=== PATIENT | female | born 1935 | race Caucasian/White ===

== ENCOUNTER → 2018-03-09 10:17 | Outpatient (CLI) | payer BC, SELFPAY ==
[2018-03-09 12:08] LABS: Alanine Aminotransferase 13 IU/L (9-52); Alkaline Phosphatase 112 U/L (38-126); Aspartate Aminotransferase 26 IU/L (14-36); BUN Creatinine Ratio 16.9 (6-22); Bilirubin Total 0.9 mg/dL (0.2-1.3); Blood Urea Nitrogen 22 mg/dL (7-17); Calcium 10.2 mg/dL (8.4-10.2); Carbon Dioxide 31 mmol/L (22-32); Chloride 100 mmol/L (98-107); Cholesterol 198 mg/dL (140-199); Estimated Glomerular Filt Rate 39.2 mL/min (>60); Glucose 107 mg/dL (80-110); HDL Cholesterol 56 mg/dL (40-60); HEMOLYSIS < 15 (0-50); LDL Cholesterol Calculated 111 mg/dL (<100); Potassium 4.4 mmol/L (3.4-5.1); Sodium 142 mmol/L (137-145); Triglycerides 155 mg/dL (35-150)
== END ==
PROVIDERS: PCP Internal Medicine; Visit Provider Internal Medicine
DX: E78.2 Mixed hyperlipidemia (principal)
CPT/HCPCS: 36415; 80053; 80061

== ENCOUNTER 2018-09-08 16:27 | Observation (INO) | payer BC, SELFPAY ==
--- NOTE | 2018-09-08 15:53 | DI.MRI.S_ITS ---
PROCEDURE: MR STROKE Pre- and post-contrast brain MRI, non-contrast brain MR angiogram, pre- and postcontrast neck MR angiogram INDICATIONS: left arm weakness TECHNIQUE: Brain: Noncontrast axial T1 spin echo, axial T2 fast spin echo, sagittal and axial FLAIR, coronal T2 fast spin echo, axial gradient echo, axial diffusion and ADC through the brain. After the administration of contrast, axial 3D VIBE of the cranial vasculature and brain. Brain MRA: Non-contrast 3-D time of flight MR angiogram, with multiple hlynukl-yrfhpxubf-yaawxoctgs (MIP) reformats performed. Neck MRA: Axial and sagittal TruFISP through the neck. Coronal dynamic MR angiogram during administration of contrast in the arterial and venous phases, with 3-dimenstional dkpxnnb-lhvruxvbf-pdsuflkqpl (MIP) reformats constructed from subtraction images. COMPARISON: None. FINDINGS: Image quality: Excellent. BRAIN: CSF spaces: Ventricles are normal in size and shape. Basal cisterns are patent. No extra-axial fluid collections. Brain: No intracranial bleeds or mass effects. Multiple scattered subcortical and periventricular T2/FLAIR hyperintensities are compatible with sequela of chronic small vessel ischemic disease. There is diffuse cortical volume loss with associated sulcal prominence and ex vacuo dilatation of the ventricles. Hui-white matter interface is normal. There is a tiny 3 mm cortical focus of diffusion restriction abnormality compatible with an acute ischemic insult involving the posterior right parietal lobe. This is best seen on image 69, series 26. No associated abnormal enhancement. Diffusion weighted images show no areas of acute ischemic insults. Brainstem appears normal. Normal intravascular flow voids are present. No abnormal intracranial enhancement. Skull and face: Calvarial marrow signal is normal. Orbits appear normal. Sinuses: Sinuses and mastoids are clear. BRAIN MR ANGIOGRAM: Anterior circulation: Intracranial internal carotid arteries are normal in size and enhancement. The flow within the paired anterior cerebral arteries is normal and symmetric. The flow within the middle cerebral arteries is normal and symmetric. A few scattered foci of atherosclerotic plaques with no associated hemodynamically significant stenosis. The anterior communicating artery is seen. No stenoses, occlusions, or aneurysms. Posterior circulation: The visualized portions of the vertebral arteries demonstrate normal caliber, and join to form a normal appearing basilar artery. The flow within the posterior cerebral arteries is normal and symmetric. No stenoses, occlusions, or aneurysms. NECK MR ANGIOGRAM: Carotids: Great vessels demonstrate a conventional anatomy as they arise from the aortic arch. The origins of the common carotid arteries appear patent. The calibers and courses of both common carotid arteries are normal. Scattered atherosclerotic disease without hemodynamically significant stenosis. The bifurcation regions appear normal bilaterally. The internal carotid arteries demonstrate normal course and caliber. Posterior circulation: The origins of the vertebral arteries appear patent. More superior portions of both vertebral arteries demonstrate normal course and caliber, and join to form a normal appearing basilar artery. Miscellaneous: Subclavian arteries appear patent. Pre-contrast images through the neck show no soft tissue abnormalities. No intraluminal filling defects within the dural venous sinuses. IMPRESSION: BRAIN MRI: Tiny focus of acute ischemic insult involving the posterior right parietal lobe. There also findings compatible with age-related senescent changes and sequela of chronic small vessel ischemic disease. BRAIN MR ANGIOGRAM: Mild scattered atherosclerosis without hemodynamically significant stenoses, occlusion, or aneurysm. NECK MR ANGIOGRAM: Mild scattered atherosclerosis without hemodynamically significant stenosis, occlusion, or aneurysm. Findings were relayed to Dr. Roy at 1750 hrs. Dictated by: Vishnu Ruiz M.D. on 09/09/2018 at 17:35 Approved by: Vishnu Ruiz M.D. on 09/09/2018 at 17:52
[2018-09-08 16:41] VITALS: BP 165/57; PULSE 64; RESP 16; TEMP 36.6; O2SAT 97; BMI 46.5
[2018-09-08 16:43] VITALS: BP 165/57; PULSE 64; RESP 16; TEMP 36.6; O2SAT 97; BMI 46.5
--- NOTE | 2018-09-08 16:47 | ED_ITS ---
HPI - General Adult General Chief complaint: Hypertension Stated complaint: HIGH BLOOD PRESSURE NUMBNESS OF LEFT ARM Time Seen by Provider: 09/08/18 16:32 Source: patient Mode of arrival: ambulatory Limitations: no limitations History of Present Illness HPI narrative: About 2 hours prior to arrival, the patient was at home. She developed numbness and tingling to the left face and the left dorsal hand. She denies slurred speech. She denies confusion. She did have slight headache. She is legally blind, but had a brief period of scotoma. She experienced the numbness, but no weakness in the face or upper extremity. She has hypertension. She takes aspirin daily. She has a prior history of CVA and 2015. She has no deficits from the prior stroke. She denies chest pain, palpitations, or history of arrhythmia. She denies recent illness. Related Data Home Medications Medication Instructions Recorded Confirmed aspirin 81 mg tablet,delayed 81 mg PO DAILY 03/20/18 03/20/18 release Previous Rx's Medication Instructions Recorded Disabled Parking Permit ea #1 09/30/16 hydrochlorothiazide 25 mg tablet 50 mg PO QDAY #180 tab 02/15/18 hydrocodone 5 mg-acetaminophen 325 1 tab PO Q6-8H PRN #60 tab 03/20/18 mg tablet metoprolol succinate ER 100 mg 100 mg PO QDAY #90 tab 03/20/18 tablet,extended release 24 hr simvastatin 20 mg tablet 20 mg PO QDAY #90 tab 03/20/18 triamcinolone acetonide 0.1 % 1 applictn TOPICAL TID PRN #80 gram 03/20/18 topical cream Allergies Allergy/AdvReac Type Severity Reaction Status Date / Time Sulfa (Sulfonamide Allergy Unknown Verified 09/08/18 16:41 Antibiotics) [SULFA (SULFONAMIDE ANTIBIOTICS)] amlodipine [AMLODIPINE] AdvReac Intermediate edema legs Verified 09/08/18 16:41 naproxen [NAPROXEN] AdvReac Mild DIZZINESS Verified 09/08/18 16:41 Barbiturates [BARBITURATES] AdvReac Unknown Verified 09/08/18 16:41 ergot alkaloids AdvReac Unknown Verified 09/08/18 16:41 [ERGOT ALKALOIDS] Review of Systems Review of Systems ROS Unobtainable: All systems reviewed & are unremarkable except as noted in HPI and below Constitutional Reports headache(s) Eyes Reports as per HPI and Denies change in vision ENT Ears, Nose, Mouth, and Throat: Denies vertigo, Denies dizziness, Denies facial pain and Reports headache(s) Cardiovascular Denies chest pain, Denies irregular heart rhythm, Denies lightheadedness, Denies palpitations, Denies dyspnea and Denies orthopnea Respiratory Denies cough, Denies dyspnea and Denies wheezing Gastrointestinal Gastrointestinal: Denies abdominal pain, Denies change in bowel habits, Denies diarrhea, Denies nausea and Denies vomiting Musculoskeletal Denies back pain, Denies muscle weakness, Denies numbness and Denies tingling Integumentary/Breasts Denies pruritus, Denies erythema, Denies rash and Denies wounds Neurologic Denies vertigo, Denies dizziness, Reports headache(s), Denies numbness and Denies tingling Endocrine Denies palpitations Allergic/Immunologic Denies wheezing [facility] Medical History Mixed hyperlipidemia (Chronic) History of CVA with residual deficit (Chronic) Essential hypertension (Chronic 04/17/15) Mixed hyperlipidemia (Chronic 04/17/15) Arthralgia (Chronic 04/17/15) Morbid obesity due to excess calories (Chronic 06/29/15) Chronic renal failure, stage 2 (mild) (Chronic 01/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) Surgical History No pertinent past surgical history (Acute) Social History Smoking Status: Never smoker Social History Smoking Status: Never smoker Exam Initial Vital Signs Initial Vital Signs: Vital Signs Temperature 97.8 F 09/08/18 16:41 Pulse Rate 64 09/08/18 16:41 Respiratory Rate 16 09/08/18 16:41 Blood Pressure 165/57 H 09/08/18 16:41 Pulse Oximetry 97 09/08/18 16:41 Const General: cooperative and well developed Nutritional Appearance: well nourished Orientation: alert, awake, oriented x3 and not confused [facility] Head: normocephalic and atraumatic Face and sinus: sinuses nontender and face symmetric Mouth: oral mucosae normal and moist mucous membranes Throat: posterior oropharynx normal, tonsils normal and uvula midline Eyes General: appearance normal, both eyes and all related structures Eyelids: eyelids normal Conjunctivae: conjunctivae normal Sclera: sclerae normal Pupils: PERRL EOM: EOM intact bilaterally Other: The patient is legally blind, but vision is unchanged from her baseline. Neck Neck: supple, No tender and No JVD Carotids: no bruits Chest Chest: normal inspection of the chest Resp Effort & Inspection: normal respiratory effort, able to speak in complete sentences, no respiratory distress and no use of accessory muscles Auscultation: clear to auscultation bilaterally, no rales, no rhonchi and no wheezes Cardio Rate: regular rate Rhythm: regular rhythm Heart Sounds: S1 normal, S2 normal, no click, no gallops, no murmurs and no rubs Pulses: normal peripheral pulses GI Inspection: obesity Palpation: soft, No guarding, No mass and No tender Auscultation: normal bowel sounds Back/Spine/Pelvis Back: normal to inspection, No back tenderness and No CVA tenderness Skin General: no rashes or lesions noted, No jaundice and No petechiae Neuro General: alert, oriented x3, gait normal and no focal motor deficits Speech: speech normal Sensory Exam: no sensory deficits noted Extrem General: full ROM, no clubbing, cyanosis or edema, no calf tenderness and edema Scores NIH Stroke Scale Level of Conciousness: Alert, keenly responsive Ask month/age: Answers both questions correctly. Open/close eyes, close hand: Performs both tasks correctly Best gaze horizontal: Normal Visual villalpando: No visual loss Facial palsy: Normal symetrical movement Left arm drift: No drift for full 10 sec Right arm drift: No drift for full 10 sec Left leg drift: No drift for full 10 sec Right leg drift: No drift for full 10 sec Limb ataxia: Absent Sensory on face/arms/legs: Normal, no sensory loss Best language: No aphasia, normal Dysarthria: Normal Extinction or inattention: No abnormality Total NIH Stroke scale score: 0 Course Course Narrative: The patient had left facial numbness earlier. She has had slight intermittent discomfort since arrival, but is once again normal. She has tremor in both hands, but no focal weakness. She does have a prior history of CVA. She has been given aspirin [address] was obtained. Although the CT reveals atherosclerotic changes, there is no evidence of acute stroke. I have contacted the on-call doctor, Dr. Roy. The patient be admitted. Orders Ordered: ED Orders 09/08/18 16:47 CT head/brain wo con Stat EKG-12 Lead Stat 09/08/18 17:45 Basic Metabolic Panel Stat Complete Blood Count AUTO DIFF Stat Partial Thromboplastin Time Stat Prothrombin Time INR Stat 09/08/18 18:13 XR chest 1V Stat Sodium Chloride (Normal Saline 0.9%) 1,000 mls @ 150 mls/hr IV CONT AMBER Last Admin: 09/08/18 17:34 Dose: 150 mls/hr Discontinued Medications Aspirin (Aspirin Ec) 325 mg PO NOW ONE Stop: 09/08/18 18:04 Vital Signs - 8 hr 09/08/18 16:41 09/08/18 16:43 Temperature 97.8 F 97.8 F Pulse Rate 64 64 Respiratory Rate 16 16 Blood Pressure 165/57 H 165/57 H Pulse Oximetry 97 97 Medical Decision Making Lab Data Result diagrams: 09/08/18 17:45 09/08/18 17:45 Lab Results 09/08/18 09/08/18 09/08/18 Range/Units 17:45 17:45 17:45 WBC 8.5 (4.5-11.0) X10^3/uL RBC 3.75 L (4.0-5.2) X10^6/uL Hgb 12.3 (12.0-16.0) g/dL Hct 36.6 (36-46) % MCV 97.8 (80-100) fL MCH 32.8 (26-34) PG MCHC 33.5 (30-36) % RDW 13.4 (11.6-14.8) % Plt Count 234 (150-400) X10^3/uL Neut % (Auto) 63.4 (50-75) % Lymph % (Auto) 22.5 L (25-40) % [place] % (Auto) 9.6 (3-14) % Eos % (Auto) 3.5 (2-4) % Baso % (Auto) 1.0 (0-2) % Neut # (Auto) 5400 (8728-6168) /uL Lymph # (Auto) 1900 (7919-2486) /uL [place] # (Auto) 800 (0-900) /uL Eos # (Auto) 300 (0-450) /uL Baso # (Auto) 100 (0-100) /uL PT 12.4 (10.1-12.7) SECONDS INR 1.1 (0.9-1.3) APTT 29 (26.4-36.2) SECONDS Sodium 137 (137-145) mmol/L Potassium 4.9 (3.4-5.1) mmol/L Chloride 98 (98-107) mmol/L Carbon Dioxide 33 H (22-32) mmol/L BUN 27 H (7-17) mg/dL Creatinine 1.30 H (0.52-1.04) mg/dL Estimated GFR 39.1 L (>60) mL/min BUN/Creatinine Ratio 20.8 (6-22) Glucose 108 (80-110) mg/dL Calcium 10.0 (8.4-10.2) mg/dL Point of Care Testing Glucose POC 102 Point of care testing: Point of Care Testing Glucose POC [address] scan - head: Radiologist's impression: [address] [address] [address] Scan Report Signed Patient: Nanci Jones [facility]#: [id number] : 5Acct:[id number] Age/Sex: 83 / FDate of Service: 09/08/18 Loc: ED Accession Number: [id number] Procedure: CT head/brain wo con Ordering Provider: Adam Real M.D. PROCEDURE: CT HEAD/BRAIN WO CON INDICATIONS: left arm numbness TECHNIQUE: Noncontrast 4.5 mm thick angled axial sections acquired from the foramen magnum to the vertex, with coronal and sagittal reformats. For radiation dose reduction, the following was used: automated exposure control, adjustment of mA and/or kV according to patient size. COMPARISON: [facility], CT, HEAD WITHOUT CONTRAST, 01/14/2017, 15:22. FINDINGS: Image quality: Excellent. CSF spaces: Basal cisterns are patent. No extra-axial fluid collections. The ventricles are symmetric in size and shape. Brain: No intracranial bleeds or masses. There is cerebral volume loss for ag e, with resultant ventricular and sulcal prominence. There are periventricular and deep white matter chronic small vessel ischemic changes. There is intracranial internal carotid artery atherosclerosis. Skull and face: Calvarium and visualized facial bones appear intact, without suspicious lesions. Sinuses: Visualized sinuses and mastoids are clear. IMPRESSION: 1. No acute intracranial findings. 2. Mild findings likely associated with chronic microvascular ischemic changes. Dictated by: Alta Lo M.D. on 09/08/2018 at 17:12 Approved by: Alta Lo M.D. on 09/08/2018 at 17:14 Chest x-ray: My impression: No acute findings. Discharge Plan Departure Patient Disposition: Admitted as Observation Clinical Impression: Brain TIA Referrals: Pramod Garber MD [Primary Care Provider] -
[2018-09-08 17:20] VITALS: BP 143/77; PULSE 56; RESP 14
[2018-09-08] MEDS: SODIUM CHLORIDE 0.9% 1,000 ML 150 ML IV ×2 (17:34→19:25)
[2018-09-08 17:56] LABS: Add Manual Diff / Slide Review NO; Basophils Absolute Auto 100 /uL (0-100); Eosinophils Absolute Auto 300 /uL (0-450); Eosinophils Percent Auto 3.5 % (2-4); Hematocrit 36.6 % (36-46); Hemoglobin 12.3 g/dL (12.0-16.0); Lymphocytes Absolute Auto 1900 /uL (1100-4500); Lymphocytes Percent Auto 22.5 % (25-40); Mean Corpuscular HGB Conc 33.5 % (30-36); Mean Corpuscular Hemoglobin 32.8 PG (26-34); Mean Corpuscular Volume 97.8 fL (80-100); Monocytes Absolute Auto 800 /uL (0-900); Monocytes Percent Auto 9.6 % (3-14); Neutrophils Absolute Auto 5400 /uL (1500-7000); Neutrophils Percent Auto 63.4 % (50-75); Platelet Count 234 X10^3/uL (150-400); Red Blood Cell Count 3.75 X10^6/uL (4.0-5.2); Red Cell Distribution Width 13.4 % (11.6-14.8); White Blood Cell Count 8.5 X10^3/uL (4.5-11.0)
[2018-09-08 18:00] VITALS: BP 182/60; PULSE 56; RESP 9; O2SAT 95
[2018-09-08 18:05] LABS: INR 1.1 (0.9-1.3); Prothrombin Time 12.4 SECONDS (10.1-12.7)
[2018-09-08 18:08] LABS: PTT Partial Thromboplastin Tim 29 SECONDS (26.4-36.2)
[2018-09-08 18:09] LABS: BUN Creatinine Ratio 20.8 (6-22); Blood Urea Nitrogen 27 mg/dL (7-17); Carbon Dioxide 33 mmol/L (22-32); Chloride 98 mmol/L (98-107); Estimated Glomerular Filt Rate 39.1 mL/min (>60); Glucose 108 mg/dL (80-110); HEMOLYSIS < 15 (0-50); Potassium 4.9 mmol/L (3.4-5.1); Sodium 137 mmol/L (137-145)
--- NOTE | 2018-09-08 18:13 | DI.RAD.S_ITS ---
PROCEDURE: XR CHEST 1V INDICATIONS: TIA TECHNIQUE: One view of the chest was acquired. COMPARISON: [facility], , CHEST 1 VIEW, 01/14/2017, 15:14. FINDINGS: This is a markedly limited study due to patient body habitus. Surgical changes and devices: None. Lungs and pleura: There is diffuse interstitial prominence. Mediastinum: Mediastinal contours appear normal. Heart size is enlarged. There is pulmonary vascular engorgement. Bones and chest wall: No suspicious bony lesions. Overlying soft tissues appear unremarkable. IMPRESSION: Cardiomegaly, interstitial prominence, and pulmonary vascular engorgement suggesting fluid overload. Dictated by: Alta Lo M.D. on 09/08/2018 at 18:37 Approved by: Alta Lo M.D. on 09/08/2018 at 18:38
--- NOTE | 2018-09-08 18:49 | PC.NURSE ---
Tele # 6 confirmed w/ ICU.
[2018-09-08 19:05] VITALS: BP 180/55; PULSE 62; RESP 18; TEMP 36.5; O2SAT 94
--- NOTE | 2018-09-08 19:46 | DI.ECHO.S_ITS ---
[facility]---------+ [facility] +---------+ : : [address] : : : : [place] : : : : [id number] : : : : Phone: [phone] Echocardiogram Report + + :Name: ANGELA MCKINNEY Study Date: 09/09/2018 Height: 60 in : :Hospital Exam Location: [facility] Weight: 238 lb : : Gender: Female BSA: 2.0 m2 : :: 1935 Age: 83 yrs BP: 147/75 mmHg: :Reason For Study: TIA : :Ordering Physician: Joan : :Hospitalist Performed By: Valeria Lemons : :Referring: SHARLA ALLEN : + + Interpretation Summary There is mild concentric left ventricular hypertrophy. Left ventricular systolic function is normal without focal wall motion abnormalities. The ejection fraction is estimated to be 55-60%. Diastolic parameters suggest a relaxation abnormality of the left ventricle, consistent with probable normal filling pressures. The right ventricle is normal in size and function. The right ventricular systolic pressure is estimated to be at least 54 mmHg based on an estimated right atrial pressure of 15 mm Hg. The left atrium is mildly dilated. Right atrial size is normal. There is mild mitral regurgitation. There is no other significant valvular heart disease. The ascending aorta could not be visualized. Mild atherosclerotic plaque(s) in the aortic arch. The IVC is dilated (diameter is greater than 2.1 cm) and it collapses less than 50% with a sniff. This suggests a high right atrial pressure of 15 mm Hg. No obvious echocardiographic source for TIA. Procedure: A two-dimensional transthoracic echocardiogram with color flow and Doppler was performed. The study quality was technically adequate. Comparison is made with the echocardiogram of 06/24/2015. The patient had a difficult time tolerating the exam. The patient was imaged in a supine position. The patient was in normal sinus rhythm during the exam. Left Ventricle: The left ventricle is normal in size. There is mild concentric left ventricular hypertrophy. Left ventricular systolic function is normal without focal wall motion abnormalities. The ejection fraction is estimated to be 55-60%. Diastolic parameters suggest a relaxation abnormality of the left ventricle, consistent with probable normal filling pressures. Right Ventricle: The right ventricle is normal in size and function. Atria: The left atrium is mildly dilated. Right atrial size is normal. Mitral Valve: The mitral valve is normal in structure and function. There is mild mitral regurgitation. Aortic Valve: The aortic valve is trileaflet. The aortic valve opens well. There is trace aortic regurgitation. Tricuspid Valve: The tricuspid valve is normal in structure and function. There is mild tricuspid regurgitation. The right ventricular systolic pressure is estimated to be at least 54 mmHg based on an estimated right atrial pressure of 15 mm Hg. Pulmonic Valve: The pulmonic valve is not well visualized. There is no other significant valvular heart disease. Great Vessels: The ascending aorta could not be visualized. Mild atherosclerotic plaque(s) in the aortic arch. The IVC is dilated (diameter is greater than 2.1 cm) and it collapses less than 50% with a sniff. This suggests a high right atrial pressure of 15 mm Hg. Pericardium/ Pleura There is no pericardial effusion. There is an anterior echo-free space consistent with a fat pad. There is no pleural effusion. MMode/2D Measurements & Calculations LVIDd: 3.7 cm LVOT diam: 2.2 cm LVIDs: 2.4 cm Ao Arch Diam (Prox Trans): 2.3 cm FS: 36.8 % IVSd: 1.2 cm LVPWd: 1.3 cm LV velasco. diameter/BSA (cm/m^2): 1.9 LV sys. diameter/BSA (cm/m^2): 1.2 LA A2 area: 20.5 cm2 RA long axis: 4.6 cm LA A4 area: 23.1 cm2 RA area: 16.1 cm2 LA length (vol): 4.9 cm RA vol: 48.1 ml LA vol: 82.0 ml RA : 23.9 ml/m2 LA vol index: 40.8 ml/m2 IVC diam: 2.6 cm TAPSE: 1.7 cm Doppler Measurements & Calculations Ao V2 max: 134.6 cm/sec LVOT Max Byron: 71.0 cm/sec Ao V2 mean: 99.8 cm/sec LV V1 max P.0 mmHg Ao max P.2 mmHg LV V1 VTI: 16.4 cm Ao mean P.2 mmHg JACOB(I,D): 1.9 cm2 Ao V2 VTI: 31.5 cm JACOB(V,D): 2.0 cm2 sev ratio: 0.52 JACOB indexed to BSA (cm^2/m^2): 0.97 MV E max byron: 62.6 cm/sec TR max byron: 313.0 cm/sec MV A max byron: 76.3 cm/sec TR max P.2 mmHg MV E/A: 0.82 Med Peak E' Byron: 4.6 cm/sec E/E' med: 13.5 Lat Peak E' Byron: 7.4 cm/sec E/E' lat: 8.5 E/e' average: 11.0 MV dec time: 0.16 sec SV(LVOT): 61.4 ml Reading Physician:02:19 PM
[2018-09-08 20:00] VITALS: BMI 46.5
[2018-09-08 21:15] LABS: RBC Urine None Seen (0-5/HPF)
[2018-09-08 21:18] VITALS: BP 146/62
[2018-09-08] MEDS: HYDROCODONE/ACET 5/325 TABLET 1 TAB PO (21:19)
[2018-09-08 21:21] LABS: Appearance Urine UA CLEAR; Bilirubin Urine UA NEGATIVE (NEGATIVE); Color Urine UA YELLOW; Glucose Urine UA NEGATIVE (Negative); Ketones Urine UA NEGATIVE (NEGATIVE); Leukocyte Esterase Urine UA TRACE (NEGATIVE); Nitrite Urine UA NEGATIVE (Negative); Occult Blood Urine UA TRACE-INTACT (Negative); Protein Urine UA NEGATIVE (Negative); Urobilinogen Urine UA 0.2 E.U./dL (0.2)
[2018-09-08 21:35] LABS: Bacteria Urine Many (>30); Culture Indicated Urine Specimen Cultured; Squamous Epithelial Cell Urine 1-5 /HPF; WBC Urine 1-5/HPF (0-5/HPF)
--- NOTE | 2018-09-08 22:28 | PC.NURSE ---
Pt A&OX3. 94%RA while awake. desats to 86% while sleeping, placed 2L NC, 95%. On and off numbness to her tongue and fingers on L.hand. Pt reports taking aspirin 325 at home this morning. She also took 50 mg HCTZ in the morning and addition 25mg around 1500. Pt c/o head ache 12/17, administered 1 tab norco. 1pa-FWW to the BR. will continue to monitor. call light in reach. bed alarm active.
[2018-09-09] VITALS (14 sets, daily range): BP systolic 134–170; BP diastolic 55–75; PULSE 53–65; RESP 16–22; TEMP 36.3–36.7; O2SAT 91–100
[2018-09-09] MEDS: ACETAMINOPHEN 325 MG TABLET 650 MG PO ×2 (02:30→23:49)
--- NOTE | 2018-09-09 05:05 | PC.NURSE ---
2300- Pt admitted for TIA w/ numbness & tingling felt on left arm & face. Denies each feeling at this time; NIH complete= 1. NO facial droop present. VSS; 2L NC applied as pt desats when she sleeps. Cont SpO2 in place as well. PO [place] given on previous shift, see MAR for details. Pt still c/o SULTANA still but wants to wait to see if goes away. 229- Neuro status assessed & intact. No changes at this time. PO tylenol given for SULTANA. 629- Neuro status unchanged. Moving to bathroom SBA w/ walker.
--- NOTE | 2018-09-09 08:55 | PT.IIE ---
Surgical History (Last Updated 09/08/18 @ 20:36 by Adriana Bradley RN) History of appendectomy (Acute) History of total left knee replacement (Acute) No pertinent past surgical history (Acute) Medical History (Last Updated 09/08/18 @ 20:36 by Adriana Bradley RN) Mixed hyperlipidemia (Chronic) History of CVA with residual deficit (Chronic) Essential hypertension (Chronic 04/17/15) Mixed hyperlipidemia (Chronic 04/17/15) Arthralgia (Chronic 04/17/15) Morbid obesity due to excess calories (Chronic 06/29/15) Chronic renal failure, stage 2 (mild) (Chronic 01/31/17) Acute intermittent porphyria (Acute) Arthritis (Acute) Physical Therapy Inpatient Evaluation/Re-Eval M1 PT/OT-IP Prior Functional Status Start: 09/09/18 10:01 Freq: NEEDED Status: Active Protocol: Document 09/09/18 08:55 [facility] (Rec: 09/09/18 10:17 [facility] [id number]) Medical Review Prior Functional Status Medical History Reviewed Yes Mobility and Gait mod indep gait with SPC occasionally, but admits to more furniture surfing in home, uses carts when shopping and has daughter with her outdoors d/t visual issues Activities of Daily Living and IADL's mod indep ADLs, including bathing Social History Household Members children Living Arrangements House Number of Floors (Floors) One Floor Number of Stairs To Enter/Railing? 12 SE B rails Home Environment Standard Height Toilet Tub/Shower Home Equipment Four Wheel Walker Straight Cane Grab Bars In Shower Additional Social History Comment Pt with onget numbness and tingling in L dorsum of hand and L face. CT negative for acute findings. Chest radiograph suggested possible fluid overload. Pt has macular degeneration, is legally blind. She admits to symptoms of L hand weakness and numbness coming and going throughout the day. M2 PT-IP Current Condition Start: 09/09/18 10:01 Freq: NEEDED Status: Active Protocol: Document 09/09/18 08:55 [facility] (Rec: 09/09/18 10:17 [facility] [id number]) Physical Therapy Current Condition Current Condition Evaluation Date 09/09/18 Treatment Diagnosis HTN, L hand and face numbness, impaired activity tolerance and weakness M3 PT-IP Subjective Start: 09/09/18 10:01 Freq: NEEDED Status: Active Protocol: Document 09/09/18 08:55 [facility] (Rec: 09/09/18 10:17 [facility] [id number]) Subjective Physical Therapy Visit Type Type Initial Evaluation Visit Start Time 08:55 Visit Stop Time 09:27 Total Visit Minutes 32 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 Patient Goals to return back to PLOF Therapy Pain Assessment Pain Present Pain Present Denied Pain M4 PT-IP Mobility and Gait Start: 09/09/18 10:01 Freq: NEEDED Status: Active Protocol: Document 09/09/18 08:55 [facility] (Rec: 09/09/18 10:17 [facility] [id number]) PT-Transfer Assessment Sit to and From Stand Sit to and from Stand Standby Assistance Equipment Transfer Assistive Device Gait Belt Front Wheeled Walker Transfers Transfer Destination Chair Transfer Technique Stand Step Pivot Transfer Ability Level of Assist Standby Assistance Gait Assessment Gait Gait Assistance Required: Standby Assistance Distance (Feet) 100 Assistive Devices Assistive Device Gait Belt Front Wheeled Walker Gait Deviations General Gait Pattern Decreased Stride Length Decreased Feet Clearance Flexed Trunk Factors Limiting Gait Function Factors Limiting Gait Function Decreased Activity Tolerance Decreased Strength Incoordination Poor Balance Comments Gait Comments tele monitor noted LA up in the 170s, unsure if artifact or not. LA checked immediately after spike on tele screen, showed LA at 68 on wall pulse oximeter. PT-Balance Assessment Sitting Balance and Reactions Static Sitting Balance Ability Good Dynamic Sitting Balance Ability Good Standing Balance and Reactions Static Standing Balance Ability Fair Dynamic Standing Balance Ability Poor Device Used FWW Balance Tests Single Limb Standing unable without UEs M5 PT-IP Objective Assessments Start: 09/09/18 10:01 Freq: NEEDED Status: Active Protocol: Document 09/09/18 08:55 [facility] (Rec: 09/09/18 10:17 [facility] [id number]) Orientation Orientation/Cognition Level of Alertness Alert Gross Range of Motion Upper Extremity ROM Assessment Left Impaired Lower Extremity ROM Assessment Within Functional Limits Strength Upper Extremity Strength Assessment Left Impaired Shoulder 4/5 B flexion and abduction, ER Elbow extension 3+/5 L and 4/5 R Wrist 4/5 B flex/extension Hand see below Lower Extremity Strength Assessment Bilaterally Impaired Hip flexion 3+/5 B Knee flexion 3+/5 B Ankle DF 5/5 R and 4/5 L Comments Strength Comments finger abduction initially 2+/ 5, then 3/5 thumb extension, abduction initially 2/5 then 3/5 *pt initially had weakness in finger abduction and thumb abd and extension, but noted that her numbness went away during screening, retested and noted increased strength ( able to lift vs gravity). Coordination Assessment Assessment Finger to Nose Test Moderate Impairment Pronation/Supination Test Moderate Impairment Foot Tapping Test Minimal Impairment Heel on Falcon Test Minimal Impairment Coordination Comments LE impaired bilaterally UE impaired L side only Sensation Assessment Sensation Gross Sensation Left UE Impaired Comments Sensation Comments LUE impaired in hand, thumb M6 PT-IP Treatment Start: 09/09/18 10:01 Freq: NEEDED Status: Active Protocol: Document 09/09/18 08:55 [facility] (Rec: 09/09/18 10:17 [facility] [id number]) Physical Therapy Treatment Education Education Provided Safety M7 PT-IP Assessment and Plan Start: 09/09/18 10:01 Freq: NEEDED Status: Active Protocol: Document 09/09/18 08:55 [facility] (Rec: 09/09/18 10:17 [facility] [id number]) PT Summary Assessment and Plan Potential Rehabilitation Potential Good Status of Condition at Evaluation Evolving Summary Impairments Strength Balance Coordination Sensation Bed Mobility Transfers Gait Activity Tolerance Assessment Summary Upon initial examination, pt initially had 2 to 2+/5 strength in L thumb and fingers with MMT, but noted that her numbness went away after initial tested, was then re-tested and found to hav 3/ 5 strength grading with MMT. Pt with impaired coordination of the LUE, but also min limitations in bilateral LEs, but contributing limited LE ROM and weakness as well. Pt's LA increased per telemetry screen with ambulation, but possibly artifact (spoke with RN, will contact ICU), but LA WNL when checked immediately on pulse oximeter. Pt is deconditioned, and would benefit from using her 4WW at home for safety and stability, as well as with outdoor ambulation with daughter's assistance (pt legally blind). Pt will need to be able to manage stairs safely prior to d/c, therefore will require further ongoing physical therapy during this episode of care. If L hand symptoms do not resolve fully, she may benefit from outpatient OT treatment to improve strength and hand function on the L side. Pt is R hand dominant. Goals Bed Mobility Goal Independent Transfer Goal Independent Gait Goal Standby Assistance Four Wheel Walker Gait Distance 200 Other Goals up/down 12 steps B rails and CGA ST ft ambulation, SBA and 4WW in 1 day up/down 6 steps with B rails and CGA in 1 day Days to Meet Goals 3 Frequency of Treatment Frequency Of Treatment Twice a Day Treatment Plan Physical Therapy Treatment Plan Bed Mobility Training Transfer Training Gait Training Therapeutic Exercise Balance Retraining Discharge Planning Neuromuscular Re-ed Coordination Retraining Manual Therapy Other Recommendations and Next Treatment 4WW trial for safety of use Focus upon d/c, stair training when able Recommendations To Nursing Amount of Assist Needed 1 Person Assist Discharge Recommendations PT Discharge Recommendations Home with Assistance Other Discharge Recommendations OP OT for hand function, strengthening
--- NOTE | 2018-09-09 09:05 | CM.DANOTE ---
DCP: Case received, EMR reviewed and met with patient. Introduced self and role. DCP template completed with information currently available. Patient is an 83 year old female who admitted yesterday afternoon to the care of the hospitalist team. PCP: Dr. Garber. Payer: confirmed: Medicare A/[employer]. Patient came to hospital via family vehicle due to hypertension and numbness and tingling to face and left hand. Patient has history of CVA, and is also legally blind. She is here under observation at this time. Met briefly with patient, alert and oriented. Lives here in [place]. She resides with her daughter, Shira, who helps her at home. She does not use a walker, but stated that she holds on to furniture to get around. She stated that she can take her own showers, and her daughter helps with meals. P: DCP to follow closely. Will see how she progresses here in hospital. May need physical therapy before she is discharged home to see how she does. Dinora Harrington RN/Gut Carrier
--- NOTE | 2018-09-09 09:47 | PM.HP.1 ---
History of Present Illness Date Patient Seen: 09/09/18 Time Patient Seen: 08:25 Chief complaint: HIGH BLOOD PRESSURE NUMBNESS OF LEFT ARM Narrative: Pt is a 83yo woman with hypertension, hyperlipidemia, CKD stage 2, morbid obesity, and hx of CVA who presented with left sided tingling sensation in her hands. Patient reports that yesterday afternoon around 2:00 p.m. she developed slight tingling sensation in her left hand. Along with this, her tongue felt slightly numb and her face felt numb under her chin. Patient states that this lasted for a few minutes. She also felt ?tense? and jittery, like a ?feeling that my blood pressure was high.? The patient did check her blood pressure and found that it was 220/118. She took an extra tablet of her home hydrochlorothiazide. Her blood pressure then improved significantly over the next 1-2 hours. The patient states that since that time, her left hand has continued to have a tingling sensation on and off. Her daughter came over to visit, and when she told her about her symptoms insisted that she be evaluated in the emergency room. The pt does state that if she has her hands in her pockets, they will sometimes develop the same tingling sensation that then goes away when she removes them from her pockets. In the emergency room, the patient states that she had a few minutes where she had a difficult time finding words. She continued to have intermittent tingling in her left hand, and this has continued through the night. Most recently this morning, the patient had some tingling in her left thumb. She states that overall her left hand feels slightly weaker than her right hand. She denies any other focal weakness or neurological symptoms currently. She does have a history of left-sided CVA, but states that she had fully recovered from this. The patient denies any recent chest pain, shortness of breath, acutely worsening lower extremity edema, abdominal pain. Prior to yesterday, she had been feeling in her normal health. She lives at home independently. In the emergency room, blood work was completed that was unremarkable and showed her kidney function to be stable. Head CT and chest x-ray were both completed that showed no acute findings. The patient was admitted for possible TIA, and concerns that she continued to have intermittent symptoms. Patient History Medical History Mixed hyperlipidemia (Chronic) History of CVA with residual deficit (Chronic) Essential hypertension (Chronic 10/09/15) Mixed hyperlipidemia (Chronic 04/17/15) Arthralgia (Chronic 04/17/15) Morbid obesity due to excess calories (Chronic 06/29/15) Chronic renal failure, stage 2 (mild) (Chronic 01/31/17) Acute intermittent porphyria (Acute) Arthritis (Acute) Surgical History History of appendectomy (Acute) History of total left knee replacement (Acute) No pertinent past surgical history (Acute) Social History household members: children Smoking Status: Former smoker alcohol intake: never Family & Social History Social History: household members children Prior Living Arrangements House Safety & Behavioral: Feels Safe in Current Yes Environment Been Physically Hurt or No Threatened By a Person Suicidal Ideation Description None Suicide Plan Description No Plan Tobacco & Substance use: Tobacco type cigarettes Smoking Status Former smoker alcohol intake never Substance Use Type does not use Meds Home Medications Medication Instructions Recorded Confirmed Type hydrochlorothiazide 25 mg tablet 50 mg PO QDAY #180 tab 02/15/18 09/08/18 Rx hydrocodone 5 mg-acetaminophen 325 1 tab PO Q6-8H PRN #60 tab 03/20/18 09/08/18 Rx mg tablet metoprolol succinate ER 100 mg 100 mg PO QDAY #90 tab 03/20/18 09/08/18 Rx tablet,extended release 24 hr simvastatin 20 mg tablet 20 mg PO QDAY #90 tab 03/20/18 09/08/18 Rx triamcinolone acetonide 0.1 % 1 applictn TOPICAL TID PRN #80 gram 03/20/18 09/08/18 Rx topical cream aspirin [Mike Aspirin] 1 tab PO DAILY 09/08/18 09/08/18 History Disabled Parking Permit See Protocol MISCELLANEOUS 09/09/18 09/09/18 History DIRECTED Allergies Allergy/AdvReac Type Severity Reaction Status Date / Time Sulfa (Sulfonamide Allergy Unknown Verified 09/08/18 16:41 Antibiotics) [SULFA (SULFONAMIDE ANTIBIOTICS)] amlodipine [AMLODIPINE] AdvReac Intermediate edema legs Verified 09/08/18 16:41 naproxen [NAPROXEN] AdvReac Mild DIZZINESS Verified 09/08/18 16:41 Barbiturates [BARBITURATES] AdvReac Unknown Verified 09/08/18 16:41 ergot alkaloids AdvReac Unknown Verified 09/08/18 16:41 [ERGOT ALKALOIDS] Review of Systems Constitutional Constitutional: Denies fatigue, Denies fever(s), Denies frequent falls, Denies headache(s) and Denies weakness Eyes Eyes: Denies blurry vision, Denies itchy eyes, Denies loss of vision and Denies eye pain ENT Ears, Nose, Mouth, and Throat: No dizziness and No headache(s) Cardiovascular Cardiovascular: Denies chest pain, Denies fainting, Denies fast heart rate, Reports leg swelling, Denies rapid, pounding, or irregular heartbeat and Denies shortness of breath with activity Respiratory Respiratory: Denies cough, Denies dyspnea on exertion and Denies wheezing Gastrointestinal Gastrointestinal: Denies abdominal pain, Denies nausea and Denies vomiting Musculoskeletal Musculoskeletal: Denies abnormal gait and Reports numbness Neurologic Neurologic: Denies abnormal gait, Denies confusion, Denies dizziness, Denies syncope, Denies frequent falls, Denies headache(s), Denies lack of coordination, Denies loss of vision, Reports numbness, Denies seizure-like activity, Denies tremor(s) and Denies weakness Psychiatric Psychiatric: Denies confusion Endocrine Endocrine: Denies fatigue and Denies palpitations Allergic/Immunologic Allergic/Immunologic: Denies itchy eyes and Denies wheezing Exam Vital Signs (past 8 hours): - 09/09/18 04:00 09/09/18 04:54 09/09/18 07:36 Temperature 97.4 F L 98.1 F Pulse Rate 53 L 65 Respiratory Rate 16 18 Blood Pressure 135/68 143/68 H Pulse Oximetry 99 98 99 09/09/18 09:00 Temperature 97.6 F Pulse Rate 60 Respiratory Rate 20 Blood Pressure 147/75 H Pulse Oximetry 91 Oxygen Delivery Method Nasal Cannula Oxygen Flow Rate 2 Narrative Exam Narrative: GEN - alert, cooperative and no distress, sitting comfortably in chair eating breakfast, appears well HEENT - normocephalic and atraumatic, sclera white, moist mucus membranes NECK - FROM, no adenopathy HEART - RRR, S1, S2 normal, no S3 or S4, no murmurs LUNGS - symmetric chest rise, no accessory muscles, clear to auscultation bilaterally ABD - obese, nondistended, normal bowel sounds, soft, nontender EXT - 2+ pitting edema bilaterally that pt states is chronic SKIN - no rashes or suspicious lesions NEURO - alert and and oriented to person, place and situation, Muscle strength is 5/5 UE and LE flexors/extensors and 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 compared to right, Sensation to light touch present bilaterally UE and LE, Coordination shows finger to nose normal bilaterally Objective Labs Result Diagrams: 09/08/18 17:45 09/08/18 17:45 Labs: Laboratory Results - last 24 hr 09/08/18 09/08/18 09/08/18 17:45 17:45 17:45 WBC 8.5 RBC 3.75 L Hgb 12.3 Hct 36.6 MCV 97.8 MCH 32.8 MCHC 33.5 RDW 13.4 Plt Count 234 Neut % (Auto) 63.4 Lymph % (Auto) 22.5 L [place] % (Auto) 9.6 Eos % (Auto) 3.5 Baso % (Auto) 1.0 Neut # (Auto) 5400 Lymph # (Auto) 1900 [place] # (Auto) 800 Eos # (Auto) 300 Baso # (Auto) 100 PT 12.4 INR 1.1 APTT 29 Sodium 137 Potassium 4.9 Chloride 98 Carbon Dioxide 33 H BUN 27 H Creatinine 1.30 H Estimated GFR 39.1 L BUN/Creatinine Ratio 20.8 Glucose 108 Calcium 10.0 Urine Color Urine Appearance Urine pH Ur Specific [place] Urine Protein Urine Glucose (UA) Urine Ketones Urine Occult Blood Urine Nitrate Urine Bilirubin Urine Urobilinogen Ur Leukocyte Esterase Urine RBC Urine WBC Ur Squamous Epith Cells Urine Bacteria Ur Culture Indicated? 09/08/18 19:35 WBC RBC Hgb Hct MCV MCH MCHC RDW Plt Count Neut % (Auto) Lymph % (Auto) [place] % (Auto) Eos % (Auto) Baso % (Auto) Neut # (Auto) Lymph # (Auto) [place] # (Auto) Eos # (Auto) Baso # (Auto) PT INR APTT Sodium Potassium Chloride Carbon Dioxide BUN Creatinine Estimated GFR BUN/Creatinine Ratio Glucose Calcium Urine Color Yellow Urine Appearance Clear Urine pH 7.0 Ur Specific [place] 1.010 Urine Protein Negative Urine Glucose (UA) Negative Urine Ketones Negative Urine Occult Blood Trace-intact Urine Nitrate Negative Urine Bilirubin Negative Urine Urobilinogen 0.2 Ur Leukocyte Esterase Trace H Urine RBC None seen Urine WBC 1-5/hpf Ur Squamous Epith Cells 1-5 /hpf Urine Bacteria Many (>30) H Ur Culture Indicated? Specimen cultured Assessment & Plan Assessment & Plan narrative: Pt is a 83yo woman with hypertension, hyperlipidemia, CKD stage 2, morbid obesity, and hx of CVA who presented with left sided tingling sensation in her hands. Concerning for TIA, especially in light of hx of CVA. Pt still with slight recurrent symptoms, warranting additional work-up. 1) Possible TIA: Negative head CT in the ER - Echocardiogram, MRI stroke protocol, carotid dopplers today - Transition from Simvastatin to Atorvastatin - Continue home Aspirin 2) Hypertension: BP initially quite elevated, now stabilized - Continue home Metoprolol, HCTZ 3) CKD: Creatinine stable at admission 4) Morbid obesity: Pt with desaturations overnight, requiring 2L NC. Question sleep apnea. - Would likely benefit from sleep study as an outpatient DVT ppx: Lovenox Diet: Cardiac diet Dispo: Pending completion of above studies. Admitted under observation. Possible d/c later today.
[2018-09-09] MEDS: ASPIRIN EC 81 MG TABLET PO (09:52)
[2018-09-09] MEDS: hydroCHLOROthiazide 25 MG TABLET 50 MG PO (09:52)
[2018-09-09] MEDS: ENOXAPARIN 30 MG/0.3 ML SYRINGE SUBCUT (09:52)
[2018-09-09] MEDS: METOPROLOL ER 50 MG TABLET 100 MG PO (09:53)
[2018-09-09] MEDS: SIMVASTATIN 20 MG TABLET PO (09:53)
--- NOTE | 2018-09-09 11:19 | PC.NURSE ---
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
--- NOTE | 2018-09-09 13:45 | PT.IPTN ---
Physical Therapy Treatment Note M2 PT-IP Current Condition Start: 09/09/18 10:01 Freq: NEEDED Status: Active Protocol: Document 09/09/18 08:55 [facility] (Rec: 09/09/18 10:17 [facility] [id number]) Physical Therapy Current Condition Current Condition Evaluation Date 09/09/18 Treatment Diagnosis HTN, L hand and face numbness, impaired activity tolerance and weakness M3 PT-IP Subjective Start: 09/09/18 10:01 Freq: NEEDED Status: Active Protocol: Document 09/09/18 13:45 [facility] (Rec: 09/09/18 13:55 [facility] [id number]) Subjective Physical Therapy Visit Type Type Treatment Note Visit Start Time 13:25 Visit Stop Time 13:45 Total Visit Minutes 20 Number of CAFETERIA AIDE Visits 0 Physical Therapy Visit Comments Patient Comments pt states that she is still getting numbness in L face and hand that comes and goes. M4 PT-IP Mobility and Gait Start: 09/09/18 10:01 Freq: NEEDED Status: Active Protocol: Document 09/09/18 13:45 [facility] (Rec: 09/09/18 13:55 [facility] [id number]) PT-Transfer Assessment Sit to and From Stand Sit to and from Stand Standby Assistance Equipment Transfer Assistive Device Gait Belt Front Wheeled Walker 4 Wheeled Walker Transfers Transfer Destination Chair Transfer Technique Stand Step Pivot Transfer Ability Level of Assist Standby Assistance Gait Assessment Gait Gait Assistance Required: Standby Assistance Distance (Feet) 120 Assistive Devices Assistive Device Gait Belt Front Wheeled Walker 4 Wheeled Walker Gait Deviations General Gait Pattern Decreased Stride Length Decreased Feet Clearance Flexed Trunk Factors Limiting Gait Function Factors Limiting Gait Function Decreased Activity Tolerance Decreased Sensation Decreased Strength Incoordination Poor Balance Comments Gait Comments Pt used FWW for initial 60 ft then 4WW for the next 60 ft. She notes she preferred the FWW vs the 4WW with gait. No loss of balance with either AD . M5 PT-IP Objective Assessments Start: 09/09/18 10:01 Freq: NEEDED Status: Active Protocol: Document 09/09/18 13:45 [facility] (Rec: 09/09/18 13:55 [facility] [id number]) Coordination Assessment Assessment Finger to Nose Test Moderate Impairment Pronation/Supination Test Moderate Impairment Foot Tapping Test Minimal Impairment Heel on Falcon Test Minimal Impairment Coordination Comments LE impaired bilaterally UE impaired L side only M6 PT-IP Treatment Start: 09/09/18 10:01 Freq: NEEDED Status: Active Protocol: Document 09/09/18 08:55 [facility] (Rec: 09/09/18 10:17 [facility] [id number]) Physical Therapy Treatment Education Education Provided Safety M7 PT-IP Assessment and Plan Start: 09/09/18 10:01 Freq: NEEDED Status: Active Protocol: Document 09/09/18 13:45 [facility] (Rec: 09/09/18 13:55 [facility] [id number]) PT Summary Assessment and Plan Summary Assessment Summary Pt able to safely use 4WW although she prefers the FWW when comparing the two. Pt has MRI scheduled today, but notices a ring on the L 4th digit, which she notes is difficult to take off. Alerted nursing about ring, and will try to get it off before MRI. Pt reported being tired this session, not ready to attempt stair training at this time. Recommend stair training tomorrow, as well as progression of gait. Goals Bed Mobility Goal Independent Transfer Goal Independent Gait Goal Standby Assistance Four Wheel Walker Gait Distance 200 Other Goals up/down 12 steps B rails and CGA ST ft ambulation, SBA and 4WW in 1 day up/down 6 steps with B rails and CGA in 1 day Days to Meet Goals 3 Frequency of Treatment Frequency Of Treatment Twice a Day Treatment Plan Other Recommendations and Next Treatment gait as tolerated with FWW, Focus stairs (12 SE B rails) prior to d/c. Recommendations To Nursing Amount of Assist Needed 1 Person Assist Discharge Recommendations PT Discharge Recommendations Home with Assistance Other Discharge Recommendations OP OT for hand function, strengthening
--- NOTE | 2018-09-09 16:31 | PC.NURSE ---
Addendum entered by Enriqueta Coburn R.N. 09/09/18 21:22: Pt back form mri. that did show a small infarct. updated family. assessment completed and charted. uses call light. bed and chair alarm on as appropriate. NIH 5. Pt has macular degeneration. will continue to monitor pt for safety. Pt has been reporting that her left hand and cheek go numb at certain times of the day. Original Note: 1500- assumed care of Pt from outgoing shift at this time. MRI should be coming for pt in a short while, will continue to monitor. Pt family at bedside. 1600- MRI here to pick pt up. Tele removed.
[2018-09-09] MEDS: ATORVASTATIN 20 MG TABLET 40 MG PO (20:43)
[2018-09-10] VITALS: BP 135/82; PULSE 51; RESP 18; TEMP 36.7; O2SAT 95
--- NOTE | 2018-09-10 | DI.US.S_ITS ---
PROCEDURE: US CAROTID DOPPLER BI INDICATIONS: CVA TECHNIQUE: Color and pulse Doppler interrogation was performed of both carotid systems, with image documentation and velocity measurements. COMPARISON: [facility], , CAROTID ARTERY DOPPLER BILAT, 06/24/2015, 10:06. FINDINGS: Stenosis calculations are based on SRU (Society of Radiologists in Ultrasound) criteria. Right side: Brachial blood pressure: 150/78 mm Hg. Common carotid artery peak systolic velocity: 62 cm/sec. Internal carotid artery peak systolic velocity: 65 cm/sec. Internal carotid artery end diastolic velocity: 11 cm/sec. External carotid artery peak systolic velocity: 52 cm/sec. ICA/CCA peak systolic ratio: 1.1. Hui scale imaging description: Mild soft plaque Percent internal carotid artery stenosis: Less than 50% stenosis. Vertebral artery: Flow direction is antegrade. Left side: Brachial blood pressure: 146/67 mm Hg. Common carotid artery peak systolic velocity: 77 cm/sec. Internal carotid artery peak systolic velocity: 85 cm/sec. Internal carotid artery end diastolic velocity: 13 cm/sec. External carotid artery peak systolic velocity: 63 cm/sec. ICA/CCA peak systolic ratio: 1.1. Hui scale imaging description: Mild to moderate soft plaque Percent internal carotid artery stenosis: Less than 50% stenosis. Vertebral artery: Flow direction is antegrade. IMPRESSION: Less than 50% stenosis at the proximal internal carotid arteries bilaterally, normal-appearing vertebral arterial flow. Dictated by: Skyler Aviles M.D. on 09/10/2018 at 11:00 Approved by: Skyler Aviles M.D. on 09/10/2018 at 11:02
[2018-09-10 04:00] VITALS: BP 147/71; PULSE 61; RESP 20; TEMP 36.3; O2SAT 94
[2018-09-10 08:00] VITALS: BP 146/67; PULSE 56; RESP 18; TEMP 36.3; O2SAT 96
[2018-09-10 08:01] VITALS: BP 158/79
--- NOTE | 2018-09-10 08:42 | P.DS_ITS ---
History of Present Illness Date Patient Seen: 09/10/18 Time Patient Seen: 08:36 Chief complaint: HIGH BLOOD PRESSURE NUMBNESS OF LEFT ARM Narrative: Pt is a 83yo woman with hypertension, hyperlipidemia, CKD stage 2, morbid obesity, and hx of CVA who presented with left sided tingling sensation in her hands. Patient reports that yesterday afternoon around 2:00 p.m. she developed slight tingling sensation in her left hand. Along with this, her tongue felt slightly numb and her face felt numb under her chin. Patient states that this lasted for a few minutes. She also felt ?tense? and jittery, like a ?feeling that my blood pressure was high.? The patient did check her blood pressure and found that it was 220/118. She took an extra tablet of her home hydrochlorothiazide. Her blood pressure then improved significantly over the next 1-2 hours. The patient states that since that time, her left hand has continued to have a tingling sensation on and off. Her daughter came over to visit, and when she told her about her symptoms insisted that she be evaluated in the emergency room. The pt does state that if she has her hands in her pockets, they will sometimes develop the same tingling sensation that then goes away when she removes them from her pockets. In the emergency room, the patient states that she had a few minutes where she had a difficult time finding words. She continued to have intermittent tingling in her left hand, and this has continued through the night. Most recently this morning, the patient had some tingling in her left thumb. She states that ov erall her left hand feels slightly weaker than her right hand. She denies any other focal weakness or neurological symptoms currently. She does have a history of left-sided CVA, but states that she had fully recovered from this. The patient denies any recent chest pain, shortness of breath, acutely worsening lower extremity edema, abdominal pain. Prior to yesterday, she had been feeling in her normal health. She lives at home independently. In the emergency room, blood work was completed that was unremarkable and showed her kidney function to be stable. Head CT and chest x-ray were both completed that showed no acute findings. The patient was admitted for possible TIA, and concerns that she continued to have intermittent symptoms. {from Dr. Roy's H&P} Discharge Providers Date of admission: 09/08/18 18:59 Discharge Date: 09/10/18 Primary care physician: Pramod Kowalski MD Consults: 09/08/18 19:46 Consult to Occupational Therapy Evaluate & Treat Comment: Physician Instructions: Evaluate and treat Consult to Physical Therapy Evaluate & Treat Comment: Physician Instructions: Evaluate and Treat 09/08/18 20:32 Consult to Dietitian, Adult Routine Comment: Reason For Exam: assessed at risk Consult to Casino Operations Supervisor Routine Comment: Discharge provider: Pramod Kowalski MD Summary Discharge Diagnosis: 1. Acute CVA in posterior right parietal lobe presumably causing left upper extremity symptoms 2. Hypertension, poorly controlled 3. Hyperlipidemia 4. Morbid obesity with BMI of 45 5. Chronic renal failure stage 2 Hospital Course: patient was admitted to the hospital floor because of her waxing and waning symptoms. Initial workup in the emergency department was unremarkable including head CT. Echocardiogram was performed which was unremarkable. MRI with angiography was performed which showed the right posterior parietal acute/subacute lesion likely responsible for patient's symptoms. No vascular disease of any significance was noted Patient's blood pressure was somewhat labile as has been the case in the past during this hospitalization. She was started on additional antihypertensive therapy. Once the CVA was identified she was also started on dual anti-platelet therapy with Plavix in addition to 81 mg aspirin Patient was felt to be stable for discharge home with careful monitoring of her blood pressure to continue on dual anti-platelet therapy etc She was also seen by physical therapy and felt to be stable to return home with outpatient therapies Status at Discharge Cognitive/behavioral status at discharge: normal Functional status at discharge: independent ambulation Overall status at discharge: patient is progressing back to baseline Exam Vital Signs (past 8 hours): - 09/10/18 04:00 Temperature 97.4 F L Pulse Rate 61 Respiratory Rate 20 Blood Pressure 147/71 H Pulse Oximetry 94 Oxygen Delivery Method Room Air Oxygen Flow Rate 0 Narrative Exam Narrative: HEENT-unremarkable, normocephalic atraumatic Neck-no lymphadenopathy no bruits Lungs-clear anteriorly and posteriorly no wheezes no crackles good breath sounds Heart-regular rate and rhythm, no murmur, rub, or gallop. normal S1-S2 Abdomen-positive bowel tones, soft, nontender, nondistended, no hepatosplenomegaly, no masses palpable Neuro-normal to screening exam, gait not tested, no identifiable change in left upper extremity Extremities-no cyanosis clubbing or edema Objective Imaging MRI - head: Radiologist's impression: BRAIN MRI: Tiny focus of acute ischemic insult involving the posterior right parietal lobe. There also findings compatible with age-related senescent changes and sequela of chronic small vessel ischemic disease. BRAIN MR ANGIOGRAM: Mild scattered atherosclerosis without hemodynamically significant stenoses, occlusion, or aneurysm. NECK MR ANGIOGRAM: Mild scattered atherosclerosis without hemodynamically significant stenosis, occlusion, or aneurysm. Labs Result Diagrams: 09/08/18 17:45 09/08/18 17:45 Discharge Plan Discharge Plan Discharge Problem: Brain TIA Patient Disposition: Home Discharge Med Rec/Prescriptions Prescriptions: New aspirin 81 mg Tablet,Delayed Release (Dr/Ec) 81 mg PO DAILY Qty: 30 RF: 0 clopidogrel [Plavix] 75 mg Tablet 75 mg PO DAILY Qty: 30 RF: 8 losartan 50 mg Tablet 50 mg PO DAILY Qty: 30 RF: 8 atorvastatin 40 mg tablet 40 mg PO DAILY Qty: 30 RF: 8 Continued hydrochlorothiazide 25 mg tablet 50 mg PO QDAY Qty: 180 RF: 11 metoprolol succinate [Toprol XL] 100 mg tablet extended release 24 hr 100 mg PO QDAY Qty: 90 RF: 4 hydrocodone-acetaminophen [[place]] 5-325 mg tablet 1 tab PO Q6-8H PRN (Reason: pain) Qty: 60 RF: 0 triamcinolone acetonide 0.1 % cream 1 applictn Topical TID PRN (Reason: rash) Qty: 80 RF: 0 Disabled Parking Permit package miscellaneous DIRECTED RF: 0 Discontinued simvastatin [Zocor] 20 mg tablet 20 mg PO QDAY Qty: 90 RF: 4 aspirin [Mike Aspirin] 325 mg Tablet 1 tab PO DAILY RF: 0 Follow up/Referrals: Pramod Kowalski MD [Primary Care Provider] - 1 Week (*appt:09/17 @ 9:30 w/dr kowalski please check in 15min prior to appointment [phone] ) Provider Discharge Instructions Diet: Diet as Tolerated and Low-sodium Visit Report/Discharge Packet Instructions: DI for Stroke-Ischemic, Low-Sodium Diet, Atorvastatin, Clopidogrel, Aspirin, Losartan Discharge Data Primary Care Provider: Pramod Kowalski Attending Provider: Aline Roy Admit Date/Time: 09/08/18 18:59 Discharges patient from system. Discharge Date/Time: 09/10/18 13:03
[2018-09-10] MEDS: ASPIRIN EC 81 MG TABLET PO (08:45)
[2018-09-10] MEDS: hydroCHLOROthiazide 25 MG TABLET 50 MG PO (08:46)
[2018-09-10] MEDS: CLOPIDOGREL 75 MG TABLET PO (08:46)
[2018-09-10] MEDS: METOPROLOL ER 50 MG TABLET 100 MG PO (08:46)
[2018-09-10] MEDS: LOSARTAN 50 MG TABLET PO (08:46)
[2018-09-10 09:10] VITALS: O2SAT 97
[2018-09-10] MEDS: SODIUM CHLORIDE 0.9% FLUSH 10 ML IV (09:10)
--- NOTE | 2018-09-10 10:30 | OT.IP.EVAL ---
Past Medical History (Last Updated 09/10/18 @ 08:39 by Pramod Garber MD) Mixed hyperlipidemia (Chronic) History of CVA with residual deficit (Chronic) Essential hypertension (Chronic 04/17/15) Arthralgia (Chronic 04/17/15) Morbid obesity due to excess calories (Chronic 06/29/15) Chronic renal failure, stage 2 (mild) (Chronic 01/31/17) Acute intermittent porphyria (Acute) Arthritis (Acute) Surgical History (Last Updated 09/08/18 @ 20:36 by Adriana Bradley RN) History of appendectomy (Acute) History of total left knee replacement (Acute) No pertinent past surgical history (Acute) Occupational Therapy Inpatient Evaluation/Re-Eval M1 PT/OT-IP Prior Functional Status Start: 09/09/18 10:01 Freq: NEEDED Status: Active Protocol: Document 09/10/18 10:02 [facility] (Rec: 09/10/18 10:30 [facility] [id number]) Medical Review Prior Functional Status Medical History Reviewed Yes Mobility and Gait mod indep gait with SPC occasionally, but admits to more furniture surfing in home, uses carts when shopping and has daughter with her outdoors d/t visual issues. Pt states does have 4ww tat she can use. Activities of Daily Living and IADL's mod indep ADLs, including bathing Social History Household Members children Living Arrangements House Number of Floors (Floors) One Floor Number of Stairs To Enter/Railing? 12 SE B rails Home Environment Standard Height Toilet Tub/Shower Home Equipment Four Wheel Walker Straight Cane Grab Bars In Shower Additional Social History Comment Pt with onget numbness and tingling in L dorsum of hand and L face. CT negative for acute findings. Chest radiograph suggested possible fluid overload. Pt has macular degeneration, is legally blind. She admits to symptoms of L hand weakness and numbness coming and going throughout the day. M2 OT-IP Current Condition Start: 09/09/18 10:01 Freq: Status: Active Protocol: Document 09/10/18 10:02 [facility] (Rec: 09/10/18 10:30 [facility] [id number]) Occupational Therapy Current Condition Current Condition Evaluation Date 09/10/18 Treatment Diagnosis Acute right posterior parietal lobe ischemia Diagnosis Onset Date 09/08/18 M3 OT- IP Subjective and Pain Start: 09/09/18 10:01 Freq: Status: Active Protocol: Document 09/10/18 10:02 [facility] (Rec: 09/10/18 10:30 [facility] [id number]) OT- Subjective Occupational Therapy Visit Type Type Initial Evaluation Visit Start Time 09:00 Visit Stop Time 09:55 Total Visit Minutes 55 Occupational Therapy Visit Comments Patient Comments Pt feels ready to go home and feels that her left arm is almost back to normal and that feels a little unsteady and weak. OT Pain Assessment Pain When Pain Assessed At Rest Pain Present Pain Present Denied Pain M4 OT- IP ADL's Start: 09/09/18 10:01 Freq: Status: Active Protocol: Document 09/10/18 10:02 [facility] (Rec: 09/10/18 10:30 [facility] [id number]) OT ADL-Grooming General Evaluation Grooming Ability Standby Assistance Comments OT Grooming Comments Set-up and retrieval of items. OT ADL-Dressing General Eval Upper Body Dressing Ability Minimal Assistance Lower Body Dressing Ability Moderate Assistance Comments OT Dressing Comments Jass to help pull down shirt in the back for pt. Pt at home sits on the edge of the bed and gets leg up on the bed so able to khai socks and use of stool to assist to get shoes on. Therefore pt needing assist here, pt also states daughter able to assist if needed. OT ADL-Toileting General Evaluation Toileting Ability Standby Assistance Comments OT Toileting Comments Pt educated for information for toilet aid as pt states would rather do pericare on her own versus ask her daughter for assist. OT ADL-Bathing Bathing Type Bathing Type Shower General Evaluation Bathing Ability Moderate Assistance Areas Needing Assistance Wash/Dry Back Wash/Dry Perineal Area Wash/Dry Lower Extremities Devices Bathing Equipment Hand Held Shower Sprayer Shower Chair without Arms Grab Bars Comments OT Bathing Comments Pt able to simulate to step over tub while getting into the shower, still recommend daughter to assist. Pt aware of equipment of tub bench , but states has tried it in the past and does not want to use one at home. Pt would therefore benefit from at least getting a shower chair if not wanting to get tub bench for balance. Pt heavily relies on grab bars in the shower and use of HHSp. Showed pt how to use a long hand towel to be able to assist to wash and dry pericare needs by swinging the towel between her legs so able to hold one side of towel with one hand in front or her and other in the back so able to wash more thoroughly. M5 OT- IP IADL's Start: 09/09/18 10:01 Freq: Status: Active Protocol: Document 09/10/18 10:02 [facility] (Rec: 09/10/18 10:30 [facility] [email or web address]) OT-Instrumental Activities of Daily Living Meal Preparation Meal Preparation Caregiver Provides Assist Fire Sprinkler Service Technician Fire Sprinkler Service Technician Comments Pt states able to do some IADl needs, such as laundry and having to use crime lab analyst to get clothes from the bottom of the washer out. Driving Driving Caregiver Provides Assist M6 OT- IP Functional Cognition Start: 09/09/18 10:01 Freq: Status: Active Protocol: Document 09/10/18 10:02 [facility] (Rec: 09/10/18 10:30 [facility] [id number]) Cognitive Factors Limiting Selfcare Function Cognitive Ability Level of Alertness Alert Patient Orientation Name Age Birthday Month Date Year Day of Week Place Situation Attention Span Ability Capable of Focused Attention Capable of Sustained Attention Ability to Follow Commands Able to Follow Multi-Step Commands Safety Awareness Underestimates Need for Assistance Problem Solving Ability Needs Assist to Identify Solutions Cognitive Comments Cognitive Assessment Comments Vc for thoroughness for pericare needs. Pt insistent that she is okay and at this time does not want any exercises for left hand of theraputty and that she will just work on squeezing rubber ball at home. OT- Vision and Hearing OT- Vision Assessment Vision History Blindness Visual Acuity Glasses All The Time M7 OT- IP Mobility and Balance Start: 09/09/18 10:01 Freq: Status: Active Protocol: Document 09/10/18 10:02 [facility] (Rec: 09/10/18 10:30 [facility] [email or web address]) OT-Transfer Assessment Sit to and From Stand Sit to and from Stand Standby Assistance Transfers Transfer Ability Standby Assistance Technique Transfer Destination Bed Chair Shower Stall Toilet Transfer Technique Stand Step Pivot Devices Transfer Assistive Devices None Comments Mobility Comments Pt able to walk in the room with unsteady gait but use of surfaces, wall ,counter with SBA. Recommended at home that pt use FWW due to her decreased balance and now will not be able to hold to items while walking and 4WW would be safer to use at this time. OT- Balance Assessment Sitting Balance and Reactions Static Sitting Balance Ability Normal Dynamic Sitting Balance Ability Good Standing Balance and Reactions Static Standing Balance Ability Good Dynamic Standing Balance Ability Fair M8 OT- IP Objective Assessments Start: 09/09/18 10:01 Freq: Status: Active Protocol: Document 09/10/18 10:02 [facility] (Rec: 09/10/18 10:30 [facility] [email or web address]) OT Gross Range of Motion Upper Extremity Range of Motion Assessment Within Functional Limits OT Strength Comments Strength Comments BUE 4-/5. Equal strength for fur dry cleaner hand. OT- Coordination Assessment Comments Coordination Comments Intact for finger to thumb opposition. Decreased for in hand manipulation unable to hold and open lotion bottle withi left hand versus right, however pt is right handed. M9 OT- IP Assessment and Plan Start: 09/09/18 10:01 Freq: Status: Active Protocol: Document 09/10/18 10:02 [facility] (Rec: 09/10/18 10:30 [facility] [email or web address]) OT Summary Assessment and Plan Potential Rehabilitation Potential Good Analytic Complexity at Evaluation Low Summary OT Impairments Balance Coordination Functional Cognition Functional Mobility Bathing Shower Transfers Progress Towards Goals Progressing Toward Goals Assessment Summary Pt low complexity and main barriers are activity tolerance, dynamic balance, coordination wit left hand and now would benefit from supervision and assistance with IADl needs. Pt would benefit from home health OT/PT as at times pt is alone at home to further assess safety in home environment. In addition left hand numbness per pt tend to be intermittent and varies daily. Goals Grooming Goal Independent Dressing Goal Standby Assistance Toileting Goal Independent Bathing Goal Standby Assistance Days to Meet Goals 1 Frequency of Treatment Frequency Of Treatment Once a Day Treatment Plan OT Treatment Plan Patient/Family Education Discharge Planning Discharge Recommendations OT Discharge Recommendations Home with Assistance Home Health Home Equipment Needs SHower chair, toilet aid
--- NOTE | 2018-09-10 11:36 | PT.IPTN ---
Physical Therapy Treatment Note M2 PT-IP Current Condition Start: 09/09/18 10:01 Freq: NEEDED Status: Active Protocol: Document 09/09/18 08:55 [facility] (Rec: 09/09/18 10:17 [facility] [id number]) Physical Therapy Current Condition Current Condition Evaluation Date 09/09/18 Treatment Diagnosis HTN, L hand and face numbness, impaired activity tolerance and weakness M3 PT-IP Subjective Start: 09/09/18 10:01 Freq: NEEDED Status: Active Protocol: Document 09/10/18 09:50 [facility] (Rec: 09/10/18 11:36 [facility] [email or web address]) Subjective Physical Therapy Visit Type Type Treatment Note Visit Start Time 09:50 Visit Stop Time 10:15 Total Visit Minutes 25 Number of VOCATIONAL ED INSTRUCTOR Visits 0 Physical Therapy Visit Comments Patient Comments pt states that she is still getting numbness in L face and hand at 4 am last night but it went away after. Therapy Pain Assessment Pain Present Pain Present Denied Pain M4 PT-IP Mobility and Gait Start: 09/09/18 10:01 Freq: NEEDED Status: Active Protocol: Document 09/10/18 09:50 [facility] (Rec: 09/10/18 11:36 [facility] [email or web address]) PT-Transfer Assessment Sit to and From Stand Sit to and from Stand Standby Assistance Equipment Transfer Assistive Device Gait Belt 4 Wheeled Walker Transfers Transfer Destination Bed Chair Transfer Technique Stand Step Pivot Transfer Ability Level of Assist Standby Assistance Comments Mobility Comments Pt states she used a step stool at home for getting OOB due to her high level bed. Pt was able to demonstrate this transfer today with a 5inch stool. Pt scooted EOB and used LLE for stability on the floor and RLE to use stool for lowering. Gait Assessment Gait Gait Assistance Required: Standby Assistance Distance (Feet) 400 Assistive Devices Assistive Device Gait Belt 4 Wheeled Walker Gait Deviations General Gait Pattern Decreased Stride Length Decreased Feet Clearance Flexed Trunk Factors Limiting Gait Function Factors Limiting Gait Function Decreased Activity Tolerance Decreased Sensation Decreased Strength Incoordination Poor Balance Comments Gait Comments Pt used 4WW for the entire session today. She cont preferred 4WW > FWW due to FWW 's better stability. Educated pt to use wall for parking to increase stability today. No loss of balance noted . Stair Climbing Assessment Evaluation Level of Assist On Stairs Contact Guard Assistance Devices Stair Climbing Assistive Devices Left Railing Right Railing Technique/Endurance Stair Climbing Direction Ascend and Descend Stair Climbing Technique Step to Step Number of Steps Climbed 3 Query Text: Stair Climbing Set # Repetitions (reps) 3 Comments Stair Climbing Comments step to pattern.Ascend with LLE as leading leg, descend with RLE as leading leg due to her OA M5 PT-IP Objective Assessments Start: 09/09/18 10:01 Freq: NEEDED Status: Active Protocol: Document 09/09/18 13:45 [facility] (Rec: 09/09/18 13:55 [facility] [id number]) Coordination Assessment Assessment Finger to Nose Test Moderate Impairment Pronation/Supination Test Moderate Impairment Foot Tapping Test Minimal Impairment Heel on Falcon Test Minimal Impairment Coordination Comments LE impaired bilaterally UE impaired L side only M6 PT-IP Treatment Start: 09/09/18 10:01 Freq: NEEDED Status: Active Protocol: Document 09/09/18 08:55 [facility] (Rec: 09/09/18 10:17 [facility] [id number]) Physical Therapy Treatment Education Education Provided Safety M7 PT-IP Assessment and Plan Start: 09/09/18 10:01 Freq: NEEDED Status: Active Protocol: Document 09/10/18 09:50 [facility] (Rec: 09/10/18 11:36 [facility] [id number]) PT Summary Assessment and Plan Summary Assessment Summary Pt was able to improve amb distance with the use of 4WW. But she does need cues from time to time to lock her brakes. Pt climbed stairs today but she used step to and B rails with increased time required. Spoke to OT as well, pt has a bathtub to negotiate and she constantly required support from counter/wall for overall mobility. Recommend to pt and KATH Wright that pt might be benefit from getting home health PT to improve her overall functional strength and mobility to reduce her fall risks. Goals Bed Mobility Goal Independent Transfer Goal Independent Gait Goal Standby Assistance Four Wheel Walker Gait Distance 300 Other Goals up/down 12 steps B rails and CGA ST ft ambulation, SBA and 4WW in 1 day up/down 6 steps with B rails and CGA in 1 day step over stool with UE support Days to Meet Goals 3 Frequency of Treatment Frequency Of Treatment Twice a Day Treatment Plan Other Recommendations and Next Treatment gait as tolerated with FWW, Focus stairs (12 SE B rails) prior to d/c. Recommendations To Nursing Amount of Assist Needed 1 Person Assist Discharge Recommendations PT Discharge Recommendations Home with Assistance Home Health Other Discharge Recommendations OP OT for hand function, strengthening
--- NOTE | 2018-09-10 11:52 | CM.DPC ---
Addendum entered by Adriana Mckeon LPN 09/10/18 12:06: will also send on the dc summary. Original Note: DCP: continued: Case received, EMR reviewed and Dr. Garber order for d/c to home was noted. Discussed case with PT Colt and OT Lesa late morning after they worked with pt and after Dr. Garber had already left. Colt noted pt would benefit from either OUTPT PT or HH. Lesa encourged pt to consider HH and discussion now with pt reveals that she, too, thinks this would be helpful as long as she is considered homebound. She is unable to get out of house on her own due to her eyesight but says she does go on outings with her daughter on Saturdays. that is my day. Her daughter takes her to all appts and will be taking her to her followup appt with Dr. Garber in a week. Pt does admit to being impacted by her vision and would like to be functionally stronger and more able. There are issues regarding toileting management and general safety in the home. HH choice list given. Decision: [facility]. Spoke with Kaelyn/rn admission [phone] and explained situation including no HH order and NO Face/Face as the physician had left long before the HH recommendation was make. She agreed to followup with Dr. Garber' office next week to see if HH was needed and she would then facilitate the process. Pt is very agreeable to this. Gave her the [facility] brochure and will go over same with her daughter when she arrives. Pt confirms that her daughter Shira and 2 cats are part of the household and that her Shira is currently unemployed and looking for work. Will fax demographic sheet and this note now to Kaelyn who will follow up as noted. Pt going home as soon as her daughter arrives.
--- NOTE | 2018-09-10 13:01 | PC.NURSE ---
Discharge: IV dc'd intact. Reviewed all d/c instructions and med list thoroughly with patient. Reviewed s/sx stroke and to call 911 if suspected. 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 Given info on all new meds. Reviewed follow up info. Verbalized understanding of d/c info and stated no further questions. All belongings packed and sent with patient. Taken out to private vehicle via wheelchair by this technical writer and editor.
== END 2018-09-10 13:03 | disposition home or self-care (01) ==
LOC: ED 18:23 → AC 18:59
PROVIDERS: Admitting Provider Family Medicine; Emergency Provider Emergency Medicine; Family Provider Internal Medicine; PCP Internal Medicine; Visit Provider Family Medicine
DX: I63.9 Cerebral infarction, unspecified (principal); I10 Essential (primary) hypertension; E66.01 Morbid (severe) obesity due to excess calories; E78.5 Hyperlipidemia, unspecified; N18.2 Chronic kidney disease, stage 2 (mild); Z87.891 Personal history of nicotine dependence; Z68.42 Body mass index [BMI] 45.0-49.9, adult
CPT/HCPCS: 36415; 70450; 70553; 71045; 80048; 81001; 82962; 85025; 85610; 85730; 87086; 93005; 93010; 93041; 93306; 93880; 94762; 96360; 97116; 97162; 97165; 97530; 97535; 99217; 99219; 99284; 99285; G0378; A9579; J1650

== ENCOUNTER 2018-10-04 11:11 | Emergency (ER) | payer BC, SELFPAY ==
--- NOTE | 2018-10-04 11:25 | DI.CT.S_ITS ---
PROCEDURE: CT ANGIO HEAD AND NECK INDICATIONS: can't move left arm code stroke tpa TECHNIQUE: Pre-contrast 4.5 mm thick sections acquired from the foramen magnum to the vertex. After the administration of intravenous contrast, 1 mm thick sections acquired from the aortic arch through the [place]. Post-contrast 4.5 mm thick sections then re-acquired from the foramen magnum to the vertex. 3-dimensional jickoeg-mpeaupfey-tiuwxcxegb (MIP) and/or volume rendering reformats were acquired of the central intracranial vasculature and neck separately. COMPARISON: [facility], MR, MR STROKE, 09/09/2018, 16:02. FINDINGS: Image quality: Excellent. BRAIN: CSF spaces: Ventricles are normal in size and shape. Basal cisterns are patent. No extra-axial fluid collections. Brain: No midline shift. No intracranial bleeds or masses. Hui-white matter interface appears intact. Skull and face: Calvarium and facial bones appear intact, without suspicious lesions. Orbits appear normal. Sinuses: Sinuses and mastoids are clear. HEAD CT ANGIOGRAPHY: Anterior circulation: Intracranial internal carotid arteries are normal in size and flow. The flow within the paired anterior cerebral arteries is normal and symmetric. The flow within the middle cerebral arteries is normal and symmetric. The anterior communicating artery is seen. No aneurysms are seen. Posterior circulation: Visualized portions of the vertebral arteries demonstrate normal caliber, and join to form a normal appearing basilar artery. Flow within the posterior cerebral arteries is normal and symmetric. No aneurysms are seen. NECK CT ANGIOGRAPHY: Mild motion artifacts at the thoracic inlet. Carotid system: The great vessels demonstrate a conventional anatomy as they arise from the aortic arch. The origins of the common carotid arteries appear patent. The common carotid arteries demonstrate normal caliber and courses. The bifurcation regions are both widely patent. The internal carotid arteries demonstrate normal calibers and courses. Posterior circulation: The origins of the vertebral arteries both appear widely patent. The more superior extracranial portions of both vertebral arteries also demonstrate normal courses and calibers. They join to form a normal appearing basilar artery. Soft tissues: Visualized neck soft tissues demonstrate no suspicious abnormalities. Bones: No suspicious bony lesions. Visualized cervical spine appears normally aligned. There is moderate to severe degenerative disc disease and facet arthropathy in cervical spine. IMPRESSION: 1. No acute intracranial abnormalities. 2. No high-grade stenosis or occlusion in anterior circulations. 3. No high-grade stenosis or occlusion in posterior circulations. 4. calcified plaques at the carotid bifurcations bilaterally. No hemodynamic significant stenosis or occlusion in cervical carotid arteries. 5. No hemodynamic significant stenosis or occlusion in cervical vertebral arteries bilaterally. Any quantitative measurements of stenosis were performed using NASCET criteria. Dictated by: Xu Lo M.D. on 10/04/2018 at 11:49 Approved by: Xu Lo M.D. on 10/04/2018 at 12:03
--- NOTE | 2018-10-04 11:25 | DI.CT.S_ITS ---
PROCEDURE: CT HEAD/BRAIN WO CON INDICATIONS: Left arm weakness TECHNIQUE: Noncontrast 4.5 mm thick angled axial sections acquired from the foramen magnum to the vertex, with coronal and sagittal reformats. For radiation dose reduction, the following was used: automated exposure control, adjustment of mA and/or kV according to patient size. COMPARISON: [facility], CT, CT HEAD/BRAIN WO CON, 09/08/2018, 16:43. FINDINGS: Image quality: Excellent. CSF spaces: Basal cisterns are patent. No extra-axial fluid collections. The ventricles are symmetric in size and shape. Brain: No intracranial bleeds or masses. There is cerebral volume loss for age, with resultant ventricular and sulcal prominence. There are periventricular and deep white matter chronic small vessel ischemic changes. There is intracranial internal carotid artery atherosclerosis. Skull and face: Calvarium and visualized facial bones appear intact, without suspicious lesions. Sinuses: Visualized sinuses and mastoids are clear. IMPRESSION: 1. No acute intracranial abnormalities. 2. Cerebral volume loss and chronic microvascular ischemic changes. The result was discussed with Dr. Leone in ER on 09/06/2018 at 1142 hours. Dictated by: Xu oL M.D. on 10/04/2018 at 11:42 Approved by: Xu Lo M.D. on 10/04/2018 at 11:45
--- NOTE | 2018-10-04 11:27 | ED.NEUROSD ---
HPI - Neuro Symptoms/Deficit General Chief Complaint: Neuro Symptoms/Deficit Stated Complaint: LEFT ARM DANGLING Time Seen by Provider: 10/04/18 11:23 Source: patient and family Mode of arrival: wheelchair Limitations: no limitations History of Present Illness HPI Narrative: The patient is a 83-year-old female who presents with sudden onset of left arm weakness at 10:30 a.m.. She said she was feeding the cats and then suddenly not able to move her arm. She actually had a stroke involving her left arm 3 weeks ago she had an MRI and echocardiogram in a full admission and workup here at [facility]. However after her admission she was discharged on September 10 she says that she was able to move her left arm and now not able to do so. She has no speech difficulty no facial drooping or lower extremity weakness. She also denies any visual changes. Last Observed Normal: 10:30 Timing confirmed by: family member (Daughter) History of same: Yes Severity: moderate Quality: weak Relieving factors: none Related Data Home Medications Medication Instructions Recorded Confirmed Disabled Parking Permit See Protocol MISCELLANEOUS 09/09/18 10/04/18 DIRECTED hydrochlorothiazide 50 mg PO DAILY 10/04/18 10/04/18 metoprolol succinate [Toprol XL] 100 mg PO DAILY 10/04/18 10/04/18 Previous Rx's Medication Instructions Recorded hydrocodone 5 mg-acetaminophen 325 1 tab PO Q6-8H PRN #60 tab 03/20/18 mg tablet triamcinolone acetonide 0.1 % 1 applictn TOPICAL TID PRN #80 gram 03/20/18 topical cream aspirin 81 mg PO DAILY #30 tab 09/09/18 atorvastatin 40 mg PO DAILY #30 tab 09/10/18 clopidogrel [Plavix] 75 mg PO DAILY #30 tab 09/10/18 losartan 50 mg PO DAILY #30 tab 09/10/18 Allergies Allergy/AdvReac Type Severity Reaction Status Date / Time Sulfa (Sulfonamide Allergy Unknown Verified 10/04/18 12:08 Antibiotics) [SULFA (SULFONAMIDE ANTIBIOTICS)] amlodipine [AMLODIPINE] AdvReac Intermediate edema legs Verified 10/04/18 12:08 naproxen [NAPROXEN] AdvReac Mild DIZZINESS Verified 10/04/18 12:08 Barbiturates [BARBITURATES] AdvReac Unknown Verified 10/04/18 12:08 ergot alkaloids AdvReac Unknown Verified 10/04/18 12:08 [ERGOT ALKALOIDS] Review of Systems Review of Systems ROS Unobtainable: All systems reviewed & are unremarkable except as noted in HPI and below Constitutional Denies chills, Denies fever(s), Denies lethargy and Denies weakness Cardiovascular Denies chest pain, Denies irregular heart rhythm, Denies lightheadedness, Denies palpitations and Denies orthopnea Gastrointestinal Gastrointestinal: Denies abdominal pain, Denies change in bowel habits, Denies diarrhea, Denies nausea and Denies vomiting Genitourinary Denies hematuria, Denies flank pain, Denies urinary incontinence and Denies urinary urgency Musculoskeletal Reports as per HPI Integumentary/Breasts Denies pruritus, Denies erythema, Denies rash and Denies wounds Neurologic Reports as per HPI and Denies weakness Endocrine Denies palpitations FOR[facility]LY [facility] Medical History Mixed hyperlipidemia (Chronic) History of CVA with residual deficit (Chronic) Essential hypertension (Chronic 04/17/15) Arthralgia (Chronic 04/17/15) Morbid obesity due to excess calories (Chronic 06/29/15) Chronic renal failure, stage 2 (mild) (Chronic 01/31/17) Acute intermittent porphyria (Acute) Arthritis (Acute) Surgical History History of appendectomy (Acute) History of total left knee replacement (Acute) No pertinent past surgical history (Acute) Social History household members: children Smoking Status: Former smoker alcohol intake: never Social History household members: children Smoking Status: Former smoker alcohol intake: never Exam Initial Vital Signs Initial Vital Signs: Vital Signs Pulse Rate 59 L 10/04/18 11:45 Respiratory Rate 21 10/04/18 11:45 Blood Pressure 152/102 H 10/04/18 11:45 Pulse Oximetry 93 10/04/18 11:45 GENERAL: Alert overweight female no acute distress HEENT: Head atraumatic,EOMI, pupils reactive, face symmetric, neck is supple CARDIOVASCULAR: Regular rate and rhythm without murmurs, rubs or gallops. RESPIRATORY: Breath sounds equal bilaterally, no wheezes rales or rhonchi. ABDOMEN: Soft, nontender. Normoactive bowel sounds all 4 quadrants. No guarding or rebound. EXTREMITIES: Normal range of motion, no clubbing or edema. Neurovascularly intact NEUROLOGICAL: Alert and oriented x4.Normal gait and speech. Cranial nerves II through XII grossly intact. able to move fingers but not able to lift arm against gravity on the left. She is able to move right. Specimen Boss strength is actually equal bilaterally good [id number] on the right good heel to patel no dysarthria SKIN: Warm, dry, no laceration, no petechiae, no rashes or lesions. Scores NIH Stroke Scale Level of Conciousness: Alert, keenly responsive Ask month/age: Answers both questions correctly. Open/close eyes, close hand: Performs both tasks correctly Best gaze horizontal: Normal Visual villalpando: No visual loss Facial palsy: Normal symetrical movement Left arm drift: No effort against gravity Right arm drift: No drift for full 10 sec Left leg drift: No drift for full 10 sec Right leg drift: No drift for full 10 sec Limb ataxia: Absent Sensory on face/arms/legs: Normal, no sensory loss Best language: No aphasia, normal Dysarthria: Normal Extinction or inattention: No abnormality Total NIH Stroke scale score: 3 Course Orders Ordered: ED Orders 10/04/18 11:25 CT angio head and neck Stat CT head/brain wo con Stat 10/04/18 11:30 Complete Blood Count AUTO DIFF Stat Comprehensive Metabolic Panel Stat Partial Thromboplastin Time Stat Prothrombin Time INR Stat Troponin & CK Cardiac Panel Stat 10/04/18 11:38 EKG-12 Lead Stat 10/04/18 12:24 FLU A and B [Influenza A and B by PCR Rapid] Stat Urine Drug Screen, Rapid Stat Discontinued Medications Aspirin (Aspirin Chew) 324 mg PO NOW ONE Stop: 10/04/18 13:46 Last Admin: 10/04/18 14:06 Dose: 324 mg Sodium Chloride (Normal Saline 0.9%) 1,000 mls @ 150 mls/hr IV CONT AMBER Last Infusion: 10/04/18 14:23 Dose: 0 mls/hr Admin: 10/04/18 12:08 Dose: 150 mls/hr Consultations Consultation #1: Dr. Lerma, Stroke Neurology at [facility]. In regards if patient is a tPA candidate. He states that he would not tPA this patient based on her recent stroke. He is aware that she was able to move her arm after discharge and now she is not able to move her arm. Time: 11:36 Consultation #2: Dr. Garber, updated on patient's symptoms and Neurology recommendations of no tPA. At this time there is no sign of infection she had a full workup just a few weeks ago. He says that she has actually had symptoms waxing and waning over a number of years with her left arm. Thinks that outpatient follow-up is appropriate and adding a full dose aspirin Time: 13:49 Vital Signs - 8 hr 10/04/18 11:45 10/04/18 12:00 10/04/18 12:08 Pulse Rate 59 L 57 L 58 L Respiratory Rate 21 14 16 Blood Pressure [Right Arm] 152/102 H 147/116 H 147/116 H Pulse Oximetry 93 95 95 10/04/18 12:42 10/04/18 13:43 10/04/18 14:05 Pulse Rate 54 L 57 L 60 Respiratory Rate 14 14 15 Blood Pressure [Right Arm] 164/51 H 137/63 153/68 H Pulse Oximetry 97 94 100 MDM - Neuro Symptoms/Deficit Medical Records Attestation: I reviewed the patient's medical records. Lab Data Attestation: I reviewed the patient's lab results. Result diagrams: 10/04/18 11:30 10/04/18 11:30 Lab Results 10/04/18 10/04/18 10/04/18 Range/Units 11:30 11:30 11:30 WBC 6.4 (4.5-11.0) X10^3/uL RBC 3.89 L (4.0-5.2) X10^6/uL Hgb 12.8 (12.0-16.0) g/dL Hct 37.7 (36-46) % MCV 96.8 (80-100) fL MCH 32.9 (26-34) PG MCHC 34.0 (30-36) % RDW 13.3 (11.6-14.8) % Plt Count 225 (150-400) X10^3/uL Neut % (Auto) 57.0 (50-75) % Lymph % (Auto) 27.8 (25-40) % Coffee % (Auto) 9.2 (3-14) % Eos % (Auto) 4.7 H (2-4) % Baso % (Auto) 1.3 (0-2) % Neut # (Auto) 3600 (0498-1694) /uL Lymph # (Auto) 1800 (2311-6670) /uL Coffee # (Auto) 600 (0-900) /uL Eos # (Auto) 300 (0-450) /uL Baso # (Auto) 100 (0-100) /uL PT 13.0 H (10.1-12.7) SECONDS INR 1.1 (0.9-1.3) APTT 29 (26.4-36.2) SECONDS Sodium 139 (137-145) mmol/L Potassium 4.1 (3.4-5.1) mmol/L Chloride 101 (98-107) mmol/L Carbon Dioxide 27 (22-32) mmol/L BUN 31 H (7-17) mg/dL Creatinine 1.40 H (0.52-1.04) mg/dL Estimated GFR 35.9 L (>60) mL/min BUN/Creatinine Ratio 22.1 H (6-22) Glucose 117 H (80-110) mg/dL Calcium 10.1 (8.4-10.2) mg/dL Total Bilirubin 1.0 (0.2-1.3) mg/dL AST 21 (14-36) IU/L ALT 22 (9-52) IU/L Alkaline Phosphatase 101 (38-126) U/L Total Creatine Kinase 36 (30-135) U/L CK-MB (CK-2) TNP CK-MB (CK-2) Rel Index TNP Troponin I < 0.012 (0.01-0.034) ng/mL Total Protein 7.7 (6.3-8.2) g/dL Albumin 3.9 (3.5-5.0) g/dL Globulin 3.8 (1.7-4.1) g/dL Albumin/Globulin Ratio 1.0 (1.0-2.8) Urine Opiates Screen (Negative) Ur Oxycodone Screen (Negative) Urine Methadone Screen (Negative) Ur Barbiturates Screen (Negative) U Tricyclic Antidepress (Negative) Ur Phencyclidine Scrn (Negative) Ur Amphetamines Screen (Negative) U Methamphetamines Scrn (Negative) Ur MDMA Scrn (Ecstasy) (Negative) U Benzodiazepines Scrn (Negative) Urine Cocaine Screen (Negative) U Marijuana (THC) Screen (Negative) Influenza A & B (PCR) (Negative) 10/04/18 10/04/18 Range/Units 12:24 12:24 WBC (4.5-11.0) X10^3/uL RBC (4.0-5.2) X10^6/uL Hgb (12.0-16.0) g/dL Hct (36-46) % MCV (80-100) fL MCH (26-34) PG MCHC (30-36) % RDW (11.6-14.8) % Plt Count (150-400) X10^3/uL Neut % (Auto) (50-75) % Lymph % (Auto) (25-40) % Coffee % (Auto) (3-14) % Eos % (Auto) (2-4) % Baso % (Auto) (0-2) % Neut # (Auto) (9926-4238) /uL Lymph # (Auto) (3456-2523) /uL Coffee # (Auto) (0-900) /uL Eos # (Auto) (0-450) /uL Baso # (Auto) (0-100) /uL PT (10.1-12.7) SECONDS INR (0.9-1.3) APTT (26.4-36.2) SECONDS Sodium (137-145) mmol/L Potassium (3.4-5.1) mmol/L Chloride (98-107) mmol/L Carbon Dioxide (22-32) mmol/L BUN (7-17) mg/dL Creatinine (0.52-1.04) mg/dL Estimated GFR (>60) mL/min BUN/Creatinine Ratio (6-22) Glucose (80-110) mg/dL Calcium (8.4-10.2) mg/dL Total Bilirubin (0.2-1.3) mg/dL AST (14-36) IU/L ALT (9-52) IU/L Alkaline Phosphatase (38-126) U/L Total Creatine Kinase (30-135) U/L CK-MB (CK-2) CK-MB (CK-2) Rel Index Troponin I (0.01-0.034) ng/mL Total Protein (6.3-8.2) g/dL Albumin (3.5-5.0) g/dL Globulin (1.7-4.1) g/dL Albumin/Globulin Ratio (1.0-2.8) Urine Opiates Screen Negative (Negative) Ur Oxycodone Screen Negative (Negative) Urine Methadone Screen Negative (Negative) Ur Barbiturates Screen Negative (Negative) U Tricyclic Antidepress Negative (Negative) Ur Phencyclidine Scrn Negative (Negative) Ur Amphetamines Screen Negative (Negative) U Methamphetamines Scrn Negative (Negative) Ur MDMA Scrn (Ecstasy) Negative (Negative) U Benzodiazepines Scrn Negative (Negative) Urine Cocaine Screen Negative (Negative) U Marijuana (THC) Screen Negative (Negative) Influenza A & B (PCR) Negative (Negative) Urine Dip Bedside Urine Glucose Negative Bedside Urine Bilirubin - Negative Bedside Urine Ketone - Negative Urine Specific [place] 1.010 Bedside Urine Occult Blood - Negative Bedside Urine pH 7.5 Bedside Urine Protein - Negative Bedside Urine Urobilinogen - Negative Bedside Urine Nitrite - Negative Bedside Urine Leukocytes +/- [address] scan - head: Radiologist's impression: PROCEDURE: CT HEAD/BRAIN WO CON INDICATIONS: Left arm weakness TECHNIQUE: Noncontrast 4.5 mm thick angled axial sections acquired from the foramen magnum to the vertex, with coronal and sagittal reformats. For radiation dose reduction, the following was used: automated exposure control, adjustment of mA and/or kV according to patient size. COMPARISON: [facility], CT, CT HEAD/BRAIN WO CON, 09/08/2018, 16:43. FINDINGS: Image quality: Excellent. CSF spaces: Basal cisterns are patent. No extra-axial fluid collections. The ventricles are symmetric in size and shape. Brain: No intracranial bleeds or masses. There is cerebral volume loss for age, with resultant ventricular and sulcal prominence. There are periventricular and deep white matter chronic small vessel ischemic changes. There is intracranial internal carotid artery atherosclerosis. Skull and face: Calvarium and visualized facial bones appear intact, without suspicious lesions. Sinuses: Visualized sinuses and mastoids are clear. IMPRESSION: 1. No acute intracranial abnormalities. 2. Cerebral volume loss and chronic microvascular ischemic changes. The result was discussed with Dr. Leone in ER on 09/06/2018 at 1142 hours. Dictated by: Xu Lo M.D. on 10/04/2018 at 11:42 CTA Head and Neck: Radiologist's impression: PROCEDURE: CT ANGIO HEAD AND NECK INDICATIONS: can't move left arm code stroke tpa TECHNIQUE: Pre-contrast 4.5 mm thick sections acquired from the foramen magnum to the vertex. After the administration of intravenous contrast, 1 mm thick sections acquired from the aortic arch through the [place] of [place]. Post-contrast 4.5 mm thick sections then re-acquired from the foramen magnum to the vertex. 3-dimensional [id number] (MIP) and/or volume rendering reformats were acquired of the central intracranial vasculature and neck separately. COMPARISON: [facility], , MR STROKE, 09/09/2018, 16:02. FINDINGS: Image quality: Excellent. BRAIN: CSF spaces: Ventricles are normal in size and shape. Basal cisterns are patent. No extra-axial fluid collections. Brain: No midline shift. No intracranial bleeds or masses. Hui-white matter interface appears intact. Skull and face: Calvarium and facial bones appear intact, without suspicious lesions. Orbits appear normal. Sinuses: Sinuses and mastoids are clear. HEAD CT ANGIOGRAPHY: Anterior circulation: Intracranial internal carotid arteries are normal in size and flow. The flow within the paired anterior cerebral arteries is normal and symmetric. The flow within the middle cerebral arteries is normal and symmetric. The anterior communicating artery is seen. No aneurysms are seen. Posterior circulation: Visualized portions of the vertebral arteries demonstrate normal caliber, and join to form a normal appearing basilar artery. Flow within the posterior cerebral arteries is normal and symmetric. No aneurysms are seen. NECK CT ANGIOGRAPHY: Mild motion artifacts at the thoracic inlet. Carotid system: The great vessels demonstrate a conventional anatomy as they arise from the aortic arch. The origins of the common carotid arteries appear patent. The common carotid arteries demonstrate normal caliber and courses. The bifurcation regions are both widely patent. The internal carotid arteries demonstrate normal calibers and courses. Posterior circulation: The origins of the vertebral arteries both appear widely patent. The more superior extracranial portions of both vertebral arteries also demonstrate normal courses and calibers. They join to form a normal appearing basilar artery. Soft tissues: Visualized neck soft tissues demonstrate no suspicious abnormalities. Bones: No suspicious bony lesions. Visualized cervical spine appears normally aligned. There is moderate to severe degenerative disc disease and facet arthropathy in cervical spine. IMPRESSION: 1. No acute intracranial abnormalities. 2. No high-grade stenosis or occlusion in anterior circulations. 3. No high-grade stenosis or occlusion in posterior circulations. 4. calcified plaques at the carotid bifurcations bilaterally. No hemodynamic significant stenosis or occlusion in cervical carotid arteries. 5. No hemodynamic significant stenosis or occlusion in cervical vertebral arteries bilaterally. Any quantitative measurements of stenosis were performed using NASCET criteria. Dictated by: Xu Lo M.D. on 10/04/2018 at 11:49 ECG Data Attestation: I personally reviewed and interpreted this ECG as follows: Prior ECG tracings: available for review Interpretation: sinus rhythm rate 68 [place] [address] changes similar to previous EKG first-degree AV block was present previously. MDM Narrative Medical decision making narrative: Patient has had signs and symptoms of left arm weakness in the past. Neurology suggested no tPA look for other signs possibly infection. She does not have any source of infection. The patient is actually starting to gain more function of her arm in fact she is able to zip up her jacket. This time admitting to the hospital would be for monitoring purposes. PCP recommends close outpatient follow-up next week. Family is agreeable. I have discussed very specific instructions and when to return to the ED and in fact to call 911 when symptoms present. She only has a limited time to receive tPA. I discussed all findings with the patient and daughter, Education has been performed regarding treatment plan, diagnosis, warning signs and symptoms and all concerns have been addressed. Verbally agree with and understood all of the above. Discharge Plan Departure Patient Disposition: Home Clinical Impression: CVA (cerebral vascular accident) Qualifiers: CVA mechanism: unspecified Qualified Code(s): I63.9 - Cerebral infarction, unspecified Discharge Date/Time: 10/04/18 14:24 Interventions: ED Discharge Assessment Last Done: 10/04/18 14:23 Instructions: DI for Stroke-Ischemic Activity Restrictions/Additional Instructions: *You have been diagnosed with CVA *What to do: Ear symptoms today are likely from your most recent stress. I have spoken with Dr. Garber who is happy to see her early next week *Continue to take medications as directed Aspirin 325 mg once a day Plavix 75 mg once a day *Follow up with your primary care provider in 2-3 days [and follow up with ortho, urology etc] *Return to ER if you should have [such as] [or] any new, worsening or concerning symptoms Prescriptions: No Action hydrocodone-acetaminophen [[place]] 5-325 mg tablet 1 tab PO Q6-8H PRN (Reason: pain) Qty: 60 RF: 0 triamcinolone acetonide 0.1 % cream 1 applictn Topical TID PRN (Reason: rash) Qty: 80 RF: 0 metoprolol succinate [Toprol XL] 100 mg tablet extended release 24 hr 100 mg PO DAILY RF: 0 hydrochlorothiazide 25 mg tablet 50 mg PO DAILY RF: 0 Disabled Parking Permit package miscellaneous DIRECTED RF: 0 aspirin 81 mg Tablet,Delayed Release (Dr/Ec) 81 mg PO DAILY Qty: 30 RF: 0 clopidogrel [Plavix] 75 mg Tablet 75 mg PO DAILY Qty: 30 RF: 8 losartan 50 mg Tablet 50 mg PO DAILY Qty: 30 RF: 8 atorvastatin 40 mg tablet 40 mg PO DAILY Qty: 30 RF: 8 Referrals: Pramod Garber MD [Primary Care Provider] -
[2018-10-04 11:37] LABS: Add Manual Diff / Slide Review NO; Basophils Absolute Auto 100 /uL (0-100); Basophils Percent Auto 1.3 % (0-2); Eosinophils Absolute Auto 300 /uL (0-450); Eosinophils Percent Auto 4.7 % (2-4); Hematocrit 37.7 % (36-46); Hemoglobin 12.8 g/dL (12.0-16.0); Lymphocytes Absolute Auto 1800 /uL (1100-4500); Lymphocytes Percent Auto 27.8 % (25-40); Mean Corpuscular Hemoglobin 32.9 PG (26-34); Mean Corpuscular Volume 96.8 fL (80-100); Monocytes Absolute Auto 600 /uL (0-900); Monocytes Percent Auto 9.2 % (3-14); Neutrophils Absolute Auto 3600 /uL (1500-7000); Platelet Count 225 X10^3/uL (150-400); Red Blood Cell Count 3.89 X10^6/uL (4.0-5.2); Red Cell Distribution Width 13.3 % (11.6-14.8); White Blood Cell Count 6.4 X10^3/uL (4.5-11.0)
--- NOTE | 2018-10-04 11:37 | ED_ITS ---
HPI - Neuro Symptoms/Deficit General Chief Complaint: Neuro Symptoms/Deficit Stated Complaint: LEFT ARM DANGLING Time Seen by Provider: 10/04/18 11:23 Source: patient and family Mode of arrival: wheelchair Limitations: no limitations History of Present Illness HPI Narrative: The patient is a 83-year-old female who presents with sudden onset of left arm weakness at 10:30 a.m.. She said she was feeding the cats and then suddenly not able to move her arm. She actually had a stroke involving her left arm 3 weeks ago she had an MRI and echocardiogram in a full admission and workup here at [facility]. However after her admission she was discharged on September 10 she says that she was able to move her left arm and now not able to do so. She has no speech difficulty no facial drooping or lower extremity wea kness. She also denies any visual changes. Last Observed Normal: 10:30 Timing confirmed by: family member (Daughter) History of same: Yes Severity: moderate Quality: weak Relieving factors: none Related Data Home Medications Medication Instructions Recorded Confirmed Disabled Parking Permit See Protocol MISCELLANEOUS 09/09/18 10/04/18 DIRECTED hydrochlorothiazide 50 mg PO DAILY 10/04/18 10/04/18 metoprolol succinate [Toprol XL] 100 mg PO DAILY 10/04/18 10/04/18 Previous Rx's Medication Instructions Recorded hydrocodone 5 mg-acetaminophen 325 1 tab PO Q6-8H PRN #60 tab 03/20/18 mg tablet triamcinolone acetonide 0.1 % 1 applictn TOPICAL TID PRN #80 gram 03/20/18 topical cream aspirin 81 mg PO DAILY #30 tab 09/09/18 atorvastatin 40 mg PO DAILY #30 tab 09/10/18 clopidogrel [Plavix] 75 mg PO DAILY #30 tab 09/10/18 losartan 50 mg PO DAILY #30 tab 09/10/18 Allergies Allergy/AdvReac Type Severity Reaction Status Date / Time Sulfa (Sulfonamide Allergy Unknown Verified 10/04/18 12:08 Antibiotics) [SULFA (SULFONAMIDE ANTIBIOTICS)] amlodipine [AMLODIPINE] AdvReac Intermediate edema legs Verified 10/04/18 12:08 naproxen [NAPROXEN] AdvReac Mild DIZZINESS Verified 10/04/18 12:08 Barbiturates [BARBITURATES] AdvReac Unknown Verified 10/04/18 12:08 ergot alkaloids AdvReac Unknown Verified 10/04/18 12:08 [ERGOT ALKALOIDS] Review of Systems Review of Systems ROS Unobtainable: All systems reviewed & are unremarkable except as noted in HPI and below Constitutional Denies chills, Denies fever(s), Denies lethargy and Denies weakness Cardiovascular Denies chest pain, Denies irregular heart rhythm, Denies lightheadedness, Denies palpitations and Denies orthopnea Gastrointestinal Gastrointestinal: Denies abdominal pain, Denies change in bowel habits, Denies diarrhea, Denies nausea and Denies vomiting Genitourinary Denies hematuria, Denies flank pain, Denies urinary incontinence and Denies urinary urgency Musculoskeletal Reports as per HPI Integumentary/Breasts Denies pruritus, Denies erythema, Denies rash and Denies wounds Neurologic Reports as per HPI and Denies weakness Endocrine Denies palpitations [facility] Medical History Mixed hyperlipidemia (Chronic) History of CVA with residual deficit (Chronic) Essential hypertension (Chronic 04/17/15) Arthralgia (Chronic 04/17/15) Morbid obesity due to excess calories (Chronic 06/29/15) Chronic renal failure, stage 2 (mild) (Chronic 01/31/17) Acute intermittent porphyria (Acute) Arthritis (Acute) Surgical History History of appendectomy (Acute) History of total left knee replacement (Acute) No pertinent past surgical history (Acute) Social History household members: children Smoking Status: Former smoker alcohol intake: never Social History household members: children Smoking Status: Former smoker alcohol intake: never Exam Initial Vital Signs Initial Vital Signs: Vital Signs Pulse Rate 59 L 10/04/18 11:45 Respiratory Rate 21 10/04/18 11:45 Blood Pressure 152/102 H 10/04/18 11:45 Pulse Oximetry 93 10/04/18 11:45 GENERAL: Alert overweight female no acute distress HEENT: Head atraumatic,EOMI, pupils reactive, face symmetric, neck is supple CARDIOVASCULAR: Regular rate and rhythm without murmurs, rubs or gallops. RESPIRATORY: Breath sounds equal bilaterally, no wheezes rales or rhonchi. ABDOMEN: Soft, nontender. Normoactive bowel sounds all 4 quadrants. No guarding or rebound. EXTREMITIES: Normal range of motion, no clubbing or edema. Neurovascularly intact NEUROLOGICAL: Alert and oriented x4.Normal gait and speech. Cranial nerves II through XII grossly intact. able to move fingers but not able to lift arm a gainst gravity on the left. She is able to move right. Rn Burn strength is actually equal bilaterally good [id number] on the right good heel to patel no dysarthria SKIN: Warm, dry, no laceration, no petechiae, no rashes or lesions. Scores NIH Stroke Scale Level of Conciousness: Alert, keenly responsive Ask month/age: Answers both questions correctly. Open/close eyes, close hand: Performs both tasks correctly Best gaze horizontal: Normal Visual villalpando: No visual loss Facial palsy: Normal symetrical movement Left arm drift: No effort against gravity Right arm drift: No drift for full 10 sec Left leg drift: No drift for full 10 sec Right leg drift: No drift for full 10 sec Limb ataxia: Absent Sensory on face/arms/legs: Normal, no sensory loss Best language: No aphasia, normal Dysarthria: Normal Extinction or inattention: No abnormality Total NIH Stroke scale score: 3 Course Orders Ordered: ED Orders 10/04/18 11:25 CT angio head and neck Stat CT head/brain wo con Stat 10/04/18 11:30 Complete Blood Count AUTO DIFF Stat Comprehensive Metabolic Panel Stat Partial Thromboplastin Time Stat Prothrombin Time INR Stat Troponin & CK Cardiac Panel Stat 10/04/18 11:38 EKG-12 Lead Stat 10/04/18 12:24 FLU A and B [Influenza A and B by PCR Rapid] Stat Urine Drug Screen, Rapid Stat Discontinued Medications Aspirin (Aspirin Chew) 324 mg PO NOW ONE Stop: 10/04/18 13:46 Last Admin: 10/04/18 14:06 Dose: 324 mg Sodium Chloride (Normal Saline 0.9%) 1,000 mls @ 150 mls/hr IV CONT AMBER Last Infusion: 10/04/18 14:23 Dose: 0 mls/hr Admin: 10/04/18 12:08 Dose: 150 mls/hr Consultations Consultation #1: Dr. Lerma, Stroke Neurology at [facility]. In regards if patient is a tPA candidate. He states that he would not tPA this patient based on her recent stroke. He is aware that she was able to move her arm after discharge and now she is not able to move her arm. Time: 11:36 Consultation #2: Dr. Garber, updated on patient's symptoms and Neurology recommendations of no tPA. At this time there is no sign of infection she had a full workup just a few weeks ago. He says that she has actually had symptoms waxing and waning over a number of years with her left arm. Thinks that outpatient follow-up is appropriate and adding a full dose aspirin Time: 13:49 Vital Signs - 8 hr 10/04/18 11:45 10/04/18 12:00 10/04/18 12:08 Pulse Rate 59 L 57 L 58 L Respiratory Rate 21 14 16 Blood Pressure [Right Arm] 152/102 H 147/116 H 147/116 H Pulse Oximetry 93 95 95 10/04/18 12:42 10/04/18 13:43 10/04/18 14:05 Pulse Rate 54 L 57 L 60 Respiratory Rate 14 14 15 Blood Pressure [Right Arm] 164/51 H 137/63 153/68 H Pulse Oximetry 97 94 100 MDM - Neuro Symptoms/Deficit Medical Records Attestation: I reviewed the patient's medical records. Lab Data Attestation: I reviewed the patient's lab results. Result diagrams: 10/04/18 11:30 10/04/18 11:30 Lab Results 10/04/18 10/04/18 10/04/18 Range/Units 11:30 11:30 11:30 WBC 6.4 (4.5-11.0) X10^3/uL RBC 3.89 L (4.0-5.2) X10^6/uL Hgb 12.8 (12.0-16.0) g/dL Hct 37.7 (36-46) % MCV 96.8 (80-100) fL MCH 32.9 (26-34) PG MCHC 34.0 (30-36) % RDW 13.3 (11.6-14.8) % Plt Count 225 (150-400) X10^3/uL Neut % (Auto) 57.0 (50-75) % Lymph % (Auto) 27.8 (25-40) % [place] % (Auto) 9.2 (3-14) % Eos % (Auto) 4.7 H (2-4) % Baso % (Auto) 1.3 (0-2) % Neut # (Auto) 3600 (3183-5087) /uL Lymph # (Auto) 1800 (7068-1533) /uL [place] # (Auto) 600 (0-900) /uL Eos # (Auto) 300 (0-450) /uL Baso # (Auto) 100 (0-100) /uL PT 13.0 H (10.1-12.7) SECONDS INR 1.1 (0.9-1.3) APTT 29 (26.4-36.2) SECONDS Sodium 139 (137-145) mmol/L Potassium 4.1 (3.4-5.1) mmol/L Chloride 101 (98-107) mmol/L Carbon Dioxide 27 (22-32) mmol/L BUN 31 H (7-17) mg/dL Creatinine 1.40 H (0.52-1.04) mg/dL Estimated GFR 35.9 L (>60) mL/min BUN/Creatinine Ratio 22.1 H (6-22) Glucose 117 H (80-110) mg/dL Calcium 10.1 (8.4-10.2) mg/dL Total Bilirubin 1.0 (0.2-1.3) mg/dL AST 21 (14-36) IU/L ALT 22 (9-52) IU/L Alkaline Phosphatase 101 (38-126) U/L Total Creatine Kinase 36 (30-135) U/L CK-MB (CK-2) TNP CK-MB (CK-2) Rel Index TNP Troponin I < 0.012 (0.01-0.034) ng/mL Total Protein 7.7 (6.3-8.2) g/dL Albumin 3.9 (3.5-5.0) g/dL Globulin 3.8 (1.7-4.1) g/dL Albumin/Globulin Ratio 1.0 (1.0-2.8) Urine Opiates Screen (Negative) Ur Oxycodone Screen (Negative) Urine Methadone Screen (Negative) Ur Barbiturates Screen (Negative) U Tricyclic Antidepress (Negative) Ur Phencyclidine Scrn (Negative) Ur Amphetamines Screen (Negative) U Methamphetamines Scrn (Negative) Ur MDMA Scrn (Ecstasy) (Negative) U Benzodiazepines Scrn (Negative) Urine Cocaine Screen (Negative) U Marijuana (THC) Screen (Negative) Influenza A & B (PCR) (Negative) 10/04/18 10/04/18 Range/Units 12:24 12:24 WBC (4.5-11.0) X10^3/uL RBC (4.0-5.2) X10^6/uL Hgb (12.0-16.0) g/dL Hct (36-46) % MCV (80-100) fL MCH (26-34) PG MCHC (30-36) % RDW (11.6-14.8) % Plt Count (150-400) X10^3/uL Neut % (Auto) (50-75) % Lymph % (Auto) (25-40) % [place] % (Auto) (3-14) % Eos % (Auto) (2-4) % Baso % (Auto) (0-2) % Neut # (Auto) (8783-1945) /uL Lymph # (Auto) (4966-7433) /uL [place] # (Auto) (0-900) /uL Eos # (Auto) (0-450) /uL Baso # (Auto) (0-100) /uL PT (10.1-12.7) SECONDS INR (0.9-1.3) APTT (26.4-36.2) SECONDS Sodium (137-145) mmol/L Potassium (3.4-5.1) mmol/L Chloride (98-107) mmol/L Carbon Dioxide (22-32) mmol/L BUN (7-17) mg/dL Creatinine (0.52-1.04) mg/dL Estimated GFR (>60) mL/min BUN/Creatinine Ratio (6-22) Glucose (80-110) mg/dL Calcium (8.4-10.2) mg/dL Total Bilirubin (0.2-1.3) mg/dL AST (14-36) IU/L ALT (9-52) IU/L Alkaline Phosphatase (38-126) U/L Total Creatine Kinase (30-135) U/L CK-MB (CK-2) CK-MB (CK-2) Rel Index Troponin I (0.01-0.034) ng/mL Total Protein (6.3-8.2) g/dL Albumin (3.5-5.0) g/dL Globulin (1.7-4.1) g/dL Albumin/Globulin Ratio (1.0-2.8) Urine Opiates Screen Negative (Negative) Ur Oxycodone Screen Negative (Negative) Urine Methadone Screen Negative (Negative) Ur Barbiturates Screen Negative (Negative) U Tricyclic Antidepress Negative (Negative) Ur Phencyclidine Scrn Negative (Negative) Ur Amphetamines Screen Negative (Negative) U Methamphetamines Scrn Negative (Negative) Ur MDMA Scrn (Ecstasy) Negative (Negative) U Benzodiazepines Scrn Negative (Negative) Urine Cocaine Screen Negative (Negative) U Marijuana (THC) Screen Negative (Negative) Influenza A & B (PCR) Negative (Negative) Urine Dip Bedside Urine Glucose Negative Bedside Urine Bilirubin - Negative Bedside Urine Ketone - Negative Urine Specific [place] 1.010 Bedside Urine Occult Blood - Negative Bedside Urine pH 7.5 Bedside Urine Protein - Negative Bedside Urine Urobilinogen - Negative Bedside Urine Nitrite - Negative Bedside Urine Leukocytes +/- [address] scan - head: Radiologist's impression: PROCEDURE: CT HEAD/BRAIN WO CON INDICATIONS: Left arm weakness TECHNIQUE: Noncontrast 4.5 mm thick angled axial sections acquired from the foramen magnum to the vertex, with coronal and sagittal reformats. For radiation dose reduction, the following was used: automated exposure control, adjustment of mA and/or kV according to patient size. COMPARISON: [facility], CT, CT HEAD/BRAIN WO CON, 09/08/2018, 16:43. FINDINGS: Image quality: Excellent. CSF spaces: Basal cisterns are patent. No extra-axial fluid collections. The ventricles are symmetric in size and shape. Brain: No intracranial bleeds or masses. There is cerebral volume loss for age, with resultant ventricular and sulcal prominence. There are periventricular and deep white matter chronic small vessel ischemic changes. There is intracranial internal carotid artery atherosclerosis. Skull and face: Calvarium and visualized facial bones appear intact, without suspicious lesions. Sinuses: Visualized sinuses and mastoids are clear. IMPRESSION: 1. No acute intracranial abnormalities. 2. Cerebral volume loss and chronic microvascular ischemic changes. The result was discussed with Dr. Leone in ER on 09/06/2018 at 1142 hours. Dictated by: Xu Lo M.D. on 10/04/2018 at 11:42 CTA Head and Neck: Radiologist's impression: PROCEDURE: CT ANGIO HEAD AND NECK INDICATIONS: can't move left arm code stroke tpa TECHNIQUE: Pre-contrast 4.5 mm thick sections acquired from the foramen magnum to the vertex. After the administration of intravenous contrast, 1 mm thick sections acquired from the aortic arch through the [place]. Post-contrast 4.5 mm thick sections then re- acquired from the foramen magnum to the vertex. 3-dimensional qbetmec-rjwhrqjyy-bsijvzsmol (MIP) and/or volume rendering reformats were acquired of the central intracranial vasculature and neck separately. COMPARISON: [facility], MR, MR STROKE, 09/09/2018, 16:02. FINDINGS: Image quality: Excellent. BRAIN: CSF spaces: Ventricles are normal in size and shape. Basal cisterns are patent. No extra-axial fluid collections. Brain: No midline shift. No intracranial bleeds or masses. Hui-white matter interface appears intact. Skull and face: Calvarium and facial bones appear intact, without suspicious lesions. Orbits appear normal. Sinuses: Sinuses and mastoids are clear. HEAD CT ANGIOGRAPHY: Anterior circulation: Intracranial internal carotid arteries are normal in size and flow. The flow within the paired anterior cerebral arteries is normal and symmetric. The flow within the middle cerebral arteries is normal and symmetric. The anterior communicating artery is seen. No aneurysms are seen. Posterior circulation: Visualized portions of the vertebral arteries demonstrate normal caliber, and join to form a normal appearing basilar artery. Flow within the posterior cerebral arteries is normal and symmetric. No aneurysms are seen. NECK CT ANGIOGRAPHY: Mild motion artifacts at the thoracic inlet. Carotid system: The great vessels demonstrate a conventional anatomy as they arise from the aortic arch. The origins of the common carotid arteries appear patent. The common carotid arteries demonstrate normal caliber and courses. The bifurcation regions are both widely patent. The internal carotid arteries demonstrate normal calibers and courses. Posterior circulation: The origins of the vertebral arteries both appear widely patent. The more superior extracranial portions of both vertebral arteries also demonstrate normal courses and calibers. They join to form a normal appearing basilar artery. Soft tissues: Visualized neck soft tissues demonstrate no suspicious abnormalities. Bones: No suspicious bony lesions. Visualized cervical spine appears normally aligned. There is moderate to severe degenerative disc disease and facet arthropathy in cervical spine. IMPRESSION: 1. No acute intracranial abnormalities. 2. No high-grade stenosis or occlusion in anterior circulations. 3. No high-grade stenosis or occlusion in posterior circulations. 4. calcified plaques at the carotid bifurcations bilaterally. No hemodynamic significant stenosis or occlusion in cervical carotid arteries. 5. No hemodynamic significant stenosis or occlusion in cervical vertebral arteries bilaterally. Any quantitative measurements of stenosis were performed using NASCET criteria. Dictated by: Xu Lo M.D. on 10/04/2018 at 11:49 ECG Data Attestation: I personally reviewed and interpreted this ECG as follows: Prior ECG tracings: available for review Interpretation: sinus rhythm rate 68 SD interval [address] changes similar to previous EKG first-degree AV block was present previously. MDM Narrative Medical decision making narrative: Patient has had signs and symptoms of left arm weakness in the past. Neurology suggested no tPA look for other signs possibly infection. She does not have any source of infection. The patient is actually starting to gain more function of her arm in fact she is able to zip up her jacket. This time admitting to the hospital would be for monitoring purposes. PCP recommends close outpatient follow-up next week. Family is agreeable. I have discussed very specific instructions and when to return to the ED and in fact to call 911 when symptoms present. She only has a limited time to receive tPA. I discussed all findings with the patient and daughter, Education has been performed regarding treatment plan, diagnosis, warning signs and symptoms and all concerns have been addressed. Verbally agree with and understood all of the above. Discharge Plan Departure Patient Disposition: Home Clinical Impression: CVA (cerebral vascular accident) Qualifiers: CVA mechanism: unspecified Qualified Code(s): I63.9 - Cerebral infarction, unspecified Discharge Date/Time: 10/04/18 14:24 Interventions: ED Discharge Assessment Last Done: 10/04/18 14:23 Instructions: DI for Stroke-Ischemic Activity Restrictions/Additional Instructions: *You have been diagnosed with CVA *What to do: Ear symptoms today are likely from your most recent stress. I have spoken with Dr. Garber who is happy to see her early next week *Continue to take medications as directed Aspirin 325 mg once a day Plavix 75 mg once a day *Follow up with your primary care provider in 2-3 days [and follow up with ortho, urology etc] *Return to ER if you should have [such as] [or] any new, worsening or concerning symptoms Prescriptions: No Action hydrocodone-acetaminophen [[place]] 5-325 mg tablet 1 tab PO Q6-8H PRN (Reason: pain) Qty: 60 RF: 0 triamcinolone acetonide 0.1 % cream 1 applictn Topical TID PRN (Reason: rash) Qty: 80 RF: 0 metoprolol succinate [Toprol XL] 100 mg tablet extended release 24 hr 100 mg PO DAILY RF: 0 hydrochlorothiazide 25 mg tablet 50 mg PO DAILY RF: 0 Disabled Parking Permit package miscellaneous DIRECTED RF: 0 aspirin 81 mg Tablet,Delayed Release (Dr/Ec) 81 mg PO DAILY Qty: 30 RF: 0 clopidogrel [Plavix] 75 mg Tablet 75 mg PO DAILY Qty: 30 RF: 8 losartan 50 mg Tablet 50 mg PO DAILY Qty: 30 RF: 8 atorvastatin 40 mg tablet 40 mg PO DAILY Qty: 30 RF: 8 Referrals: Pramod Garber MD [Primary Care Provider] -
[2018-10-04 11:45] VITALS: BP 152/102; PULSE 59; RESP 21; O2SAT 93
[2018-10-04 11:45] LABS: INR 1.1 (0.9-1.3)
[2018-10-04 11:48] LABS: PTT Partial Thromboplastin Tim 29 SECONDS (26.4-36.2)
[2018-10-04 11:49] LABS: Alanine Aminotransferase 22 IU/L (9-52); Albumin 3.9 g/dL (3.5-5.0); Alkaline Phosphatase 101 U/L (38-126); Aspartate Aminotransferase 21 IU/L (14-36); BUN Creatinine Ratio 22.1 (6-22); Blood Urea Nitrogen 31 mg/dL (7-17); Calcium 10.1 mg/dL (8.4-10.2); Carbon Dioxide 27 mmol/L (22-32); Chloride 101 mmol/L (98-107); Creatine Kinase 36 U/L (30-135); Estimated Glomerular Filt Rate 35.9 mL/min (>60); Globulin 3.8 g/dL (1.7-4.1); Glucose 117 mg/dL (80-110); HEMOLYSIS < 15 (0-50); Potassium 4.1 mmol/L (3.4-5.1); Sodium 139 mmol/L (137-145); Total Protein 7.7 g/dL (6.3-8.2)
[2018-10-04 12:00] VITALS: BP 147/116; PULSE 57; RESP 14; O2SAT 95
[2018-10-04 12:01] LABS: Troponin I < 0.012 ng/mL (0.01-0.034)
[2018-10-04 12:08] VITALS: BP 147/116; PULSE 58; RESP 16; O2SAT 95
[2018-10-04] MEDS: SODIUM CHLORIDE 0.9% 1,000 ML 150 ML IV (12:08)
--- NOTE | 2018-10-04 12:09 | PC.NURSE ---
pt remain alert and awake, clear speech, left arm drips down to bed, with weak information clerk, no other sxs. skin warm dry pink. no sea captain per dr olivares, pt hx of stroke 3 weeks ago. daughter reports approx 1020, pt opening cat food, when pt unable to move left arm/hands. denies injuries, denies fever, vomiting or diarrhea.
--- NOTE | 2018-10-04 12:22 | PC.NURSE ---
see Code Stroke documents.
[2018-10-04 12:42] VITALS: BP 164/51; PULSE 54; RESP 14; O2SAT 97
[2018-10-04 12:46] LABS: Urine Amphetamines Negative (Negative); Urine Barbiturates Negative (Negative); Urine Benzodiazepines Negative (Negative); Urine Cocaine Negative (Negative); Urine MDMA Negative (Negative); Urine Methadone Negative (Negative); Urine Methamphetamines Negative (Negative); Urine Morphine/Opi cutoff 2000 Negative (Negative); Urine Oxycodone Negative (Negative); Urine Phencyclidine Negative (Negative); Urine Tetrahydrocannabinol Negative (Negative); Urine Tricyclic Antidepressant Negative (Negative)
[2018-10-04 12:47] LABS: Influenza A and B by PCR Rapid Negative (Negative)
[2018-10-04 13:43] VITALS: BP 137/63; PULSE 57; RESP 14; O2SAT 94
[2018-10-04 14:05] VITALS: BP 153/68; PULSE 60; RESP 15; O2SAT 100
[2018-10-04] MEDS: ASPIRIN 81 MG TAB 324 MG PO (14:06)
--- NOTE | 2018-10-04 14:23 | PC.NURSE ---
increase in purposeful movement on left hand, pt able to zip her jacket.
== END 2018-10-04 14:24 | disposition home or self-care (01) ==
PROVIDERS: Emergency Provider Emergency Medicine; Family Provider Internal Medicine; PCP Internal Medicine
DX: I63.9 Cerebral infarction, unspecified (principal)
CPT/HCPCS: 70450; 70496; 70498; 80053; 80305; 81003; 82550; 84484; 85025; 85610; 85730; 87400; 93005; 93041; 96360; 96361; 99285; 99291; Q9967

== ENCOUNTER 2018-10-19 12:00 | Outpatient (RCR) | payer BC, SELFPAY ==
--- NOTE | 2018-10-08 17:00 | PT.OPPOC ---
Current Diagnoses Cerebral infarction, unspecified (10/08/18) Other symptoms and signs involving the musculoskeletal system (10/08/18) Provider Visit Care Team Role Provider Type Pramod Garber MD Attending Provider Physician Primary Care Provider Specialty: Internal Medicine Address: [address] [place] [address], [facility] Email: [email or web address] Plan Of Care PT-OP-T Assessment and Plan Start: 10/08/18 14:40 Freq: Status: Active Protocol: Document 10/08/18 14:41 EA (Rec: 10/08/18 14:43 EA [id number]) Physical Therapy Assessment Rehab Potential Rehabilitation Potential Good Evaluation Complexity Number of Personal Factors/Comorbidities 3 or More Number of Body Systems Impaired 4 or More Clinical Presentation at Evaluation Unstable Impairments Impairments Activity Tolerance Balance Functional Activities Functional Mobility Gait Pain Posture ROM Soft Tissue Mobility Strength Transfers Other Concerns Fall Risk Yes Goals Five Impairment Quick Dash 70 Loom Changer Goal (LTG) Quick dash functional scale results of < 30 LTG Duration 5 wks Four Impairment High risk fall Senior Living Goal (LTG) Patient will have no fall report LTG Duration 8 wks Three Impairment Impaired distance mobility Loom Changer Goal (LTG) Patient will amb > 200 ft with straight cane with SBA on flat ground LTG Duration 5 wks Two Impairment TUG of > 15 seconds Senior Living Goal (LTG) Patient will have TUG results of <12 LTG Duration 5 wks One Impairment NO HEP in place Loom Changer Goal (LTG) Patient will exhibit independent in HEP LTG Duration 4 wks Assessment Summary Assessment Pleasant 83 y/o F patient with a referring diagnosis of Acute CVA with left arm weakness. Today patient presented with gait and mobility difficulty, impaired left functional use due to general body de-conditioned, aches, and left arm neurological weakness. Functional assessment reveals fall risk and left arm 60% impaired function. MMT to RUE and BLE shows de-conditioned muscles and LUE exhibits neurological weakness. Proprioception and coordination are WFL. Due to above mentioned deficits, patient would benefit with skilled PT to address issues and may improve quality of life. Physical Therapy Plan Frequency and Duration Frequency of Treatment 2x/Week Duration of Treatment 10 wks Plan of Care Start Date 10/08/18 Plan of Care End Date 12/17/18 Therapeutic Interventions Therapeutic Interventions Balance Training Gait Training Home Exercise Program Manual Therapy Neuromuscular Re-education Patient/Caregiver Education Self-Care/Home Management Soft Tissue Mobilization Taping Therapeutic Activities Therapeutic Exercises Modalities Electric Stimulation Hot Packs Next Visit Focus/Plan Next Note Type Treatment Note Next Visit Plan Provide HEP images; strengthening to LUE, decreased pain to both knees, cardio vascular endurance. Plan of Care Dates Plan of Care Start Date 10/08/18 Plan of Care End Date 12/17/18 Please Sign and Return: I have reviewed this Plan of Care and certify that the skilled therapy services above are required to meet the patient?s needs. Physician Signature Date Printed Name and Credentials Clinical Instructor Signature Printed Name and Credentials
--- NOTE | 2018-10-08 17:00 | PT.OIE ---
Current Diagnoses Cerebral infarction, unspecified (10/08/18) Other symptoms and signs involving the musculoskeletal system (10/08/18) Past Medical History (Last Reviewed 10/05/18 @ 12:13 by Pramod Garber MD) Mixed hyperlipidemia (Chronic) History of CVA with residual deficit (Chronic) Essential hypertension (Chronic 04/17/15) Arthralgia (Chronic 04/17/15) Morbid obesity due to excess calories (Chronic 06/29/15) Chronic renal failure, stage 2 (mild) (Chronic 01/31/17) Acute intermittent porphyria (Acute) Arthritis (Acute) Past Surgical History (Last Reviewed 10/05/18 @ 12:13 by Pramod Garber MD) History of appendectomy (Acute) History of total left knee replacement (Acute) No pertinent past surgical history (Acute) Provider Visit Care Team Role Provider Type Pramod Garber MD Attending Provider Physician Primary Care Provider Specialty: Internal Medicine Address: [address] [place] [address], [facility] Email: [email or web address] Physical Therapy Initial Evaluation PT-OP-A Visit Information Start: 10/08/18 14:40 Freq: Status: Active Protocol: Document 10/08/18 14:47 EA (Rec: 10/08/18 15:09 EA [id number]) Out-Patient Physical Therapy Visit Information Visit Information Visit Type Treatment Note Visit Start Time 12:15 Visit Stop Time 13:00 Total Visit Minutes 45 Visit Number 1 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 Pt reports numbness and loss of sensory to tongue with HTN on first week of September/2018. Discharged to hospital with very slight left arm sensory and motor deficits. MRI on the same week reveals acute ischemic insults to right parietal lobe. Last week of October she was brought to E.R due to left arm numbness and weakness recurrence but was sent home on the same day due to improvement. Prior Treatments and Tests Same condition hospitalization September 07 Same condition brought to E.R same condition Same condition MRI: Parietal lobe infarction Future Testing and Treatments Planned None identified Treatment Goals Patient/Caregiver Goals 1. Patient would like to strengthen Left UE 2. Patient would like to strengthen BLE's 3. 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 PT-OP-C Subjective Start: 10/08/18 14:40 Freq: Status: Active Protocol: Document 10/08/18 17:00 EA (Rec: 10/09/18 07:32 EA [id number]) OP-PT Subjective Patient Comments Patient Comments Pt wants to improve general body strength and endurance Patient Reported Progress Worse Patient Questionnaires Quick Dash- Upper Extremity Quick Dash UE Score 70 Quick Dash UE Impairment 60 to 79% Impaired (Score 60- 79) OP-PT Pain Assessment Pain Behaviors Pain Behaviors Wincing Comments Pain Comments Tender over both quads, calves PT-OP-D Balance Start: 10/08/18 14:40 Freq: Status: Active Protocol: Document 10/08/18 17:00 EA (Rec: 10/09/18 07:32 EA [id number]) OP-PT Balance Assessment Sitting Balance Static Sitting Balance Ability Good Dynamic Sitting Balance Ability Good Sitting Balance Comments No indication of instability Standing Balance Static Standing Balance Ability Good Dynamic Standing Balance Ability Fair Standing Balance Comments < 8 with stand and reach to both sides Balance Tests Single Limb Standing Single Limb- Right unable Single Limb- Left unable Semi-Tandem Standing Semi-Tandem Standing Balance < 5 sec to each sides Rivera Balance Assessment Evaluation Sitting to Standing Ability Independent w/out Hands Unsupported Stance Safely- 2 minutes Standing to Sitting Ability Assist, Control w/Hands Transfer Ability Safely, Hand Use Unsupported Stance- Eyes Closed Supervision, 10 seconds Unsupported Stance- Eyes Open Independent, 1 minute Reaching Forward Standing Safely, 5 inches Pick- Up Object From Floor Within 2 inches, Unable Look Behind Shoulder - Standing Shifts Weight Well Turning 360 Degrees Turns slowly, but safely Unsupported Stance, Alternating Feet on (I)- 8 Steps in 20 secs Stair Unsupported Tandem Stance Small Step- 30 seconds Unilateral Leg Stance Unable,assist to not fall Total Score Rivera Total Score (out of 56 points) 38 Rivera Impairment Rating 20 to 39% Impaired (Score 34- 44) Tinetti Balance Assessment Sitting Balance Sitting Balance Steady, safe Arising from Chair Attempts to Arise Arises on 1st attempt Standing Balance Immediate Standing Balance Steady w/o support Turning Step Pattern Turning 360 Degrees Continuous steps Stability Turning 360 Degrees Steady Sitting Down Sitting Down Safe, steady Gait and Step Initiation of Gait No hesitancy Right Foot Step Length Does pass stance foot Right Foot Step Height Completely clears floor Left Foot Step Length Does pass stance foot Left Foot Step Height Completely clears floor Step Description Step Symmetry Step length not equal Step Continuity Steps appear continuous Gait Description Path Description Mild/moderate deviation Trunk Description No sway but posturing Walking Stance Heels apart Scoring and Interpretation Tinetti Composite Score (points) 17 Tinetti Impairment Rating from Composite 20 to <40% Impaired (Score 17- Score 22) Mukherjee Fall Scale Copyright Permission Lonny JM, Lonny RM, Tommie SJ. Development of a scale to identify the fall- prone patient. Can J Aging 1989;8;366-7. Arelis Mukherjee (2009). Preventing patient falls. (2nd ed). [place]: [place]. PT-OP-E Functional Tests Start: 10/08/18 14:40 Freq: Status: Active Protocol: Document 10/08/18 17:17 EA (Rec: 10/08/18 17:39 EA [id number]) Functional Tests Apley's Scratch Test Action 1: The subject is instructed to touch the opposite shoulder with his/her hand. This motion checks Glenohumeral adduction, internal rotation , horizontal adduction and scapular protraction Action 2: The subject is instructed to place his/her arm overhead and reach behind the neck to touch his/her upper back. This motion checks Glenohumeral abduction, external rotation and scapular upward rotation and elevation. Action 3: The subject puts his/her hand on the lower back and reaches upward as far as possible. This motion checks glenohumeral adduction, internal rotation and scapular retraction with downward rotation Action 1- Left Able Action 1- Right able Action 2- Left C3 Action 2- Right C7 Action 3- Left T12 Action 3- Right L2 Timed Up and Go (TUG) Score >15 secs TUG Impairment Rating 40 to <60% Impaired (Score 14- 15) Tinetti Balance and Gait Assessment Composite Score 17 Composite Score Impairment Rating 20 to <40% Impaired (Score 17- 22) PT-OP-G Mobility & Gait Start: 10/08/18 14:40 Freq: Status: Active Protocol: Document 10/08/18 17:17 EA (Rec: 10/08/18 17:39 EA [id number]) OP Mobility Evaluation Bed Mobility Rolling Indep with difficulty Supine to and from Sit Indep with difficulty Transfers Sit to Stand Indep Bed to Chair Transfers Indep Car Transfers Indep Floor Transfers Unable OP Gait Assessment Comments Gait Comments Indep with STC < 200 ft with waddling gait Stair Climbing Evaluation Comments Stair Climbing Comments Step to step with right leading up and left leading down with the use of rails PT-OP-H Neuro Start: 10/08/18 14:40 Freq: Status: Active Protocol: Document 10/08/18 17:17 EA (Rec: 10/08/18 17:39 EA [id number]) Sensation Evaluation Gross Sensation Gross Sensation WNL Coordination Evaluation Upper Extremity Tests Right Finger to Nose Test Normal Performance Finger to Therapist's Finger Test Normal Performance Finger to Finger Test Normal Performance Alternate Nose to Finger Test Normal Performance Pronation/Supination Test Normal Performance Left Finger to Nose Test Minimal Impairment Finger to Therapist's Finger Test Normal Performance Finger to Finger Test Normal Performance Alternate Nose to Finger Test Normal Performance Mass Grasp Test Normal Performance Hand Tapping Test Normal Performance Lower Extremity Tests Alternate Heel to Knee; Heel to Toe Test Normal Performance Heel on Falcon Test Normal Performance Foot Tapping Test Normal Performance Toe to Examiner's Finger Test Normal Performance Deep Tendon Reflex & Clonus Assessment Deep Tendon Reflex Left Patellar Deep Tendon Reflex 2+ Normal Left Brachioradialis Deep Tendon Reflex 2+ Normal Vital Signs Blood Pressure Sitting Blood Pressure (90/60-120/80 mmHg) 130/80 H Blood Pressure Source Manual Cuff Right Upper Extremity PT-OP-J Posture/Palpation/Skin Start: 10/08/18 14:40 Freq: Status: Active Protocol: Document 10/08/18 17:17 EA (Rec: 10/08/18 17:39 EA [id number]) Posture Evaluation Position Standing Head/C-Spine Posture Forward Head L-Spine Posture Increased Lordosis Arm Posture (L) Internally Rotated (R) Internally Rotated Pelvis Posture Anteriorly Tilted Hip Posture (L) Flexed Palpation Assessment Location One Palpation Details Grade Skin Assessment Other Assessments Skin Assessment Comments Both LE's non pitting edema PT-OP-K Range of Motion Start: 10/08/18 14:40 Freq: Status: Active Protocol: Document 10/08/18 17:00 EA (Rec: 10/09/18 07:32 EA [id number]) Shoulder Goniometric Range of Motion Shoulder Measured in Degrees Right Passive Shoulder ROM WFL Yes Left Passive Shoulder ROM WFL Yes Elbow/Forearm Range of Motion Elbow/Forearm Measured in Degrees Right Active Elbow/Forearm ROM WFL Yes Left Active Elbow/Forearm ROM WFL Yes Wrist Goniometric Range of Motion Wrist Measured in Degrees Right Wrist ROM WFL Yes Left Wrist ROM WFL Yes PT-OP-M Strength Start: 10/08/18 14:40 Freq: Status: Active Protocol: Document 10/08/18 17:00 EA (Rec: 10/09/18 07:32 EA [id number]) Trunk Strength Trunk Manual Muscle Testing Testing Position Sitting Flexion 4 Good Extension 4 Good Rotation Left 4 Good Rotation Right 4 Good Lateral Flexion Left 4 Good Lateral Flexion Right 4 Good Shoulder Strength Shoulder Manual Muscle Testing Left Flexion 3+ Fair+ Extension 3+ Fair+ Abduction (C5) 3+ Fair+ Adduction 4 Good External Rotation 3+ Fair+ Internal Rotation 3+ Fair+ Horizontal Abduction 3+ Fair+ Horizontal Adduction 3+ Fair+ Right Reason Not Measured WFL Elbow/Forearm Strength Elbow and Forearm Manual Muscle Testing Right Reason Not Measured WFL Left Flexion (C6) 3+ Fair+ Extension (C7) 3+ Fair+ Pronation 3+ Fair+ Supination 3+ Fair+ Wrist Strength Wrist Manual Muscle Testing Right Reason Not Measured WFL Left Flexion (C7) 3+ Fair+ Extension (C6) 3+ Fair+ Ulnar Deviation 3+ Fair+ Radial Deviation 3+ Fair+ Hip Strength Hip Manual Muscle Testing Right Flexion (L2) 4 Good Extension (S1) 4- Good- Abduction 4- Good- Adduction 4 Good External Rotation 4 Good Internal Rotation 4 Good Left Flexion (L2) 4 Good Extension (S1) 4- Good- Abduction 4- Good- Adduction 4- Good- External Rotation 4 Good Internal Rotation 4 Good Knee Strength Knee Manual Muscle Testing Right Flexion (S2) 4 Good Extension (L3) 4 Good Left Flexion (S2) 4 Good Extension (L3) 4 Good Ankle/Foot Strength Ankle and Foot Manual Muscle Testing Right Dorsiflexion (L4) 4 Good Plantarflexion (S1) 4 Good Inversion 4 Good Eversion (S1) 4 Good Left Dorsiflexion (L4) 4 Good Plantarflexion (S1) 4 Good Inversion 4 Good Eversion (S1) 4 Good PT-OP-T Assessment and Plan Start: 10/08/18 14:40 Freq: Status: Active Protocol: Document 10/08/18 14:41 YOLANDE (Rec: 10/08/18 14:43 YOLANDE [id number]) Physical Therapy Assessment Rehab Potential Rehabilitation Potential Good Evaluation Complexity Number of Personal Factors/Comorbidities 3 or More Number of Body Systems Impaired 4 or More Clinical Presentation at Evaluation Unstable Impairments Impairments Activity Tolerance Balance Functional Activities Functional Mobility Gait Pain Posture ROM Soft Tissue Mobility Strength Transfers Other Concerns Fall Risk Yes Goals Five Impairment Quick Dash 70 Usp Goal (LTG) Quick dash functional scale results of < 30 LTG Duration 5 wks Four Impairment High risk fall Chainstitch Seat Joiner Goal (LTG) Patient will have no fall report LTG Duration 8 wks Three Impairment Impaired distance mobility Chainstitch Seat Joiner Goal (LTG) Patient will amb > 200 ft with straight cane with SBA on flat ground LTG Duration 5 wks Two Impairment TUG of > 15 seconds Chainstitch Seat Joiner Goal (LTG) Patient will have TUG results of <12 LTG Duration 5 wks One Impairment NO HEP in place Usp Goal (LTG) Patient will exhibit independent in HEP LTG Duration 4 wks Assessment Summary Assessment Pleasant 83 y/o F patient with a referring diagnosis of Acute CVA with left arm weakness. Today patient presented with gait and mobility difficulty, impaired left functional use due to general body de-conditioned, aches, and left arm neurological weakness. Functional assessment reveals fall risk and left arm 60% impaired function. MMT to RUE and BLE shows de-conditioned muscles and LUE exhibits neurological weakness. Proprioception and coordination are WFL. Due to above mentioned deficits, patient would benefit with skilled PT to address issues and may improve quality of life. Physical Therapy Plan Frequency and Duration Frequency of Treatment 2x/Week Duration of Treatment 10 wks Plan of Care Start Date 10/08/18 Plan of Care End Date 12/17/18 Therapeutic Interventions Therapeutic Interventions Balance Training Gait Training Home Exercise Program Manual Therapy Neuromuscular Re-education Patient/Caregiver Education Self-Care/Home Management Soft Tissue Mobilization Taping Therapeutic Activities Therapeutic Exercises Modalities Electric Stimulation Hot Packs Next Visit Focus/Plan Next Note Type Treatment Note Next Visit Plan Provide HEP images; strengthening to LUE, decreased pain to both knees, cardio vascular endurance.
[2018-10-08 17:17] VITALS: BP 130/80
[2018-10-11 10:44] VITALS: BP 132/80
--- NOTE | 2018-10-11 10:44 | PT.OTN ---
Current Diagnoses Cerebral infarction, unspecified (10/11/18) Other symptoms and signs involving the musculoskeletal system (10/11/18) Physical Therapy Treatment Note PT-OP-A Visit Information Start: 10/08/18 14:40 Freq: Status: Active Protocol: Document 10/11/18 10:44 RCC (Rec: 10/11/18 13:14 RCC [email or web address]) Out-Patient Physical Therapy Visit Information Visit Information Visit Type Treatment Note Visit Start Time 10:44 Visit Stop Time 11:14 Total Visit Minutes 30 Visit Number 2 Number of DIRECTOR OF ACCOUNTS PAYABLE Visits 0 Evaluation Information Evaluation Date 10/08/18 Precautions Precautions Leaglly blind, mucular degeneration PT-OP-B Current Condition Start: 10/08/18 14:40 Freq: Status: Active Protocol: Document 10/08/18 14:47 EA (Rec: 10/08/18 15:09 EA [id number]) Current Condition History of Current Condition Onset Date 09/08/18 Current Complaints Left arm numbness, weakness and general body fatigue History of Current Condition Narrative: Patient was hospitalized 5 wks ago for three days ue to mild stroke. Pt reports numbness and loss of sensory to tongue with HTN on first week of September/2018. Discharged to hospital with very slight left arm sensory and motor deficits. MRI on the same week reveals acute ischemic insults to right parietal lobe. Last week of October she was brought to [facility] due to left arm numbness and weakness recurrence but was sent home on the same day due to improvement. Prior Treatments and Tests Same condition hospitalization September 07 Same condition brought to [facility] same condition Same condition MRI: Parietal lobe infarction Future Testing and Treatments Planned None identified Treatment Goals Patient/Caregiver Goals 1. Patient would like to strengthen Left UE 2. Patient would like to strengthen BLE's 3. 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 PT-OP-D Balance Start: 10/08/18 14:40 Freq: Status: Active Protocol: Document 10/08/18 17:00 EA (Rec: 10/09/18 07:32 EA [id number]) OP-PT Balance Assessment Sitting Balance Static Sitting Balance Ability Good Dynamic Sitting Balance Ability Good Sitting Balance Comments No indication of instability Standing Balance Static Standing Balance Ability Good Dynamic Standing Balance Ability Fair Standing Balance Comments < 8 with stand and reach to both sides Balance Tests Single Limb Standing Single Limb- Right unable Single Limb- Left unable Semi-Tandem Standing Semi-Tandem Standing Balance < 5 sec to each sides Rivera Balance Assessment Evaluation Sitting to Standing Ability Independent w/out Hands Unsupported Stance Safely- 2 minutes Standing to Sitting Ability Assist, Control w/Hands Transfer Ability Safely, Hand Use Unsupported Stance- Eyes Closed Supervision, 10 seconds Unsupported Stance- Eyes Open Independent, 1 minute Reaching Forward Standing Safely, 5 inches Pick- Up Object From Floor Within 2 inches, Unable Look Behind Shoulder - Standing Shifts Weight Well Turning 360 Degrees Turns slowly, but safely Unsupported Stance, Alternating Feet on (I)- 8 Steps in 20 secs Stair Unsupported Tandem Stance Small Step- 30 seconds Unilateral Leg Stance Unable,assist to not fall Total Score Rivera Total Score (out of 56 points) 38 Rivera Impairment Rating 20 to 39% Impaired (Score 34- 44) Tinetti Balance Assessment Sitting Balance Sitting Balance Steady, safe Arising from Chair Attempts to Arise Arises on 1st attempt Standing Balance Immediate Standing Balance Steady w/o support Turning Step Pattern Turning 360 Degrees Continuous steps Stability Turning 360 Degrees Steady Sitting Down Sitting Down Safe, steady Gait and Step Initiation of Gait No hesitancy Right Foot Step Length Does pass stance foot Right Foot Step Height Completely clears floor Left Foot Step Length Does pass stance foot Left Foot Step Height Completely clears floor Step Description Step Symmetry Step length not equal Step Continuity Steps appear continuous Gait Description Path Description Mild/moderate deviation Trunk Description No sway but posturing Walking Stance Heels apart Scoring and Interpretation Tinetti Composite Score (points) 17 Tinetti Impairment Rating from Composite 20 to <40% Impaired (Score 17- Score 22) Mukherjee Fall Scale Copyright Permission Lonny COX, Lonny RM, Tommie SJ. Development of a scale to identify the fall- prone patient. Can J Aging 1989;8;366-7. Arelis Mukherjee (2009). Preventing patient falls. (2nd ed). [place]corn: [place]. PT-OP-E Functional Tests Start: 10/08/18 14:40 Freq: Status: Active Protocol: Document 10/08/18 17:17 EA (Rec: 10/08/18 17:39 EA [id number]) Functional Tests Apley's Scratch Test Action 1: The subject is instructed to touch the opposite shoulder with his/her hand. This motion checks Glenohumeral adduction, internal rotation , horizontal adduction and scapular protraction Action 2: The subject is instructed to place his/her arm overhead and reach behind the neck to touch his/her upper back. This motion checks Glenohumeral abduction, external rotation and scapular upward rotation and elevation. Action 3: The subject puts his/her hand on the lower back and reaches upward as far as possible. This motion checks glenohumeral adduction, internal rotation and scapular retraction with downward rotation Action 1- Left Able Action 1- Right able Action 2- Left C3 Action 2- Right C7 Action 3- Left T12 Action 3- Right L2 Timed Up and Go (TUG) Score >15 secs TUG Impairment Rating 40 to <60% Impaired (Score 14- 15) Tinetti Balance and Gait Assessment Composite Score 17 Composite Score Impairment Rating 20 to <40% Impaired (Score 17- 22) PT-OP-G Mobility & Gait Start: 10/08/18 14:40 Freq: Status: Active Protocol: Document 10/08/18 17:17 EA (Rec: 10/08/18 17:39 EA [id number]) OP Mobility Evaluation Bed Mobility Rolling Indep with difficulty Supine to and from Sit Indep with difficulty Transfers Sit to Stand Indep Bed to Chair Transfers Indep Car Transfers Indep Floor Transfers Unable OP Gait Assessment Comments Gait Comments Indep with STC < 200 ft with waddling gait Stair Climbing Evaluation Comments Stair Climbing Comments Step to step with right leading up and left leading down with the use of rails PT-OP-H Neuro Start: 10/08/18 14:40 Freq: Status: Active Protocol: Document 10/08/18 17:17 EA (Rec: 10/08/18 17:39 EA [id number]) Sensation Evaluation Gross Sensation Gross Sensation WNL Coordination Evaluation Upper Extremity Tests Right Finger to Nose Test Normal Performance Finger to Therapist's Finger Test Normal Performance Finger to Finger Test Normal Performance Alternate Nose to Finger Test Normal Performance Pronation/Supination Test Normal Performance Left Finger to Nose Test Minimal Impairment Finger to Therapist's Finger Test Normal Performance Finger to Finger Test Normal Performance Alternate Nose to Finger Test Normal Performance Mass Grasp Test Normal Performance Hand Tapping Test Normal Performance Lower Extremity Tests Alternate Heel to Knee; Heel to Toe Test Normal Performance Heel on Falcon Test Normal Performance Foot Tapping Test Normal Performance Toe to Examiner's Finger Test Normal Performance Deep Tendon Reflex & Clonus Assessment Deep Tendon Reflex Left Patellar Deep Tendon Reflex 2+ Normal Left Brachioradialis Deep Tendon Reflex 2+ Normal Vital Signs Blood Pressure Sitting Blood Pressure (90/60-120/80 mmHg) 130/80 H Blood Pressure Source Manual Cuff Right Upper Extremity PT-OP-J Posture/Palpation/Skin Start: 10/08/18 14:40 Freq: Status: Active Protocol: Document 10/08/18 17:17 EA (Rec: 10/08/18 17:39 EA [id number]) Posture Evaluation Position Standing Head/C-Spine Posture Forward Head L-Spine Posture Increased Lordosis Arm Posture (L) Internally Rotated (R) Internally Rotated Pelvis Posture Anteriorly Tilted Hip Posture (L) Flexed Palpation Assessment Location One Palpation Details Grade Skin Assessment Other Assessments Skin Assessment Comments Both LE's non pitting edema PT-OP-K Range of Motion Start: 10/08/18 14:40 Freq: Status: Active Protocol: Document 10/11/18 10:44 RCC (Rec: 10/11/18 13:14 RCC [email or web address]) Shoulder Goniometric Range of Motion Shoulder ROM Limitations Comments L shoulder flexion to 100 degrees AROM in sitting PT-OP-M Strength Start: 10/08/18 14:40 Freq: Status: Active Protocol: Document 10/08/18 17:00 EA (Rec: 10/09/18 07:32 EA [id number]) Trunk Strength Trunk Manual Muscle Testing Testing Position Sitting Flexion 4 Good Extension 4 Good Rotation Left 4 Good Rotation Right 4 Good Lateral Flexion Left 4 Good Lateral Flexion Right 4 Good Shoulder Strength Shoulder Manual Muscle Testing Left Flexion 3+ Fair+ Extension 3+ Fair+ Abduction (C5) 3+ Fair+ Adduction 4 Good External Rotation 3+ Fair+ Internal Rotation 3+ Fair+ Horizontal Abduction 3+ Fair+ Horizontal Adduction 3+ Fair+ Right Reason Not Measured WFL Elbow/Forearm Strength Elbow and Forearm Manual Muscle Testing Right Reason Not Measured WFL Left Flexion (C6) 3+ Fair+ Extension (C7) 3+ Fair+ Pronation 3+ Fair+ Supination 3+ Fair+ Wrist Strength Wrist Manual Muscle Testing Right Reason Not Measured WFL Left Flexion (C7) 3+ Fair+ Extension (C6) 3+ Fair+ Ulnar Deviation 3+ Fair+ Radial Deviation 3+ Fair+ Hip Strength Hip Manual Muscle Testing Right Flexion (L2) 4 Good Extension (S1) 4- Good- Abduction 4- Good- Adduction 4 Good External Rotation 4 Good Internal Rotation 4 Good Left Flexion (L2) 4 Good Extension (S1) 4- Good- Abduction 4- Good- Adduction 4- Good- External Rotation 4 Good Internal Rotation 4 Good Knee Strength Knee Manual Muscle Testing Right Flexion (S2) 4 Good Extension (L3) 4 Good Left Flexion (S2) 4 Good Extension (L3) 4 Good Ankle/Foot Strength Ankle and Foot Manual Muscle Testing Right Dorsiflexion (L4) 4 Good Plantarflexion (S1) 4 Good Inversion 4 Good Eversion (S1) 4 Good Left Dorsiflexion (L4) 4 Good Plantarflexion (S1) 4 Good Inversion 4 Good Eversion (S1) 4 Good PT-OP-Q Treatments Start: 10/08/18 14:40 Freq: Status: Active Protocol: Document 10/11/18 10:44 RCC (Rec: 10/11/18 13:14 RCC [email or web address]) Cardio Equipment Recumbent Elliptical (Biodex) Duration (Minutes) 6 Resistance 1 Therapeutic Exercises Sitting Exercises shoulder AROM Sitting Exercise Name shoulder flexion to 90 deg Side bilateral Resistance 0 Reps/Minutes x10 scapular retraction Side bilateral Reps/Minutes x20 Standing Exercises heel raises Side bilateral Reps/Minutes x10 hip abduction Side bilateral Equipment Used UE on standing bar Reps/Minutes x10 each LE Comments VC for posture hip flexion Standing Exercise Name marching with UE support Side bilateral Reps/Minutes x10 each LE Neuro Re-Education Treatment Balance Activities SL balance Equipment UE on standing bar Reps/Duration 1 min Comments unable to perform without UE support semi-tandem Surface level Equipment standing bar Reps/Duration 4 min Comments progression of semi-tandem standing with EO and EC PT-OP-T Assessment and Plan Start: 10/08/18 14:40 Freq: Status: Active Protocol: Document 10/11/18 10:44 RCC (Rec: 10/11/18 13:14 RCC [email or web address]) Physical Therapy Assessment Assessment Summary Assessment Pt 14 min late for session. She was able to achieve 100 degrees of active L shoulder flexion, and tolerated shoulder flexion to 90 degrees x10 bilaterally with fatigue but no pain. Pt unable to perform SL balance without UE support, but fair balance with semi-tandem position with eyes closed. Pt fatigued with recumbent stepper training and would greatly benefit from the continuation of progression of generalized strengthening, standing balance, and cardiovascular training to improve functional mobility, safety, and independence. Physical Therapy Plan Frequency and Duration Frequency of Treatment 2x/Week Duration of Treatment 10 wks Plan of Care Start Date 10/08/18 Plan of Care End Date 12/17/18 Next Visit Focus/Plan Next Note Type Treatment Note Next Visit Plan L shoulder strength and ROM, standing balance and LE strengthening as tolerated ( functional squats)
--- NOTE | 2018-10-17 14:30 | PT.OTN ---
Current Diagnoses Cerebral infarction, unspecified (10/17/18) Other symptoms and signs involving the musculoskeletal system (10/17/18) Physical Therapy Treatment Note PT-OP-A Visit Information Start: 10/08/18 14:40 Freq: Status: Active Protocol: Document 10/17/18 14:30 RCC (Rec: 10/17/18 15:38 RCC [email or web address]) Out-Patient Physical Therapy Visit Information Visit Information Visit Type Treatment Note Visit Start Time 14:30 Visit Stop Time 15:21 Total Visit Minutes 51 Visit Number 3 Number of BOTTLE PACKER Visits 0 Evaluation Information Evaluation Date 10/08/18 Precautions Precautions Leaglly blind, mucular degeneration PT-OP-B Current Condition Start: 10/08/18 14:40 Freq: Status: Active Protocol: Document 10/08/18 14:47 EA (Rec: 10/08/18 15:09 EA [id number]) Current Condition History of Current Condition Onset Date 09/08/18 Current Complaints Left arm numbness, weakness and general body fatigue History of Current Condition Narrative: Patient was hospitalized 5 wks ago for three days ue to mild stroke. Pt reports numbness and loss of sensory to tongue with HTN on first week of September/2018. Discharged to hospital with very slight left arm sensory and motor deficits. MRI on the same week reveals acute ischemic insults to right parietal lobe. Last week of October she was brought to E.R due to left arm numbness and weakness recurrence but was sent home on the same day due to improvement. Prior Treatments and Tests Same condition hospitalization September 07 Same condition brought to E.R same condition Same condition MRI: Parietal lobe infarction Future Testing and Treatments Planned None identified Treatment Goals Patient/Caregiver Goals 1. Patient would like to strengthen Left UE 2. Patient would like to strengthen BLE's 3. 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 PT-OP-D Balance Start: 10/08/18 14:40 Freq: Status: Active Protocol: Document 10/08/18 17:00 EA (Rec: 10/09/18 07:32 EA [id number]) OP-PT Balance Assessment Sitting Balance Static Sitting Balance Ability Good Dynamic Sitting Balance Ability Good Sitting Balance Comments No indication of instability Standing Balance Static Standing Balance Ability Good Dynamic Standing Balance Ability Fair Standing Balance Comments < 8 with stand and reach to both sides Balance Tests Single Limb Standing Single Limb- Right unable Single Limb- Left unable Semi-Tandem Standing Semi-Tandem Standing Balance < 5 sec to each sides Rivera Balance Assessment Evaluation Sitting to Standing Ability Independent w/out Hands Unsupported Stance Safely- 2 minutes Standing to Sitting Ability Assist, Control w/Hands Transfer Ability Safely, Hand Use Unsupported Stance- Eyes Closed Supervision, 10 seconds Unsupported Stance- Eyes Open Independent, 1 minute Reaching Forward Standing Safely, 5 inches Pick- Up Object From Floor Within 2 inches, Unable Look Behind Shoulder - Standing Shifts Weight Well Turning 360 Degrees Turns slowly, but safely Unsupported Stance, Alternating Feet on (I)- 8 Steps in 20 secs Stair Unsupported Tandem Stance Small Step- 30 seconds Unilateral Leg Stance Unable,assist to not fall Total Score Rivera Total Score (out of 56 points) 38 Rivera Impairment Rating 20 to 39% Impaired (Score 34- 44) Tinetti Balance Assessment Sitting Balance Sitting Balance Steady, safe Arising from Chair Attempts to Arise Arises on 1st attempt Standing Balance Immediate Standing Balance Steady w/o support Turning Step Pattern Turning 360 Degrees Continuous steps Stability Turning 360 Degrees Steady Sitting Down Sitting Down Safe, steady Gait and Step Initiation of Gait No hesitancy Right Foot Step Length Does pass stance foot Right Foot Step Height Completely clears floor Left Foot Step Length Does pass stance foot Left Foot Step Height Completely clears floor Step Description Step Symmetry Step length not equal Step Continuity Steps appear continuous Gait Description Path Description Mild/moderate deviation Trunk Description No sway but posturing Walking Stance Heels apart Scoring and Interpretation Tinetti Composite Score (points) 17 Tinetti Impairment Rating from Composite 20 to <40% Impaired (Score 17- Score 22) Mukherjee Fall Scale Copyright Permission Lonny COX, Lonny RM, Tommie SJ. Development of a scale to identify the fall- prone patient. Can J Aging 1989;8;366-7. Arelis Mukherjee (2009). Preventing patient falls. (2nd ed). [place]: [place]. PT-OP-E Functional Tests Start: 10/08/18 14:40 Freq: Status: Active Protocol: Document 10/08/18 17:17 EA (Rec: 10/08/18 17:39 EA [id number]) Functional Tests Apley's Scratch Test Action 1: The subject is instructed to touch the opposite shoulder with his/her hand. This motion checks Glenohumeral adduction, internal rotation , horizontal adduction and scapular protraction Action 2: The subject is instructed to place his/her arm overhead and reach behind the neck to touch his/her upper back. This motion checks Glenohumeral abduction, external rotation and scapular upward rotation and elevation. Action 3: The subject puts his/her hand on the lower back and reaches upward as far as possible. This motion checks glenohumeral adduction, internal rotation and scapular retraction with downward rotation Action 1- Left Able Action 1- Right able Action 2- Left C3 Action 2- Right C7 Action 3- Left T12 Action 3- Right L2 Timed Up and Go (TUG) Score >15 secs TUG Impairment Rating 40 to <60% Impaired (Score 14- 15) Tinetti Balance and Gait Assessment Composite Score 17 Composite Score Impairment Rating 20 to <40% Impaired (Score 17- 22) PT-OP-G Mobility & Gait Start: 10/08/18 14:40 Freq: Status: Active Protocol: Document 10/08/18 17:17 EA (Rec: 10/08/18 17:39 EA [id number]) OP Mobility Evaluation Bed Mobility Rolling Indep with difficulty Supine to and from Sit Indep with difficulty Transfers Sit to Stand Indep Bed to Chair Transfers Indep Car Transfers Indep Floor Transfers Unable OP Gait Assessment Comments Gait Comments Indep with STC < 200 ft with waddling gait Stair Climbing Evaluation Comments Stair Climbing Comments Step to step with right leading up and left leading down with the use of rails PT-OP-H Neuro Start: 10/08/18 14:40 Freq: Status: Active Protocol: Document 10/11/18 10:44 RCC (Rec: 10/11/18 13:16 RCC [email or web address]) Vital Signs Blood Pressure Sitting Blood Pressure (90/60-120/80 mmHg) 132/80 H Blood Pressure Source Manual Cuff PT-OP-J Posture/Palpation/Skin Start: 10/08/18 14:40 Freq: Status: Active Protocol: Document 10/08/18 17:17 EA (Rec: 10/08/18 17:39 EA [id number]) Posture Evaluation Position Standing Head/C-Spine Posture Forward Head L-Spine Posture Increased Lordosis Arm Posture (L) Internally Rotated (R) Internally Rotated Pelvis Posture Anteriorly Tilted Hip Posture (L) Flexed Palpation Assessment Location One Palpation Details Grade Skin Assessment Other Assessments Skin Assessment Comments Both LE's non pitting edema PT-OP-K Range of Motion Start: 10/08/18 14:40 Freq: Status: Active Protocol: Document 10/11/18 10:44 RCC (Rec: 10/11/18 13:14 RCC [email or web address]) Shoulder Goniometric Range of Motion Shoulder ROM Limitations Comments L shoulder flexion to 100 degrees AROM in sitting PT-OP-M Strength Start: 10/08/18 14:40 Freq: Status: Active Protocol: Document 10/08/18 17:00 EA (Rec: 10/09/18 07:32 EA [id number]) Trunk Strength Trunk Manual Muscle Testing Testing Position Sitting Flexion 4 Good Extension 4 Good Rotation Left 4 Good Rotation Right 4 Good Lateral Flexion Left 4 Good Lateral Flexion Right 4 Good Shoulder Strength Shoulder Manual Muscle Testing Left Flexion 3+ Fair+ Extension 3+ Fair+ Abduction (C5) 3+ Fair+ Adduction 4 Good External Rotation 3+ Fair+ Internal Rotation 3+ Fair+ Horizontal Abduction 3+ Fair+ Horizontal Adduction 3+ Fair+ Right Reason Not Measured WFL Elbow/Forearm Strength Elbow and Forearm Manual Muscle Testing Right Reason Not Measured WFL Left Flexion (C6) 3+ Fair+ Extension (C7) 3+ Fair+ Pronation 3+ Fair+ Supination 3+ Fair+ Wrist Strength Wrist Manual Muscle Testing Right Reason Not Measured WFL Left Flexion (C7) 3+ Fair+ Extension (C6) 3+ Fair+ Ulnar Deviation 3+ Fair+ Radial Deviation 3+ Fair+ Hip Strength Hip Manual Muscle Testing Right Flexion (L2) 4 Good Extension (S1) 4- Good- Abduction 4- Good- Adduction 4 Good External Rotation 4 Good Internal Rotation 4 Good Left Flexion (L2) 4 Good Extension (S1) 4- Good- Abduction 4- Good- Adduction 4- Good- External Rotation 4 Good Internal Rotation 4 Good Knee Strength Knee Manual Muscle Testing Right Flexion (S2) 4 Good Extension (L3) 4 Good Left Flexion (S2) 4 Good Extension (L3) 4 Good Ankle/Foot Strength Ankle and Foot Manual Muscle Testing Right Dorsiflexion (L4) 4 Good Plantarflexion (S1) 4 Good Inversion 4 Good Eversion (S1) 4 Good Left Dorsiflexion (L4) 4 Good Plantarflexion (S1) 4 Good Inversion 4 Good Eversion (S1) 4 Good PT-OP-Q Treatments Start: 10/08/18 14:40 Freq: Status: Active Protocol: Document 10/17/18 14:30 RCC (Rec: 10/17/18 15:38 RCC [email or web address]) Cardio Equipment Recumbent Elliptical (Biodex) Duration (Minutes) 6 Resistance 1 Other stool for step up onto bike Therapeutic Exercises Supine Exercises shoulder flexion Side bilateral Resistance 1 lb Reps/Minutes 2x10 Sidelying Exercises shoulder AROM Sidelying Exercise Name flexion and abduction within pain-free range Side left Reps/Minutes 2x10 each Sitting Exercises shoulder gagan's Sitting Exercise Name flexion and abduction Side bilateral Reps/Minutes x5 min Comments pain with abduction therefore d/c biceps curl Side left Resistance 2 lb Reps/Minutes 2x10 Standing Exercises step up/down Standing Exercise Name step up/down on 5 step with / / bar UE support Side bilateral Reps/Minutes 10 each LE Comments gait belt Neuro Re-Education Treatment Balance Activities tilt board Reps/Duration 4 min Comments 2 min each A/P and lateral SL balance Equipment UE on standing bar Reps/Duration 1 min Comments unable to perform without UE support semi-tandem Surface foam Equipment standing bar Reps/Duration 2 min Other Activities hurdles Reps/Duration 10 step overs Comments stepping over hurdles going forward PT-OP-T Assessment and Plan Start: 10/08/18 14:40 Freq: Status: Active Protocol: Document 10/17/18 14:30 RCC (Rec: 10/17/18 15:38 RCC [email or web address]) Physical Therapy Assessment Assessment Summary Assessment Pt tolerated SL and supine shoulder flexion without c/o pain and able to tolerate SL abduction of the L shoulder as well with weakness/fatigue but no pain to 95 degrees. Physical Therapy Plan Frequency and Duration Frequency of Treatment 2x/Week Duration of Treatment 10 wks Plan of Care Start Date 10/08/18 Plan of Care End Date 12/17/18 Next Visit Focus/Plan Next Note Type Treatment Note Next Visit Plan ST mobilizations, wall push up (gentle); step up/down, LE strengthening
--- NOTE | 2018-10-19 12:10 | PT.OTN ---
Current Diagnoses Cerebral infarction, unspecified (10/19/18) Other symptoms and signs involving the musculoskeletal system (10/19/18) Physical Therapy Treatment Note PT-OP-A Visit Information Start: 10/08/18 14:40 Freq: Status: Active Protocol: Document 10/19/18 12:10 RCC (Rec: 10/19/18 13:06 RCC [email or web address]) Out-Patient Physical Therapy Visit Information Visit Information Visit Type Treatment Note Visit Start Time 12:10 Visit Stop Time 12:50 Total Visit Minutes 40 Visit Number 4 Number of SENIOR PROCUREMENT SPECIALIST Visits 0 Evaluation Information Evaluation Date 10/08/18 Precautions Precautions Leaglly blind, mucular degeneration PT-OP-B Current Condition Start: 10/08/18 14:40 Freq: Status: Active Protocol: Document 10/08/18 14:47 EA (Rec: 10/08/18 15:09 EA [id number]) Current Condition History of Current Condition Onset Date 09/08/18 Current Complaints Left arm numbness, weakness and general body fatigue History of Current Condition Narrative: Patient was hospitalized 5 wks ago for three days ue to mild stroke. Pt reports numbness and loss of sensory to tongue with HTN on first week of September/2018. Discharged to hospital with very slight left arm sensory and motor deficits. MRI on the same week reveals acute ischemic insults to right parietal lobe. Last week of October she was brought to E.R due to left arm numbness and weakness recurrence but was sent home on the same day due to improvement. Prior Treatments and Tests Same condition hospitalization September 07 Same condition brought to E.R same condition Same condition MRI: Parietal lobe infarction Future Testing and Treatments Planned None identified Treatment Goals Patient/Caregiver Goals 1. Patient would like to strengthen Left UE 2. Patient would like to strengthen BLE's 3. 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 Overall her daughter reports she is seeing improvements in pt. PT-OP-D Balance Start: 10/08/18 14:40 Freq: Status: Active Protocol: Document 10/08/18 17:00 EA (Rec: 10/09/18 07:32 EA [id number]) OP-PT Balance Assessment Sitting Balance Static Sitting Balance Ability Good Dynamic Sitting Balance Ability Good Sitting Balance Comments No indication of instability Standing Balance Static Standing Balance Ability Good Dynamic Standing Balance Ability Fair Standing Balance Comments < 8 with stand and reach to both sides Balance Tests Single Limb Standing Single Limb- Right unable Single Limb- Left unable Semi-Tandem Standing Semi-Tandem Standing Balance < 5 sec to each sides Rivera Balance Assessment Evaluation Sitting to Standing Ability Independent w/out Hands Unsupported Stance Safely- 2 minutes Standing to Sitting Ability Assist, Control w/Hands Transfer Ability Safely, Hand Use Unsupported Stance- Eyes Closed Supervision, 10 seconds Unsupported Stance- Eyes Open Independent, 1 minute Reaching Forward Standing Safely, 5 inches Pick- Up Object From Floor Within 2 inches, Unable Look Behind Shoulder - Standing Shifts Weight Well Turning 360 Degrees Turns slowly, but safely Unsupported Stance, Alternating Feet on (I)- 8 Steps in 20 secs Stair Unsupported Tandem Stance Small Step- 30 seconds Unilateral Leg Stance Unable,assist to not fall Total Score Rivera Total Score (out of 56 points) 38 Rivera Impairment Rating 20 to 39% Impaired (Score 34- 44) Tinetti Balance Assessment Sitting Balance Sitting Balance Steady, safe Arising from Chair Attempts to Arise Arises on 1st attempt Standing Balance Immediate Standing Balance Steady w/o support Turning Step Pattern Turning 360 Degrees Continuous steps Stability Turning 360 Degrees Steady Sitting Down Sitting Down Safe, steady Gait and Step Initiation of Gait No hesitancy Right Foot Step Length Does pass stance foot Right Foot Step Height Completely clears floor Left Foot Step Length Does pass stance foot Left Foot Step Height Completely clears floor Step Description Step Symmetry Step length not equal Step Continuity Steps appear continuous Gait Description Path Description Mild/moderate deviation Trunk Description No sway but posturing Walking Stance Heels apart Scoring and Interpretation Tinetti Composite Score (points) 17 Tinetti Impairment Rating from Composite 20 to <40% Impaired (Score 17- Score 22) Mukherjee Fall Scale Copyright Permission Lonny COX, Lonny RM, Tommie SJ. Development of a scale to identify the fall- prone patient. Can J Aging 1989;8;366-7. Arelis Mukherjee (2009). Preventing patient falls. (2nd ed). [place]: [place]. PT-OP-E Functional Tests Start: 10/08/18 14:40 Freq: Status: Active Protocol: Document 10/08/18 17:17 EA (Rec: 10/08/18 17:39 EA [id number]) Functional Tests Apley's Scratch Test Action 1: The subject is instructed to touch the opposite shoulder with his/her hand. This motion checks Glenohumeral adduction, internal rotation , horizontal adduction and scapular protraction Action 2: The subject is instructed to place his/her arm overhead and reach behind the neck to touch his/her upper back. This motion checks Glenohumeral abduction, external rotation and scapular upward rotation and elevation. Action 3: The subject puts his/her hand on the lower back and reaches upward as far as possible. This motion checks glenohumeral adduction, internal rotation and scapular retraction with downward rotation Action 1- Left Able Action 1- Right able Action 2- Left C3 Action 2- Right C7 Action 3- Left T12 Action 3- Right L2 Timed Up and Go (TUG) Score >15 secs TUG Impairment Rating 40 to <60% Impaired (Score 14- 15) Tinetti Balance and Gait Assessment Composite Score 17 Composite Score Impairment Rating 20 to <40% Impaired (Score 17- 22) PT-OP-G Mobility & Gait Start: 10/08/18 14:40 Freq: Status: Active Protocol: Document 10/08/18 17:17 EA (Rec: 10/08/18 17:39 EA [email or web address]) OP Mobility Evaluation Bed Mobility Rolling Indep with difficulty Supine to and from Sit Indep with difficulty Transfers Sit to Stand Indep Bed to Chair Transfers Indep Car Transfers Indep Floor Transfers Unable OP Gait Assessment Comments Gait Comments Indep with STC < 200 ft with waddling gait Stair Climbing Evaluation Comments Stair Climbing Comments Step to step with right leading up and left leading down with the use of rails PT-OP-H Neuro Start: 10/08/18 14:40 Freq: Status: Active Protocol: Document 10/11/18 10:44 RCC (Rec: 10/11/18 13:16 RCC [email or web address]) Vital Signs Blood Pressure Sitting Blood Pressure (90/60-120/80 mmHg) 132/80 H Blood Pressure Source Manual Cuff PT-OP-J Posture/Palpation/Skin Start: 10/08/18 14:40 Freq: Status: Active Protocol: Document 10/08/18 17:17 EA (Rec: 10/08/18 17:39 EA [id number]) Posture Evaluation Position Standing Head/C-Spine Posture Forward Head L-Spine Posture Increased Lordosis Arm Posture (L) Internally Rotated (R) Internally Rotated Pelvis Posture Anteriorly Tilted Hip Posture (L) Flexed Palpation Assessment Location One Palpation Details Grade Skin Assessment Other Assessments Skin Assessment Comments Both LE's non pitting edema PT-OP-K Range of Motion Start: 10/08/18 14:40 Freq: Status: Active Protocol: Document 10/11/18 10:44 RCC (Rec: 10/11/18 13:14 RCC [email or web address]) Shoulder Goniometric Range of Motion Shoulder ROM Limitations Comments L shoulder flexion to 100 degrees AROM in sitting PT-OP-M Strength Start: 10/08/18 14:40 Freq: Status: Active Protocol: Document 10/08/18 17:00 EA (Rec: 10/09/18 07:32 EA [id number]) Trunk Strength Trunk Manual Muscle Testing Testing Position Sitting Flexion 4 Good Extension 4 Good Rotation Left 4 Good Rotation Right 4 Good Lateral Flexion Left 4 Good Lateral Flexion Right 4 Good Shoulder Strength Shoulder Manual Muscle Testing Left Flexion 3+ Fair+ Extension 3+ Fair+ Abduction (C5) 3+ Fair+ Adduction 4 Good External Rotation 3+ Fair+ Internal Rotation 3+ Fair+ Horizontal Abduction 3+ Fair+ Horizontal Adduction 3+ Fair+ Right Reason Not Measured WFL Elbow/Forearm Strength Elbow and Forearm Manual Muscle Testing Right Reason Not Measured WFL Left Flexion (C6) 3+ Fair+ Extension (C7) 3+ Fair+ Pronation 3+ Fair+ Supination 3+ Fair+ Wrist Strength Wrist Manual Muscle Testing Right Reason Not Measured WFL Left Flexion (C7) 3+ Fair+ Extension (C6) 3+ Fair+ Ulnar Deviation 3+ Fair+ Radial Deviation 3+ Fair+ Hip Strength Hip Manual Muscle Testing Right Flexion (L2) 4 Good Extension (S1) 4- Good- Abduction 4- Good- Adduction 4 Good External Rotation 4 Good Internal Rotation 4 Good Left Flexion (L2) 4 Good Extension (S1) 4- Good- Abduction 4- Good- Adduction 4- Good- External Rotation 4 Good Internal Rotation 4 Good Knee Strength Knee Manual Muscle Testing Right Flexion (S2) 4 Good Extension (L3) 4 Good Left Flexion (S2) 4 Good Extension (L3) 4 Good Ankle/Foot Strength Ankle and Foot Manual Muscle Testing Right Dorsiflexion (L4) 4 Good Plantarflexion (S1) 4 Good Inversion 4 Good Eversion (S1) 4 Good Left Dorsiflexion (L4) 4 Good Plantarflexion (S1) 4 Good Inversion 4 Good Eversion (S1) 4 Good PT-OP-Q Treatments Start: 10/08/18 14:40 Freq: Status: Active Protocol: Document 10/19/18 12:10 RCC (Rec: 10/19/18 13:06 RCC [email or web address]) Cardio Equipment Recumbent Elliptical (Biodex) Duration (Minutes) 6 Resistance 1 Other stool for step up onto bike Gym Equipment Shuttle Recovery Bilateral Squats Resistance 50 Shuttle Recovery Platform Stable Reps/Time x12 Shuttle Rebound yellow Exercise Details normal stance, semi-tandem Reps/Duration 10 min Comments occasional UE use Therapeutic Exercises Sitting Exercises shoulder ER Side bilateral Resistance L1 Reps/Minutes x20 shoulder gagan's Sitting Exercise Name flexion and abduction Side bilateral Reps/Minutes x5 min scapular retraction Side bilateral Resistance L1 Reps/Minutes x20 Standing Exercises heel raises Side bilateral Reps/Minutes x10 hip flexion Standing Exercise Name marching with UE support Side bilateral Resistance 2 lbs Reps/Minutes x10 each LE PT-OP-T Assessment and Plan Start: 10/08/18 14:40 Freq: Status: Active Protocol: Document 10/19/18 12:10 RCC (Rec: 10/19/18 13:06 RCC [email or web address]) Physical Therapy Assessment Assessment Summary Assessment Pt able to tolerate yellow position of Shuttle Balance with occasional UE support. Gagan's were not painful today with ROM still limited in the L shoulder but progressing. Physical Therapy Plan Frequency and Duration Frequency of Treatment 2x/Week Duration of Treatment 10 wks Plan of Care Start Date 10/08/18 Plan of Care End Date 12/17/18 Next Visit Focus/Plan Next Note Type Treatment Note Next Visit Plan ST mobilizations, wall push up (gentle); step up/down, LE strengthening
--- NOTE | 2018-11-01 15:55 | PT.OPDS ---
Current Diagnoses Cerebral infarction, unspecified (10/19/18) Other symptoms and signs involving the musculoskeletal system (10/19/18) Provider Visit Care Team Role Provider Type Pramod Garber MD Attending Provider Physician Primary Care Provider Specialty: Internal Medicine Address: [address] [place] [address], [facility] Email: [email or web address] Visit Number Visit Number 4 Discharge Summary PT-OP-B Current Condition Start: 10/08/18 14:40 Freq: Status: Active Protocol: Document 10/08/18 14:47 EA (Rec: 10/08/18 15:09 EA [id number]) Current Condition History of Current Condition Onset Date 09/08/18 Current Complaints Left arm numbness, weakness and general body fatigue History of Current Condition Narrative: Patient was hospitalized 5 wks ago for three days ue to mild stroke. Pt reports numbness and loss of sensory to tongue with HTN on first week of September/2018. Discharged to hospital with very slight left arm sensory and motor deficits. MRI on the same week reveals acute ischemic insults to right parietal lobe. Last week of October she was brought to E.R due to left arm numbness and weakness recurrence but was sent home on the same day due to improvement. Prior Treatments and Tests Same condition hospitalization September 07 Same condition brought to E.R same condition Same condition MRI: Parietal lobe infarction Future Testing and Treatments Planned None identified Treatment Goals Patient/Caregiver Goals 1. Patient would like to strengthen Left UE 2. Patient would like to strengthen BLE's 3. 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 PT-OP-D Balance Start: 10/08/18 14:40 Freq: Status: Active Protocol: Document 10/08/18 17:00 YOLANDE (Rec: 10/09/18 07:32 EA [id number]) OP-PT Balance Assessment Sitting Balance Static Sitting Balance Ability Good Dynamic Sitting Balance Ability Good Sitting Balance Comments No indication of instability Standing Balance Static Standing Balance Ability Good Dynamic Standing Balance Ability Fair Standing Balance Comments < 8 with stand and reach to both sides Balance Tests Single Limb Standing Single Limb- Right unable Single Limb- Left unable Semi-Tandem Standing Semi-Tandem Standing Balance < 5 sec to each sides Rivera Balance Assessment Evaluation Sitting to Standing Ability Independent w/out Hands Unsupported Stance Safely- 2 minutes Standing to Sitting Ability Assist, Control w/Hands Transfer Ability Safely, Hand Use Unsupported Stance- Eyes Closed Supervision, 10 seconds Unsupported Stance- Eyes Open Independent, 1 minute Reaching Forward Standing Safely, 5 inches Pick- Up Object From Floor Within 2 inches, Unable Look Behind Shoulder - Standing Shifts Weight Well Turning 360 Degrees Turns slowly, but safely Unsupported Stance, Alternating Feet on (I)- 8 Steps in 20 secs Stair Unsupported Tandem Stance Small Step- 30 seconds Unilateral Leg Stance Unable,assist to not fall Total Score Rivera Total Score (out of 56 points) 38 Rivera Impairment Rating 20 to 39% Impaired (Score 34- 44) Tinetti Balance Assessment Sitting Balance Sitting Balance Steady, safe Arising from Chair Attempts to Arise Arises on 1st attempt Standing Balance Immediate Standing Balance Steady w/o support Turning Step Pattern Turning 360 Degrees Continuous steps Stability Turning 360 Degrees Steady Sitting Down Sitting Down Safe, steady Gait and Step Initiation of Gait No hesitancy Right Foot Step Length Does pass stance foot Right Foot Step Height Completely clears floor Left Foot Step Length Does pass stance foot Left Foot Step Height Completely clears floor Step Description Step Symmetry Step length not equal Step Continuity Steps appear continuous Gait Description Path Description Mild/moderate deviation Trunk Description No sway but posturing Walking Stance Heels apart Scoring and Interpretation Tinetti Composite Score (points) 17 Tinetti Impairment Rating from Composite 20 to <40% Impaired (Score 17- Score 22) Mukherjee Fall Scale Copyright Permission Lonny JM, Lonny RM, Tommie SJ. Development of a scale to identify the fall- prone patient. Can J Aging 1989;8;366-7. Arelis Mukherjee (2009). Preventing patient falls. (2nd ed). Mccurtain: [place]. PT-OP-E Functional Tests Start: 10/08/18 14:40 Freq: Status: Active Protocol: Document 10/08/18 17:17 EA (Rec: 10/08/18 17:39 EA [id number]) Functional Tests Apley's Scratch Test Action 1: The subject is instructed to touch the opposite shoulder with his/her hand. This motion checks Glenohumeral adduction, internal rotation , horizontal adduction and scapular protraction Action 2: The subject is instructed to place his/her arm overhead and reach behind the neck to touch his/her upper back. This motion checks Glenohumeral abduction, external rotation and scapular upward rotation and elevation. Action 3: The subject puts his/her hand on the lower back and reaches upward as far as possible. This motion checks glenohumeral adduction, internal rotation and scapular retraction with downward rotation Action 1- Left Able Action 1- Right able Action 2- Left C3 Action 2- Right C7 Action 3- Left T12 Action 3- Right L2 Timed Up and Go (TUG) Score >15 secs TUG Impairment Rating 40 to <60% Impaired (Score 14- 15) Tinetti Balance and Gait Assessment Composite Score 17 Composite Score Impairment Rating 20 to <40% Impaired (Score 17- 22) PT-OP-G Mobility & Gait Start: 10/08/18 14:40 Freq: Status: Active Protocol: Document 10/08/18 17:17 EA (Rec: 10/08/18 17:39 EA [id number]) OP Mobility Evaluation Bed Mobility Rolling Indep with difficulty Supine to and from Sit Indep with difficulty Transfers Sit to Stand Indep Bed to Chair Transfers Indep Car Transfers Indep Floor Transfers Unable OP Gait Assessment Comments Gait Comments Indep with STC < 200 ft with waddling gait Stair Climbing Evaluation Comments Stair Climbing Comments Step to step with right leading up and left leading down with the use of rails PT-OP-H Neuro Start: 10/08/18 14:40 Freq: Status: Active Protocol: Document 10/11/18 10:44 RCC (Rec: 10/11/18 13:16 RCC [id number]) Vital Signs Blood Pressure Sitting Blood Pressure (90/60-120/80 mmHg) 132/80 H Blood Pressure Source Manual Cuff PT-OP-J Posture/Palpation/Skin Start: 10/08/18 14:40 Freq: Status: Active Protocol: Document 10/08/18 17:17 EA (Rec: 10/08/18 17:39 EA [id number]) Posture Evaluation Position Standing Head/C-Spine Posture Forward Head L-Spine Posture Increased Lordosis Arm Posture (L) Internally Rotated (R) Internally Rotated Pelvis Posture Anteriorly Tilted Hip Posture (L) Flexed Palpation Assessment Location One Palpation Details Grade Skin Assessment Other Assessments Skin Assessment Comments Both LE's non pitting edema PT-OP-K Range of Motion Start: 10/08/18 14:40 Freq: Status: Active Protocol: Document 10/11/18 10:44 RCC (Rec: 10/11/18 13:14 RCC [id number]) Shoulder Goniometric Range of Motion Shoulder ROM Limitations Comments L shoulder flexion to 100 degrees AROM in sitting PT-OP-M Strength Start: 10/08/18 14:40 Freq: Status: Active Protocol: Document 10/08/18 17:00 EA (Rec: 10/09/18 07:32 EA [id number]) Trunk Strength Trunk Manual Muscle Testing Testing Position Sitting Flexion 4 Good Extension 4 Good Rotation Left 4 Good Rotation Right 4 Good Lateral Flexion Left 4 Good Lateral Flexion Right 4 Good Shoulder Strength Shoulder Manual Muscle Testing Left Flexion 3+ Fair+ Extension 3+ Fair+ Abduction (C5) 3+ Fair+ Adduction 4 Good External Rotation 3+ Fair+ Internal Rotation 3+ Fair+ Horizontal Abduction 3+ Fair+ Horizontal Adduction 3+ Fair+ Right Reason Not Measured WFL Elbow/Forearm Strength Elbow and Forearm Manual Muscle Testing Right Reason Not Measured WFL Left Flexion (C6) 3+ Fair+ Extension (C7) 3+ Fair+ Pronation 3+ Fair+ Supination 3+ Fair+ Wrist Strength Wrist Manual Muscle Testing Right Reason Not Measured WFL Left Flexion (C7) 3+ Fair+ Extension (C6) 3+ Fair+ Ulnar Deviation 3+ Fair+ Radial Deviation 3+ Fair+ Hip Strength Hip Manual Muscle Testing Right Flexion (L2) 4 Good Extension (S1) 4- Good- Abduction 4- Good- Adduction 4 Good External Rotation 4 Good Internal Rotation 4 Good Left Flexion (L2) 4 Good Extension (S1) 4- Good- Abduction 4- Good- Adduction 4- Good- External Rotation 4 Good Internal Rotation 4 Good Knee Strength Knee Manual Muscle Testing Right Flexion (S2) 4 Good Extension (L3) 4 Good Left Flexion (S2) 4 Good Extension (L3) 4 Good Ankle/Foot Strength Ankle and Foot Manual Muscle Testing Right Dorsiflexion (L4) 4 Good Plantarflexion (S1) 4 Good Inversion 4 Good Eversion (S1) 4 Good Left Dorsiflexion (L4) 4 Good Plantarflexion (S1) 4 Good Inversion 4 Good Eversion (S1) 4 Good PT-OP-T Assessment and Plan Start: 10/08/18 14:40 Freq: Status: Active Protocol: Document 11/01/18 15:54 EA (Rec: 11/06/18 15:55 EA [id number]) Physical Therapy Assessment Assessment Summary Assessment Patient is discharge today. Physical Therapy Plan Discharge Physical Therapy Discharge Reasons Patient Request
== END 2019-01-03 11:41 | disposition home or self-care (01) ==
LOC: PHYS 12:00
PROVIDERS: PCP Internal Medicine; Visit Provider Internal Medicine
DX: I63.9 Cerebral infarction, unspecified (principal); R29.898 Other symptoms and signs involving the musculoskeletal system
CPT/HCPCS: 97110; 97112; 97163

== ENCOUNTER → 2019-04-18 10:26 | Outpatient (CLI) | payer BC, SELFPAY ==
[2019-04-18 11:47] LABS: Alanine Aminotransferase 18 IU/L (9-52); Albumin 3.8 g/dL (3.5-5.0); Albumin Globulin Ratio 1.1 (1.0-2.8); Alkaline Phosphatase 120 U/L (38-126); Aspartate Aminotransferase 22 IU/L (14-36); BUN Creatinine Ratio 18.6 (6-22); Bilirubin Total 0.9 mg/dL (0.2-1.3); Blood Urea Nitrogen 26 mg/dL (7-17); Calcium 10.6 mg/dL (8.4-10.2); Carbon Dioxide 28 mmol/L (22-32); Chloride 100 mmol/L (98-107); Cholesterol 167 mg/dL (140-199); Estimated Glomerular Filt Rate 35.9 mL/min (>60); Globulin 3.5 g/dL (1.7-4.1); Glucose 103 mg/dL (80-110); HDL Cholesterol 71 mg/dL (40-60); HEMOLYSIS < 15 (0-50); LDL Cholesterol Calculated 74 mg/dL (<100); Potassium 4.7 mmol/L (3.4-5.1); Sodium 139 mmol/L (137-145); Total Protein 7.3 g/dL (6.3-8.2); Triglycerides 112 mg/dL (35-150)
== END ==
PROVIDERS: PCP Internal Medicine; Visit Provider Internal Medicine
DX: E78.2 Mixed hyperlipidemia (principal); I10 Essential (primary) hypertension; N18.2 Chronic kidney disease, stage 2 (mild)
CPT/HCPCS: 36415; 80053; 80061

== ENCOUNTER 2019-09-01 20:32 | Inpatient (IN) | payer BC, MEDICARE, SELFPAY ==
[2019-09-01 20:45] VITALS: BP 144/63; PULSE 55; RESP 14; TEMP 36.4; O2SAT 98; BMI 44.9
--- NOTE | 2019-09-01 20:47 | DI.RAD.S_ITS ---
PROCEDURE: XR KNEE LT 1TO2V INDICATIONS: pain sp fall TECHNIQUE: 2 views of the knee were acquired. COMPARISON: None. FINDINGS: Bones: There is a comminuted oblique fracture in the distal femoral metaphysis with 2 cm posterior and lateral displacement. Left knee arthroplasty is noted. Subtle lucency around the lateral aspect of the prosthesis could represent loosening of prosthesis. No suspicious bony lesions. Soft tissues: No joint effusion. No suspicious soft tissue calcifications. IMPRESSION: 1. A comminuted, displaced distal femoral metaphyseal fracture. 2. Subtle lucency around the lateral aspect of the knee prosthesis may represent prosthesis loosening. Dictated by: Xu Lo M.D. on 09/01/2019 at 22:22 Approved by: Xu Lo M.D. on 09/01/2019 at 22:25
--- NOTE | 2019-09-01 20:47 | DI.CT.S_ITS ---
PROCEDURE: CT HEAD/BRAIN WO CON INDICATIONS: glf on thinners TECHNIQUE: Noncontrast 4.5 mm thick angled axial sections acquired from the foramen magnum to the vertex, with coronal and sagittal reformats. For radiation dose reduction, the following was used: automated exposure control, adjustment of mA and/or kV according to patient size. COMPARISON: [facility], MR, MR STROKE, 09/09/2018, 16:02. [facility], CT, CT HEAD/BRAIN WO CON, 10/04/2018, 11:21. FINDINGS: Image quality: Excellent. CSF spaces: Basal cisterns are patent. No extra-axial fluid collections. The ventricles are symmetric in size and shape. Brain: No intracranial bleeds or masses. There is cerebral volume loss for age, with resultant ventricular and sulcal prominence. There are periventricular and deep white matter chronic small vessel ischemic changes. There is intracranial internal carotid artery atherosclerosis. Skull and face: Calvarium and visualized facial bones appear intact, without suspicious lesions. Sinuses: Visualized sinuses and mastoids are clear. IMPRESSION: 1. No acute intracranial abnormalities. Dictated by: Xu Lo M.D. on 09/01/2019 at 21:18 Approved by: Xu Lo M.D. on 09/01/2019 at 21:21
--- NOTE | 2019-09-01 20:54 | PC.NURSE ---
patient reports pain when palpating pelvis and left leg.
--- NOTE | 2019-09-01 21:02 | ED_ITS ---
HPI - Fall <MICHELLE GuzmánP-BC - Last Filed: 09/01/19 21:23> General Chief Complaint: Trauma Stated Complaint: Fall L knee pain Time Seen by Provider: 09/01/19 20:41 Source: patient, family and EMS Mode of arrival: EMS Limitations: no limitations History of Present Illness HPI Narrative: The patient is an 84-year-old female former smoker with history of stroke and TIA on Plavix who presents after ground level trip and fall. She states she tripped, fell landing on her left knee. She has history of a knee replacement. She then fell forward onto her wrist possibly her head. She den ies any neck or back pain. She did not lose consciousness. She complains of bilateral hip pain and states that she cannot straighten her left knee. She is adamant that this is a trip and fall, not a syncopal episode or episode of weakness. She states that the main area of pain is her left knee. Dr. Garber is her primary care provider. Other history includes hyperlipidemia, hypertension, states she has chronic renal failure and morbid obesity. Given the patient is a ground level fall on blood thinners, modified trauma was activated as per guidelines. Related Data Home Medications Medication Instructions Recorded Confirmed Disabled Parking Permit See Protocol MISCELLANEOUS 09/09/18 09/01/19 DIRECTED aspirin 325 mg tablet,delayed 325 mg PO DAILY 10/05/18 09/01/19 release acetaminophen 500 mg tablet 500 mg PO ONCE PRN tab 10/19/18 09/01/19 metoprolol succinate 100 mg PO DAILY 09/01/19 09/01/19 Previous Rx's Medication Instructions Recorded hydrochlorothiazide 50 mg tablet 50 mg PO DAILY #90 tab 10/19/18 triamcinolone acetonide 0.1 % See Rx Instructions .ROUTE 04/10/19 topical cream .COMPLEX #80 gram atorvastatin 40 mg tablet 40 mg PO DAILY #90 tab 05/22/19 clopidogrel 75 mg tablet 75 mg PO DAILY #90 tab 05/22/19 losartan 50 mg tablet 50 mg PO DAILY #90 tab 05/22/19 Allergies Allergy/AdvReac Type Severity Reaction Status Date / Time Sulfa (Sulfonamide Allergy Unknown Verified 04/22/19 16:53 Antibiotics) [SULFA (SULFONAMIDE ANTIBIOTICS)] amlodipine [AMLODIPINE] AdvReac Intermediate edema legs Verified 04/22/19 16:53 naproxen [NAPROXEN] AdvReac Mild DIZZINESS Verified 04/22/19 16:53 Barbiturates [BARBITURATES] AdvReac Unknown Verified 04/22/19 16:53 ergot alkaloids AdvReac Unknown Verified 04/22/19 16:53 [ERGOT ALKALOIDS] Review of Systems <VONDA Guzmán - Last Filed: 09/01/19 21:23> Review of Systems Narrative: GENERAL: Denies chills, fatigue, malaise, fever, sweats. HEENT: Denies sinus pain, ear pain, sore throat, difficulty swallowing, dizziness. RESPIRATORY: Denies dyspnea, cough, wheezing, hemoptysis, sputum. CARDIOVASCULAR: Denies chest pain, palpitations, orthopnea, edema, GASTROINTESTINAL: Denies nausea, vomiting, abdominal pain, diarrhea, constipation, melena. : Denies dysuria, frequency, incontinence, hematuria, urinary retention. MUSCULOSKELETAL: See HPI SKIN: Denies rash, skin lesions, or other NEUROLOGIC: Denies weakness, headache, numbness, change in speech, confusion, seizures, incoordination. PSYCHIATRIC: No concerning psychosocial issues. 12 point review of systems is negative except for those stated above Patient History <VONDA Guzmán - Last Filed: 09/01/19 21:23> Medical History Acute intermittent porphyria (Acute) Arthralgia (Chronic 04/17/15) Arthritis (Acute) Chronic renal failure, stage 2 (mild) (Chronic 01/31/17) Essential hypertension (Chronic 04/17/15) History of CVA with residual deficit (Chronic) Mixed hyperlipidemia (Chronic) Morbid obesity due to excess calories (Chronic 06/29/15) Surgical History History of appendectomy (Acute) History of total left knee replacement (Acute) No pertinent past surgical history (Acute) Social History household members: children Smoking Status: Former smoker alcohol intake: never Smoking Status: Former smoker alcohol intake frequency: 0-2 drinks per day Substance Use Type: does not use Exam <CLAUDINE Guzmán-BC - Last Filed: 09/01/19 21:23> Narrative Exam Narrative: GENERAL: Obese female lying on stretcher, appears uncomfortable HEAD: Atraumatic. Normocephalic. No temporal or scalp tenderness. EYES: Pupils equal round and reactive. Extraocular motions intact. No scleral icterus. No injection or drainage. ENT: Nose without bleeding, purulent drainage or septal hematoma. Throat without erythema, tonsillar hypertrophy or exudate. Uvula midline. Airway patent. NECK: Trachea midline. No JVD or lymphadenopathy. Supple, nontender, no meningeal signs. CARDIOVASCULAR: Regular rate and rhythm RESPIRATORY: Clear to auscultation. Breath sounds equal bilaterally. No wheezes, rales, or rhonchi. No cough. No increased respiratory effort. No accessory muscle use. GASTROINTESTINAL: Abdomen soft, non-tender, nondistended. No hepato- splenomegaly, or palpable masses. No guarding. Active bowel sounds all 4 quadrants. EXTREMITIES: Significant pain to palpation noted left knee. Positive pedal p ulses bilaterally. Patient complains of pain to palpation of pelvis. Left leg appears slightly shorter than right while lying on stretcher. BACK: No pain to palpation of cervical spine. NEURO: AOx3. SKIN: No rash or erythema on visible skin Initial Vital Signs Initial Vital Signs: Vital Signs Temperature 97.5 F L 09/01/19 20:45 Pulse Rate 55 L 09/01/19 20:45 Respiratory Rate 14 09/01/19 20:45 Blood Pressure 144/63 H 09/01/19 20:45 Pulse Oximetry 98 09/01/19 20:45 <Chiara Marinelli MD - Last Filed: 09/02/19 01:44> Initial Vital Signs Initial Vital Signs: Vital Signs Temperature 97.5 F L 09/01/19 20:45 Pulse Rate 55 L 09/01/19 20:45 Respiratory Rate 14 09/01/19 20:45 Blood Pressure 144/63 H 09/01/19 20:45 Pulse Oximetry 98 09/01/19 20:45 Course <CLAUDINE Guzmán-BC - Last Filed: 09/01/19 21:23> Course Course Narrative: The patient is an 84-year-old female who presents after ground level fall with a chief complaint of knee pain. Modified trauma was activated per procedural guidelines as the patient is on a blood thinner. Patient was signed out to Dr. Marinelli at 21:15 with imaging and lab work pending Orders Ordered: ED Orders 09/01/19 20:47 CT head/brain wo con Stat XR knee LT 1to2V Stat 09/01/19 21:09 XR hip w pel if done LT 2V Stat 09/01/19 21:30 Complete Blood Count AUTO DIFF Stat Comprehensive Metabolic Panel Stat Partial Thromboplastin Time Stat Prothrombin Time INR Stat 09/01/19 21:36 XR chest 1V Stat 09/01/19 21:37 Type and Screen Stat 09/01/19 21:49 EKG-12 Lead Stat Hydrocodone Bitart/Acetaminophen ([place] 5/325) 1 tab PO Q4HR PRN PRN Reason: Pain, Mild (1-3) Sodium Chloride (Normal Saline 0.9%) 1,000 mls @ 125 mls/hr IV CONT AMBER Last Admin: 09/01/19 23:00 Dose: 125 mls/hr Documented by: EMIGDIO Morphine Sulfate (Morphine) 2 mg IV PRN PRN PRN Reason: Pain, Severe (7-10) Last Admin: 09/01/19 21:34 Dose: 2 mg Documented by: BLAIR Morphine Sulfate (Morphine) 2 mg IV Q4HR PRN PRN Reason: Pain, Severe (7-10) Discontinued Medications Ondansetron HCl (Zofran) 4 mg IV NOW ONE Stop: 09/01/19 21:01 Last Admin: 09/01/19 21:34 Dose: 4 mg Documented by: BLAIR Vital Signs Vital signs: Vital Signs - 8 hr 09/01/19 20:45 Temperature 97.5 F L Pulse Rate 55 L Respiratory Rate 14 Blood Pressure 144/63 H Pulse Oximetry 98 <Chiara Marinelli MD - Last Filed: 09/02/19 01:44> Orders Ordered: ED Orders 09/01/19 20:47 CT head/brain wo con Stat XR knee LT 1to2V Stat 09/01/19 21:09 XR hip w pel if done LT 2V Stat 09/01/19 21:30 Complete Blood Count AUTO DIFF Stat Comprehensive Metabolic Panel Stat Partial Thromboplastin Time Stat Prothrombin Time INR Stat 09/01/19 21:36 XR chest 1V Stat 09/01/19 21:37 Type and Screen Stat 09/01/19 21:49 EKG-12 Lead Stat Hydrocodone Bitart/Acetaminophen ([place] 5/325) 1 tab PO Q4HR PRN PRN Reason: Pain, Mild (1-3) Sodium Chloride (Normal Saline 0.9%) 1,000 mls @ 125 mls/hr IV CONT AMBER Last Admin: 09/01/19 23:00 Dose: 125 mls/hr Documented by: EMIGDIO Morphine Sulfate (Morphine) 2 mg IV PRN PRN PRN Reason: Pain, Severe (7-10) Last Admin: 09/01/19 21:34 Dose: 2 mg Documented by: BLAIR Morphine Sulfate (Morphine) 2 mg IV Q4HR PRN PRN Reason: Pain, Severe (7-10) Discontinued Medications Ondansetron HCl (Zofran) 4 mg IV NOW ONE Stop: 09/01/19 21:01 Last Admin: 09/01/19 21:34 Dose: 4 mg Documented by: BLAIR Vital Signs Vital signs: Vital Signs - 8 hr 09/01/19 20:45 Temperature 97.5 F L Pulse Rate 55 L Respiratory Rate 14 Blood Pressure 144/63 H Pulse Oximetry 98 MDM - Fall <IMANI Guzmán - Last Filed: 09/01/19 21:23> Lab Data Result diagrams: 09/01/19 21:30 09/01/19 21:30 Labs: Lab Results 09/01/19 09/01/19 09/01/19 Range/Units 21:30 21:30 21:30 WBC 7.7 (4.5-11.0) X10^3/uL RBC 3.47 L (4.0-5.2) X10^6/uL Hgb 11.3 L (12.0-16.0) g/dL Hct 33.5 L (36-46) % MCV 96.4 (80-100) fL MCH 32.5 (26-34) PG MCHC 33.7 (30-36) % RDW 14.7 (11.6-14.8) % Plt Count 212 (150-400) X10^3/uL Neut % (Auto) 70.5 (50-75) % Lymph % (Auto) 18.3 L (25-40) % [place] % (Auto) 6.8 (3-14) % Eos % (Auto) 3.7 (2-4) % Baso % (Auto) 0.7 (0-2) % Neut # (Auto) 5400 (1840-7120) /uL Lymph # (Auto) 1400 (9398-1057) /uL [place] # (Auto) 500 (0-900) /uL Eos # (Auto) 300 (0-450) /uL Baso # (Auto) 100 (0-100) /uL PT 12.7 (10.1-12.7) SECONDS INR 1.1 (0.9-1.3) APTT 31 D (26.4-36.2) SECONDS Sodium 138 (137-145) mmol/L Potassium 4.8 (3.4-5.1) mmol/L Chloride 102 (98-107) mmol/L Carbon Dioxide 31 (22-32) mmol/L BUN 36 H (7-17) mg/dL Creatinine 1.40 H (0.52-1.04) mg/dL Estimated GFR 35.8 L (>60) mL/min BUN/Creatinine Ratio 25.7 H (6-22) Glucose 113 H (80-110) mg/dL Calcium 10.1 (8.4-10.2) mg/dL Total Bilirubin 0.7 (0.2-1.3) mg/dL AST 25 (14-36) IU/L ALT 16 (<35) IU/L Alkaline Phosphatase 130 H (38-126) U/L Total Protein 7.4 (6.3-8.2) g/dL Albumin 3.6 (3.5-5.0) g/dL Globulin 3.8 (1.7-4.1) g/dL Albumin/Globulin Ratio 0.9 L (1.0-2.8) Blood Type Antibody Screen 09/01/19 Range/Units 21:37 WBC (4.5-11.0) X10^3/uL RBC (4.0-5.2) X10^6/uL Hgb (12.0-16.0) g/dL Hct (36-46) % MCV (80-100) fL MCH (26-34) PG MCHC (30-36) % RDW (11.6-14.8) % Plt Count (150-400) X10^3/uL Neut % (Auto) (50-75) % Lymph % (Auto) (25-40) % [place] % (Auto) (3-14) % Eos % (Auto) (2-4) % Baso % (Auto) (0-2) % Neut # (Auto) (3534-3693) /uL Lymph # (Auto) (8668-5549) /uL [place] # (Auto) (0-900) /uL Eos # (Auto) (0-450) /uL Baso # (Auto) (0-100) /uL PT (10.1-12.7) SECONDS INR (0.9-1.3) APTT (26.4-36.2) SECONDS Sodium (137-145) mmol/L Potassium (3.4-5.1) mmol/L Chloride (98-107) mmol/L Carbon Dioxide (22-32) mmol/L BUN (7-17) mg/dL Creatinine (0.52-1.04) mg/dL Estimated GFR (>60) mL/min BUN/Creatinine Ratio (6-22) Glucose (80-110) mg/dL Calcium (8.4-10.2) mg/dL Total Bilirubin (0.2-1.3) mg/dL AST (14-36) IU/L ALT (<35) IU/L Alkaline Phosphatase (38-126) U/L Total Protein (6.3-8.2) g/dL Albumin (3.5-5.0) g/dL Globulin (1.7-4.1) g/dL Albumin/Globulin Ratio (1.0-2.8) Blood Type A Positive Antibody Screen Negative <Chiara Marinelli MD - Last Filed: 09/02/19 01:44> Lab Data Attestation: I reviewed the patient's lab results. Labs: Lab Results 09/01/19 09/01/19 09/01/19 Range/Units 21:30 21:30 21:30 WBC 7.7 (4.5-11.0) X10^3/uL RBC 3.47 L (4.0-5.2) X10^6/uL Hgb 11.3 L (12.0-16.0) g/dL Hct 33.5 L (36-46) % MCV 96.4 (80-100) fL MCH 32.5 (26-34) PG MCHC 33.7 (30-36) % RDW 14.7 (11.6-14.8) % Plt Count 212 (150-400) X10^3/uL Neut % (Auto) 70.5 (50-75) % Lymph % (Auto) 18.3 L (25-40) % [place] % (Auto) 6.8 (3-14) % Eos % (Auto) 3.7 (2-4) % Baso % (Auto) 0.7 (0-2) % Neut # (Auto) 5400 (5629-9654) /uL Lymph # (Auto) 1400 (5603-1548) /uL [place] # (Auto) 500 (0-900) /uL Eos # (Auto) 300 (0-450) /uL Baso # (Auto) 100 (0-100) /uL PT 12.7 (10.1-12.7) SECONDS INR 1.1 (0.9-1.3) APTT 31 D (26.4-36.2) SECONDS Sodium 138 (137-145) mmol/L Potassium 4.8 (3.4-5.1) mmol/L Chloride 102 (98-107) mmol/L Carbon Dioxide 31 (22-32) mmol/L BUN 36 H (7-17) mg/dL Creatinine 1.40 H (0.52-1.04) mg/dL Estimated GFR 35.8 L (>60) mL/min BUN/Creatinine Ratio 25.7 H (6-22) Glucose 113 H (80-110) mg/dL Calcium 10.1 (8.4-10.2) mg/dL Total Bilirubin 0.7 (0.2-1.3) mg/dL AST 25 (14-36) IU/L ALT 16 (<35) IU/L Alkaline Phosphatase 130 H (38-126) U/L Total Protein 7.4 (6.3-8.2) g/dL Albumin 3.6 (3.5-5.0) g/dL Globulin 3.8 (1.7-4.1) g/dL Albumin/Globulin Ratio 0.9 L (1.0-2.8) Blood Type Antibody Screen 02/23/20 Range/Units 21:37 WBC (4.5-11.0) X10^3/uL RBC (4.0-5.2) X10^6/uL Hgb (12.0-16.0) g/dL Hct (36-46) % MCV (80-100) fL MCH (26-34) PG MCHC (30-36) % RDW (11.6-14.8) % Plt Count (150-400) X10^3/uL Neut % (Auto) (50-75) % Lymph % (Auto) (25-40) % [place] % (Auto) (3-14) % Eos % (Auto) (2-4) % Baso % (Auto) (0-2) % Neut # (Auto) (8535-3162) /uL Lymph # (Auto) (8753-0169) /uL [place] # (Auto) (0-900) /uL Eos # (Auto) (0-450) /uL Baso # (Auto) (0-100) /uL PT (10.1-12.7) SECONDS INR (0.9-1.3) APTT (26.4-36.2) SECONDS Sodium (137-145) mmol/L Potassium (3.4-5.1) mmol/L Chloride (98-107) mmol/L Carbon Dioxide (22-32) mmol/L BUN (7-17) mg/dL Creatinine (0.52-1.04) mg/dL Estimated GFR (>60) mL/min BUN/Creatinine Ratio (6-22) Glucose (80-110) mg/dL Calcium (8.4-10.2) mg/dL Total Bilirubin (0.2-1.3) mg/dL AST (14-36) IU/L ALT (<35) IU/L Alkaline Phosphatase (38-126) U/L Total Protein (6.3-8.2) g/dL Albumin (3.5-5.0) g/dL Globulin (1.7-4.1) g/dL Albumin/Globulin Ratio (1.0-2.8) Blood Type A Positive Antibody Screen Negative Imaging Data Left knee: Radiologist's Impression: IMPRESSION: 1. A comminuted, displaced distal femoral metaphyseal fracture. 2. Subtle lucency around the lateral aspect of the knee prosthesis may represent prosthesis loosening. Dictated by: Xu Lo M.D. on 09/01/2019 at 22:22 CT scan - head: Radiologist's Impression: IMPRESSION: 1. No acute intracranial abnormalities. Dictated by: Xu Lo M.D. on 09/01/2019 at 21:18 Chest x-ray: Attestation: I personally reviewed and interpreted this imaging study as follows: My Impression: No acute findings ECG Data Attestation: I personally reviewed and interpreted this ECG as follows: Interpretation: Sinus bradycardia rate of 48. Normal axis, normal intervals, no acute ischemia MDM Narrative Medical decision making narrative: Patient presents after a mechanical fall where she stumbled over a rug landing on both knees. She has ecchymotic areas of both knees worse on the left than the right. X-rays reveal a distal femoral metaphyseal [employer] hardware slightly comminuted and displaced fracture. Preop labs, EKG and chest x-ray are reassuring at this time. Patient will be admitted to the hospitalist service, NPO after midnight with Dr. donna Carrasquillo planning surgical repair of the femur fracture tomorrow morning. Discharge Plan Departure Patient Disposition: Admitted As Inpatient Clinical Impression: Fall Qualifiers: Encounter type: initial encounter Qualified Code(s): W19.XXXA - Unspecified fall, initial encounter Femur fracture, left Qualifiers: Encounter type: initial encounter Femur location: distal, unspecified portion Fracture type: closed Fracture morphology: unspecified fracture morphology Qualified Code(s): S72.402A - Unspecified fracture of lower end of left femur, initial encounter for closed fracture Discharge Date/Time: 09/01/19 22:05 Admit Date/Time: 09/01/19 22:04 Admit Provider: Rodney Rees
--- NOTE | 2019-09-01 21:09 | DI.RAD.S_ITS ---
PROCEDURE: XR HIP W PEL IF DONE LT 2V INDICATIONS: pain sp glf TECHNIQUE: AP pelvis with lateral view(s) of the left hip(s). COMPARISON: None. FINDINGS: Bones: No fractures or dislocations left hip. Pelvic ring appears intact. No suspicious bony lesions. Soft tissues: The visualized bowel gas pattern is normal. No suspicious soft tissue calcifications. IMPRESSION: 1. No fracture of dislocation in left hip. If clinical symptoms persist or clinical suspicion for pathology is high, advanced imaging such as CT or MRI is suggested for further evaluation. Dictated by: Xu Lo M.D. on 09/01/2019 at 22:20 Approved by: Xu Lo M.D. on 09/01/2019 at 22:22
[2019-09-01] MEDS: MORPHINE 2 MG/ML INJ IV (21:34)
[2019-09-01] MEDS: ONDANSETRON 4 MG/2 ML INJ IV (21:34)
--- NOTE | 2019-09-01 21:36 | DI.RAD.S_ITS ---
PROCEDURE: XR CHEST 1V INDICATIONS: FALL TECHNIQUE: One view of the chest was acquired. COMPARISON: [facility], , CHEST 1 VIEW, 01/14/2017, 15:14. [facility], LAN, XR CHEST 1V, 09/08/2018, 18:19. FINDINGS: Surgical changes and devices: None. Lungs and pleura: Scattered subsegmental atelectasis and/or scarring. No focal consolidation. No pleural effusions or pneumothorax. Mediastinum: Mediastinal contours appear normal. Heart size is normal. Bones and chest wall: No suspicious bony lesions. Overlying soft tissues appear unremarkable. IMPRESSION: Scattered subsegmental atelectasis and/or scarring. No focal consolidation. Dictated by: Davon Camacho M.D. on 09/02/2019 at 9:00 Approved by: Davon Camacho M.D. on 09/02/2019 at 9:12
[2019-09-01 21:40] LABS: Add Manual Diff / Slide Review NO; Basophils Absolute Auto 100 /uL (0-100); Basophils Percent Auto 0.7 % (0-2); Eosinophils Absolute Auto 300 /uL (0-450); Eosinophils Percent Auto 3.7 % (2-4); Hematocrit 33.5 % (36-46); Hemoglobin 11.3 g/dL (12.0-16.0); Lymphocytes Absolute Auto 1400 /uL (1100-4500); Lymphocytes Percent Auto 18.3 % (25-40); Mean Corpuscular HGB Conc 33.7 % (30-36); Mean Corpuscular Hemoglobin 32.5 PG (26-34); Mean Corpuscular Volume 96.4 fL (80-100); Monocytes Absolute Auto 500 /uL (0-900); Monocytes Percent Auto 6.8 % (3-14); Neutrophils Absolute Auto 5400 /uL (1500-7000); Neutrophils Percent Auto 70.5 % (50-75); Platelet Count 212 X10^3/uL (150-400); Red Blood Cell Count 3.47 X10^6/uL (4.0-5.2); Red Cell Distribution Width 14.7 % (11.6-14.8); White Blood Cell Count 7.7 X10^3/uL (4.5-11.0)
[2019-09-01 21:42] LABS: INR 1.1 (0.9-1.3); Prothrombin Time 12.7 SECONDS (10.1-12.7)
[2019-09-01 21:45] LABS: PTT Partial Thromboplastin Tim 31 SECONDS (26.4-36.2)
[2019-09-01 21:47] LABS: Alanine Aminotransferase 16 IU/L (<35); Albumin 3.6 g/dL (3.5-5.0); Albumin Globulin Ratio 0.9 (1.0-2.8); Alkaline Phosphatase 130 U/L (38-126); Aspartate Aminotransferase 25 IU/L (14-36); BUN Creatinine Ratio 25.7 (6-22); Bilirubin Total 0.7 mg/dL (0.2-1.3); Blood Urea Nitrogen 36 mg/dL (7-17); Calcium 10.1 mg/dL (8.4-10.2); Carbon Dioxide 31 mmol/L (22-32); Chloride 102 mmol/L (98-107); Estimated Glomerular Filt Rate 35.8 mL/min (>60); Globulin 3.8 g/dL (1.7-4.1); Glucose 113 mg/dL (80-110); HEMOLYSIS < 15 (0-50); Potassium 4.8 mmol/L (3.4-5.1); Sodium 138 mmol/L (137-145); Total Protein 7.4 g/dL (6.3-8.2)
[2019-09-01 22:32] VITALS: BMI 44.9
[2019-09-01 22:37] VITALS: BP 146/60; PULSE 86; RESP 18; TEMP 36; O2SAT 93
[2019-09-01] MEDS: SODIUM CHLORIDE 0.9% 1,000 ML 125 ML IV (23:00)
[2019-09-01 23:32] VITALS: BP 143/66; PULSE 48; RESP 16; TEMP 36.2; O2SAT 93
[2019-09-02] VITALS (14 sets, daily range): BP systolic 92–147; BP diastolic 51–70; PULSE 50–68; RESP 12–20; TEMP 35.7–36.2; O2SAT 93–98; BMI 44.9
--- NOTE | 2019-09-02 | DI.RAD.S_ITS ---
PROCEDURE: XR FEMUR LT MIN 2V INDICATIONS: ORIF FEMUR FRACTURE TECHNIQUE: 4 views of the femur were acquired. COMPARISON: [facility], CR, XR KNEE LT 1TO2V, 09/01/2019, 21:04. [facility], CR, XR HIP W PEL IF DONE LT 2V, 09/01/2019, 21:00. FINDINGS: 4 intraoperative fluoroscopic views of the left femur demonstrate open reduction and internal fixation of the distal femoral shaft fracture seen on the prior study. There is improved alignment with a lateral fixation plate and multiple fixation screws. A left knee prosthesis is again noted. IMPRESSION: 1. Intraoperative fluoroscopic views demonstrate improved alignment status post ORIF of distal femoral shaft fracture. Dictated by: Baldemar Garsia M.D. on 09/02/2019 at 17:26 Approved by: Baldemar Garsia M.D. on 09/02/2019 at 17:28
--- NOTE | 2019-09-02 02:00 | PC.NURSE ---
[address] Rees via answering service to report Pt's. HR. sustaining in mid 40's 45-48. Awaiting call back. Pt. denies any dizziness, dyspnea & CP. RA SPO2 95%. Will monitor.
--- NOTE | 2019-09-02 02:31 | PC.NURSE ---
Called answering service the second time, awaiting call back from Dr. Rees.
--- NOTE | 2019-09-02 04:21 | PC.NURSE ---
Dr. Rees called in his cellphone number, reported pt's. HR sustaining in the mid 40's 45-48 @ rest & when we repositioned her HR up to 51-52. Ordered to place her on telemetry, hold or do not give her home medication Metoprolol until MD will assess her this morning. Will report to day RN. & monitor.
--- NOTE | 2019-09-02 06:17 | PC.NURSE ---
Declined Morphine, states I'm okay right now, it only hurts if I moved. Will cont. POC & monitor.
[2019-09-02] MEDS: SODIUM CHLORIDE 0.9% 1,000 ML 125 ML IV (06:56)
--- NOTE | 2019-09-02 07:34 | P.HP_ITS ---
History of Present Illness History of Present Illness Date Patient Seen: 09/02/19 Time Patient Seen: 07:34 Chief complaint: Fall L knee pain Narrative: Patient admitted via the emergency department after sustaining a fall at home. She fractured her left femur just above the knee component from her total knee replacement. She is admitted for definitive treatment to medicine with Ortho having been consulted over the phone. Plan is for surgery to repair/fix fracture. Patient reports having tripped over her own feet and falling. Denies any syncope near-syncope. Did not strike her head had no loss of consciousness. Patient History Medical History (Updated 09/02/19 @ 07:37 by Pramod Garber MD) Acute intermittent porphyria (Acute) Arthralgia (Chronic 04/17/15) Arthritis (Acute) Chronic renal failure, stage 3 (moderate) (Chronic) Essential hypertension (Chronic 04/17/15) History of CVA with residual deficit (Chronic) Mixed hyperlipidemia (Chronic) Morbid obesity due to excess calories (Chronic 06/29/15) Surgical History History of appendectomy (Acute) History of total left knee replacement (Acute) Family & Social History Social History: household members children Prior Living Arrangements House Safety & Behavioral: Feels Safe in Current Yes Environment Been Physically Hurt or No Threatened By a Person Tobacco & Substance use: Tobacco type cigarettes Smoking Status Former smoker alcohol intake never alcohol intake frequency 0-2 drinks per day Substance Use Type does not use Meds Home Medications and Allergies Home Medications Medication Instructions Recorded Confirmed Type Disabled Parking Permit See Protocol MISCELLANEOUS 09/09/18 09/01/19 History DIRECTED aspirin 325 mg tablet,delayed 325 mg PO DAILY 10/05/18 09/01/19 History release acetaminophen 500 mg tablet 500 mg PO ONCE PRN tab 10/19/18 09/01/19 History hydrochlorothiazide 50 mg tablet 50 mg PO DAILY #90 tab 10/19/18 09/01/19 Rx triamcinolone acetonide 0.1 % See Rx Instructions .ROUTE 04/10/19 09/01/19 Rx topical cream .COMPLEX #80 gram atorvastatin 40 mg tablet 40 mg PO DAILY #90 tab 05/22/19 09/01/19 Rx clopidogrel 75 mg tablet 75 mg PO DAILY #90 tab 05/22/19 09/01/19 Rx losartan 50 mg tablet 50 mg PO DAILY #90 tab 05/22/19 09/01/19 Rx metoprolol succinate 100 mg PO DAILY 09/01/19 09/01/19 History Allergies Allergy/AdvReac Type Severity Reaction Status Date / Time Sulfa (Sulfonamide Allergy Unknown Verified 04/22/19 16:53 Antibiotics) [SULFA (SULFONAMIDE ANTIBIOTICS)] amlodipine [AMLODIPINE] AdvReac Intermediate edema legs Verified 04/22/19 16:53 naproxen [NAPROXEN] AdvReac Mild DIZZINESS Verified 04/22/19 16:53 Barbiturates [BARBITURATES] AdvReac Unknown Verified 04/22/19 16:53 ergot alkaloids AdvReac Unknown Verified 04/22/19 16:53 [ERGOT ALKALOIDS] Review of Systems Constitutional Constitutional: Denies excessive sweating, Denies fever(s), Denies headache(s), Denies weakness, Denies weight gain and Denies weight loss Eyes Eyes: Denies change in vision, Denies itchy eyes, Denies loss of vision and Denies other visual disturbances ENT Ears, Nose, Mouth, and Throat: No change in voice, No difficulty swallowing, No dizziness, No ear pain, No headache(s), No hoarseness, No lip swelling, No neck pain, No sore throat, No throat swelling and No tongue swelling Cardiovascular Cardiovascular: Denies chest pain, Denies fainting, Denies fast heart rate, Denies irregular heart rhythm, Denies rapid, pounding, or irregular heartbeat, Denies shortness of breath, Denies shortness of breath with activity and Denies slow heart rate Respiratory Respiratory: Denies chest congestion, Denies cough, Denies hemoptysis, Denies dyspnea, Denies dyspnea on exertion, Denies stridor and Denies wheezing Gastrointestinal Gastrointestinal: Denies abdominal pain, Denies bloating, Denies change in bowel habits, Denies change in stool character, Denies dysphagia, Denies nausea, Denies vomiting and Denies hematemesis Genitourinary Genitourinary: Denies hematuria, Denies urinary frequency and Denies difficulty voiding Musculoskeletal Musculoskeletal: Denies neck pain Integumentary/Breasts Skin/Breast: Denies bleeding lesions, Denies change in pigmentation, Denies changing lesions, Denies new lesions, Denies rash, Denies skin swelling, Denies sores and Denies jaundice Neurologic Neurologic: Denies abnormal speech, Denies behavioral changes, Denies confusion, Denies dizziness, Denies syncope, Denies headache(s), Denies loss of vision, Denies memory loss, Denies seizure-like activity, Denies paresthesias and Denies weakness Psychiatric Psychiatric: Denies behavioral changes, Denies change in appetite, Denies confusion, Denies difficulty concentrating, Denies auditory hallucinations, Denies memory loss, Denies mood swings and Denies suicidal ideation Endocrine Endocrine: Denies excessive sweating, Denies flushing, Denies polyuria and D enies palpitations Hematologic/Lymphatic Hematologic/Lymphatic: Denies easy bleeding, Denies easy bruising and Denies lymphadenopathy Allergic/Immunologic Allergic/Immunologic: Denies urticaria, Denies itchy eyes, Denies lip swelling, Denies throat swelling, Denies tongue swelling and Denies wheezing Exam Vital Signs (past 8 hours): - 09/02/19 03:56 Temperature 97.2 F L Pulse Rate 52 L Respiratory Rate 16 Blood Pressure 141/67 H Pulse Oximetry 95 Oxygen Delivery Method Room Air Oxygen Flow Rate 0 Narrative Exam Narrative: Elderly female lying in hospital bed in no obvious distress HEENT-unremarkable, normocephalic atraumatic Neck-no lymphadenopathy no bruits Lungs-clear anteriorly and posteriorly no wheezes no crackles good breath sounds Heart-regular rate and rhythm, no murmur, rub, or gallop. normal S1-S2 Abdomen-obesity limits exam but positive bowel tones, soft, nontender, nondistended, no hepatosplenomegaly, no masses palpable Neuro-normal to screening exam, gait not tested of course Objective Labs Result Diagrams: 09/01/19 21:30 09/01/19 21:30 Labs: Laboratory Results - last 24 hr 09/01/19 09/01/19 09/01/19 21:30 21:30 21:30 WBC 7.7 RBC 3.47 L Hgb 11.3 L Hct 33.5 L MCV 96.4 MCH 32.5 MCHC 33.7 RDW 14.7 Plt Count 212 Neut % (Auto) 70.5 Lymph % (Auto) 18.3 L [place] % (Auto) 6.8 Eos % (Auto) 3.7 Baso % (Auto) 0.7 Neut # (Auto) 5400 Lymph # (Auto) 1400 [place] # (Auto) 500 Eos # (Auto) 300 Baso # (Auto) 100 PT 12.7 INR 1.1 APTT 31 D Sodium 138 Potassium 4.8 Chloride 102 Carbon Dioxide 31 BUN 36 H Creatinine 1.40 H Estimated GFR 35.8 L BUN/Creatinine Ratio 25.7 H Glucose 113 H Calcium 10.1 Total Bilirubin 0.7 AST 25 ALT 16 Alkaline Phosphatase 130 H Total Protein 7.4 Albumin 3.6 Globulin 3.8 Albumin/Globulin Ratio 0.9 L Blood Type Antibody Screen 09/01/19 21:37 WBC RBC Hgb Hct MCV MCH MCHC RDW Plt Count Neut % (Auto) Lymph % (Auto) [place] % (Auto) Eos % (Auto) Baso % (Auto) Neut # (Auto) Lymph # (Auto) [place] # (Auto) Eos # (Auto) Baso # (Auto) PT INR APTT Sodium Potassium Chloride Carbon Dioxide BUN Creatinine Estimated GFR BUN/Creatinine Ratio Glucose Calcium Total Bilirubin AST ALT Alkaline Phosphatase Total Protein Albumin Globulin Albumin/Globulin Ratio Blood Type A Positive Antibody Screen Negative Assessment & Plan Assessment & Plan narrative: 1. Left distal femur fracture-surgical repair as per Orthopedic surgery. Her Plavix and aspirin have been held and she has been kept NPO in preparation for surgery. 2. Hypertension-will resume patient's usual meds when able to take oral meds. Patient is normally on a beta-juan and I would normally give her a dose parenterally but she is modestly bradycardic and not super hypertensive at this point. I would have a low threshold for giving her low-dose IV beta-juan however. 3. History of stroke-patient has on aspirin and Plavix for this reason. Both been held and will resume when safe per surgery 4. Morbid obesity-patient size with course complicate her surgical repair and make it more difficult for her to be up and around ambulating postoperatively. Her recovery will be slower more likely than not in part because of her obesity. 5. Chronic renal failure stage 3-patient's creatinine is at baseline. Continue to monitor 6. VTE prophylaxis-will use SCDs for now. 7. Code status-patient has previously been listed as do not resuscitate. Discussing with her this morning she would indeed want to be resuscitated in the event of a sudden event. She would not want to be kept alive with no hope of recovery or to be a ?vegetable? but after discussion I believe she would want an immediate attempt at resuscitation in the event of a sudden event. Patient clearly is admitted as an inpatient given her fracture need for surgical intervention. She will be in the hospital greater than 48 hours including 2 separate midnights
[2019-09-02] MEDS: MORPHINE 2 MG/ML INJ IV (07:37)
--- NOTE | 2019-09-02 10:25 | PC.NURSE ---
Addendum entered by Tabatha Chavez R.N. 09/02/19 14:20: Patient to the OR at 1355. Original Note: Patient alert oriented, rates pain to left hip 5/10, given 2mg IVP morphine as requested. Repositioned for comfort, SCD's on, bed alarm on. Patient remains NPO.
--- NOTE | 2019-09-02 10:38 | CM.DANOTE ---
DCP: Case received, EMR reviewed and met with patient. Daughter, Shira, was also at bedside. Introduced self and role. Was able to obtain information regarding baseline activity and living situation from patient and daughter. DCP assessment completed with information currently available. Patient is an 84 year old female who admitted yesterday evening to the care of the hospitalist/orthopedic team. PCP: Dr. Garber. Payer: confirmed: Medicare A/[employer]. Patient came to the hospital via ambulance secondary to a ground level fall. Patient mentioned, she tripped over her own feet. Confirmed with patient that she uses FWW in the home, cane when she goes outside. She holds current diagnosis of fractured left femur. She will be having a surgical consult. Confirmed with patient and daughter that she resides with daughter here in [place]. She is a . Patient is alert and oriented. She does not drive. Discussed post surgery, in case she needs rehab after surgery. Patient and daughter stated that if she needs rehab, they would want [facility]. UR will be reviewing case. Other option is home with care of daughter. Went ahead and sent referral to [facility] to review. P: DCP to continue to follow closely. She may be having surgery this afternoon, or in the am, will have consult. Will most likely have P.T. after surgery, and will collaborate with P.T. team as well. Dinora Harrington RN/[employer]
--- NOTE | 2019-09-02 11:54 | PM.HP.1 ---
History of Present Illness History of Present Illness Date Patient Seen: 09/02/19 Time Patient Seen: 11:59 Chief complaint: Fall L knee pain Narrative: Patient states she tripped over her own feet and fell onto her knees. Patient admitted via the emergency department after sustaining a fall at home. She fractured her left femur just above the knee component from her total knee replacement. She is admitted for definitive treatment to medicine with Ortho having been consulted over the phone. Plan is for surgery to repair/fix fracture Patient History Medical History Acute intermittent porphyria (Acute) Arthralgia (Chronic 04/17/15) Arthritis (Acute) Chronic renal failure, stage 3 (moderate) (Chronic) Essential hypertension (Chronic 04/17/15) History of CVA with residual deficit (Chronic) Mixed hyperlipidemia (Chronic) Morbid obesity due to excess calories (Chronic 06/29/15) Surgical History History of appendectomy (Acute) History of total left knee replacement (Acute) Family & Social History Social History: household members children Prior Living Arrangements House Safety & Behavioral: Feels Safe in Current Yes Environment Been Physically Hurt or No Threatened By a Person Tobacco & Substance use: Tobacco type cigarettes Smoking Status Former smoker alcohol intake never alcohol intake frequency 0-2 drinks per day Substance Use Type does not use Meds Home Medications and Allergies Home Medications Medication Instructions Recorded Confirmed Type Disabled Parking Permit See Protocol MISCELLANEOUS 09/09/18 09/01/19 History DIRECTED aspirin 325 mg tablet,delayed 325 mg PO DAILY 10/05/18 09/01/19 History release acetaminophen 500 mg tablet 500 mg PO ONCE PRN tab 10/19/18 09/01/19 History hydrochlorothiazide 50 mg tablet 50 mg PO DAILY #90 tab 10/19/18 09/01/19 Rx triamcinolone acetonide 0.1 % See Rx Instructions .ROUTE 04/10/19 09/01/19 Rx topical cream .COMPLEX #80 gram atorvastatin 40 mg tablet 40 mg PO DAILY #90 tab 05/22/19 09/01/19 Rx clopidogrel 75 mg tablet 75 mg PO DAILY #90 tab 05/22/19 09/01/19 Rx losartan 50 mg tablet 50 mg PO DAILY #90 tab 05/22/19 09/01/19 Rx metoprolol succinate 100 mg PO DAILY 09/01/19 09/01/19 History Allergies Allergy/AdvReac Type Severity Reaction Status Date / Time Sulfa (Sulfonamide Allergy Unknown Verified 04/22/19 16:53 Antibiotics) [SULFA (SULFONAMIDE ANTIBIOTICS)] amlodipine [AMLODIPINE] AdvReac Intermediate edema legs Verified 04/22/19 16:53 naproxen [NAPROXEN] AdvReac Mild DIZZINESS Verified 04/22/19 16:53 Barbiturates [BARBITURATES] AdvReac Unknown Verified 04/22/19 16:53 ergot alkaloids AdvReac Unknown Verified 04/22/19 16:53 [ERGOT ALKALOIDS] Exam Vital Signs (past 8 hours): - 09/02/19 03:56 09/02/19 08:00 09/02/19 11:28 Temperature 97.2 F L 97.1 F L 96.7 F L Pulse Rate 52 L 54 L 52 L Respiratory Rate 16 17 16 Blood Pressure 141/67 H 130/66 142/70 H Pulse Oximetry 95 95 96 Oxygen Delivery Method Room Air Oxygen Flow Rate 0 Narrative Exam Narrative: Pleasant 84-year-old female resting comfortably in bed in no apparent distress. Ecchymosis present anterior knee and patel. She also has some ecchymosis present in the left foot. Sensation grossly intact to light touch distal left lower extremity. Motor functions intact distal left lower extremity. Both legs are warm and dry. Resp Effort & Inspection: normal respiratory effort Auscultation: clear to auscultation bilaterally Cardio Rate: regular rate Rhythm: regular rhythm GI Inspection: obesity Objective Labs Result Diagrams: 09/01/19 21:30 09/01/19 21:30 Labs: Laboratory Results - last 24 hr 09/01/19 09/01/19 09/01/19 21:30 21:30 21:30 WBC 7.7 RBC 3.47 L Hgb 11.3 L Hct 33.5 L MCV 96.4 MCH 32.5 MCHC 33.7 RDW 14.7 Plt Count 212 Neut % (Auto) 70.5 Lymph % (Auto) 18.3 L [place] % (Auto) 6.8 Eos % (Auto) 3.7 Baso % (Auto) 0.7 Neut # (Auto) 5400 Lymph # (Auto) 1400 [place] # (Auto) 500 Eos # (Auto) 300 Baso # (Auto) 100 PT 12.7 INR 1.1 APTT 31 D Sodium 138 Potassium 4.8 Chloride 102 Carbon Dioxide 31 BUN 36 H Creatinine 1.40 H Estimated GFR 35.8 L BUN/Creatinine Ratio 25.7 H Glucose 113 H Calcium 10.1 Total Bilirubin 0.7 AST 25 ALT 16 Alkaline Phosphatase 130 H Total Protein 7.4 Albumin 3.6 Globulin 3.8 Albumin/Globulin Ratio 0.9 L Blood Type Antibody Screen 09/01/19 21:37 WBC RBC Hgb Hct MCV MCH MCHC RDW Plt Count Neut % (Auto) Lymph % (Auto) [place] % (Auto) Eos % (Auto) Baso % (Auto) Neut # (Auto) Lymph # (Auto) [place] # (Auto) Eos # (Auto) Baso # (Auto) PT INR APTT Sodium Potassium Chloride Carbon Dioxide BUN Creatinine Estimated GFR BUN/Creatinine Ratio Glucose Calcium Total Bilirubin AST ALT Alkaline Phosphatase Total Protein Albumin Globulin Albumin/Globulin Ratio Blood Type A Positive Antibody Screen Negative PROCEDURE: XR KNEE LT 1TO2V INDICATIONS: pain sp fall TECHNIQUE: 2 views of the knee were acquired. COMPARISON: None. FINDINGS: Bones: There is a comminuted oblique fracture in the distal femoral metaphysis with 2 cm posterior and lateral displacement. Left knee arthroplasty is noted. Subtle lucency around the lateral aspect of the prosthesis could represent loosening of prosthesis. No suspicious bony lesions. Soft tissues: No joint effusion. No suspicious soft tissue calcifications. IMPRESSION: 1. A comminuted, displaced distal femoral metaphyseal fracture. 2. Subtle lucency around the lateral aspect of the knee prosthesis may represent prosthesis loosening. Assessment & Plan Assessment & Plan narrative: Morbid obesity with BMI of 45A comminuted, displaced distal femoral metaphyseal fracture. Subtle lucency around the lateral aspect of the knee prosthesis may represent prosthesis loosening. Morbid obesity with BMI of 45 Plan is open reduction internal fixation of periprosthetic fracture, right lower extremity, patient is NPO. Surgery scheduled for later this afternoon
[2019-09-02] MEDS: LACTATED RINGERS 1,000 ML 42 ML IV ×2 (14:12→16:30)
--- NOTE | 2019-09-02 15:07 | P.HP_ITS ---
History of Present Illness History of Present Illness Date Patient Seen: 09/02/19 Time Patient Seen: 15:07 Chief complaint: Fall L knee pain Narrative: This is an 84-year-old female who tripped and fell and noted the acute onset of left knee pain. She has a history of a left total knee arthroplasty. She denies being lightheaded prior to her fall. She denies any significant cardiac disease. She lives in a home that has 14 steps in 1 direction and 6 steps in a different direction. Patient History Medical History Acute intermittent porphyria (Acute) Arthralgia (Chronic 04/17/15) Arthritis (Acute) Chronic renal failure, stage 3 (moderate) (Chronic) Essential hypertension (Chronic 04/17/15) History of CVA with residual deficit (Chronic) Mixed hyperlipidemia (Chronic) Morbid obesity due to excess calories (Chronic 06/29/15) Surgical History History of appendectomy (Acute) History of total left knee replacement (Acute) Family & Social History Social History: household members children Prior Living Arrangements House Safety & Behavioral: Feels Safe in Current Yes Environment Been Physically Hurt or No Threatened By a Person Tobacco & Substance use: Tobacco type cigarettes Smoking Status Former smoker alcohol intake never alcohol intake frequency 0-2 drinks per day Substance Use Type does not use Meds Home Medications and Allergies Home Medications Medication Instructions Recorded Confirmed Type Disabled Parking Permit See Protocol MISCELLANEOUS 09/09/18 09/01/19 History DIRECTED aspirin 325 mg tablet,delayed 325 mg PO DAILY 10/05/18 09/01/19 History release acetaminophen 500 mg tablet 500 mg PO ONCE PRN tab 10/19/18 09/01/19 History hydrochlorothiazide 50 mg tablet 50 mg PO DAILY #90 tab 10/19/18 09/01/19 Rx triamcinolone acetonide 0.1 % See Rx Instructions .ROUTE 04/10/19 09/01/19 Rx topical cream .COMPLEX #80 gram atorvastatin 40 mg tablet 40 mg PO DAILY #90 tab 05/22/19 09/01/19 Rx clopidogrel 75 mg tablet 75 mg PO DAILY #90 tab 05/22/19 09/01/19 Rx losartan 50 mg tablet 50 mg PO DAILY #90 tab 05/22/19 09/01/19 Rx metoprolol succinate 100 mg PO DAILY 09/01/19 09/01/19 History Allergies Allergy/AdvReac Type Severity Reaction Status Date / Time Sulfa (Sulfonamide Allergy Unknown Verified 04/22/19 16:53 Antibiotics) [SULFA (SULFONAMIDE ANTIBIOTICS)] amlodipine [AMLODIPINE] AdvReac Intermediate edema legs Verified 04/22/19 16:53 naproxen [NAPROXEN] AdvReac Mild DIZZINESS Verified 04/22/19 16:53 Barbiturates [BARBITURATES] AdvReac Unknown Verified 04/22/19 16:53 ergot alkaloids AdvReac Unknown Verified 04/22/19 16:53 [ERGOT ALKALOIDS] Review of Systems Review of Systems Narrative: Denies heart pain, denies dizziness lightheadedness or new weakness prior to the fall. She has a history of a CVA with a previous mild left hemiparesis. No recent abdominal problems. Exam Vital Signs (past 8 hours): - 09/02/19 08:00 09/02/19 11:28 09/02/19 14:01 Temperature 97.1 F L 96.7 F L 96.2 F L Pulse Rate 54 L 52 L 60 Respiratory Rate 17 16 16 Blood Pressure 130/66 142/70 H 147/62 H Pulse Oximetry 95 96 95 Oxygen Delivery Method Room Air Oxygen Flow Rate 0 Narrative Exam Narrative: HEENT is benign, she is alert she is oriented, cor regular rate and rhythm, lungs are clear abdomen soft and benign, her left leg she has a healed midline incision there is obvious shortening of the left leg skin is noted to be intact she has pain with attempted range of motion and a moderate k nee effusion. She does have evidence of some chronic scaly skin in bilateral lower extremities she can fire toe flexors and extensors. Her calfs are soft. Objective Labs Result Diagrams: 09/01/19 21:30 09/01/19 21:30 Labs: Laboratory Results - last 24 hr 09/01/19 09/01/19 09/01/19 21:30 21:30 21:30 WBC 7.7 RBC 3.47 L Hgb 11.3 L Hct 33.5 L MCV 96.4 MCH 32.5 MCHC 33.7 RDW 14.7 Plt Count 212 Neut % (Auto) 70.5 Lymph % (Auto) 18.3 L [place] % (Auto) 6.8 Eos % (Auto) 3.7 Baso % (Auto) 0.7 Neut # (Auto) 5400 Lymph # (Auto) 1400 [place] # (Auto) 500 Eos # (Auto) 300 Baso # (Auto) 100 PT 12.7 INR 1.1 APTT 31 D Sodium 138 Potassium 4.8 Chloride 102 Carbon Dioxide 31 BUN 36 H Creatinine 1.40 H Estimated GFR 35.8 L BUN/Creatinine Ratio 25.7 H Glucose 113 H Calcium 10.1 Total Bilirubin 0.7 AST 25 ALT 16 Alkaline Phosphatase 130 H Total Protein 7.4 Albumin 3.6 Globulin 3.8 Albumin/Globulin Ratio 0.9 L Blood Type Antibody Screen 09/01/19 21:37 WBC RBC Hgb Hct MCV MCH MCHC RDW Plt Count Neut % (Auto) Lymph % (Auto) [place] % (Auto) Eos % (Auto) Baso % (Auto) Neut # (Auto) Lymph # (Auto) [place] # (Auto) Eos # (Auto) Baso # (Auto) PT INR APTT Sodium Potassium Chloride Carbon Dioxide BUN Creatinine Estimated GFR BUN/Creatinine Ratio Glucose Calcium Total Bilirubin AST ALT Alkaline Phosphatase Total Protein Albumin Globulin Albumin/Globulin Ratio Blood Type A Positive Antibody Screen Negative X-rays show a grossly displaced left supracondylar fracture on her left femur above a left total knee arthroplasty. Assessment & Plan Assessment & Plan narrative: Periprosthetic left supracondylar femur fracture. Recommendations and plan I have recommended open reduction internal fixation. The procedure alternatives risks benefits and complications were discussed in detail. She understands and agrees and were going to go ahead and proceed with that. She is on Plavix I do not think it is appropriate to wait 10 days for her platelets to normalize.
[2019-09-02] MEDS: CEFAZOLIN 2 GM/100 ML FROZ.PIGGY IV (15:25)
--- NOTE | 2019-09-02 16:08 | SUR.OPER ---
Supine on padded Skytron OR bed, head on pillow, arms secured on padded arm boards at <90 degrees abduction, legs uncrossed, safety belt at abdomen, tape over blanket over lower right leg, left leg controlled by surgeon.
[2019-09-02] MEDS: BUPIVACAINE 0.25% W/ EPI 30 ML VIAL 60 ML INJ (16:30)
[2019-09-02] MEDS: BUPIVACAINE LIPOSOME 266 MG/20 ML VIAL INJ (16:31)
[2019-09-02] MEDS: TRANEXAMIC ACID 1,000 MG VIAL 1000 MG MM (16:35)
--- NOTE | 2019-09-02 17:59 | PM.OP.1 ---
Operative Date/Time/Diagnoses Date of procedure: 09/02/19 Time of procedure: 15:16 Pre-op diagnosis: Left knee supracondylar fracture periprosthetic above a total knee Post-op diagnosis: same Procedure & Clinicians Procedure: Open reduction internal fixation left comminuted distal femur supracondylar fracture above a total knee Same procedure as scheduled: Yes Indications: This is an 84-year-old female with a history of a left total knee arthroplasty. She tripped at home noted the acute onset of pain in the left knee and had x-rays which showed a left knee supracondylar fracture she is brought to the operating room for open reduction internal fixation. The procedure alternatives risks benefits and complications were discussed with her in detail. Surgeon: Kat Carrasquillo Programming Internship: Michael Guillen Anesthesia Type: General Operative Notes Findings: Severely comminuted left supracondylar femur fracture, no evidence of prosthetic loosening, adequate quality bone and fixation with a plate and multiple screws. Closure Type: primary Specimen(s): none sent Prosthetic devices, grafts, tissues, transplants, or devices: Carrasquillo and Nephew locking distal femoral plate with multiple screws Applied: drain(s) Estimated Blood Loss (mL): 250 Blood products transfused: none Tourniquet time (min): 68 Procedure in detail: Patient was brought to the operating room. She was given IV antibiotics and a time-out was performed. The left lower extremity was prepped and draped in a standard sterile fashion. Sterile tourniquet was applied to the left lower extremity. Tourniquet was applied and elevated to 300 and mm of mercury. Lateral skin incision was made dissection was carried out through skin and subcutaneous tissues deep Gelpi retractors were placed. Tensor fascial antione was incised. The quad was retracted anteriorly and there was minimal stripping posteriorly. She had a comminuted supracondylar femur fracture it was meticulously reduced. The fracture was carefully aligned. We placed a distal femoral locking plate along the lateral aspect of the bone look both at a 13 hole and a 10 hole plate. Thirteen hole plate was a little bit long. Selected the 10 hole plate. The femur was then carefully reduced and the plate was applied and then fixed to the distal fragment with several screws further realigned the fracture and then fixed the plate to the shaft proximally obtaining both AP and lateral fluoroscopic images. Multiple screws were placed both in the shaft and in the distal fragment. Acceptable overall alignment was achieved in the fracture and it was very carefully aligned and checked for stability. Combination of cortical cancellous chips as well as bone putty was meticulously packed in the fracture defect. AP and lateral fluoroscopic image showed good alignment acceptable position of the screws and fracture alignment. The wound was closed with interrupted Vicryl and running stitches and skin tori. Tranexamic acid was placed in the wound there was really minimal bleeding considering the patient was on Plavix. A drain was placed in the subcutaneous tissues as there was no significant deep drainage. A olivia dressing was placed. Marcaine and Exparel were injected. Complications: none Post-operative Condition: stable Disposition: Acute Care Plan for aftercare: Toe touch weight-bearing on the left lower extremity, 25-50 lb max. Knee immobilizer or locked knee brace. Discharge to group home facility when stable. Follow up in 14 days. Aspirin for DVT prophylaxis.
[2019-09-02] MEDS: LACTATED RINGERS 1,000 ML 125 ML IV (20:15)
[2019-09-02] MEDS: ACETAMINOPHEN 325 MG TABLET 650 MG PO (20:17)
[2019-09-02] MEDS: DOCUSATE 100 MG CAPSULE PO (20:17)
[2019-09-02] MEDS: ASPIRIN EC 81 MG TABLET PO (20:17)
[2019-09-02] MEDS: IBUPROFEN 400 MG TABLET PO (20:17)
--- NOTE | 2019-09-02 20:37 | PC.NURSE ---
went to room 222 in acute care by request of inpatient nurse to assist in the removal of one solitary luann ring and one basic band ring on patient left ring finger. Both cut with ED ring cutter and given to patient daughter at [facility]. No complications experienced. Patient tolerated well.
--- NOTE | 2019-09-02 20:39 | PC.NURSE ---
Patient up from surgery at 1830, awake but drowsy. States in no pain. No sampson, patient incont of urine and has brief on. Patient with wedding rings on lf ring finger, swelling to that hand along with enlarged knuckle. Patient okayed to have the rings cut off. Mazin JEFFREY RN up to help remove patients rings. Daughter also in room agreeable to have rings cut off and is taking them home with her. That finger does have indent to it from the rings and small bruising to the knuckle. Patient has been A&O, calm and cooperative.
[2019-09-03] VITALS (10 sets, daily range): BP systolic 123–170; BP diastolic 41–77; PULSE 50–64; RESP 12–18; TEMP 35.8–36.6; O2SAT 92–96
[2019-09-03] MEDS: CEFAZOLIN 2 GM/100 ML FROZ.PIGGY IV ×2 (00:28→07:46)
[2019-09-03] MEDS: IBUPROFEN 400 MG TABLET PO ×4 (05:26→20:35)
[2019-09-03 05:48] LABS: Add Manual Diff / Slide Review NO; Basophils Absolute Auto 0 /uL (0-100); Eosinophils Absolute Auto 0 /uL (0-450); Hematocrit 25.9 % (36-46); Hemoglobin 8.7 g/dL (12.0-16.0); Lymphocytes Absolute Auto 500 /uL (1100-4500); Lymphocytes Percent Auto 6.2 % (25-40); Mean Corpuscular HGB Conc 33.4 % (30-36); Mean Corpuscular Hemoglobin 32.6 PG (26-34); Mean Corpuscular Volume 97.7 fL (80-100); Monocytes Absolute Auto 300 /uL (0-900); Monocytes Percent Auto 3.1 % (3-14); Neutrophils Absolute Auto 8000 /uL (1500-7000); Neutrophils Percent Auto 90.7 % (50-75); Platelet Count 163 X10^3/uL (150-400); Red Blood Cell Count 2.65 X10^6/uL (4.0-5.2); Red Cell Distribution Width 14.5 % (11.6-14.8); White Blood Cell Count 8.8 X10^3/uL (4.5-11.0)
[2019-09-03 05:58] LABS: BUN Creatinine Ratio 22.3 (6-22); Blood Urea Nitrogen 29 mg/dL (7-17); Calcium 9.3 mg/dL (8.4-10.2); Carbon Dioxide 27 mmol/L (22-32); Chloride 103 mmol/L (98-107); Glucose 167 mg/dL (80-110); HEMOLYSIS < 15 (0-50); Potassium 4.6 mmol/L (3.4-5.1); Sodium 136 mmol/L (137-145)
--- NOTE | 2019-09-03 07:32 | P.PN_ITS ---
Subjective Subjective Date Patient Seen: 09/03/19 Time Patient Seen: 07:33 Interval history: Patient's pain is well controlled. Denies fever chills. No nausea vomiting. Exam Vital Signs (past 8 hours): - 09/03/19 05:00 Temperature 97.0 F L Pulse Rate 63 Respiratory Rate 16 Blood Pressure 138/69 Pulse Oximetry 92 Oxygen Delivery Method Room Air Oxygen Flow Rate 0 Narrative Exam Narrative: 84-year-old female resting comfortably in bed in no apparent distress. Left leg is warm and dry. Motor functions intact distally. Sensation grossly intact to light touch. Mario dressing is on and functioning. Dressing is clean, dry and intact. Hemovac in place. Knee immobilizer in place. Objective Labs Result Diagrams: 09/03/19 04:58 09/03/19 04:58 Labs: Laboratory Results - last 24 hr 09/03/19 09/03/19 04:58 04:58 WBC 8.8 RBC 2.65 L Hgb 8.7 L Hct 25.9 L MCV 97.7 MCH 32.6 MCHC 33.4 RDW 14.5 Plt Count 163 Neut % (Auto) 90.7 H D Lymph % (Auto) 6.2 L Archer % (Auto) 3.1 Eos % (Auto) 0.0 L Baso % (Auto) 0.0 Neut # (Auto) 8000 H Lymph # (Auto) 500 L Archer # (Auto) 300 Eos # (Auto) 0 Baso # (Auto) 0 Sodium 136 L Potassium 4.6 Chloride 103 Carbon Dioxide 27 BUN 29 H Creatinine 1.30 H Estimated GFR 39.0 L BUN/Creatinine Ratio 22.3 H Glucose 167 H Calcium 9.3 Assessment & Plan Post-op Postoperative Procedures: Procedures Operation Date: 09/02/19 14:45 Actual Procedures Side Surgeon p ORIF Femur Fracture- shyanne prosthetic fx Left Kat Carrasquillo MD Postop day 1 status post open reduction internal fixation left comminuted distal femur supracondylar fracture above a total knee. Toe-touch weight-bearing left lower extremity 25-50 lb max. Knee immobilizer or lock knee brace. Follow-up scheduled [facility] in 14 days. Aspirin for DVT prophylaxis. Patient is morbidly obese. She has 13 steps in her house. She does have a caregiver. She will likely need care home facility placement. Repeat H&H 09/04/2019.
[2019-09-03] MEDS: LACTATED RINGERS 1,000 ML 125 ML IV (07:43)
[2019-09-03] MEDS: ACETAMINOPHEN 325 MG TABLET 650 MG PO ×2 (07:46→20:36)
[2019-09-03] MEDS: CLOPIDOGREL 75 MG TABLET PO (07:47)
[2019-09-03] MEDS: DOCUSATE 100 MG CAPSULE PO ×2 (07:47→20:35)
[2019-09-03] MEDS: ASPIRIN EC 81 MG TABLET PO ×2 (07:47→20:36)
--- NOTE | 2019-09-03 08:03 | PM.PN.1 ---
Subjective Subjective Date Patient Seen: 09/03/19 Time Patient Seen: 08:03 Interval history: Patient had surgery last evening. The fracture was repaired using multiple plates. Not felt to have any loosening of her intra-articular component Currently having some mild pain when she moves but none at rest. Is somewhat frightful of getting up out of bed but knows that is the next step Exam Vital Signs (past 8 hours): - 09/03/19 05:00 Temperature 97.0 F L Pulse Rate 63 Respiratory Rate 16 Blood Pressure 138/69 Pulse Oximetry 92 Oxygen Delivery Method Room Air Oxygen Flow Rate 0 Objective Labs Result Diagrams: 09/03/19 04:58 09/03/19 04:58 Labs: Laboratory Results - last 24 hr 09/03/19 09/03/19 04:58 04:58 WBC 8.8 RBC 2.65 L Hgb 8.7 L Hct 25.9 L MCV 97.7 MCH 32.6 MCHC 33.4 RDW 14.5 Plt Count 163 Neut % (Auto) 90.7 H D Lymph % (Auto) 6.2 L Robertson % (Auto) 3.1 Eos % (Auto) 0.0 L Baso % (Auto) 0.0 Neut # (Auto) 8000 H Lymph # (Auto) 500 L Robertson # (Auto) 300 Eos # (Auto) 0 Baso # (Auto) 0 Sodium 136 L Potassium 4.6 Chloride 103 Carbon Dioxide 27 BUN 29 H Creatinine 1.30 H Estimated GFR 39.0 L BUN/Creatinine Ratio 22.3 H Glucose 167 H Calcium 9.3 Assessment & Plan Assessment & Plan narrative: 1. Status post ORIF distal femur fracture-continued rehab as per Ortho 2. Hypertension-none of patient's antihypertensives were restarted after surgery by Orthopedics, for some reason. Will re-initiate all of her antihypertensives today. Will also turn off IV fluids as she is awake alert able to take orals without difficulty. 3. Status post CVA-patient's Plavix was restarted by Ortho postop. Continue on that for now as well as aspirin as per Ortho for VTE prophylaxis 4. Obesity-continue to monitor knowing that her size will complicate her rehab and even basic care. 5. Postop anemia-plan to repeat H&H tomorrow as per Ortho Patient will almost certainly require placement in detention for rehabilitation when ready for discharge from the hospital Note: Greater than 30 minutes was spent evaluating the patient on the floor, including examining the patient, discussing clinical course with clinical and nursing staff, reviewing clinical course in the computer, preparing documentation and writing orders for continued management of care, discussing status with family as appropriate, reviewing plans for the next 24 hours with both patient/family and nursing staff as appropriate.
[2019-09-03] MEDS: OXYCODONE IR 5 MG TABLET PO (08:24)
[2019-09-03] MEDS: LOSARTAN 50 MG TABLET PO (08:24)
[2019-09-03] MEDS: METOPROLOL ER 50 MG TABLET 100 MG PO (08:24)
[2019-09-03] MEDS: hydroCHLOROthiazide 25 MG TABLET PO (08:25)
--- NOTE | 2019-09-03 12:51 | CM.DPC ---
DCP Cont: Called Shani at [facility] to ensure acceptance. She stated that they can accept patient. She will be eligible for [facility] 09/04, if she is stable. PASSR completed. P: DCP to continue to follow. Plan is for [facility] when stable. Dinora Harrington, JAYY/Physical Science Technician
--- NOTE | 2019-09-03 15:07 | PT.IIE ---
Addendum entered and electronically signed by Santa Becker PT 09/03/19 16:32: Recommend donning a shoe on the right foot with next attempt to transfer Original Note: Current Diagnoses Unspecified fracture of lower end of left femur, initial encounter for closed fracture (09/01/19) Surgery Performed Operation Date: 09/02/19 14:45 Actual Procedures p ORIF Femur Fracture- shyanne prosthetic fx(Left) - Kat Carrasquillo MD Surgical History (Last Reviewed 09/02/19 @ 15:08 by Kat Carrasquillo MD) History of appendectomy (Acute) History of total left knee replacement (Acute) Medical History (Last Reviewed 09/02/19 @ 15:08 by Kat Carrasquillo MD) Acute intermittent porphyria (Acute) Arthralgia (Chronic 04/17/15) Arthritis (Acute) Chronic renal failure, stage 3 (moderate) (Chronic) Essential hypertension (Chronic 04/17/15) History of CVA with residual deficit (Chronic) Mixed hyperlipidemia (Chronic) Morbid obesity due to excess calories (Chronic 06/29/15) Physical Therapy Inpatient Evaluation/Re-Eval M1 PT/OT-IP Prior Functional Status Start: 09/03/19 09:05 Freq: NEEDED Status: Active Protocol: Document 09/03/19 14:36 AW (Rec: 09/03/19 15:07 AW [id number]) Medical Review Prior Functional Status Medical History Reviewed Yes Communication WNL. Pt is an effective verbal communicator Mobility and Gait Pt uses 4WW or furniture cruises at home; uses SHEAR OPERATOR HELPER for short community distances and shopping carts to mobilize in stores. 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 She manages her own meds and her daughter helps with cooking. Pt manages her own finances. Prior Functional Level (Other details) Pt is legally blind and does not drive. She often holds her daughter's arm for mobility in unfamiliar places. Social History Household Members children Living Arrangements House Number of Floors (Floors) Two Floors Number of Stairs To Enter/Railing? Level entrance through garage. Inside, pt's daughter lives in an apartment on the [address]. Pt climbs 13 steps with narrow bilateral rails to access her living space. Home Environment Standard Height Toilet,Tub/ Shower Home Equipment Four Wheel Walker,Straight Cane,Hand Held Shower,Long Handled Shoe Horn,Wood Dowel Machine Operator,Grab Bars In Shower Additional Social History Comment Pt lives with her daughter who is able to provide some assistance but no heavy lifting. M2 PT-IP Current Condition Start: 09/03/19 09:05 Freq: NEEDED Status: Active Protocol: Document 09/03/19 14:36 AW (Rec: 09/03/19 15:07 AW [id number]) Physical Therapy Current Condition Current Condition Evaluation Date 09/03/19 Treatment Diagnosis periprosthetic femur fracture s/p ORIF L knee; difficulty in walking Onset Date 09/01/19 Precautions Brace knee immobilizer at all times Other Precautions knee immobilizer at all times Weight Bearing Status Weight Bearing Status Touch Down Weight Bearing Allowed Weight Bearing Amount (enter % 25-50 pounds LLE / toe-touch or #) (%) weight bearing M3 PT-IP Subjective Start: 09/03/19 09:05 Freq: NEEDED Status: Active Protocol: Document 09/03/19 14:36 AW (Rec: 09/03/19 15:07 AW [id number]) Subjective Physical Therapy Visit Type Type Initial Evaluation Visit Start Time 13:13 Visit Stop Time 14:01 Total Visit Minutes 48 Number of CLAIMS DIRECTOR Visits 0 Physical Therapy Visit Comments Patient Comments Pt is having no pain lying in bed, willing to attempt mobility Patient Goals Pt wants to get stronger in order to be able to care for herself Therapy Pain Assessment Pain When Pain Assessed During Mobility Pain Present Pain Present Pain Reported Location Left Leg Intensity 2 Scale Used 0/10 at rest; 2/10 with mobility Description With Movement Pain Management Techniques Distraction,Elevation,Re- positioning,Timing of Activity with Medications M4 PT-IP Mobility and Gait Start: 09/03/19 09:05 Freq: NEEDED Status: Active Protocol: Document 09/03/19 14:36 AW (Rec: 09/03/19 15:07 AW [id number]) PT-Bed Mobility Assessment Supine to Sit Supine to Sit Maximum Assistance,1 Person Assistance,Head of Bed Elevated,Bedrails Scooting Scooting to Edge of Bed Maximum Assistance PT-Transfer Assessment Sit to and From Stand Sit to and from Stand Maximum Assistance,2 Person Assistance,Use of Upper Extremities Equipment Transfer Assistive Device Gait Belt,Front Wheeled Walker Orthotic/Prosthetic Devices or Brace: Yes Transfers Transfer Destination Chair,Bedside Commode Transfer Technique pt stood with FWW and staff moved equipment behind her Transfer Ability Level of Assist Maximum Assistance,1 Person Assistance,Use of Upper Extremities Comments Mobility Comments Pt was sitting up in the bed with knee immobilizer donned finishing lunch upon PT arrival. She reported no pain at rest and was willing to move. With HOB elevated, heavy use of bed rail and bed cane, and max A x 1, pt completed supine to sit. Pt is 5' tall and required max assist to move toward EOB with no ability to reach the floor with her feet. When ready to stand, she slid her hips toward EOB and completed sit to stand max A x 2 and max cues for upright posture. RN was present to inspect and clean perineal skin while pt stood. She was able to stand with her left foot resting on the ground but it was difficult to tell how much weight she was putting on her left foot. She was not able to fully extend her right knee, relying heavily on the FWW in flexed position to maintain standing. Pt was unable to pivot on her right foot, so the bed was moved and the commode was placed behind her. After finishing on the commode, pt stood again with FWW max A x 2 with MECHANICAL PROJECT MANAGER moving the BSC out of the way and replacing it with the chair. Pt sat on the chair and required max A x 2 to move her hips toward the chair back. Pt was positioned in the chair with call light and table within reach. Recommend nursing use mechanical lift when pt ready to return to bed . Left with MECHANICAL PROJECT MANAGER attending. Gait Assessment Comments Gait Comments Unable at this time. Stair Climbing Assessment Comments Stair Climbing Comments Unable to assess. PT-Balance Assessment Sitting Balance and Reactions Static Sitting Balance Ability Fair Dynamic Sitting Balance Ability Fair Standing Balance and Reactions Static Standing Balance Ability Poor Dynamic Standing Balance Ability Poor Device Used FWW M5 PT-IP Objective Assessments Start: 09/03/19 09:05 Freq: NEEDED Status: Active Protocol: Document 09/03/19 14:36 AW (Rec: 09/03/19 15:07 AW [id number]) Orientation Orientation/Cognition Level of Alertness Alert Orientation Name,Month,Place,Situation Language Function Ability No Deficits Noted Safety Awareness Understands Safety Issues Memory Description No Deficits Noted Gross Range of Motion Upper Extremity ROM Assessment Left Impaired Lower Extremity ROM Assessment Left Impaired Strength Upper Extremity Strength Assessment Left Impaired Lower Extremity Strength Assessment Bilaterally Impaired Comments Strength Comments 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 RLE grossly 4-/5 except hip 3+ /5. Coordination Assessment Gross Coordination Gross Coordination WNL Sensation Assessment Sensation Gross Sensation WNL M6 PT-IP Treatment Start: 09/03/19 09:05 Freq: NEEDED Status: Active Protocol: Document 09/03/19 14:36 AW (Rec: 09/03/19 15:07 AW [id number]) Physical Therapy Treatment Exercises Exercises Ankle Pumps Education Education Provided Precautions,Weight Bearing Status,Post-Op Packet,Safety Other Treatments Other Treatment Performed Provided education on role of PT, plan of care, TTWB status, need for knee immobilizer at all times, and safe use of FWW . M7 PT-IP Assessment and Plan Start: 09/03/19 09:05 Freq: NEEDED Status: Active Protocol: Document 09/03/19 14:36 AW (Rec: 09/03/19 15:07 AW [id number]) PT Summary Assessment and Plan Potential Rehabilitation Potential Good Status of Condition at Evaluation Evolving Summary Impairments Pain,ROM,Strength,Balance,Bed Mobility,Transfers,Gait, Activity Tolerance Assessment Summary Nanci is an 84 yo woman who fell at home 2 days ago with resultant periprosthetic femur fracture which was surgically treated yesterday with ORIF. Her components are from a L TKA ~5 years ago. At baseline, she uses a 4WW or furniture cruises at home. She is legally blind so uses SHEAR OPERATOR HELPER in the community with her daughter assisting. She lives with her daughter. Her living quarters are up 13 steps with bilateral rails. On evaluation , pt required max A x 1-2 for bed mobility and transfers. She was able to maintain TTWB but could not pivot transfer. Her standing posture was significantly flexed with poor ability to activate quads and hip extensors. Pt will require SNF rehab at discharge due to debility compared with baseline function. Goals Bed Mobility Goal Minimal Assistance Transfer Goal Minimal Assistance,Front Wheeled Walker Gait Goal Minimal Assistance,Front Wheel Walker Gait Distance 25 Days to Meet Goals 10 Frequency of Treatment Frequency Of Treatment Twice a Day Treatment Plan Physical Therapy Treatment Plan Bed Mobility Training,Transfer Training,Gait Training, Therapeutic Exercise,Balance Retraining,Post Op Education, Discharge Planning,Hot or Cold Pack,Neuromuscular Re-ed, Coordination Retraining,Manual Therapy Other Recommendations and Next Treatment bed mobility, transfers, Focus review WB status and technique for pivot transfer Recommendations To Nursing Amount of Assist Needed 3 or More Person Assist, Mechanical Lift Discharge Recommendations PT Discharge Recommendations SNF Rehab Transportation Needs at Discharge Wheelchair/Cabulance
[2019-09-03] MEDS: ATORVASTATIN 20 MG TABLET 40 MG PO (20:34)
[2019-09-03] MEDS: SODIUM CHLORIDE 0.9% FLUSH 10 ML IV (20:36)
[2019-09-04] VITALS (7 sets, daily range): BP systolic 118–163; BP diastolic 49–90; PULSE 47–85; RESP 16–18; TEMP 35.9–37.1; O2SAT 94–96
[2019-09-04] MEDS: IBUPROFEN 400 MG TABLET PO ×5 (00:28→20:59)
--- NOTE | 2019-09-04 02:13 | PC.NURSE ---
Patient seen and assessed at 0044. Is alert and oriented except did not know day of month. Breath sounds CTA with RA sat of95%. HRR but bradycardic at 58 bpm apically. Denies nausea. BT present and is passing flatus. Has been voiding per bedpan; denies dysuria, frequency or urgency. Is being assisted to turn q2h but does well in turning self when instructed to do so. ASHANTI dressing is intact with spots of sanguinous drainage noted and outlined. Hemovac is intact and compressed. Wearing a brace/immobilizer on left knee. Bruising noted on bilateral knees, left foot and right arm. Red, rashy area under left breast with peeling skin. Open slit-like area in buttock crease. CMS is intact. Has puffy edema in left foot. Refusing SCD's at night. Denies pain. Fall risk score is high and bed alarm is activated.
[2019-09-04 05:38] LABS: Hemoglobin 7.7 g/dL (12.0-16.0)
[2019-09-04 05:44] LABS: Hematocrit 22.6 % (36-46)
--- NOTE | 2019-09-04 08:33 | P.PN_ITS ---
Subjective Subjective Date Patient Seen: 09/04/19 Time Patient Seen: 08:33 Interval history: Patient had basically uneventful day yesterday. Spent a lot time up in the chair. Did some difficulty getting up on her feet or least 1 ft anyway as she points out to me. Still feels scratchy throat likely from the intubation from her surgery. Is having some hiccups in some discomfort when she swallows trying to eat in bed No other complaints Exam Vital Signs (past 8 hours): - 09/04/19 04:40 Temperature 97.5 F L Pulse Rate 53 L Respiratory Rate 16 Blood Pressure 145/90 H Pulse Oximetry 95 Oxygen Delivery Method Room Air Oxygen Flow Rate 0 Narrative Exam Narrative: HEENT-unremarkable, normocephalic atraumatic Neck-no lymphadenopathy no bruits Lungs-clear anteriorly and posteriorly no wheezes no crackles good breath sounds Heart-regular rate and rhythm, no murmur, rub, or gallop. normal S1-S2 Abdomen-positive bowel tones, soft, nontender, nondistended, no hep atosplenomegaly, no masses palpable Neuro-normal to screening exam, gait not tested Objective Labs Result Diagrams: 09/04/19 05:13 09/03/19 04:58 Labs: Laboratory Results - last 24 hr 09/04/19 05:13 Hgb 7.7 L Hct 22.6 L Assessment & Plan Assessment & Plan narrative: 1. Status post ORIF fractured femur-continue rehab per Ortho 2. Postop/acute blood loss anemia-hemoglobin down to 7.7. Patient with no known coronary disease at this point and no evidence of hypoxia or perfusion issues. Okay to not transfuse at this level but if drops below 7 would transfuse. Plan to recheck H&H tomorrow 3. Hypertension-adequate control blood pressure for now. Minimally bradycardic with beta-juan dose but that is her baseline no need to hold her change medication at this point 4. Chronic renal failure-patient's numbers are stable. Will not plan to repeat unless his clinical reason Overall patient is progressing satisfactorily. Will clearly need to go [facility] prior to returning to her prior living environment. Depending on outcome of her hemoglobin and hematocrit tomorrow is medically read y for discharge when felt to be ready as per Ortho probably in the next day or 2 anyway. Note: Greater than 30 minutes was spent evaluating the patient on the floor, including examining the patient, discussing clinical course with clinical and nursing staff, reviewing clinical course in the computer, preparing documentation and writing orders for continued management of care, discussing status with family as appropriate, reviewing plans for the next 24 hours with both patient/family and nursing staff as appropriate.
[2019-09-04] MEDS: SODIUM CHLORIDE 0.9% FLUSH 10 ML IV ×2 (08:42→21:01)
[2019-09-04] MEDS: ASPIRIN EC 81 MG TABLET PO ×2 (08:42→20:59)
[2019-09-04] MEDS: ACETAMINOPHEN 325 MG TABLET 650 MG PO ×3 (08:43→20:57)
[2019-09-04] MEDS: hydroCHLOROthiazide 25 MG TABLET PO (08:43)
[2019-09-04] MEDS: DOCUSATE 100 MG CAPSULE PO ×2 (08:44→20:59)
[2019-09-04] MEDS: CLOPIDOGREL 75 MG TABLET PO (08:44)
[2019-09-04] MEDS: METOPROLOL ER 50 MG TABLET 100 MG PO (08:44)
[2019-09-04] MEDS: LOSARTAN 50 MG TABLET PO (08:44)
--- NOTE | 2019-09-04 09:54 | PM.PNPO.1 ---
Subjective Subjective Date Patient Seen: 09/04/19 Time Patient Seen: 09:54 Interval history: Denies fever /chills. Pain 6-9/10. Severe pain last night with nausea no vomiting. Pain overall better this morning but still feeling nauseous. She was able to walk down the [place] is yesterday with physical therapy. Exam Vital Signs (past 8 hours): - 09/04/19 04:40 09/04/19 07:45 Temperature 97.5 F L 98.8 F Pulse Rate 53 L 54 L Respiratory Rate 16 17 Blood Pressure 145/90 H 136/63 Pulse Oximetry 95 94 Oxygen Delivery Method Room Air Oxygen Flow Rate 0 Objective Labs Result Diagrams: 09/04/19 05:13 09/03/19 04:58 Labs: Laboratory Results - last 24 hr 09/04/19 05:13 Hgb 7.7 L Hct 22.6 L Assessment & Plan Post-op Postoperative Procedures: Procedures Operation Date: 09/02/19 14:45 Actual Procedures Side Surgeon p ORIF Femur Fracture- shyanne prosthetic fx Left Kat Carrasquillo MD
--- NOTE | 2019-09-04 10:06 | PM.PNPO.1 ---
Subjective Subjective Date Patient Seen: 09/04/19 Time Patient Seen: 10:06 Interval history: Pain is [id number]. Denies fever/ chills. No nausea/ vomiting. Exam Vital Signs (past 8 hours): - 09/04/19 04:40 09/04/19 07:45 Temperature 97.5 F L 98.8 F Pulse Rate 53 L 54 L Respiratory Rate 16 17 Blood Pressure 145/90 H 136/63 Pulse Oximetry 95 94 Oxygen Delivery Method Room Air Oxygen Flow Rate 0 Narrative Exam Narrative: 84-year-old female resting comfortably in bedside chair in no apparent distress. Mario dressing is on and functioning. Dressing is clean, dry and intact. Hemovac in place. Drainage was 50 mL last shift. Left leg is warm and dry. Motor functions intact distally and sensation is grossly intact to light touch. Objective Labs Result Diagrams: 09/04/19 05:13 09/03/19 04:58 Labs: Laboratory Results - last 24 hr 09/04/19 05:13 Hgb 7.7 L Hct 22.6 L Assessment & Plan Post-op Postoperative Procedures: Procedures Operation Date: 09/02/19 14:45 Actual Procedures Side Surgeon p ORIF Femur Fracture- shyanne prosthetic fx Left Kat Carrasquillo MD Postop day 2. Toe-touch weight-bearing left lower extremity 25-50 lb max. Continue knee immobilizer. Will order a locked knee brace that if will fit her better in the outpatient setting. Follow-up with 2 weeks. Continue aspirin for DVT prophylaxis 6. Patient currently 3 or more person assist and physical therapy is recommending [facility] facility [facility]. Patient is currently being followed by Dr. Garber for other medical issues including postop/acute blood loss anemia. Repeat H&H has been scheduled for tomorrow.
--- NOTE | 2019-09-04 10:41 | PT.IPTN ---
Current Diagnoses Unspecified fracture of lower end of left femur, initial encounter for closed fracture (09/01/19) Surgery Performed Operation Date: 09/02/19 14:45 Actual Procedures p ORIF Femur Fracture- shyanne prosthetic fx(Left) - Kat Carrasquillo MD Physical Therapy Treatment Note M2 PT-IP Current Condition Start: 09/03/19 09:05 Freq: NEEDED Status: Active Protocol: Document 09/03/19 14:36 AW (Rec: 09/03/19 15:07 AW [id number]) Physical Therapy Current Condition Current Condition Evaluation Date 09/03/19 Treatment Diagnosis periprosthetic femur fracture s/p ORIF L knee; difficulty in walking Onset Date 09/01/19 Precautions Brace knee immobilizer at all times Other Precautions knee immobilizer at all times Weight Bearing Status Weight Bearing Status Touch Down Weight Bearing Allowed Weight Bearing Amount (enter % 25-50 pounds LLE / toe-touch or #) (%) weight bearing M3 PT-IP Subjective Start: 09/03/19 09:05 Freq: NEEDED Status: Active Protocol: Document 09/04/19 09:08 ARIAN (Rec: 09/04/19 10:40 ARIAN [id number]) Subjective Physical Therapy Visit Type Type Treatment Note Visit Start Time 09:08 Visit Stop Time 09:36 Total Visit Minutes 28 Number of PIPE STRIPPER Visits 1 Physical Therapy Visit Comments Patient Comments Pt lying in bed stating she has to use the [facility] Pain Assessment Pain When Pain Assessed During Mobility Pain Present Pain Present Pain Reported M4 PT-IP Mobility and Gait Start: 09/03/19 09:05 Freq: NEEDED Status: Active Protocol: Document 09/04/19 09:08 ARIAN (Rec: 09/04/19 10:40 ARIAN [id number]) PT-Bed Mobility Assessment Supine to Sit Supine to Sit Maximum Assistance,2 Person Assistance,Head of Bed Elevated,Bedrails Scooting Scooting to Edge of Bed Maximum Assistance PT-Transfer Assessment Sit to and From Stand Sit to and from Stand Maximum Assistance,2 Person Assistance,Use of Upper Extremities Equipment Transfer Assistive Device Gait Belt,Front Wheeled Walker Orthotic/Prosthetic Devices or Brace: Yes Transfers Transfer Destination Chair,Bedside Commode Transfer Technique pt stood with FWW and staff moved equipment behind her Transfer Ability Level of Assist Maximum Assistance,2 Person Assistance,Use of Upper Extremities Comments Mobility Comments Head of bed elevated. Pt requiring MaxA x 2 for partial supine to sit and MaxA x 2 with bed rail for scooting to edge of bed. MaxA x 2 for sliding off the bed into standing position due to the pts inability to reach the floor with her feet. Cues for hand and foot placement as well as maintaining upright posture. She is lacking ability to scoot on one foot more than a few inches. She was able to position herself infront of the BSC but was unable to sit to the back of the BSC and needed maxA x 2 to get her hips to the back of the BSC. Pt sat on commode for several minutes unable to void. MaxA x2 for transfer to standing. Pt better able to pivot on her RLE and able to move ~1foot toward chair which was then placed in back of pt . MaxA x3 for additional person to move chair. Pt left with nursing in room. Gait Assessment Comments Gait Comments Unable at this time. M5 PT-IP Objective Assessments Start: 09/03/19 09:05 Freq: NEEDED Status: Active Protocol: Document 09/03/19 14:36 AW (Rec: 09/03/19 15:07 AW [id number]) Orientation Orientation/Cognition Level of Alertness Alert Orientation Name,Month,Place,Situation Language Function Ability No Deficits Noted Safety Awareness Understands Safety Issues Memory Description No Deficits Noted Gross Range of Motion Upper Extremity ROM Assessment Left Impaired Lower Extremity ROM Assessment Left Impaired Strength Upper Extremity Strength Assessment Left Impaired Lower Extremity Strength Assessment Bilaterally Impaired Comments Strength Comments 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 RLE grossly 4-/5 except hip 3+ /5. Coordination Assessment Gross Coordination Gross Coordination WNL Sensation Assessment Sensation Gross Sensation WNL M6 PT-IP Treatment Start: 09/03/19 09:05 Freq: NEEDED Status: Active Protocol: Document 09/04/19 09:08 ARIAN (Rec: 09/04/19 10:40 ARIAN [id number]) Physical Therapy Treatment Exercises Exercises Ankle Pumps Education Education Provided Precautions,Weight Bearing Status,Safety M7 PT-IP Assessment and Plan Start: 09/03/19 09:05 Freq: NEEDED Status: Active Protocol: Document 09/04/19 09:08 ARIAN (Rec: 09/04/19 10:40 ARIAN [id number]) PT Summary Assessment and Plan Potential Rehabilitation Potential Good Status of Condition at Evaluation Evolving Summary Impairments Pain,ROM,Strength,Balance,Bed Mobility,Transfers,Gait, Activity Tolerance Assessment Summary Pt requiring MaxA x2 for bed mobility and transfers. See note on mobility Goals Bed Mobility Goal Minimal Assistance Transfer Goal Minimal Assistance,Front Wheeled Walker Gait Goal Minimal Assistance,Front Wheel Walker Gait Distance 25 Days to Meet Goals 10 Frequency of Treatment Frequency Of Treatment Twice a Day Treatment Plan Physical Therapy Treatment Plan Bed Mobility Training,Transfer Training,Gait Training, Therapeutic Exercise,Balance Retraining,Post Op Education, Discharge Planning,Hot or Cold Pack,Neuromuscular Re-ed, Coordination Retraining,Manual Therapy Other Recommendations and Next Treatment bed mobility, transfers, Focus review WB status and technique for pivot transfer Recommendations To Nursing Amount of Assist Needed 3 or More Person Assist, Mechanical Lift Discharge Recommendations PT Discharge Recommendations SNF Rehab Transportation Needs at Discharge Wheelchair/Cabulance
[2019-09-04] MEDS: polyethylene glycoL 3350 17 GM POWD.PACK PO (14:55)
--- NOTE | 2019-09-04 16:07 | PT.IPTN ---
Current Diagnoses Unspecified fracture of lower end of left femur, initial encounter for closed fracture (09/01/19) Surgery Performed Operation Date: 09/02/19 14:45 Actual Procedures p ORIF Femur Fracture- shyanne prosthetic fx(Left) - Kat Carrasquillo MD Physical Therapy Treatment Note M2 PT-IP Current Condition Start: 09/03/19 09:05 Freq: NEEDED Status: Active Protocol: Document 09/03/19 14:36 AW (Rec: 09/03/19 15:07 AW [id number]) Physical Therapy Current Condition Current Condition Evaluation Date 09/03/19 Treatment Diagnosis periprosthetic femur fracture s/p ORIF L knee; difficulty in walking Onset Date 09/01/19 Precautions Brace knee immobilizer at all times Other Precautions knee immobilizer at all times Weight Bearing Status Weight Bearing Status Touch Down Weight Bearing Allowed Weight Bearing Amount (enter % 25-50 pounds LLE / toe-touch or #) (%) weight bearing M3 PT-IP Subjective Start: 09/03/19 09:05 Freq: NEEDED Status: Active Protocol: Document 09/04/19 15:45 SP (Rec: 09/04/19 16:35 SP [id number]) Subjective Physical Therapy Visit Type Type Treatment Note Visit Start Time 15:44 Visit Stop Time 16:07 Total Visit Minutes 23 Number of BITUMASTIC APPLIER Visits 2 Physical Therapy Visit Comments Patient Comments Pt was up in chair when arrived, willing to work with PT. Therapy Pain Assessment Pain When Pain Assessed During Mobility Pain Present Pain Present Pain Reported Location Left Leg Intensity 3 Scale Used 0/10 at rest, 3/10 during mobility Description With Movement Pain Management Techniques Re-positioning,Timing of Activity with Medications M4 PT-IP Mobility and Gait Start: 09/03/19 09:05 Freq: NEEDED Status: Active Protocol: Document 09/04/19 15:45 SP (Rec: 09/04/19 16:35 SP [id number]) PT-Bed Mobility Assessment Sit to Supine Sit to Supine Moderate Assistance,2 Person Assistance,Bedrails Scooting Scooting Up and Down in Bed Maximum Assistance PT-Transfer Assessment Sit to and From Stand Sit to and from Stand Moderate Assistance,Maximum Assistance,2 Person Assistance ,Use of Upper Extremities Equipment Transfer Assistive Device Gait Belt,Front Wheeled Walker Orthotic/Prosthetic Devices or Brace: Yes Transfers Transfer Destination Bed Transfer Technique Stand Pivot Transfer Ability Level of Assist Moderate Assistance,2 Person Assistance,Use of Upper Extremities Comments Mobility Comments Pt was up in chair when arrived. Pt report no pain at rest and increased to 3/10 R LE during mobiltiy. Pt was able to scoot forward in chair herself with use of BUE on chair arm rests. sit to stand Max A of 1, Mod A of 1 with cuing for pushing up from chair arms and transition to FWW. Pt was able to scoot RLE pivot foot with heavy BUE on FWW and TTWB with cuing to ma intain WB precautions on LLE from chair to bed with support to reposition fWW and cuing for LE and body repositioning placement then reach back prior to sitting. Pt required cuing and Palak for scooting back at EOB and Max A of 2 for BLE into bed while patient used L bed rail for upper body transition laying back in bed . Pt was able to lateral scoot pelvis to center herself in bed usign RLE WB into bed bridge technique. Max A of 2 person dependent to scoot up in bed. Provided pillow under LLE fully supported and applied SCM on R calf prior to leaving. Bed alarm turned on, call light and all needs in reach when left. Gait Assessment Comments Gait Comments Unable at this time. Stair Climbing Assessment Comments Stair Climbing Comments Unable to assess. PT-Balance Assessment Sitting Balance and Reactions Static Sitting Balance Ability Good Dynamic Sitting Balance Ability Fair Standing Balance and Reactions Static Standing Balance Ability Poor Dynamic Standing Balance Ability Poor M5 PT-IP Objective Assessments Start: 09/03/19 09:05 Freq: NEEDED Status: Active Protocol: Document 09/03/19 14:36 AW (Rec: 09/03/19 15:07 AW [id number]) Orientation Orientation/Cognition Level of Alertness Alert Orientation Name,Month,Place,Situation Language Function Ability No Deficits Noted Safety Awareness Understands Safety Issues Memory Description No Deficits Noted Gross Range of Motion Upper Extremity ROM Assessment Left Impaired Lower Extremity ROM Assessment Left Impaired Strength Upper Extremity Strength Assessment Left Impaired Lower Extremity Strength Assessment Bilaterally Impaired Comments Strength Comments 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 RLE grossly 4-/5 except hip 3+ /5. Coordination Assessment Gross Coordination Gross Coordination WNL Sensation Assessment Sensation Gross Sensation WNL M6 PT-IP Treatment Start: 09/03/19 09:05 Freq: NEEDED Status: Active Protocol: Document 09/04/19 15:45 SP (Rec: 09/04/19 16:35 SP [id number]) Physical Therapy Treatment Exercises Exercises Ankle Pumps Education Education Provided Precautions,Weight Bearing Status,Safety Other Treatments Other Treatment Performed Education on TTWB 25- 50% WB allowed LLE per physician. M7 PT-IP Assessment and Plan Start: 09/03/19 09:05 Freq: NEEDED Status: Active Protocol: Document 09/04/19 15:45 SP (Rec: 09/04/19 16:35 SP [id number]) PT Summary Assessment and Plan Potential Rehabilitation Potential Good Status of Condition at Evaluation Evolving Summary Impairments Pain,ROM,Strength,Balance,Bed Mobility,Transfers,Gait, Activity Tolerance Assessment Summary Pt requiring ModA x2 for bed mobility sitting to supine and transfers scoot pivot on RLE while maintaining TTWB on LLE usign Heavy BUE WB on FWW. See note on mobility. Goals Bed Mobility Goal Minimal Assistance Transfer Goal Minimal Assistance,Front Wheeled Walker Gait Goal Minimal Assistance,Front Wheel Walker Gait Distance 25 Days to Meet Goals 10 Frequency of Treatment Frequency Of Treatment Twice a Day Treatment Plan Physical Therapy Treatment Plan Bed Mobility Training,Transfer Training,Gait Training, Therapeutic Exercise,Balance Retraining,Post Op Education, Discharge Planning,Hot or Cold Pack,Neuromuscular Re-ed, Coordination Retraining,Manual Therapy Other Recommendations and Next Treatment bed mobility, transfers, Focus review WB status and technique for pivot transfer using FWW TTWB on LLE. Recommendations To Nursing Amount of Assist Needed 2 Person Assist Discharge Recommendations PT Discharge Recommendations SNF Rehab Transportation Needs at Discharge Wheelchair/Cabulance
[2019-09-04] MEDS: BISACODYL 10 MG SUPP PR (18:26)
[2019-09-04] MEDS: ATORVASTATIN 20 MG TABLET 40 MG PO (20:58)
[2019-09-05] VITALS (10 sets, daily range): BP systolic 133–159; BP diastolic 49–70; PULSE 49–89; RESP 16–18; TEMP 35.7–36.4; O2SAT 92–98
[2019-09-05] MEDS: IBUPROFEN 400 MG TABLET PO ×5 (00:50→21:57)
--- NOTE | 2019-09-05 03:12 | PC.NURSE ---
Patient seen and assessed at 0050. Is alert and oriented. Breath sounds CTA with RA sat of 95%. HRR but bradycardic in 50's. Denies nausea. BT present and has been passing flatus but has not had BM since 09/01. Has been voiding; denies dysuria, frequency or urgency. Assisted to reposition q2h as not doing on her own but is able to assist. Bruising noted on all extremities as well as bridge of nose on left side. Has pink, moist peeling skin under left breast. Also noted with no change to open area in crease of buttocks. ASHANTI dressings to left LE are intact with no new drainage noted; hemovac remains intact and compressed. Puffy, non pitting edema present bilateral feet/ankles. Had SCD's on at shift change but requested they be removed for the night; reminded to ankle wave when awake. Denies pain; received scheduled Ibuprofen. Not OOB on this shift as yet, so unable to assess gait. Is wearing a knee brace/immobilizer on left LE. Fall risk score is high and bed alarm is activated.
[2019-09-05 06:08] LABS: Hemoglobin 7.8 g/dL (12.0-16.0)
--- NOTE | 2019-09-05 08:30 | P.PN_ITS ---
Subjective Subjective Date Patient Seen: 09/05/19 Time Patient Seen: 08:30 Interval history: Patient says she feels miserable. Having lots of heartburn and indigestion and stomach pain. She says her stomach pain is aggravated by eating and she has no appetite. Denies any symptoms in her neck jaw arm shoulder Is lying in bed sort of scratch down in an awkward position Was up with physical therapy able to do a bit more than 1st day postop Exam Vital Signs (past 8 hours): - 09/05/19 00:50 09/05/19 04:51 Temperature 97.6 F 97.6 F Pulse Rate 55 L 89 Respiratory Rate 17 18 Blood Pressure 139/49 L 159/63 H Pulse Oximetry 95 93 Oxygen Delivery Method Room Air Oxygen Flow Rate 0 Narrative Exam Narrative: Elderly female looking uncomfortable lying in her hospital bed HEENT-unremarkable Lungs-good breath sounds Chest-no palpable chest discomfort Heart-regular rate rhythm Abdomen-benign Objective Labs Result Diagrams: 09/05/19 05:40 09/03/19 04:58 Labs: Laboratory Results - last 24 hr 09/05/19 05:40 Hgb 7.8 L Hct 23.0 L Assessment & Plan Assessment & Plan narrative: 1. Status post ORIF distal femur fracture-continue rehab as per Ortho. Plan for placement in care home 2. Chest symptoms-seemingly almost certainly GI in origin, but patient is at higher than average risk of vascular disease and is already proven to have significant vascular disease with a CVA. I will obtain [address] her on telemetry until her troponin can return normal. Will also aggressively treat her for GI symptoms including oral antacids as well as proton pump inhibitor. Of note she is significantly anemic although numbers are stable, if there is evidence of cardiac ischemia she would benefit from transfusion of course 3. Anemia-acute postoperative blood-loss anemia-patient's numbers are stable. Does not necessarily need transfusion unless there is evidence of ischemia on he r above evaluation. Would benefit from iron therapy orally I believe. 4. Hypertension-patient's numbers are probably adequate for her. She remains modestly bradycardic at times. Patient not medically ready for discharge to care home until we can better evaluate and/or manage her presumed GI symptoms as above, and especially be sure that she is not having cardiac ischemia.
[2019-09-05 08:50] LABS: Creatine Kinase 457 U/L (30-135)
[2019-09-05 09:02] LABS: Troponin I < 0.012 ng/mL (0.01-0.034)
[2019-09-05 09:05] LABS: Creatine Kinase MB 9.09 ng/mL (<2.37)
[2019-09-05] MEDS: ACETAMINOPHEN 325 MG TABLET 650 MG PO ×3 (09:22→21:56)
[2019-09-05] MEDS: METOPROLOL ER 50 MG TABLET 100 MG PO (09:22)
[2019-09-05] MEDS: DOCUSATE 100 MG CAPSULE PO ×2 (09:22→21:57)
[2019-09-05] MEDS: MAG HYDROX/ALUM/SIMETH 30 ML UDC PO ×2 (09:22→22:02)
[2019-09-05] MEDS: CLOPIDOGREL 75 MG TABLET PO (09:23)
[2019-09-05] MEDS: LOSARTAN 50 MG TABLET PO (09:23)
[2019-09-05] MEDS: hydroCHLOROthiazide 25 MG TABLET PO (09:24)
[2019-09-05] MEDS: ASPIRIN EC 81 MG TABLET PO ×2 (09:24→21:57)
[2019-09-05] MEDS: PANTOPRAZOLE 20 MG TABLET 40 MG PO (09:26)
[2019-09-05] MEDS: SODIUM CHLORIDE 0.9% FLUSH 10 ML IV ×3 (09:27→22:30)
--- NOTE | 2019-09-05 10:28 | CM.DPC ---
DCP: continued: case received and discussed in Team Rounds. EEMR including Dr. Garber' note of today is reviewed. P: remains [facility] when stable for same. Dr. Garber notes his concern re pt's GI symptoms and etiology of same and clarifies that pt is not yet medically ready for the snf d/c. Shani/CR is updated.
--- NOTE | 2019-09-05 11:07 | PC.NURSE ---
Pt's hemovac drain removed per physician order. Pt tolerated well. Minimal drainage. Dressing applied.
--- NOTE | 2019-09-05 11:09 | PT.IPTN ---
Current Diagnoses Unspecified fracture of lower end of left femur, initial encounter for closed fracture (09/01/19) Surgery Performed Operation Date: 09/02/19 14:45 Actual Procedures p ORIF Femur Fracture- shyanne prosthetic fx(Left) - Kat Carrasquillo MD Physical Therapy Treatment Note M2 PT-IP Current Condition Start: 09/03/19 09:05 Freq: NEEDED Status: Active Protocol: Document 09/03/19 14:36 AW (Rec: 09/03/19 15:07 AW [id number]) Physical Therapy Current Condition Current Condition Evaluation Date 09/03/19 Treatment Diagnosis periprosthetic femur fracture s/p ORIF L knee; difficulty in walking Onset Date 09/01/19 Precautions Brace knee immobilizer at all times Other Precautions knee immobilizer at all times Weight Bearing Status Weight Bearing Status Touch Down Weight Bearing Allowed Weight Bearing Amount (enter % 25-50 pounds LLE / toe-touch or #) (%) weight bearing M3 PT-IP Subjective Start: 09/03/19 09:05 Freq: NEEDED Status: Active Protocol: Document 09/05/19 10:49 SP (Rec: 09/05/19 12:39 SP [id number]) Subjective Physical Therapy Visit Type Type Treatment Note Visit Start Time 10:49 Visit Stop Time 11:09 Total Visit Minutes 20 Number of GLOBAL HUMAN RESOURCES DIRECTOR Visits 3 Physical Therapy Visit Comments Patient Comments Pt was laying in bed when arrived will to work with PT. Therapy Pain Assessment Pain When Pain Assessed During Mobility Pain Present Pain Present Pain Reported Location Left Leg Intensity 4 Scale Used 0/10 at rest, 4/10 with mobility Description With Movement Pain Management Techniques Re-positioning,Timing of Activity with Medications M4 PT-IP Mobility and Gait Start: 09/03/19 09:05 Freq: NEEDED Status: Active Protocol: Document 09/05/19 10:49 SP (Rec: 09/05/19 12:39 SP [id number]) PT-Bed Mobility Assessment Supine to Sit Supine to Sit Maximum Assistance,1 Person Assistance,Head of Bed Elevated,Bedrails Scooting Scooting to Edge of Bed Moderate Assistance PT-Transfer Assessment Sit to and From Stand Sit to and from Stand Moderate Assistance,2 Person Assistance,Use of Upper Extremities Equipment Transfer Assistive Device Gait Belt,Front Wheeled Walker Orthotic/Prosthetic Devices or Brace: Yes Transfers Transfer Destination Chair Transfer Technique Stand Step Pivot Transfer Ability Level of Assist Moderate Assistance,2 Person Assistance,Use of Upper Extremities Comments Mobility Comments Elevated supine to sitting edcuated use of LUE on bed rail, Mod A of LLE repostion to EOB and self RLE. Max A of 1 for trunk transition to sitting via MATH SPECIALIST RUE pull from therapist hand to sit and initially trunk support maintain in sitting and cued BUE on bed with trunk foward lean Mod A, Mod A to assist scoot foward to EOB wt shift each LE until B feet on floor. Mod A of 2 person sit to stand and RLE scoot slide bed to chair and cuing throughout TTWB LLE out in front to maintain precautions, patient had difficulty maintaining TTWB 25-50% allowed with support and BUE heavy WB on FWW. Pt demonstrated pulling LLE under herself thus increasing postion use WB. Cued for proper hand placement to push up from bed hand hand rail and fWW, occasional assist of FWW repositioning and cuing for body and LE positioning for aligning up to back to chair then reaching back to sit with Mod A for slow descend. Pt was reclined in chair with call light and all needs in reach. Gait Assessment Comments Gait Comments Unable at this time, difficulty maintaining TTWB 25 -50% allowed during transfer usign fWW. Stair Climbing Assessment Comments Stair Climbing Comments unable to assess. PT-Balance Assessment Sitting Balance and Reactions Static Sitting Balance Ability Good Dynamic Sitting Balance Ability Fair Standing Balance and Reactions Static Standing Balance Ability Poor Dynamic Standing Balance Ability Poor Device Used FWW M5 PT-IP Objective Assessments Start: 09/03/19 09:05 Freq: NEEDED Status: Active Protocol: Document 09/03/19 14:36 AW (Rec: 09/03/19 15:07 AW [id number]) Orientation Orientation/Cognition Level of Alertness Alert Orientation Name,Month,Place,Situation Language Function Ability No Deficits Noted Safety Awareness Understands Safety Issues Memory Description No Deficits Noted Gross Range of Motion Upper Extremity ROM Assessment Left Impaired Lower Extremity ROM Assessment Left Impaired Strength Upper Extremity Strength Assessment Left Impaired Lower Extremity Strength Assessment Bilaterally Impaired Comments Strength Comments 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 RLE grossly 4-/5 except hip 3+ /5. Coordination Assessment Gross Coordination Gross Coordination WNL Sensation Assessment Sensation Gross Sensation WNL M6 PT-IP Treatment Start: 09/03/19 09:05 Freq: NEEDED Status: Active Protocol: Document 09/05/19 10:49 SP (Rec: 09/05/19 12:39 SP [id number]) Physical Therapy Treatment Exercises Exercises Ankle Pumps,Gluteal Sets,Quad Sets Education Education Provided Precautions,Weight Bearing Status,Safety Other Treatments Other Treatment Performed Education on TTWB 25- 50% WB allowed LLE per physician. Reviewed post op exercises above and included RLE heel slides. M7 PT-IP Assessment and Plan Start: 09/03/19 09:05 Freq: NEEDED Status: Active Protocol: Document 09/05/19 10:49 SP (Rec: 09/05/19 12:39 SP [id number]) PT Summary Assessment and Plan Potential Rehabilitation Potential Good Status of Condition at Evaluation Evolving Summary Impairments Pain,ROM,Strength,Balance,Bed Mobility,Transfers,Gait, Activity Tolerance Assessment Summary Pt requiring Max A x1 for bed mobility supine to sitting with HOB elevated, scoot foward to EOB and Mod A of 2 person during transferbed to chair scoot pivot on RLE while giviing continuouse feedback wtih difficulty maintaining TTWB on LLE usign Heavy BUE WB on FWW. See note on mobility. Continuing to recommend SNF for further strengthening, safety techniques including TTWB within precautions to increase functional independence in mobility. Goals Bed Mobility Goal Minimal Assistance Transfer Goal Minimal Assistance,Front Wheeled Walker Gait Goal Minimal Assistance,Front Wheel Walker Gait Distance 25 Days to Meet Goals 10 Frequency of Treatment Frequency Of Treatment Twice a Day Treatment Plan Physical Therapy Treatment Plan Bed Mobility Training,Transfer Training,Gait Training, Therapeutic Exercise,Balance Retraining,Post Op Education, Discharge Planning,Hot or Cold Pack,Neuromuscular Re-ed, Coordination Retraining,Manual Therapy Other Recommendations and Next Treatment bed mobility, transfers, Focus review WB status and technique for pivot transfer using FWW TTWB on LLE. Recommendations To Nursing Amount of Assist Needed 2 Person Assist Discharge Recommendations PT Discharge Recommendations SNF Rehab Transportation Needs at Discharge Wheelchair/Cabulance
--- NOTE | 2019-09-05 15:33 | PT-IP ANOTE ---
Pt declined x2 attempts for PT this afternoon stating was up with nursing using commode and just got back into bed just before my arrival. Pt stated I am just to tired now, I will be able to do more tomorrow. Pt not seen for PT pm treatment, will return tomorrow.
[2019-09-05] MEDS: BISACODYL 10 MG SUPP PR (16:50)
[2019-09-05] MEDS: ATORVASTATIN 20 MG TABLET 40 MG PO (21:56)
[2019-09-06] VITALS (7 sets, daily range): BP systolic 114–129; BP diastolic 52–63; PULSE 50–54; RESP 16–18; TEMP 35.7–37; O2SAT 93–98
[2019-09-06] MEDS: IBUPROFEN 400 MG TABLET PO ×4 (01:39→12:34)
--- NOTE | 2019-09-06 04:05 | PC.NURSE ---
Addendum entered by Millie Durand R.N. 09/06/19 04:59: States pain this morning is 5/10 with movement but 0/10 at rest; medicated with scheduled Tylenol and declines anything stronger. Original Note: Patient seen and assessed at 0130. Is alert and oriented. Breath sounds with inspiratory crackles throughout but denies SOB; RA sat is 93%. HRR but bradycardic at 50 bpm. Denies nausea. BT hypoactive and abdomen is soft. Has not yet voided this shift but has mostly been voiding on bedpan with occasional incontinent episodes. Needing assistance to reposition q2h as not moving unless assisted but is able to help. ASHANTI dressing to left knee is intact with no new drainage. Per evening RN, Yesica, Dr Carrasquillo was contacted regarding pressure spots from knee immobilizer and was told to leave off tonight and maintain patient on bedrest until after new brace/immobilizer can be obtained. Continues to have puffy edema in bilateral LE and hands. Buttock crease with open area remains unchanged. Red, moist, rashy skin under left breast noted to have yeasty odor. Denies pain. Refusing to wear SCD's so reminded to ankle wave and verbalizes understanding. States she is feeling less tired/weak since blood transfusion yesterday. Fall risk score is high and bed alarm is activated.
[2019-09-06 06:04] LABS: Hemoglobin 8.9 g/dL (12.0-16.0)
[2019-09-06] MEDS: PANTOPRAZOLE 40 MG TABLET PO (06:23)
--- NOTE | 2019-09-06 08:24 | PM.PN.1 ---
Subjective Subjective Date Patient Seen: 09/06/19 Time Patient Seen: 08:24 Interval history: Patient feels a little better this morning. Still having lots of indigestion heartburn with any time she tries to eat. This symptoms are well relieved with Maalox but they persist. Did get a dose of proton pump inhibitor yesterday and that is been ordered as a scheduled medication at this point. As noted on yesterday's note cardiac workup was negative including EKG and troponin. Also is currently bedrest while awaiting a new brace to support her left leg. Previous brace was beginning to show some evidence of tissue breakdown on the leg. Was also seen by Ortho yesterday (although no notes are available in the chart) and a transfusion was ordered based on her somewhat low hematocrit. She receive that uneventfully but overall she a nursing staff for feeling like she somewhat puffy and swollen. Exam Vital Signs (past 8 hours): - 09/06/19 01:00 09/06/19 04:00 Temperature 98.6 F 97.0 F L Pulse Rate 50 L 50 L Respiratory Rate 16 16 Blood Pressure 123/63 114/63 Pulse Oximetry 93 98 Oxygen Delivery Method Room Air Oxygen Flow Rate 0 Objective Labs Result Diagrams: 09/06/19 05:21 09/03/19 04:58 Labs: Laboratory Results - last 24 hr 09/01/19 09/05/19 09/06/19 21:37 05:40 05:21 Hgb 8.9 L Hct 26.0 L Total Creatine Kinase 457 H CK-MB (CK-2) 9.09 H CK-MB (CK-2) Rel Index 2.0 Troponin I < 0.012 Blood Type A Positive Antibody Screen Negative Crossmatch See Detail Assessment & Plan Assessment & Plan narrative: 1. Status post ORIF femur fracture, postop day number 4, continued rehab as per Ortho. Uncertain when or if she has yet ready for discharge to half-way, as there has been no input from Ortho 2. GI-patient with prominent GI symptoms. Do not believe these to be cardiac given negative workup yesterday. She is responding to an antacid consistent with acid-base disorder of the esophagus. Continue with proton pump inhibitor now on upon discharge. Her discharge medications have been updated to reflect this. 3. Hypertension-patient has been if anything a bit better controlled than usual. She has also been somewhat bradycardic. I have cut back on her beta-juan therapy therefore and should get a lower dose for the 1st time this morning. Continue to monitor but I would send her to half-way on that lower dose as well and her discharge prescriptions have been updated as well 4. Anemia-patient's blood count is improved this morning. I do not believe she would benefit from additional transfusion at this point. Her count usually had actually gone up slightly as well. No evidence of active bleeding therefore. 5. Fluids/electrolytes/nutrition-encourage patient to eat a bit more. Hopefully her GI symptoms will begin to improve. I will give her single dose of IV Lasix in effort to reduce some of what I believe to be edema from the various IV fluids and transfusion she received. Overall patient is doing okay. She is medically ready for discharge to half-way whenever Ortho approves. Given lack of documentation from Ortho over the last 24 hours difficult for me to ascertain what current thinking is regarding her suitability for discharge. She currently is no weight-bearing while they are trying to find a suitable brace which I believe means she will not be ready for discharge until tomorrow at the earliest. I have updated her discharge meds and unless there is some change from an orthopedic standpoint, and/or some medical change between now and her actual date of discharge, she can be discharged on that medication list and discharge could be initiated by Orthopedic surgery as well. Note: Greater than 30 minutes was spent evaluating the patient on the floor, including examining the patient, discussing clinical course with clinical and nursing staff, reviewing clinical course in the computer, preparing documentation and writing orders for continued management of care, discussing status with family as appropriate, reviewing plans for the next 24 hours with both patient/family and nursing staff as appropriate.
[2019-09-06] MEDS: ACETAMINOPHEN 325 MG TABLET 650 MG PO ×3 (09:50→20:59)
[2019-09-06] MEDS: DOCUSATE 100 MG CAPSULE PO ×2 (09:51→21:00)
[2019-09-06] MEDS: ASPIRIN EC 81 MG TABLET PO ×2 (09:51→21:00)
[2019-09-06] MEDS: METOPROLOL ER 50 MG TABLET PO (09:51)
[2019-09-06] MEDS: LOSARTAN 50 MG TABLET PO (09:51)
[2019-09-06] MEDS: SODIUM CHLORIDE 0.9% FLUSH 10 ML IV ×2 (09:52→21:00)
[2019-09-06] MEDS: CLOPIDOGREL 75 MG TABLET PO (09:52)
[2019-09-06] MEDS: hydroCHLOROthiazide 25 MG TABLET PO (09:52)
[2019-09-06] MEDS: FUROSEMIDE 20 MG/2 ML VIAL IV (09:52)
[2019-09-06] MEDS: MAG HYDROX/ALUM/SIMETH 30 ML UDC PO ×2 (09:59→17:57)
--- NOTE | 2019-09-06 10:31 | PT-IP ANOTE ---
Unable to see pt because per doctor, pt needs new hinge brace and is on bed rest until PT can get correct brace. Therefore ot not seen in AM.
--- NOTE | 2019-09-06 12:05 | PC.NURSE ---
Addendum entered by Yeny Allison R.N. 09/06/19 14:19: Brace order clarified with [facility], Dr. Carrasquillo would like 0-[address] Carrasquillo cancelled. [facility] placed corrected order. Addendum entered by Yeny Allison R.N. 09/06/19 13:55: Dr. Carrasquillo provided VTO for L. Knee Immobilizer brace or knee Range of motion lock in extension. P.T. is to provide brace. P.T. office aware and will make arrangements to supply brace. Original Note: Msg left at Ortho office in reference to eta of leg brace. Awaiting return call.
--- NOTE | 2019-09-06 13:10 | CM.DPC ---
Addendum entered by Adriana Mckeon LPN 09/06/19 13:39: Checked with PT Robina on status of the brace. She reports that Dr. Carrasquillo was here, clarified that pt was to be on bedrest until the new brace arrived and this was to be ordered by the PT team. Plan is for pt to d/c to [facility] once brace is received and fitted. Pt is not expected to be ready for d/c today. PASRR: completed several days ago by Kaylene Cece: review again before d/c as per protocol. Original Note: DCP: continued: Pt is now stable for d/c from medicine standpoint. Orthopedics have ordered a new brace, per discussion in Team Rounds and this will need to be received and fitted before d/c. P: d/c [facility] when stable for same. December confirms they can accept today or this weekend, whenever pt is ready.
--- NOTE | 2019-09-06 15:39 | PM.PN.1 ---
Subjective Subjective Date Patient Seen: 09/06/19 Time Patient Seen: 15:39 Interval history: Patient is POD#3 s/p Open reduction internal fixation left comminuted distal femur supracondylar fracture above a total knee arthroplasty with Dr. Carrasquillo. Pain has been moderate but responding to medication. She has been on bedrest due to issues with knee brace. Exam Vital Signs (past 8 hours): - 09/06/19 09:09 09/06/19 09:51 09/06/19 11:48 Temperature 96.2 F L 96.7 F L Pulse Rate 51 L 54 L Respiratory Rate 16 18 Blood Pressure 119/63 119/63 127/52 L Pulse Oximetry 95 94 Oxygen Delivery Method Room Air Oxygen Flow Rate 0 Narrative Exam Narrative: 84 year morbidly obese female resting in bed in some discomfort. Alert and oriented. ASHANTI dressing is intact with small amounts of drainage which have been demarcated without growth. PT in room fitting patient with hinged knee brace at time of exam. Patient able to flex and extend the ankle. Palpable pedal pulse. Objective Labs Result Diagrams: 09/06/19 05:21 09/03/19 04:58 Labs: Laboratory Results - last 24 hr 09/06/19 05:21 Hgb 8.9 L Hct 26.0 L Assessment & Plan Assessment & Plan narrative: Patient is to remain toe-touch weight-bearing left lower extremity 25-50 lb max. She is to wear hinged knee brace at all times which is set at 0-30 degrees per discussion with Dr. Carrasquillo. ASA for DVT prophylaxis. She continues to need max assist and PT is recommending SNF discharge. She is stable for discharge to SNF from orthopedic perspective.
--- NOTE | 2019-09-06 16:08 | PT.IPTN ---
Current Diagnoses Unspecified fracture of lower end of left femur, initial encounter for closed fracture (09/01/19) Surgery Performed Operation Date: 09/02/19 14:45 Actual Procedures p ORIF Femur Fracture- shyanne prosthetic fx(Left) - Kat Carrasquillo MD Physical Therapy Treatment Note M2 PT-IP Current Condition Start: 09/03/19 09:05 Freq: NEEDED Status: Active Protocol: Document 09/03/19 14:36 AW (Rec: 09/03/19 15:07 AW [id number]) Physical Therapy Current Condition Current Condition Evaluation Date 09/03/19 Treatment Diagnosis periprosthetic femur fracture s/p ORIF L knee; difficulty in walking Onset Date 09/01/19 Precautions Brace knee immobilizer at all times Other Precautions knee immobilizer at all times Weight Bearing Status Weight Bearing Status Touch Down Weight Bearing Allowed Weight Bearing Amount (enter % 25-50 pounds LLE / toe-touch or #) (%) weight bearing M3 PT-IP Subjective Start: 09/03/19 09:05 Freq: NEEDED Status: Active Protocol: Document 09/06/19 15:18 KS (Rec: 09/06/19 16:47 KS [id number]) Subjective Physical Therapy Visit Type Type Treatment Note Visit Start Time 15:18 Visit Stop Time 16:08 Total Visit Minutes 50 Number of OXYACETYLENE WELDER Visits 4 Physical Therapy Visit Comments Patient Comments Pt was in bed upon arrival from therapy for fitting of knee immobilizer w/ daughter present. Therapy Pain Assessment Pain When Pain Assessed During Mobility Pain Present Pain Present Pain Reported Location Left Leg Scale Used no number given Pain Behaviors Moaning,Wincing Pain Management Techniques Re-positioning M4 PT-IP Mobility and Gait Start: 09/03/19 09:05 Freq: NEEDED Status: Active Protocol: Document 09/05/19 10:49 SP (Rec: 09/05/19 12:39 SP [id number]) PT-Bed Mobility Assessment Supine to Sit Supine to Sit Maximum Assistance,1 Person Assistance,Head of Bed Elevated,Bedrails Scooting Scooting to Edge of Bed Moderate Assistance PT-Transfer Assessment Sit to and From Stand Sit to and from Stand Moderate Assistance,2 Person Assistance,Use of Upper Extremities Equipment Transfer Assistive Device Gait Belt,Front Wheeled Walker Orthotic/Prosthetic Devices or Brace: Yes Transfers Transfer Destination Chair Transfer Technique Stand Step Pivot Transfer Ability Level of Assist Moderate Assistance,2 Person Assistance,Use of Upper Extremities Comments Mobility Comments Pt needs Max A for lifting LLE. Comments Gait Comments Unable at this time, difficulty maintaining TTWB 25 -50% allowed during transfer usign fWW. Stair Climbing Assessment Comments Stair Climbing Comments unable to assess. PT-Balance Assessment Sitting Balance and Reactions Static Sitting Balance Ability Good Dynamic Sitting Balance Ability Fair Standing Balance and Reactions Static Standing Balance Ability Poor Dynamic Standing Balance Ability Poor Device Used FWW M5 PT-IP Objective Assessments Start: 09/03/19 09:05 Freq: NEEDED Status: Active Protocol: Document 09/03/19 14:36 AW (Rec: 09/03/19 15:07 AW [id number]) Orientation Orientation/Cognition Level of Alertness Alert Orientation Name,Month,Place,Situation Language Function Ability No Deficits Noted Safety Awareness Understands Safety Issues Memory Description No Deficits Noted Gross Range of Motion Upper Extremity ROM Assessment Left Impaired Lower Extremity ROM Assessment Left Impaired Strength Upper Extremity Strength Assessment Left Impaired Lower Extremity Strength Assessment Bilaterally Impaired Comments Strength Comments 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 RLE grossly 4-/5 except hip 3+ /5. Coordination Assessment Gross Coordination Gross Coordination WNL Sensation Assessment Sensation Gross Sensation WNL M6 PT-IP Treatment Start: 09/03/19 09:05 Freq: NEEDED Status: Active Protocol: Document 09/06/19 15:18 KS (Rec: 09/06/19 16:47 KS [id number]) Physical Therapy Treatment Education Education Provided Precautions Other Treatments Other Treatment Performed Fitted and applied knee immobilizer at 0-30 degrees. Provided information regarding immobilizer and stockinettes to pt and pts daughter. M7 PT-IP Assessment and Plan Start: 09/03/19 09:05 Freq: NEEDED Status: Active Protocol: Document 09/06/19 15:18 KS (Rec: 09/06/19 16:47 KS [id number]) PT Summary Assessment and Plan Potential Rehabilitation Potential Good Status of Condition at Evaluation Evolving Summary Impairments Pain,ROM,Strength,Balance,Bed Mobility,Transfers,Gait, Activity Tolerance Assessment Summary Fitted kneee immobilizer 0-30 degrees for pts LLE. Stockinette and immobilizer in place. Goals Bed Mobility Goal Minimal Assistance Transfer Goal Minimal Assistance,Front Wheeled Walker Gait Goal Minimal Assistance,Front Wheel Walker Gait Distance 25 Days to Meet Goals 10 Frequency of Treatment Frequency Of Treatment Twice a Day Treatment Plan Physical Therapy Treatment Plan Bed Mobility Training,Transfer Training,Gait Training, Therapeutic Exercise,Balance Retraining,Post Op Education, Discharge Planning,Hot or Cold Pack,Neuromuscular Re-ed, Coordination Retraining,Manual Therapy Other Recommendations and Next Treatment bed mobility, transfers, Focus review WB status and technique for pivot transfer using FWW TTWB on LLE. Recommendations To Nursing Amount of Assist Needed 2 Person Assist Discharge Recommendations PT Discharge Recommendations SNF Rehab Transportation Needs at Discharge Wheelchair/Cabulance
[2019-09-06] MEDS: ATORVASTATIN 20 MG TABLET 40 MG PO (21:00)
[2019-09-07 00:30] VITALS: BP 140/74; PULSE 55; RESP 20; TEMP 36.2; O2SAT 94
[2019-09-07 03:59] VITALS: BP 141/72; PULSE 56; RESP 16; TEMP 36.4; O2SAT 93
[2019-09-07] MEDS: PANTOPRAZOLE 40 MG TABLET PO (06:17)
[2019-09-07] MEDS: hydroCHLOROthiazide 25 MG TABLET PO (10:06)
[2019-09-07] MEDS: ACETAMINOPHEN 325 MG TABLET 650 MG PO (10:06)
[2019-09-07] MEDS: DOCUSATE 100 MG CAPSULE PO (10:06)
[2019-09-07] MEDS: MAG HYDROX/ALUM/SIMETH 30 ML UDC PO (10:06)
[2019-09-07] MEDS: LOSARTAN 50 MG TABLET PO (10:07)
[2019-09-07] MEDS: METOPROLOL ER 50 MG TABLET PO (10:07)
[2019-09-07] MEDS: SODIUM CHLORIDE 0.9% FLUSH 10 ML IV (10:08)
[2019-09-07] MEDS: CLOPIDOGREL 75 MG TABLET PO (10:08)
[2019-09-07] MEDS: ASPIRIN EC 81 MG TABLET PO (10:08)
[2019-09-07 10:20] VITALS: BP 129/55; PULSE 52; RESP 16; TEMP 37; O2SAT 94
--- NOTE | 2019-09-07 11:00 | PC.NURSE ---
Addendum entered by Robina Vieyra R.N. 09/07/19 15:27: TRSF - placed call back to [facility] and report was given to JAYY Pearce. Addendum entered by Robina Vieyra R.N. 09/07/19 14:39: TSF - pt was lifted to via brittnee lift, all belongings gathered by dtr, pt has her dentures and glasses, msg left at [phone] nurse Annabella to return call for report. Original Note: AM NOTE - pt is asleep during bedside shift report, awakened later am for breakfast and vitals, no complaint discomfort when lying bed, prefers not to have narcotic, given tylenol with breakfast, did have some belching and reflux, repositioned more upright and given maalox, pt has large soft abdomen, some pink rash under l breast, dry, flaking skin groin area, mult areas bruising, r hand, abd, r knee, l foot w/3+ edema, olivia dsg w/green light flashing, few small spots shadow drainage, wearing brace lle, small slit opening at buttock crease, incont urine, barrier cream applied, declines laxatives, states had recent bm's.
--- NOTE | 2019-09-07 11:04 | P.DS_ITS ---
History of Present Illness History of Present Illness Date Patient Seen: 09/07/19 Time Patient Seen: 09:00 Chief complaint: Fall L knee pain Narrative: Patient admitted via the emergency department after sustaining a fall at home. She fractured her left femur just above the knee component from her total knee replacement. She is admitted for definitive treatment to medicine with Ortho having been consulted over the phone. Plan is for surgery to repair/fix fracture. Patient reports having tripped over her own feet and falling. Denies any syncope near-syncope. Did not strike her head had no loss of consciousness. Discharge Providers Provider Date of admission: 09/01/19 22:04 Discharge Date: 09/07/19 Primary care physician: Pramod Garber MD Consults: 09/01/19 22:16 Consult to Orthopedic Surgery Urgent Comment: Consulting Provider: Kat Carrasquillo Reason for consultation: femur fracture Has provider been notified: Yes 09/02/19 18:58 Consult to Discharge Planning Routine Comment: Consult to Physical Therapy Evaluate & Treat Comment: Physician Instructions: postop TKA protocol Consult to Respiratory Therapy Evaluate & Treat Comment: Physician Instructions: Evaluate and treat 09/04/19 10:14 Consult to Physical Therapy Evaluate & Treat Comment: Fit patient with hinged knee brace, locked. Physician Instructions: Evaluate and Treat 09/06/19 13:51 Consult to Physical Therapy Evaluate & Treat Comment: hinged knee brace - ROM 0-30 Physician Instructions: Evaluate and Treat Discharge provider: Aline Roy MD Summary Hospital Course Discharge Diagnosis: Distal femur fracture s/p ORIF Hypertension Hx of CVA Morbid obesity CKD Stage 3 Hospital Course: The pt was admitted due to femur fracture, and underwent ORIF. Due to acute blood loss anemia from surgery, she was transfused 2 units PRBCs with good response in her H/H. The pt developed significant abdominal/chest pain postoperatively. Cardiac work-up was negative. The pt was started on PPI with good response in her symptoms. The pt worked with physical therapy during her hospitalization, and appropriate bracing was placed by Ortho. The pt is stable for discharge to SNF for ongoing rehab. Of note, her beta-juan dosing was decreased during her hospitalization due to relative bradycardia. HR in good range at d/c. Status at Discharge Cognitive/behavioral status at discharge: oriented Overall status at discharge: patient is progressing back to baseline Time Spent with Patient Time spent: Greater than 30 minutes Exam Vital Signs (past 8 hours): - 09/07/19 03:59 09/07/19 10:20 Temperature 97.5 F L 98.6 F Pulse Rate 56 L 52 L Respiratory Rate 16 16 Blood Pressure 141/72 H 129/55 L Pulse Oximetry 93 94 Oxygen Delivery Method Room Air Oxygen Flow Rate 0 Objective Labs Result Diagrams: 09/06/19 05:21 09/03/19 04:58 Discharge Plan Discharge Plan Patient Disposition: SNF Transfer to: [facility] [place] Under care of provider: House physician Consult as needed: Dental, Hearing and Mental health Discharge orders & Medications Prescriptions: New polyethylene glycol 3350 17 gram Powder In Packet 17 gram PO DAILY Qty: 30 RF: 0 tramadol 50 mg Tablet 50 mg PO Q6H PRN (Reason: Pain, Moderate (4-6)) Qty: 30 RF: 0 omeprazole 40 mg capsule,delayed release(DR/EC) 40 mg PO DAILY Qty: 30 RF: 3 metoprolol succinate 50 mg tablet extended release 24 hr 50 mg PO DAILY Qty: 30 RF: 0 Continued triamcinolone acetonide 0.1 % cream See Rx Instructions .ROUTE .COMPLEX Qty: 80 RF: 1 atorvastatin 40 mg tablet 40 mg PO DAILY Qty: 90 RF: 3 clopidogrel [Plavix] 75 mg tablet 75 mg PO DAILY Qty: 90 RF: 3 losartan 50 mg tablet 50 mg PO DAILY Qty: 90 RF: 3 aspirin 325 mg tablet,delayed release (DR/EC) 325 mg PO DAILY RF: 0 acetaminophen [Tylenol Extra Strength] 500 mg tablet 500 mg PO ONCE PRN (Reason: Pain, Mild) RF: 0 hydrochlorothiazide 50 mg tablet 50 mg PO DAILY Qty: 90 RF: 3 Disabled Parking Permit package See Protocol each miscellaneous DIRECTED RF: 0 Discontinued metoprolol succinate 100 mg tablet extended release 24 hr 100 mg PO DAILY RF: 0 Follow up/Referrals: Pramod Garber MD [Primary Care Provider] - Discharge Health Status Multidrug resistant organism: No MDRO Precautions: Lacey Diet/Activity/Treatments Diet: Diet as Tolerated Liquid consistency: Normal/Thin Food texture: Regular Activity: Toe-touch weight-bearing left lower extremity 25-50 lb max. She is to wear hinged knee brace at all times which is set at 0-30 degrees. Cold/Heat Therapy: Ice packs as needed. Allow skin to return to room temperature between icing. Other treatments: Follow up with [facility] 2 weeks from surgery. Skin/Wound/Dressing Care Report to your healthcare provider any signs of infection, such as:: chills, fever, night sweats, unusual drainage and unusual redness Dressing: ASHANTI dressing is to remain in place until your postoperative visit. If dressing becomes saturated please call the office. [facility] Reason for rehabilitation: Post-operative therapy Rehab type: Physical therapy and Occupational therapy Discharge Data Primary Care Provider: Pramod Garber
--- NOTE | 2019-09-07 11:41 | PT.IPTN ---
Current Diagnoses Unspecified fracture of lower end of left femur, initial encounter for closed fracture (09/01/19) Surgery Performed Operation Date: 09/02/19 14:45 Actual Procedures p ORIF Femur Fracture- shyanne prosthetic fx(Left) - Kat Carrasquillo MD Physical Therapy Treatment Note M2 PT-IP Current Condition Start: 09/03/19 09:05 Freq: NEEDED Status: Active Protocol: Document 09/03/19 14:36 AW (Rec: 09/03/19 15:07 AW [id number]) Physical Therapy Current Condition Current Condition Evaluation Date 09/03/19 Treatment Diagnosis periprosthetic femur fracture s/p ORIF L knee; difficulty in walking Onset Date 09/01/19 Precautions Brace knee immobilizer at all times Other Precautions knee immobilizer at all times Weight Bearing Status Weight Bearing Status Touch Down Weight Bearing Allowed Weight Bearing Amount (enter % 25-50 pounds LLE / toe-touch or #) (%) weight bearing M3 PT-IP Subjective Start: 09/03/19 09:05 Freq: NEEDED Status: Active Protocol: Document 09/07/19 11:18 KS (Rec: 09/07/19 13:08 KS [id number]) Subjective Physical Therapy Visit Type Type Treatment Note Visit Start Time 11:18 Visit Stop Time 11:41 Total Visit Minutes 23 Number of STOCK ROLLER Visits 5 Physical Therapy Visit Comments Patient Comments Pt was in bed upon arrival from therapy w/ daughter in room. Therapy Pain Assessment Pain When Pain Assessed During Mobility Pain Present Pain Present Pain Reported Location Left Leg Scale Used no number given Pain Behaviors Moaning,Wincing Pain Management Techniques Re-positioning M4 PT-IP Mobility and Gait Start: 09/03/19 09:05 Freq: NEEDED Status: Active Protocol: Document 09/07/19 11:18 KS (Rec: 09/07/19 13:08 KS [id number]) PT-Bed Mobility Assessment Supine to Sit Supine to Sit Maximum Assistance,1 Person Assistance,Head of Bed Elevated,Bedrails PT-Transfer Assessment Comments Mobility Comments Pt was supine in bed w/ HOB elevated upon arrival from therapy w/ knee immobilizer on . Pt performed 1x10 ankle pumps, quad sets, and glute sets w/o reported increase in pain. Pt then agreed to try to sit EOB. Max A for moving LE to EOB and Max A for sup<>sit w/ use of bed rails. Attempted x2 to scoot, but pt was unable to scoot and unable to tolerate sitting upright due to pain and weakness. Pt then stated she did not want to try anymore, Max A for LE guidance back to center of bed . [employer] SAL[employer] REPRESENTATIVE called in, MAx A x2 for scooting pt up in bed. After positioned, knee imobilizer was repositioned and tightened . Pt left in bed w/ all needs in reach. Gait Assessment Comments Gait Comments Not able at this time. PT-Balance Assessment Sitting Balance and Reactions Static Sitting Balance Ability Poor Dynamic Sitting Balance Ability Poor M5 PT-IP Objective Assessments Start: 09/03/19 09:05 Freq: NEEDED Status: Active Protocol: Document 09/03/19 14:36 AW (Rec: 09/03/19 15:07 AW [id number]) Orientation Orientation/Cognition Level of Alertness Alert Orientation Name,Month,Place,Situation Language Function Ability No Deficits Noted Safety Awareness Understands Safety Issues Memory Description No Deficits Noted Gross Range of Motion Upper Extremity ROM Assessment Left Impaired Lower Extremity ROM Assessment Left Impaired Strength Upper Extremity Strength Assessment Left Impaired Lower Extremity Strength Assessment Bilaterally Impaired Comments Strength Comments 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 RLE grossly 4-/5 except hip 3+ /5. Coordination Assessment Gross Coordination Gross Coordination WNL Sensation Assessment Sensation Gross Sensation WNL M6 PT-IP Treatment Start: 09/03/19 09:05 Freq: NEEDED Status: Active Protocol: Document 09/07/19 11:18 KS (Rec: 09/07/19 13:08 KS [id number]) Physical Therapy Treatment Exercises Exercises Ankle Pumps,Gluteal Sets,Quad Sets Education Education Provided Precautions,Weight Bearing Status,Post-Op Packet,Safety Other Treatments Other Treatment Performed Knee immobilizer repositioned and tightened. M7 PT-IP Assessment and Plan Start: 09/03/19 09:05 Freq: NEEDED Status: Active Protocol: Document 09/07/19 11:18 KS (Rec: 09/07/19 13:08 KS [id number]) PT Summary Assessment and Plan Potential Rehabilitation Potential Fair Status of Condition at Evaluation Stable Summary Impairments Pain,ROM,Strength,Balance,Bed Mobility,Transfers,Gait, Activity Tolerance Assessment Summary Pt completed 1x 10 ankle pumps , quad sets, and glute sets. Max A for LE guidance to EOB and sup<>sit w/ HOB elevated and use of bed rails. Attempted x2 to scoot, but pt was unable to scoot and unable to remain sitting upright. Pt then requested to return to original position. [employer] SALES REPRESENTATIVE assited , Max A x2 for scooting pt up in bed. Pts knee immobilizer positioned and tightened. Pt will benefit from SNF to help w/ mobility and strength deficits. Goals Bed Mobility Goal Minimal Assistance Transfer Goal Minimal Assistance,Front Wheeled Walker Gait Goal Minimal Assistance,Front Wheel Walker Gait Distance 25 Days to Meet Goals 10 Frequency of Treatment Frequency Of Treatment Twice a Day Treatment Plan Physical Therapy Treatment Plan Bed Mobility Training,Transfer Training,Gait Training, Therapeutic Exercise,Balance Retraining,Post Op Education, Discharge Planning,Hot or Cold Pack,Neuromuscular Re-ed, Coordination Retraining,Manual Therapy Other Recommendations and Next Treatment bed mobility, transfers, Focus review WB status and technique for pivot transfer using FWW TTWB on LLE. Recommendations To Nursing Amount of Assist Needed 2 Person Assist,Mechanical Lift Discharge Recommendations PT Discharge Recommendations SNF Rehab Other Discharge Recommendations Vicki lift to w/c Transportation Needs at Discharge Wheelchair/Cabulance
--- NOTE | 2019-09-07 11:59 | CM.DPC ---
DCP Cont: Dr. Roy came to speak to care management to stated that she could discharge patient today. Let her know that [facility] is the plan. She did write discharge orders. Called Rod at [facility] and confirmed scrap picker time of 1400. Updated white board, and nurse Robina was updated. She will need hoier lift into wheel-chair, and Rod was updated of this as well. Confirmed with P.T. as well. Faxed over signed med sheets and PASSR to [facility]. Nurse, Robina, is also aware of scrap picker time. P: Patient is to be discharged to [facility] today. Dinora Harrington RN/Wrinkle Chaser
== END 2019-09-07 14:25 | DRG 481 ==
LOC: ED 21:16 → AC 22:05
PROVIDERS: Nurse Practitioner Family; Orthopaedic Surgery; Physician Assistant Medical; Admitting Provider Family Medicine; Emergency Provider Emergency Medicine; PCP Internal Medicine; Referring Provider Family Medicine; Visit Provider Internal Medicine
PROC: 0SRD0JZ Replacement of Left Knee Joint with Synthetic Substitute, Open Approach (ICD-10-PCS; CPT 27447; principal; 2019-09-02 14:45)
DX: S72.452A Displaced supracondylar fracture without intracondylar extension of lower end of left femur, initial encounter for closed fracture (principal); Z68.42 Body mass index [BMI] 45.0-49.9, adult; D62 Acute posthemorrhagic anemia; M97.12XA Periprosthetic fracture around internal prosthetic left knee joint, initial encounter; I12.9 Hypertensive chronic kidney disease with stage 1 through stage 4 chronic kidney disease, or unspecified chronic kidney disease; N18.3 Chronic kidney disease, stage 3 (moderate); E78.2 Mixed hyperlipidemia; E66.01 Morbid (severe) obesity due to excess calories; W18.30XA Fall on same level, unspecified, initial encounter; Z87.891 Personal history of nicotine dependence; Z86.73 Personal history of transient ischemic attack (TIA), and cerebral infarction without residual deficits
CPT/HCPCS: 36415; 36430; 70450; 71045; 73502; 73552; 73560; 76000; 80048; 80053; 82550; 82553; 84484; 85014; 85018; 85025; 85610; 85730; 86850; 86900; 86901; 93005; 93010; 94762; 96374; 96375; 97110; 97116; 97162; 97530; 97760; 99223; 99232; 99233; 99238; 99283; 99284; P9016; C9290; J0690; J1940; J2270; J2405; J2704; J3010

== ENCOUNTER → 2019-10-10 15:25 | Outpatient (CLI) | payer BC, MEDICARE, SELFPAY ==
--- NOTE | 2019-10-10 15:29 | DI.RAD.S_ITS ---
PROCEDURE: XR KNEE LT 3V INDICATIONS: FRACTURE OF LEFT FEMUR TECHNIQUE: 3 views of the knee were acquired. COMPARISON: [facility], CR, XR KNEE LT 1TO2V, 09/01/2019, 21:04. FINDINGS: Bones: Patient is status post ORIF. Fracture fragments are in near-anatomic alignment. Early bridging callus is visualized. Soft tissues: No joint effusion. No suspicious soft tissue calcifications. IMPRESSION: Stable ORIF of the distal left femur with early bridging callus. Dictated by: Alta Lo M.D. on 10/10/2019 at 16:08 Approved by: Alta Lo M.D. on 10/10/2019 at 16:10
--- NOTE | 2019-10-10 15:29 | DI.RAD.S_ITS ---
PROCEDURE: XR FEMUR LT MIN 2V INDICATIONS: FRACTURE OF LEFT FEMUR TECHNIQUE: 2 views of the femur were acquired. COMPARISON: [facility], CR, XR FEMUR LT MIN 2V, 09/02/2019, 17:26. FINDINGS: Bones: Patient is status post ORIF of a comminuted distal femoral fracture. Early bridging callus is now visualized. Fracture fragments are in unchanged anatomic alignment. Soft tissues: No suspicious soft tissue calcifications or masses. IMPRESSION: Stable appearance status post ORIF of a distal femoral fracture. Early bridging callus now present. Dictated by: Alta Lo M.D. on 10/10/2019 at 16:02 Approved by: Alta Lo M.D. on 10/10/2019 at 16:07
== END ==
PROVIDERS: PCP Internal Medicine; Referring Provider Orthopaedic Surgery; Visit Provider Orthopaedic Surgery
DX: M97.8XXA Periprosthetic fracture around other internal prosthetic joint, initial encounter (principal); S72.492D Other fracture of lower end of left femur, subsequent encounter for closed fracture with routine healing; X58.XXXD Exposure to other specified factors, subsequent encounter
CPT/HCPCS: 73552; 73562

== ENCOUNTER 2019-12-13 14:59 | Emergency (ER) | payer BC, MEDICARE, SELFPAY ==
[2019-12-13 15:08] VITALS: BP 116/51; PULSE 46; RESP 24; TEMP 37.1; O2SAT 98; BMI 44.5
--- NOTE | 2019-12-13 15:08 | DI.RAD.S_ITS ---
PROCEDURE: XR CHEST 1V INDICATIONS: chest pain TECHNIQUE: One view of the chest was acquired. COMPARISON: [facility], , CHEST 1 VIEW, 01/14/2017, 15:14. [facility], , XR CHEST 1V, 09/08/2018, 18:19. [facility], CR, XR CHEST 1V, 09/01/2019, 21:40. FINDINGS: Surgical changes and devices: None. Lungs and pleura: Scattered subsegmental atelectasis and/or scarring. No focal consolidation. Low lung volumes . No pleural effusions or pneumothorax. Mediastinum: Mediastinal contours appear normal. Heart size is normal. Bones and chest wall: No suspicious bony lesions. Overlying soft tissues appear unremarkable. IMPRESSION: Scattered subsegmental atelectasis and/or scarring. No focal consolidation. No interval change Dictated by: Davon Camacho M.D. on 12/13/2019 at 16:05 Approved by: Davon Camacho M.D. on 12/13/2019 at 16:20
[2019-12-13 15:25] VITALS: BP 122/56; PULSE 45; RESP 18; O2SAT 98
--- NOTE | 2019-12-13 15:33 | ED.NAVMDI ---
HPI - Nausea/Vomiting/Diarrhea General Chief complaint: Nausea/Vomiting/Diarrhea Stated complaint: weakness Time Seen by Provider: 12/13/19 15:10 Source: patient and family Mode of arrival: Ambulatory Limitations: no limitations History of Present Illness HPI Narrative: 84-year-old female brought in by patient's daughter for evaluation of progressive weakness. Approximately 1 month ago patient was released from rehab facility after she was admitted to the hospital for periprosthetic fracture. Since that time she has followed up with her primary doctor 1 time. Was scheduled for another appointment today but had to cancel that because of multiple episodes of diarrhea today. They have another appointment already scheduled for Monday of next week. Since they have been home over the past month the patient's daughter who is the patient's primary client technologies specialist states she has had a decrease in activity in weakness. Does not appear to be anything new today is she has has been progressive over this period of time. Patient also admits she has had a decreased appetite. She states that things just do not smell or taste very good which is why she does not eat. She spends most of her time sitting in a wheelchair. Does fall asleep in a wheelchair during the day. Patient also states she is having problems sleeping at night. Patient describes diarrhea today. Related Data Home Medications Medication Instructions Recorded Confirmed Disabled Parking Permit See Protocol MISCELLANEOUS 09/09/18 11/15/19 DIRECTED aspirin 325 mg tablet,delayed 325 mg PO DAILY 10/05/18 11/15/19 release acetaminophen 500 mg tablet 500 mg PO ONCE PRN tab 10/19/18 11/15/19 hydrocortisone 1 % topical cream 1 applictn TOP QID PRN 11/14/19 11/15/19 Previous Rx's Medication Instructions Recorded atorvastatin 40 mg tablet 40 mg PO DAILY #90 tab 05/22/19 clopidogrel 75 mg tablet 75 mg PO DAILY #90 tab 05/22/19 losartan 50 mg tablet 50 mg PO DAILY #90 tab 05/22/19 polyethylene glycol 3350 17 gram PO DAILY #30 packet 09/05/19 tramadol 50 mg PO Q6H PRN #30 tab 09/05/19 metoprolol succinate 50 mg PO DAILY #30 tab 09/06/19 hydrochlorothiazide 50 mg tablet 50 mg PO DAILY #90 tab 10/07/19 triamcinolone acetonide 0.1 % See Rx Instructions .ROUTE 11/15/19 topical cream .COMPLEX #80 gram Allergies Allergy/AdvReac Type Severity Reaction Status Date / Time Sulfa (Sulfonamide Allergy Unknown Verified 12/13/19 15:08 Antibiotics) [SULFA (SULFONAMIDE ANTIBIOTICS)] amlodipine [AMLODIPINE] AdvReac Intermediate edema legs Verified 12/13/19 15:08 naproxen [NAPROXEN] AdvReac Mild DIZZINESS Verified 12/13/19 15:08 Barbiturates [BARBITURATES] AdvReac Unknown Verified 12/13/19 15:08 ergot alkaloids AdvReac Unknown Verified 12/13/19 15:08 [ERGOT ALKALOIDS] Review of Systems Constitutional Constitutional: Reports fatigue, Denies fever(s), Denies headache(s), Reports malaise and Reports weakness ENT Ears, Nose, Mouth, and Throat: Denies headache(s) Cardiovascular Cardiovascular: Denies chest pain and Denies dyspnea Respiratory Respiratory: Denies cough and Denies dyspnea Gastrointestinal Gastrointestinal: Denies abdominal pain and Reports diarrhea Comments: Decreased oral intake Musculoskeletal Musculoskeletal: Denies arthralgias, Reports muscle weakness and Denies myalgias Integumentary/Breasts Skin/Breast: Denies rash Neurologic Neurologic: Denies behavioral changes, Denies headache(s) and Reports weakness Psychiatric Psychiatric: Denies behavioral changes Endocrine Endocrine: Reports fatigue Hematologic/Lymphatic Hematologic/Lymphatic: Denies easy bleeding and Denies easy bruising Patient History Medical History Acute intermittent porphyria (Acute) Arthralgia (Chronic 04/17/15) Arthritis (Acute) Chronic renal failure, stage 3 (moderate) (Chronic) Essential hypertension (Chronic 04/17/15) History of CVA with residual deficit (Chronic) Mixed hyperlipidemia (Chronic) Morbid obesity due to excess calories (Chronic 06/29/15) Surgical History History of appendectomy (Acute) History of total left knee replacement (Acute) Social History household members: children Smoking Status: Former smoker alcohol intake: never Smoking Status: Former smoker alcohol intake frequency: 0-2 drinks per day Substance Use Type: does not use Exam Initial Vital Signs Initial Vital Signs: Vital Signs Temperature 98.8 F 12/13/19 15:08 Pulse Rate 46 L 12/13/19 15:08 Respiratory Rate 24 12/13/19 15:08 Blood Pressure 116/51 L 12/13/19 15:08 Pulse Oximetry 98 12/13/19 15:08 Const General: cooperative and comfortable Limitations: mental status not altered HENMT Head: normal to inspection and normocephalic Resp Effort & Inspection: normal respiratory effort Auscultation: clear to auscultation bilaterally Cardio Rate: bradycardic Rhythm: regular rhythm GI Inspection: non-distended Palpation: soft Skin Lesions: no lesions Rashes: no rashes Neuro General: patient alert, patient awake and patient oriented x3 Cognition: normal cognition Speech: speech normal Extrem General: normal to inspection and edema Psych Appearance: grossly normal and well kempt Scores GCS [place] coma scale eye opening: Spontaneous [place] coma scale verbal response: Orientated Abdi coma scale motor response: Obey commands [place] coma scale total score: 15 Course Orders Ordered: ED Orders 12/13/19 15:08 XR chest 1V Stat EKG-12 Lead Stat 12/13/19 15:37 Complete Blood Count AUTO DIFF Stat Comprehensive Metabolic Panel Stat Lipase Stat NT-proBNP (BNP-Adult 18+) Stat Partial Thromboplastin Time Stat Prothrombin Time INR Stat Troponin & CK Cardiac Panel Stat 12/13/19 18:12 Consult to [facility] - Ip Litigation Paralegal Stat Discontinued Medications Loperamide HCl (Imodium) 4 mg PO NOW ONE Stop: 12/13/19 18:21 Last Admin: 12/13/19 18:40 Dose: 4 mg Documented by: BLAIR Vital Signs Vital signs: Vital Signs - 8 hr 12/13/19 15:08 12/13/19 15:25 12/13/19 18:01 Temperature 98.8 F Pulse Rate 46 L 45 L 42 L Respiratory Rate 24 18 22 Blood Pressure 116/51 L Blood Pressure [Left Arm] 122/56 L 138/63 Pulse Oximetry 98 98 98 MDM - Nausea/Vomiting/Diarrhea Medical Records Attestation: I reviewed the patient's medical records. Lab Data Attestation: I reviewed the patient's lab results. Result diagrams: 12/13/19 15:37 12/13/19 15:37 Labs: Lab Results 12/13/19 12/13/19 12/13/19 Range/Units 15:37 15:37 15:37 WBC 6.2 (4.5-11.0) X10^3/uL RBC 2.82 L (4.0-5.2) X10^6/uL Hgb 9.4 L (12.0-16.0) g/dL Hct 27.9 L (36-46) % MCV 99.0 (80-100) fL MCH 33.4 (26-34) PG MCHC 33.7 (30-36) % RDW 16.1 H (11.6-14.8) % Plt Count 161 (150-400) X10^3/uL Neut % (Auto) 70.2 (50-75) % Lymph % (Auto) 14.7 L (25-40) % Piute % (Auto) 8.0 (3-14) % Eos % (Auto) 6.3 H (2-4) % Baso % (Auto) 0.8 (0-2) % Neut # (Auto) 4300 (2161-5456) /uL Lymph # (Auto) 900 L (3447-6968) /uL Piute # (Auto) 500 (0-900) /uL Eos # (Auto) 400 (0-450) /uL Baso # (Auto) 0 (0-100) /uL PT 12.9 H (10.1-12.7) SECONDS INR 1.1 (0.9-1.3) APTT 35 D (26.4-36.2) SECONDS Sodium 136 L (137-145) mmol/L Potassium 4.3 (3.4-5.1) mmol/L Chloride 105 (98-107) mmol/L Carbon Dioxide 24 (22-32) mmol/L BUN 41 H (7-17) mg/dL Creatinine 1.79 H (0.52-1.04) mg/dL Estimated GFR 27.0 L (>60) mL/min BUN/Creatinine Ratio 22.9 H (6-22) Glucose 89 (80-110) mg/dL Calcium 10.0 (8.4-10.2) mg/dL Total Bilirubin 0.9 (0.2-1.3) mg/dL AST 24 (14-36) IU/L ALT 17 (<35) IU/L Alkaline Phosphatase 142 H (38-126) U/L Total Creatine Kinase 33 (30-135) U/L CK-MB (CK-2) TNP CK-MB (CK-2) Rel Index TNP Troponin I < 0.012 (0.01-0.034) ng/mL NT-Pro-B Natriuret Pep (<450) pg/mL Total Protein 7.1 (6.3-8.2) g/dL Albumin 3.5 (3.5-5.0) g/dL Globulin 3.6 (1.7-4.1) g/dL Albumin/Globulin Ratio 1.0 (1.0-2.8) Lipase 193 (23-300) U/L 12/13/19 Range/Units 15:37 WBC (4.5-11.0) X10^3/uL RBC (4.0-5.2) X10^6/uL Hgb (12.0-16.0) g/dL Hct (36-46) % MCV (80-100) fL MCH (26-34) PG MCHC (30-36) % RDW (11.6-14.8) % Plt Count (150-400) X10^3/uL Neut % (Auto) (50-75) % Lymph % (Auto) (25-40) % Piute % (Auto) (3-14) % Eos % (Auto) (2-4) % Baso % (Auto) (0-2) % Neut # (Auto) (3424-7346) /uL Lymph # (Auto) (2847-0475) /uL Piute # (Auto) (0-900) /uL Eos # (Auto) (0-450) /uL Baso # (Auto) (0-100) /uL PT (10.1-12.7) SECONDS INR (0.9-1.3) APTT (26.4-36.2) SECONDS Sodium (137-145) mmol/L Potassium (3.4-5.1) mmol/L Chloride (98-107) mmol/L Carbon Dioxide (22-32) mmol/L BUN (7-17) mg/dL Creatinine (0.52-1.04) mg/dL Estimated GFR (>60) mL/min BUN/Creatinine Ratio (6-22) Glucose (80-110) mg/dL Calcium (8.4-10.2) mg/dL Total Bilirubin (0.2-1.3) mg/dL AST (14-36) IU/L ALT (<35) IU/L Alkaline Phosphatase (38-126) U/L Total Creatine Kinase (30-135) U/L CK-MB (CK-2) CK-MB (CK-2) Rel Index Troponin I (0.01-0.034) ng/mL NT-Pro-B Natriuret Pep 968 H (<450) pg/mL Total Protein (6.3-8.2) g/dL Albumin (3.5-5.0) g/dL Globulin (1.7-4.1) g/dL Albumin/Globulin Ratio (1.0-2.8) Lipase (23-300) U/L Imaging Data Chest x-ray: Radiologist's Impression: [address] [address] XRay Report Signed Patient: Nanci Jones [facility]#: [id number] : 5Acct:[id number] Age/Sex: 84 / FDate of Service: 12/13/19 Loc: ED Accession Number: [id number] Procedure: XR chest 1V Ordering Provider: Barry Ryan D.O. PROCEDURE: XR CHEST 1V INDICATIONS: chest pain TECHNIQUE: One view of the chest was acquired. COMPARISON: [facility], CHEST 1 VIEW, 01/14/2017, 15:14. [facility], XR CHEST 1V, 09/08/2018, 18:19. [facility], XR CHEST 1V, 09/01/2019, 21:40. FINDINGS: Surgical changes and devices: None. Lungs and pleura: Scattered subsegmental atelectasis and/or scarring. No focal consolidation. Low lung volumes . No pleural effusions or pneumothorax. Mediastinum: Mediastinal contours appear normal. Heart size is normal. Bones and chest wall: No suspicious bony lesions. Overlying soft tissues appear unremarkable. IMPRESSION: Scattered subsegmental atelectasis and/or scarring. No focal consolidation. No interval change Dictated by: Davon Camacho M.D. on 12/13/2019 at 16:05 Approved by: Davon Camacho M.D. on 12/13/2019 at 16:20 ECG Data Attestation: I personally reviewed and interpreted this ECG as follows: Prior ECG tracings: not available for review Interpretation: Sinus bradycardia First degree AV block Ventricular rate of 49 Normal QRS Normal QTC No ST T wave changes MDM Narrative Medical decision making narrative: Patient bradycardic but this is normal for her. Her labs are unremarkable. Chest x-ray is unremarkable. Attempted contact the patient's primary provider however he had already left for the day. They already have a follow-up scheduled for next Monday. Patient was unable to provide a urine sample for us today is it was mixed with diarrhea. Had a long discussion with the patient and her daughter. I do feel that much of the patient's issues today are caregiver fatigue. They were seen by social work. They were given resources. I did explain to them unfortunately we do not have reason to admit the patient to the hospital. I did start the conversation about potential other living situations however the patient's daughter states that she did not want the patient to be sent to a nursing facility. They were given strict return precautions. Expressed understanding and agreement. Discharge Plan Departure Patient Disposition: Home Clinical Impression: Weakness Diarrhea Qualifiers: Diarrhea type: unspecified type Qualified Code(s): R19.7 - Diarrhea, unspecified Instructions: Diarrhea (Alternative Therapy), Diarrhea, How to Prevent Falls Activity Restrictions/Additional Instructions: Recommend that you keep your scheduled appointment on Monday with your primary provider. Continue to take the rest of your medications as directed. You can take Imodium/loperamide. You can purchase this medication [id number]. Please take it as directed. Be sure to increase your fluid intake as much as possible. He had a bland diet. Return to the emergency department for any new or worsening symptoms Prescriptions: No Action atorvastatin 40 mg tablet 40 mg PO DAILY Qty: 90 RF: 3 clopidogrel [Plavix] 75 mg tablet 75 mg PO DAILY Qty: 90 RF: 3 losartan 50 mg tablet 50 mg PO DAILY Qty: 90 RF: 3 hydrochlorothiazide 50 mg tablet 50 mg PO DAILY Qty: 90 RF: 3 hydrocortisone [Anti-Itch (HC)] 1 % cream 1 applictn TOP QID PRNRF: 0 aspirin 325 mg tablet,delayed release (DR/EC) 325 mg PO DAILY RF: 0 acetaminophen [Tylenol Extra Strength] 500 mg tablet 500 mg PO ONCE PRN (Reason: Pain, Mild) RF: 0 triamcinolone acetonide 0.1 % cream See Rx Instructions .ROUTE .COMPLEX Qty: 80 RF: 1 polyethylene glycol 3350 17 gram Powder In Packet 17 gram PO DAILY Qty: 30 RF: 0 tramadol 50 mg Tablet 50 mg PO Q6H PRN (Reason: Pain, Moderate (4-6)) Qty: 30 RF: 0 metoprolol succinate 50 mg tablet extended release 24 hr 50 mg PO DAILY Qty: 30 RF: 0 Disabled Parking Permit package See Protocol each miscellaneous DIRECTED RF: 0 Referrals: Pramod Garber MD [Primary Care Provider] -
[2019-12-13 15:44] LABS: Add Manual Diff / Slide Review NO; Basophils Absolute Auto 0 /uL (0-100); Basophils Percent Auto 0.8 % (0-2); Eosinophils Absolute Auto 400 /uL (0-450); Eosinophils Percent Auto 6.3 % (2-4); Hematocrit 27.9 % (36-46); Hemoglobin 9.4 g/dL (12.0-16.0); Lymphocytes Absolute Auto 900 /uL (1100-4500); Lymphocytes Percent Auto 14.7 % (25-40); Mean Corpuscular HGB Conc 33.7 % (30-36); Mean Corpuscular Hemoglobin 33.4 PG (26-34); Monocytes Absolute Auto 500 /uL (0-900); Neutrophils Absolute Auto 4300 /uL (1500-7000); Neutrophils Percent Auto 70.2 % (50-75); Platelet Count 161 X10^3/uL (150-400); Red Blood Cell Count 2.82 X10^6/uL (4.0-5.2); Red Cell Distribution Width 16.1 % (11.6-14.8); White Blood Cell Count 6.2 X10^3/uL (4.5-11.0)
[2019-12-13 15:50] LABS: INR 1.1 (0.9-1.3); Prothrombin Time 12.9 SECONDS (10.1-12.7)
--- NOTE | 2019-12-13 15:51 | PC.NURSE ---
reports feeling less energy every day for the last month. Reports having orthostatic changes in dizziness. Reports recent stay in snf. She has has some vomiting and diarrhea for a few days and wonders if her lack of energy is related.
[2019-12-13 15:52] LABS: PTT Partial Thromboplastin Tim 35 SECONDS (26.4-36.2)
[2019-12-13 15:55] LABS: Alanine Aminotransferase 17 IU/L (<35); Albumin 3.5 g/dL (3.5-5.0); Alkaline Phosphatase 142 U/L (38-126); Aspartate Aminotransferase 24 IU/L (14-36); BUN Creatinine Ratio 22.9 (6-22); Bilirubin Total 0.9 mg/dL (0.2-1.3); Blood Urea Nitrogen 41 mg/dL (7-17); Carbon Dioxide 24 mmol/L (22-32); Chloride 105 mmol/L (98-107); Creatine Kinase 33 U/L (30-135); Globulin 3.6 g/dL (1.7-4.1); Glucose 89 mg/dL (80-110); HEMOLYSIS < 15 (0-50); Lipase 193 U/L (23-300); Potassium 4.3 mmol/L (3.4-5.1); Sodium 136 mmol/L (137-145); Total Protein 7.1 g/dL (6.3-8.2)
[2019-12-13 16:04] LABS: NT-proBNP (BNP-Adult 18+) 968 pg/mL (<450)
[2019-12-13 16:06] LABS: Troponin I < 0.012 ng/mL (0.01-0.034)
--- NOTE | 2019-12-13 17:54 | PC.NURSE ---
assisted pt to the commode. pt was able to give both a urine and stool sample but they were unable to be used due to contamination. Pt incontinent of loose stool in her brief. After pt used the bathroom it took 2 staff to assist the pt back into bed. Pt is in bed with it lowered, call light is within reach and pt has no complaints at this time. Daughter is out in waiting room.
[2019-12-13 18:01] VITALS: BP 138/63; PULSE 42; RESP 22; O2SAT 98
[2019-12-13] MEDS: LOPERAMIDE 2 MG CAPSULE 4 MG PO (18:40)
--- NOTE | 2019-12-13 18:48 | CM.SWNOTE ---
CLAY DRY PRESS HELPER note CLAY DRY PRESS HELPER consult requested for patient. Patient is an 84 y/o female who presents to ED today with daughter Bonita, with a primary complaint of increased weakness. Per report from patient's daughter, patient fell in Aug 2019, broke her femur, and spent two months in a SNF. After patient's insurance no longer covered SNF, patient lives with Bonita and receives OT, PT, and Bath assistance 2x/week through [employer]. Patient is A+O during assessment, however, patient's daughter speaks for most of session. Patient's daughter reports that her mother has continued to get weaker since moving into her house, and patient's daughter expresses concern about mother's care after her HH services . Patient's daughter not currently working, and states she wants to go back to work, but would not be able to do this without additional services for mother. Patient's daughter states she feels as though she can't even go out of town for a few hours without worrying about her mother. Patient reports that her mother makes $1650/mo and does not qualify for Medicaid or [employer]. Patient's daughter reports that she has left for [facility] to inquire about care giving, and informs CLAY DRY PRESS HELPER that patient has an appt with PCP following week. CLAY DRY PRESS HELPER validated worry about her mother's health and feelings surrounding care giving. CLAY DRY PRESS HELPER encouraged patient and daughter to discuss HH extension with PCP at appt. CLAY DRY PRESS HELPER provided referral to [facility] and [facility], and offered f/u call for patient and daughter following day for any additional resources. Pl: Patient to be discharged to daughter's home and CLAY DRY PRESS HELPER to follow up following day. DOMINGO [place]
--- NOTE | 2019-12-13 19:14 | PC.NURSE ---
pt incontinent of loose stool in brief. Pt helped to the commode with assist from 1 staff member.
[2019-12-13 19:15] VITALS: BP 135/61; PULSE 47; RESP 19; O2SAT 97
== END 2019-12-13 19:15 | disposition home or self-care (01) ==
PROVIDERS: Emergency Provider Emergency Medicine; PCP Internal Medicine
DX: R19.7 Diarrhea, unspecified (principal); R53.1 Weakness; R00.1 Bradycardia, unspecified
CPT/HCPCS: 36415; 71045; 80053; 82550; 83690; 83880; 84484; 85025; 85610; 85730; 93005; 93010; 99284

== ENCOUNTER → 2019-12-17 15:26 | Outpatient (CLI) | payer BC, MEDICARE, SELFPAY ==
[2019-12-17 17:35] LABS: Add Manual Diff / Slide Review NO; Basophils Absolute Auto 0 /uL (0-100); Basophils Percent Auto 0.7 % (0-2); Eosinophils Absolute Auto 400 /uL (0-450); Hematocrit 27.5 % (36-46); Hemoglobin 9.3 g/dL (12.0-16.0); Lymphocytes Absolute Auto 1000 /uL (1100-4500); Lymphocytes Percent Auto 16.7 % (25-40); Mean Corpuscular HGB Conc 33.9 % (30-36); Mean Corpuscular Hemoglobin 33.6 PG (26-34); Mean Corpuscular Volume 99.1 fL (80-100); Monocytes Absolute Auto 500 /uL (0-900); Monocytes Percent Auto 8.4 % (3-14); Neutrophils Absolute Auto 4000 /uL (1500-7000); Neutrophils Percent Auto 68.2 % (50-75); Platelet Count 149 X10^3/uL (150-400); Red Blood Cell Count 2.77 X10^6/uL (4.0-5.2); Red Cell Distribution Width 16.4 % (11.6-14.8); White Blood Cell Count 5.9 X10^3/uL (4.5-11.0)
[2019-12-17 17:55] LABS: Alanine Aminotransferase 17 IU/L (<35); Albumin 3.5 g/dL (3.5-5.0); Albumin Globulin Ratio 0.9 (1.0-2.8); Alkaline Phosphatase 135 U/L (38-126); Aspartate Aminotransferase 25 IU/L (14-36); BUN Creatinine Ratio 18.8 (6-22); Bilirubin Total 0.8 mg/dL (0.2-1.3); Blood Urea Nitrogen 41 mg/dL (7-17); C-Reactive Protein Quant 2.6 mg/dL (<1.0); Calcium 9.8 mg/dL (8.4-10.2); Carbon Dioxide 21 mmol/L (22-32); Chloride 105 mmol/L (98-107); Estimated Glomerular Filt Rate 21.5 mL/min (>60); Globulin 3.9 g/dL (1.7-4.1); Glucose 91 mg/dL (80-110); HEMOLYSIS < 15 (0-50); Potassium 4.2 mmol/L (3.4-5.1); Sodium 137 mmol/L (137-145); Total Protein 7.4 g/dL (6.3-8.2)
[2019-12-17 18:02] LABS: Procalcitonin < 0.05 ng/mL (<0.5)
[2019-12-17 18:23] LABS: Erythrocyte Sedimentation Rate 61 MM/HR (0-20)
== END ==
PROVIDERS: PCP Internal Medicine; Referring Provider Internal Medicine; Visit Provider Internal Medicine
DX: I10 Essential (primary) hypertension (principal); N18.3 Chronic kidney disease, stage 3 (moderate); R53.1 Weakness
CPT/HCPCS: 36415; 80053; 84145; 85025; 85651; 86140

== ENCOUNTER 2019-12-23 16:21 | Inpatient (IN) | payer MEDICARE, BC, SELFPAY ==
[2019-12-23] VITALS (10 sets, daily range): BP systolic 97–124; BP diastolic 45–65; PULSE 51–64; RESP 12–23; TEMP 35–36.6; O2SAT 94–98; BMI 47.9
--- NOTE | 2019-12-23 16:38 | DI.RAD.S_ITS ---
PROCEDURE: XR CHEST 1V INDICATIONS: fatigue/weakness TECHNIQUE: One view of the chest was acquired. COMPARISON: [facility], CR, XR CHEST 1V, 12/13/2019, 15:23. FINDINGS: Surgical changes and devices: None. Lungs and pleura: Low lung volumes with scattered subsegmental atelectasis/scarring. . No pleural effusions or pneumothorax. Mediastinum: Mediastinal contours appear normal. Heart size is normal. Bones and chest wall: No suspicious bony lesions. Overlying soft tissues appear unremarkable. IMPRESSION: Low lung volumes with scattered subsegmental atelectasis/scarring. Dictated by: Davon Camacho M.D. on 12/23/2019 at 17:12 Approved by: Davon Camacho M.D. on 12/23/2019 at 17:13
[2019-12-23 16:58] LABS: Add Manual Diff / Slide Review NO; Basophils Absolute Auto 0 /uL (0-100); Basophils Percent Auto 0.4 % (0-2); Eosinophils Absolute Auto 300 /uL (0-450); Eosinophils Percent Auto 4.4 % (2-4); Hematocrit 25.4 % (36-46); Hemoglobin 8.7 g/dL (12.0-16.0); Lymphocytes Absolute Auto 1000 /uL (1100-4500); Lymphocytes Percent Auto 15.4 % (25-40); Mean Corpuscular HGB Conc 34.2 % (30-36); Mean Corpuscular Hemoglobin 33.5 PG (26-34); Mean Corpuscular Volume 97.9 fL (80-100); Monocytes Absolute Auto 600 /uL (0-900); Monocytes Percent Auto 9.7 % (3-14); Neutrophils Absolute Auto 4400 /uL (1500-7000); Neutrophils Percent Auto 70.1 % (50-75); Platelet Count 112 X10^3/uL (150-400); Red Blood Cell Count 2.59 X10^6/uL (4.0-5.2); Red Cell Distribution Width 16.5 % (11.6-14.8); White Blood Cell Count 6.2 X10^3/uL (4.5-11.0)
[2019-12-23 17:03] LABS: HEMOLYSIS < 15 (0-50)
[2019-12-23 17:04] LABS: INR 1.1 (0.9-1.3)
[2019-12-23 17:06] LABS: PTT Partial Thromboplastin Tim 38 SECONDS (26.4-36.2)
[2019-12-23 17:09] LABS: Alanine Aminotransferase 18 IU/L (<35); Albumin 3.3 g/dL (3.5-5.0); Alkaline Phosphatase 120 U/L (38-126); Aspartate Aminotransferase 29 IU/L (14-36); BUN Creatinine Ratio 20.4 (6-22); Bilirubin Total 0.6 mg/dL (0.2-1.3); Blood Urea Nitrogen 47 mg/dL (7-17); Calcium 9.6 mg/dL (8.4-10.2); Carbon Dioxide 21 mmol/L (22-32); Chloride 102 mmol/L (98-107); Creatine Kinase 36 U/L (30-135); Estimated Glomerular Filt Rate 20.2 mL/min (>60); Globulin 3.2 g/dL (1.7-4.1); Glucose 114 mg/dL (80-110); Potassium 3.7 mmol/L (3.4-5.1); Sodium 132 mmol/L (137-145); Total Protein 6.5 g/dL (6.3-8.2)
--- NOTE | 2019-12-23 17:18 | ED.AMS ---
HPI - Altered Mental Status <Deanna Youssef PA-C - Last Filed: 12/24/19 00:15> General Chief Complaint: Altered Mental Status Stated Complaint: failure to thrive, thinks stroke symptoms Time Seen by Provider: 12/23/19 17:17 Source: patient Mode of arrival: Ambulatory History of Present Illness HPI narrative: This is an 84-year-old woman with stage III renal failure, history of CVA, hypertension, morbid obesity who presents to the emergency department with her daughter complaining of increasing generalized weakness, and inability to perform activities of daily living that has been progressively worsening over the past 2 weeks, significantly worsening over the last 3 days. Daughter notes that she was in a rehab center due to a lower extremity fracture, and came out in early November to come back home and live with daughter, at that time she was able to move around do things like cooking and cleaning sometimes used a walker but was fairly active about 2 weeks ago she began to have more generalized weakness and difficulty doing things and then in the last 3 days this has become significantly worse to the point where the patient states that she now feels like she can barely even left upper head and she had quite a bit of difficulty transferring into her wheelchair earlier this morning because she just feels so weak. Daughter also notes that her lower legs are definitely swollen compared to her usual, she also says that Nanci as urine has been particularly dark recently and also says that sometimes she has some very dark looking stool. She says that Nanci's doctor changed her medications about 7 days ago, taking her off of her blood pressure medicines because her blood pressures were low, and also taking her off of her Lasix. Patient states that she feels cold often but denies any chills, fever, shortness of breath, chest pain, palpitations. MD complaint: weakness Onset (ago): day(s) (3) Timing confirmed by: family member Severity: severe Consistency of symptoms: getting worse Context: change in medication (stopped blood pressure and Lasix medications 7 days ago) Associated symptoms: denies other symptoms, weakness and difficulty walking Related Data Home Medications Medication Instructions Recorded Confirmed Disabled Parking Permit See Protocol MISCELLANEOUS 09/09/18 12/23/19 DIRECTED aspirin 325 mg tablet,delayed 325 mg PO DAILY 10/05/18 12/23/19 release acetaminophen 500 mg tablet 500 mg PO ONCE PRN tab 10/19/18 12/23/19 terbinafine HCl [Lamisil AT] 1 applic TOPICAL BID 12/23/19 12/23/19 Previous Rx's Medication Instructions Recorded atorvastatin 40 mg tablet 40 mg PO DAILY #90 tab 05/22/19 clopidogrel 75 mg tablet 75 mg PO DAILY #90 tab 05/22/19 Allergies Allergy/AdvReac Type Severity Reaction Status Date / Time Sulfa (Sulfonamide Allergy Unknown Verified 12/17/19 14:25 Antibiotics) [SULFA (SULFONAMIDE ANTIBIOTICS)] amlodipine [AMLODIPINE] AdvReac Intermediate edema legs Verified 12/17/19 14:25 naproxen [NAPROXEN] AdvReac Mild DIZZINESS Verified 12/17/19 14:25 Barbiturates [BARBITURATES] AdvReac Unknown Verified 12/17/19 14:25 ergot alkaloids AdvReac Unknown Verified 12/17/19 14:25 [ERGOT ALKALOIDS] Review of Systems <Deanna Youssef PA-C - Last Filed: 12/24/19 00:15> Review of Systems Narrative: GENERAL: Denies chills, fatigue, malaise, fever, sweats, often feels cold. HEENT: Denies sinus pain, ear pain, sore throat, endorses some difficulty swallowing, denies dizziness. RESPIRATORY: Denies dyspnea, cough, wheezing, hemoptysis, sputum. CARDIOVASCULAR: Denies chest pain, palpitations, orthopnea, positive for edema of sacrum and lower extremities GASTROINTESTINAL: positive for intermittent abdominal discomfort and reduced appetite, Denies nausea, vomiting, abdominal pain, diarrhea, constipation, melena. : Denies dysuria, frequency, incontinence, hematuria, urinary retention. MUSCULOSKELETAL: endorses generalized weakness, denies joint pain, or bony pain SKIN: Denies rash, skin lesions, or other NEUROLOGIC: endorses generalized worsening weakness, denies headache, numbness, change in speech, confusion, seizures, incoordination. PSYCHIATRIC: Endorses feeling foggy recently and sometimes seeing things her daughter doesn't, like the cat coming in and out of the room. No other concerning psychosocial issues. 12 point review of systems is negative except for those stated above Patient History <Deanna Youssef PA-C - Last Filed: 12/24/19 00:15> Medical History Acute intermittent porphyria (Acute) Arthralgia (Chronic 04/17/15) Arthritis (Acute) Chronic renal failure, stage 3 (moderate) (Chronic) Essential hypertension (Chronic 04/17/15) History of CVA with residual deficit (Chronic) Mixed hyperlipidemia (Chronic) Morbid obesity due to excess calories (Chronic 06/29/15) Surgical History History of appendectomy (Acute) History of total left knee replacement (Acute) Social History household members: children Smoking Status: Former smoker alcohol intake: never Smoking Status: Former smoker alcohol intake frequency: 0-2 drinks per day Substance Use Type: does not use Exam <Deanna Youssef PA-C - Last Filed: 12/24/19 00:15> Narrative Exam Narrative: GENERAL: 84 year old tired appearing patient appears stated age. Well-nourished, obese patient, in mild distress. HEAD: Atraumatic. Normocephalic. EYES: Pupils equal round and reactive. There is mild to moderate periorbital swelling, conjunctiva are pale, Extraocular motions intact. No scleral icterus. No injection or drainage. ENT: Nose without bleeding, purulent drainage. Throat without erythema, tonsillar hypertrophy or exudate. Airway patent, uvula midline. NECK: Trachea midline. Non tender CARDIOVASCULAR: Regular rate and rhythm without murmurs, gallops, or rubs. RESPIRATORY: Clear to auscultation. Breath sounds equal bilaterally. No wheezes, rales, or rhonchi. GASTROINTESTINAL: Abdomen soft, non-tender, protruberant, nondistended. EXTREMITIES: There is 3+ pitting edema in the lower extremities bilaterally there is no joint tenderness, pedal pulses are not palpable. BACK: Nontender without deformity or crepitance. No flank tenderness, there is sacral edema. NEURO: AOx3. Cranial nerves are intact, coordination is intact but delayed. Strength is significantly reduced all 4 extremities, 2/5 bilaterally. SKIN: No rash or erythema of visible areas Initial Vital Signs Initial Vital Signs: Vital Signs Temperature 95.9 F L 12/23/19 16:31 Pulse Rate 64 12/23/19 16:31 Respiratory Rate 22 12/23/19 16:31 Blood Pressure 116/65 12/23/19 16:31 Pulse Oximetry 94 12/23/19 16:31 <Adam Real MD - Last Filed: 12/24/19 02:42> Initial Vital Signs Initial Vital Signs: Vital Signs Temperature 95.9 F L 12/23/19 16:31 Pulse Rate 64 12/23/19 16:31 Respiratory Rate 22 12/23/19 16:31 Blood Pressure 116/65 12/23/19 16:31 Pulse Oximetry 94 12/23/19 16:31 Course <Deanna Youssef PA-C - Last Filed: 12/24/19 00:15> Orders Ordered: ED Orders 12/23/19 18:40 CT head/brain wo con Stat Acetaminophen (Tylenol) 650 mg PO Q6HR PRN PRN Reason: Fever/Mild Pain (1-3) Aspirin (Aspirin Ec) 325 mg PO DAILY [facility] Atorvastatin Calcium (Lipitor) 40 mg PO DAILY [facility] Clopidogrel Bisulfate (Plavix) 75 mg PO DAILY [facility] Heparin Sodium (Porcine) (Heparin) 5,000 unit SUBCUT BID AMBER Last Admin: 12/23/19 22:24 Dose: 5,000 unit Documented by: EMMANUEL Sodium Chloride (Normal Saline 0.9%) 1,000 mls @ 100 mls/hr IV CONT AMBER Stop: 12/24/19 08:44 Last Admin: 12/23/19 23:58 Dose: 100 mls/hr Documented by: MILLY Levothyroxine Sodium (Synthroid) 88 mcg PO 0600 [facility] Ondansetron HCl (Zofran) 4 mg IV Q8HR PRN PRN Reason: Nausea And Vomiting Discontinued Medications Sodium Chloride (Normal Saline 0.9%) 1,000 mls @ 150 mls/hr IV CONT AMBER Last Infusion: 12/23/19 20:15 Dose: 150 mls/hr Documented by: Admin: 12/23/19 17:22 Dose: 150 mls/hr Documented by: ALEXYS Dextrose/Sodium Chloride (Dextrose 5%-0.9% Ns) 1,000 mls @ 100 mls/hr IV CONT AMBER Last Admin: 12/23/19 21:29 Dose: 100 mls/hr Documented by: RODRIGO Vital Signs Vital signs: Vital Signs - 8 hr 12/23/19 19:37 Pulse Rate 52 L Respiratory Rate 17 Blood Pressure [Left Wrist] 120/59 L Pulse Oximetry 96 <Adam Real MD - Last Filed: 12/24/19 02:42> Orders Ordered: ED Orders 12/23/19 18:40 CT head/brain wo con Stat Acetaminophen (Tylenol) 650 mg PO Q6HR PRN PRN Reason: Fever/Mild Pain (1-3) Aspirin (Aspirin Ec) 325 mg PO DAILY [facility] Atorvastatin Calcium (Lipitor) 40 mg PO DAILY [facility] Clopidogrel Bisulfate (Plavix) 75 mg PO DAILY [facility] Heparin Sodium (Porcine) (Heparin) 5,000 unit SUBCUT BID AMBER Last Admin: 12/23/19 22:24 Dose: 5,000 unit Documented by: EMMANUEL Sodium Chloride (Normal Saline 0.9%) 1,000 mls @ 100 mls/hr IV CONT AMBER Stop: 12/24/19 08:44 Last Admin: 12/23/19 23:58 Dose: 100 mls/hr Documented by: MILLY Levothyroxine Sodium (Synthroid) 88 mcg PO 0600 [facility] Ondansetron HCl (Zofran) 4 mg IV Q8HR PRN PRN Reason: Nausea And Vomiting Discontinued Medications Sodium Chloride (Normal Saline 0.9%) 1,000 mls @ 150 mls/hr IV CONT AMBER Last Infusion: 12/23/19 20:15 Dose: 150 mls/hr Documented by: Admin: 12/23/19 17:22 Dose: 150 mls/hr Documented by: ALEXYS Dextrose/Sodium Chloride (Dextrose 5%-0.9% Ns) 1,000 mls @ 100 mls/hr IV CONT AMBER Last Admin: 12/23/19 21:29 Dose: 100 mls/hr Documented by: RODRIGO Vital Signs Vital signs: Vital Signs - 8 hr 12/23/19 19:37 Pulse Rate 52 L Respiratory Rate 17 Blood Pressure [Left Wrist] 120/59 L Pulse Oximetry 96 MDM - Altered Mental Status <Deanna Youssef PA-C - Last Filed: 12/24/19 00:15> Differential Diagnosis Differential diagnosis: Likely altered mental status, delirium, dementia, hyponatremia and other (Hypothyroid, failure to thrive, generalized weakness) Medical Records Attestation: I reviewed the patient's medical records. Lab Data Attestation: I reviewed the patient's lab results. Result diagrams: 12/23/19 16:50 12/23/19 16:50 Labs: Lab Results 12/23/19 12/23/19 12/23/19 Range/Units 16:50 16:50 16:50 WBC 6.2 (4.5-11.0) X10^3/uL RBC 2.59 L (4.0-5.2) X10^6/uL Hgb 8.7 L (12.0-16.0) g/dL Hct 25.4 L (36-46) % MCV 97.9 (80-100) fL MCH 33.5 (26-34) PG MCHC 34.2 (30-36) % RDW 16.5 H (11.6-14.8) % Plt Count 112 L (150-400) X10^3/uL Neut % (Auto) 70.1 (50-75) % Lymph % (Auto) 15.4 L (25-40) % [place] % (Auto) 9.7 (3-14) % Eos % (Auto) 4.4 H (2-4) % Baso % (Auto) 0.4 (0-2) % Neut # (Auto) 4400 (4443-4224) /uL Lymph # (Auto) 1000 L (0900-9139) /uL [place] # (Auto) 600 (0-900) /uL Eos # (Auto) 300 (0-450) /uL Baso # (Auto) 0 (0-100) /uL PT 13.0 H (10.1-12.7) SECONDS INR 1.1 (0.9-1.3) APTT 38 H D (26.4-36.2) SECONDS Sodium 132 L (137-145) mmol/L Potassium 3.7 (3.4-5.1) mmol/L Chloride 102 (98-107) mmol/L Carbon Dioxide 21 L (22-32) mmol/L BUN 47 H (7-17) mg/dL Creatinine 2.30 H (0.52-1.04) mg/dL Estimated GFR 20.2 L (>60) mL/min BUN/Creatinine Ratio 20.4 (6-22) Glucose 114 H (80-110) mg/dL Lactate (0.7-2.1) mmol/L Calcium 9.6 (8.4-10.2) mg/dL Phosphorus (2.8-4.1) mg/dL Total Bilirubin 0.6 (0.2-1.3) mg/dL AST 29 (14-36) IU/L ALT 18 (<35) IU/L Alkaline Phosphatase 120 (38-126) U/L Total Creatine Kinase 36 (30-135) U/L CK-MB (CK-2) TNP CK-MB (CK-2) Rel Index TNP Troponin I < 0.012 (0.01-0.034) ng/mL NT-Pro-B Natriuret Pep (<450) pg/mL Total Protein 6.5 (6.3-8.2) g/dL Albumin 3.3 L (3.5-5.0) g/dL Globulin 3.2 (1.7-4.1) g/dL Albumin/Globulin Ratio 1.0 (1.0-2.8) TSH (0.47-4.68) uIU/mL Prolactin 10.7 (3.0-18.6) ng/mL Urine Color Urine Appearance Urine pH (4.5-8.0) Ur Specific [place] (1.000-1.035) Urine Protein (Negative) Urine Glucose (UA) (Negative) g/dL Urine Ketones (NEGATIVE) Urine Occult Blood (Negative) Urine Nitrate (Negative) Urine Bilirubin (NEGATIVE) Urine Urobilinogen (0.2) E.U./dL Ur Leukocyte Esterase (NEGATIVE) Urine RBC (0-5/HPF) Urine WBC (0-5/HPF) Ur Squamous Epith Cells (0-5/HPF) Amorphous Sediment Urine Bacteria (None) Urine Mucus (Negative) Ur Culture Indicated? U Opiates 300ng/mL cut (Negative) Ur Oxycodone Screen (Negative) Urine Methadone Screen (Negative) Ur Barbiturates Screen (Negative) U Tricyclic Antidepress (Negative) Ur Phencyclidine Scrn (Negative) Ur Amphetamines Screen (Negative) U Methamphetamines Scrn (Negative) Ur MDMA Scrn (Ecstasy) (Negative) U Benzodiazepines Scrn (Negative) Urine Cocaine Screen (Negative) U Marijuana (THC) Screen (Negative) Ethyl Alcohol < 10 ( - 10) mg/dL COVID-19 PCR (Negative) 12/23/19 12/23/19 12/23/19 Range/Units 16:50 16:50 16:50 WBC (4.5-11.0) X10^3/uL RBC (4.0-5.2) X10^6/uL Hgb (12.0-16.0) g/dL Hct (36-46) % MCV (80-100) fL MCH (26-34) PG MCHC (30-36) % RDW (11.6-14.8) % Plt Count (150-400) X10^3/uL Neut % (Auto) (50-75) % Lymph % (Auto) (25-40) % [place] % (Auto) (3-14) % Eos % (Auto) (2-4) % Baso % (Auto) (0-2) % Neut # (Auto) (8317-3159) /uL Lymph # (Auto) (7783-2139) /uL [place] # (Auto) (0-900) /uL Eos # (Auto) (0-450) /uL Baso # (Auto) (0-100) /uL PT (10.1-12.7) SECONDS INR (0.9-1.3) APTT (26.4-36.2) SECONDS Sodium (137-145) mmol/L Potassium (3.4-5.1) mmol/L Chloride (98-107) mmol/L Carbon Dioxide (22-32) mmol/L BUN (7-17) mg/dL Creatinine (0.52-1.04) mg/dL Estimated GFR (>60) mL/min BUN/Creatinine Ratio (6-22) Glucose (80-110) mg/dL Lactate 2.0 (0.7-2.1) mmol/L Calcium (8.4-10.2) mg/dL Phosphorus (2.8-4.1) mg/dL Total Bilirubin (0.2-1.3) mg/dL AST (14-36) IU/L ALT (<35) IU/L Alkaline Phosphatase (38-126) U/L Total Creatine Kinase (30-135) U/L CK-MB (CK-2) CK-MB (CK-2) Rel Index Troponin I (0.01-0.034) ng/mL NT-Pro-B Natriuret Pep 769 H (<450) pg/mL Total Protein (6.3-8.2) g/dL Albumin (3.5-5.0) g/dL Globulin (1.7-4.1) g/dL Albumin/Globulin Ratio (1.0-2.8) TSH 5.35 H (0.47-4.68) uIU/mL Prolactin (3.0-18.6) ng/mL Urine Color Urine Appearance Urine pH (4.5-8.0) Ur Specific [place] (1.000-1.035) Urine Protein (Negative) Urine Glucose (UA) (Negative) g/dL Urine Ketones (NEGATIVE) Urine Occult Blood (Negative) Urine Nitrate (Negative) Urine Bilirubin (NEGATIVE) Urine Urobilinogen (0.2) E.U./dL Ur Leukocyte Esterase (NEGATIVE) Urine RBC (0-5/HPF) Urine WBC (0-5/HPF) Ur Squamous Epith Cells (0-5/HPF) Amorphous Sediment Urine Bacteria (None) Urine Mucus (Negative) Ur Culture Indicated? U Opiates 300ng/mL cut (Negative) Ur Oxycodone Screen (Negative) Urine Methadone Screen (Negative) Ur Barbiturates Screen (Negative) U Tricyclic Antidepress (Negative) Ur Phencyclidine Scrn (Negative) Ur Amphetamines Screen (Negative) U Methamphetamines Scrn (Negative) Ur MDMA Scrn (Ecstasy) (Negative) U Benzodiazepines Scrn (Negative) Urine Cocaine Screen (Negative) U Marijuana (THC) Screen (Negative) Ethyl Alcohol ( - 10) mg/dL COVID-19 PCR (Negative) 12/23/19 12/23/19 12/23/19 Range/Units 16:50 17:20 17:20 WBC (4.5-11.0) X10^3/uL RBC (4.0-5.2) X10^6/uL Hgb (12.0-16.0) g/dL Hct (36-46) % MCV (80-100) fL MCH (26-34) PG MCHC (30-36) % RDW (11.6-14.8) % Plt Count (150-400) X10^3/uL Neut % (Auto) (50-75) % Lymph % (Auto) (25-40) % [place] % (Auto) (3-14) % Eos % (Auto) (2-4) % Baso % (Auto) (0-2) % Neut # (Auto) (6825-6656) /uL Lymph # (Auto) (3611-5911) /uL [place] # (Auto) (0-900) /uL Eos # (Auto) (0-450) /uL Baso # (Auto) (0-100) /uL PT (10.1-12.7) SECONDS INR (0.9-1.3) APTT (26.4-36.2) SECONDS Sodium (137-145) mmol/L Potassium (3.4-5.1) mmol/L Chloride (98-107) mmol/L Carbon Dioxide (22-32) mmol/L BUN (7-17) mg/dL Creatinine (0.52-1.04) mg/dL Estimated GFR (>60) mL/min BUN/Creatinine Ratio (6-22) Glucose (80-110) mg/dL Lactate (0.7-2.1) mmol/L Calcium (8.4-10.2) mg/dL Phosphorus 4.5 H (2.8-4.1) mg/dL Total Bilirubin (0.2-1.3) mg/dL AST (14-36) IU/L ALT (<35) IU/L Alkaline Phosphatase (38-126) U/L Total Creatine Kinase (30-135) U/L CK-MB (CK-2) CK-MB (CK-2) Rel Index Troponin I (0.01-0.034) ng/mL NT-Pro-B Natriuret Pep (<450) pg/mL Total Protein (6.3-8.2) g/dL Albumin (3.5-5.0) g/dL Globulin (1.7-4.1) g/dL Albumin/Globulin Ratio (1.0-2.8) TSH (0.47-4.68) uIU/mL Prolactin (3.0-18.6) ng/mL Urine Color Yellow Urine Appearance Clear Urine pH 5.0 (4.5-8.0) Ur Specific [place] 1.010 (1.000-1.035) Urine Protein Negative (Negative) Urine Glucose (UA) Negative (Negative) g/dL Urine Ketones Negative (NEGATIVE) Urine Occult Blood Negative (Negative) Urine Nitrate Negative (Negative) Urine Bilirubin Negative (NEGATIVE) Urine Urobilinogen 0.2 (0.2) E.U./dL Ur Leukocyte Esterase Negative (NEGATIVE) Urine RBC None seen (0-5/HPF) Urine WBC 0-1/hpf (0-5/HPF) Ur Squamous Epith Cells 0-1 /hpf (0-5/HPF) Amorphous Sediment 2+ Urine Bacteria Occasional (0-1) D (None) Urine Mucus 2+ H (Negative) Ur Culture Indicated? Cult not indicated U Opiates 300ng/mL cut Negative (Negative) Ur Oxycodone Screen Negative (Negative) Urine Methadone Screen Negative (Negative) Ur Barbiturates Screen Negative (Negative) U Tricyclic Antidepress Negative (Negative) Ur Phencyclidine Scrn Negative (Negative) Ur Amphetamines Screen Negative (Negative) U Methamphetamines Scrn Negative (Negative) Ur MDMA Scrn (Ecstasy) Negative (Negative) U Benzodiazepines Scrn Negative (Negative) Urine Cocaine Screen Negative (Negative) U Marijuana (THC) Screen Negative (Negative) Ethyl Alcohol ( - 10) mg/dL COVID-19 PCR (Negative) 12/23/19 Range/Units 17:20 WBC (4.5-11.0) X10^3/uL RBC (4.0-5.2) X10^6/uL Hgb (12.0-16.0) g/dL Hct (36-46) % MCV (80-100) fL MCH (26-34) PG MCHC (30-36) % RDW (11.6-14.8) % Plt Count (150-400) X10^3/uL Neut % (Auto) (50-75) % Lymph % (Auto) (25-40) % [place] % (Auto) (3-14) % Eos % (Auto) (2-4) % Baso % (Auto) (0-2) % Neut # (Auto) (2544-0869) /uL Lymph # (Auto) (6292-8386) /uL [place] # (Auto) (0-900) /uL Eos # (Auto) (0-450) /uL Baso # (Auto) (0-100) /uL PT (10.1-12.7) SECONDS INR (0.9-1.3) APTT (26.4-36.2) SECONDS Sodium (137-145) mmol/L Potassium (3.4-5.1) mmol/L Chloride (98-107) mmol/L Carbon Dioxide (22-32) mmol/L BUN (7-17) mg/dL Creatinine (0.52-1.04) mg/dL Estimated GFR (>60) mL/min BUN/Creatinine Ratio (6-22) Glucose (80-110) mg/dL Lactate (0.7-2.1) mmol/L Calcium (8.4-10.2) mg/dL Phosphorus (2.8-4.1) mg/dL Total Bilirubin (0.2-1.3) mg/dL AST (14-36) IU/L ALT (<35) IU/L Alkaline Phosphatase (38-126) U/L Total Creatine Kinase (30-135) U/L CK-MB (CK-2) CK-MB (CK-2) Rel Index Troponin I (0.01-0.034) ng/mL NT-Pro-B Natriuret Pep (<450) pg/mL Total Protein (6.3-8.2) g/dL Albumin (3.5-5.0) g/dL Globulin (1.7-4.1) g/dL Albumin/Globulin Ratio (1.0-2.8) TSH (0.47-4.68) uIU/mL Prolactin (3.0-18.6) ng/mL Urine Color Urine Appearance Urine pH (4.5-8.0) Ur Specific [place] (1.000-1.035) Urine Protein (Negative) Urine Glucose (UA) (Negative) g/dL Urine Ketones (NEGATIVE) Urine Occult Blood (Negative) Urine Nitrate (Negative) Urine Bilirubin (NEGATIVE) Urine Urobilinogen (0.2) E.U./dL Ur Leukocyte Esterase (NEGATIVE) Urine RBC (0-5/HPF) Urine WBC (0-5/HPF) Ur Squamous Epith Cells (0-5/HPF) Amorphous Sediment Urine Bacteria (None) Urine Mucus (Negative) Ur Culture Indicated? U Opiates 300ng/mL cut (Negative) Ur Oxycodone Screen (Negative) Urine Methadone Screen (Negative) Ur Barbiturates Screen (Negative) U Tricyclic Antidepress (Negative) Ur Phencyclidine Scrn (Negative) Ur Amphetamines Screen (Negative) U Methamphetamines Scrn (Negative) Ur MDMA Scrn (Ecstasy) (Negative) U Benzodiazepines Scrn (Negative) Urine Cocaine Screen (Negative) U Marijuana (THC) Screen (Negative) Ethyl Alcohol ( - 10) mg/dL COVID-19 PCR Negative (Negative) Point of Care Testing Glucose POC 115 Imaging Data Chest x-ray: Attestation: I personally reviewed and interpreted this imaging study as follows: Radiologist's Impression: [address] [address] XRay Report Signed Patient: Nanci Jones AMR#: [id number] : 5Acct:[id number] Age/Sex: 84 / FDate of Service: 12/23/19 Loc: ED Accession Number: [id number] Procedure: XR chest 1V Ordering Provider: Pramod Montanez MD PROCEDURE: XR CHEST 1V INDICATIONS: fatigue/weakness TECHNIQUE: One view of the chest was acquired. COMPARISON: [facility], , XR CHEST 1V, 12/13/2019, 15:23. FINDINGS: Surgical changes and devices: None. Lungs and pleura: Low lung volumes with scattered subsegmental atelectasis/scarring. . No pleural effusions or pneumothorax. Mediastinum: Mediastinal contours appear normal. Heart size is normal. Bones and chest wall: No suspicious bony lesions. Overlying soft tissues appear unremarkable. IMPRESSION: Low lung volumes with scattered subsegmental atelectasis/scarring. Dictated by: Davon Camacho M.D. on 12/23/2019 at 17:12 Approved by: aDvon Camacho M.D. on 12/23/2019 at 17:13 CT scan - head: Attestation: I personally reviewed and interpreted this imaging study as follows: Radiologist's Impression: [address] [address] [address] Scan Report Signed Patient: Nanci Jones AMR#: [id number] : 5Acct:[id number] Age/Sex: 84 / FDate of Service: 12/23/19 Loc: ED Accession Number: [id number] Procedure: CT head/brain wo con Ordering Provider: Deanna Youssef P.A-C PROCEDURE: CT HEAD/BRAIN WO CON INDICATIONS: increasing weakness TECHNIQUE: Noncontrast 4.5 mm thick angled axial sections acquired from the foramen magnum to the vertex, with coronal and sagittal reformats. For radiation dose reduction, the following was used: automated exposure control, adjustment of mA and/or kV according to patient size. COMPARISON: [facility], MR, MR STROKE, 09/09/2018, 16:02. [facility], CT, CT HEAD/BRAIN WO CON, 09/01/2019, 20:55. FINDINGS: Image quality: Excellent. CSF spaces: Basal cisterns are patent. No extra-axial fluid collections. The ventricles are symmetric in size and shape. Brain: No intracranial bleeds or masses. There is mild cerebral volume loss for age, with resultant ventricular and sulcal prominence. There are moderate periventricular and deep white matter chronic small vessel ischemic changes. There is intracranial internal carotid artery atherosclerosis. Skull and face: Calvarium and visualized facial bones appear intact, without suspicious lesions. Sinuses: Visualized sinuses and mastoids are clear. IMPRESSION: 1. No acute intracranial abnormalities. 2. Cerebral volume loss and chronic microvascular ischemic changes. Dictated by: Xu Lo M.D. on 12/23/2019 at 19:19 Approved by: Xu Lo M.D. on 12/23/2019 at 19:21 ECG Data Attestation: I personally reviewed and interpreted this ECG as follows: Interpretation: Sinus rhythm first-degree AV block, nonspecific ST and T-wave abnormalities ventricular rate 68, ME interval 250 QRS 96 QTC 430 P axis 90 R axis 12 T axis 69 MDM Narrative Medical decision making narrative: This is an 84-year-old woman with a history of kidney failure stage III hypertension and CVA who was recently released from rehab center approximately 6 weeks ago to return home who now presents to the emergency department for the 2nd time in the last week with complaint of worsening weakness that is generalized as well as intermittent hallucinations worsening over the past 2 or 3 weeks. Patient's daughter states that she has been declining ever since she came out of the rehab facility, however it has been worse in the last few weeks particularly the last 3 days she was seen by her PCP approximately 6 days ago and due to low blood pressures her blood pressure medications were discontinued. She has also been hallucinating. Differential diagnoses that were considered include urinary tract infection, pneumonia, CVA, TIA, brain bleed, hypothyroid, electrolyte imbalance, GI bleed, anemia, COVID-19, multifactorial, failure to thrive. Notes from recent emergency department visit and Internal Medicine visit with the patient's PCP Dr. Garber were reviewed. After workup there is no specific clear cause for her symptoms of continuing worsening weakness, however she does have a number of abnormal labs including her BNP, sodium, H&H, thyroid. She was discussed with Dr. Mondragon, hospitalist who advised she would accept the patient after CT scan was performed. Non-con CT was negative, and the patient was ultimately admitted for observation under the care of JEANNIE Camacho. I suspect that this patient could potentially be dwindling given her hallucinations, worsening blood pressures, worsening kidney function, generalized weakness, and anorexia, she will likely benefit from placement in a care facility following her hospital stay. <Adam Real MD - Last Filed: 12/24/19 02:42> Lab Data Labs: Lab Results 12/23/19 12/23/19 12/23/19 Range/Units 16:50 16:50 16:50 WBC 6.2 (4.5-11.0) X10^3/uL RBC 2.59 L (4.0-5.2) X10^6/uL Hgb 8.7 L (12.0-16.0) g/dL Hct 25.4 L (36-46) % MCV 97.9 (80-100) fL MCH 33.5 (26-34) PG MCHC 34.2 (30-36) % RDW 16.5 H (11.6-14.8) % Plt Count 112 L (150-400) X10^3/uL Neut % (Auto) 70.1 (50-75) % Lymph % (Auto) 15.4 L (25-40) % [place] % (Auto) 9.7 (3-14) % Eos % (Auto) 4.4 H (2-4) % Baso % (Auto) 0.4 (0-2) % Neut # (Auto) 4400 (3497-7252) /uL Lymph # (Auto) 1000 L (1201-0625) /uL [place] # (Auto) 600 (0-900) /uL Eos # (Auto) 300 (0-450) /uL Baso # (Auto) 0 (0-100) /uL PT 13.0 H (10.1-12.7) SECONDS INR 1.1 (0.9-1.3) APTT 38 H D (26.4-36.2) SECONDS Sodium 132 L (137-145) mmol/L Potassium 3.7 (3.4-5.1) mmol/L Chloride 102 (98-107) mmol/L Carbon Dioxide 21 L (22-32) mmol/L BUN 47 H (7-17) mg/dL Creatinine 2.30 H (0.52-1.04) mg/dL Estimated GFR 20.2 L (>60) mL/min BUN/Creatinine Ratio 20.4 (6-22) Glucose 114 H (80-110) mg/dL Lactate (0.7-2.1) mmol/L Calcium 9.6 (8.4-10.2) mg/dL Phosphorus (2.8-4.1) mg/dL Total Bilirubin 0.6 (0.2-1.3) mg/dL AST 29 (14-36) IU/L ALT 18 (<35) IU/L Alkaline Phosphatase 120 (38-126) U/L Total Creatine Kinase 36 (30-135) U/L CK-MB (CK-2) TNP CK-MB (CK-2) Rel Index TNP Troponin I < 0.012 (0.01-0.034) ng/mL NT-Pro-B Natriuret Pep (<450) pg/mL Total Protein 6.5 (6.3-8.2) g/dL Albumin 3.3 L (3.5-5.0) g/dL Globulin 3.2 (1.7-4.1) g/dL Albumin/Globulin Ratio 1.0 (1.0-2.8) TSH (0.47-4.68) uIU/mL Prolactin 10.7 (3.0-18.6) ng/mL Urine Color Urine Appearance Urine pH (4.5-8.0) Ur Specific [place] (1.000-1.035) Urine Protein (Negative) Urine Glucose (UA) (Negative) g/dL Urine Ketones (NEGATIVE) Urine Occult Blood (Negative) Urine Nitrate (Negative) Urine Bilirubin (NEGATIVE) Urine Urobilinogen (0.2) E.U./dL Ur Leukocyte Esterase (NEGATIVE) Urine RBC (0-5/HPF) Urine WBC (0-5/HPF) Ur Squamous Epith Cells (0-5/HPF) Amorphous Sediment Urine Bacteria (None) Urine Mucus (Negative) Ur Culture Indicated? U Opiates 300ng/mL cut (Negative) Ur Oxycodone Screen (Negative) Urine Methadone Screen (Negative) Ur Barbiturates Screen (Negative) U Tricyclic Antidepress (Negative) Ur Phencyclidine Scrn (Negative) Ur Amphetamines Screen (Negative) U Methamphetamines Scrn (Negative) Ur MDMA Scrn (Ecstasy) (Negative) U Benzodiazepines Scrn (Negative) Urine Cocaine Screen (Negative) U Marijuana (THC) Screen (Negative) Ethyl Alcohol < 10 ( - 10) mg/dL COVID-19 PCR (Negative) 12/23/19 12/23/19 12/23/19 Range/Units 16:50 16:50 16:50 WBC (4.5-11.0) X10^3/uL RBC (4.0-5.2) X10^6/uL Hgb (12.0-16.0) g/dL Hct (36-46) % MCV (80-100) fL MCH (26-34) PG MCHC (30-36) % RDW (11.6-14.8) % Plt Count (150-400) X10^3/uL Neut % (Auto) (50-75) % Lymph % (Auto) (25-40) % [place] % (Auto) (3-14) % Eos % (Auto) (2-4) % Baso % (Auto) (0-2) % Neut # (Auto) (9728-5638) /uL Lymph # (Auto) (6222-0802) /uL [place] # (Auto) (0-900) /uL Eos # (Auto) (0-450) /uL Baso # (Auto) (0-100) /uL PT (10.1-12.7) SECONDS INR (0.9-1.3) APTT (26.4-36.2) SECONDS Sodium (137-145) mmol/L Potassium (3.4-5.1) mmol/L Chloride (98-107) mmol/L Carbon Dioxide (22-32) mmol/L BUN (7-17) mg/dL Creatinine (0.52-1.04) mg/dL Estimated GFR (>60) mL/min BUN/Creatinine Ratio (6-22) Glucose (80-110) mg/dL Lactate 2.0 (0.7-2.1) mmol/L Calcium (8.4-10.2) mg/dL Phosphorus (2.8-4.1) mg/dL Total Bilirubin (0.2-1.3) mg/dL AST (14-36) IU/L ALT (<35) IU/L Alkaline Phosphatase (38-126) U/L Total Creatine Kinase (30-135) U/L CK-MB (CK-2) CK-MB (CK-2) Rel Index Troponin I (0.01-0.034) ng/mL NT-Pro-B Natriuret Pep 769 H (<450) pg/mL Total Protein (6.3-8.2) g/dL Albumin (3.5-5.0) g/dL Globulin (1.7-4.1) g/dL Albumin/Globulin Ratio (1.0-2.8) TSH 5.35 H (0.47-4.68) uIU/mL Prolactin (3.0-18.6) ng/mL Urine Color Urine Appearance Urine pH (4.5-8.0) Ur Specific [place] (1.000-1.035) Urine Protein (Negative) Urine Glucose (UA) (Negative) g/dL Urine Ketones (NEGATIVE) Urine Occult Blood (Negative) Urine Nitrate (Negative) Urine Bilirubin (NEGATIVE) Urine Urobilinogen (0.2) E.U./dL Ur Leukocyte Esterase (NEGATIVE) Urine RBC (0-5/HPF) Urine WBC (0-5/HPF) Ur Squamous Epith Cells (0-5/HPF) Amorphous Sediment Urine Bacteria (None) Urine Mucus (Negative) Ur Culture Indicated? U Opiates 300ng/mL cut (Negative) Ur Oxycodone Screen (Negative) Urine Methadone Screen (Negative) Ur Barbiturates Screen (Negative) U Tricyclic Antidepress (Negative) Ur Phencyclidine Scrn (Negative) Ur Amphetamines Screen (Negative) U Methamphetamines Scrn (Negative) Ur MDMA Scrn (Ecstasy) (Negative) U Benzodiazepines Scrn (Negative) Urine Cocaine Screen (Negative) U Marijuana (THC) Screen (Negative) Ethyl Alcohol ( - 10) mg/dL COVID-19 PCR (Negative) 12/23/19 12/23/19 12/23/19 Range/Units 16:50 17:20 17:20 WBC (4.5-11.0) X10^3/uL RBC (4.0-5.2) X10^6/uL Hgb (12.0-16.0) g/dL Hct (36-46) % MCV (80-100) fL MCH (26-34) PG MCHC (30-36) % RDW (11.6-14.8) % Plt Count (150-400) X10^3/uL Neut % (Auto) (50-75) % Lymph % (Auto) (25-40) % [place] % (Auto) (3-14) % Eos % (Auto) (2-4) % Baso % (Auto) (0-2) % Neut # (Auto) (5028-9835) /uL Lymph # (Auto) (2354-6494) /uL [place] # (Auto) (0-900) /uL Eos # (Auto) (0-450) /uL Baso # (Auto) (0-100) /uL PT (10.1-12.7) SECONDS INR (0.9-1.3) APTT (26.4-36.2) SECONDS Sodium (137-145) mmol/L Potassium (3.4-5.1) mmol/L Chloride (98-107) mmol/L Carbon Dioxide (22-32) mmol/L BUN (7-17) mg/dL Creatinine (0.52-1.04) mg/dL Estimated GFR (>60) mL/min BUN/Creatinine Ratio (6-22) Glucose (80-110) mg/dL Lactate (0.7-2.1) mmol/L Calcium (8.4-10.2) mg/dL Phosphorus 4.5 H (2.8-4.1) mg/dL Total Bilirubin (0.2-1.3) mg/dL AST (14-36) IU/L ALT (<35) IU/L Alkaline Phosphatase (38-126) U/L Total Creatine Kinase (30-135) U/L CK-MB (CK-2) CK-MB (CK-2) Rel Index Troponin I (0.01-0.034) ng/mL NT-Pro-B Natriuret Pep (<450) pg/mL Total Protein (6.3-8.2) g/dL Albumin (3.5-5.0) g/dL Globulin (1.7-4.1) g/dL Albumin/Globulin Ratio (1.0-2.8) TSH (0.47-4.68) uIU/mL Prolactin (3.0-18.6) ng/mL Urine Color Yellow Urine Appearance Clear Urine pH 5.0 (4.5-8.0) Ur Specific [place] 1.010 (1.000-1.035) Urine Protein Negative (Negative) Urine Glucose (UA) Negative (Negative) g/dL Urine Ketones Negative (NEGATIVE) Urine Occult Blood Negative (Negative) Urine Nitrate Negative (Negative) Urine Bilirubin Negative (NEGATIVE) Urine Urobilinogen 0.2 (0.2) E.U./dL Ur Leukocyte Esterase Negative (NEGATIVE) Urine RBC None seen (0-5/HPF) Urine WBC 0-1/hpf (0-5/HPF) Ur Squamous Epith Cells 0-1 /hpf (0-5/HPF) Amorphous Sediment 2+ Urine Bacteria Occasional (0-1) D (None) Urine Mucus 2+ H (Negative) Ur Culture Indicated? Cult not indicated U Opiates 300ng/mL cut Negative (Negative) Ur Oxycodone Screen Negative (Negative) Urine Methadone Screen Negative (Negative) Ur Barbiturates Screen Negative (Negative) U Tricyclic Antidepress Negative (Negative) Ur Phencyclidine Scrn Negative (Negative) Ur Amphetamines Screen Negative (Negative) U Methamphetamines Scrn Negative (Negative) Ur MDMA Scrn (Ecstasy) Negative (Negative) U Benzodiazepines Scrn Negative (Negative) Urine Cocaine Screen Negative (Negative) U Marijuana (THC) Screen Negative (Negative) Ethyl Alcohol ( - 10) mg/dL COVID-19 PCR (Negative) 12/23/19 Range/Units 17:20 WBC (4.5-11.0) X10^3/uL RBC (4.0-5.2) X10^6/uL Hgb (12.0-16.0) g/dL Hct (36-46) % MCV (80-100) fL MCH (26-34) PG MCHC (30-36) % RDW (11.6-14.8) % Plt Count (150-400) X10^3/uL Neut % (Auto) (50-75) % Lymph % (Auto) (25-40) % [place] % (Auto) (3-14) % Eos % (Auto) (2-4) % Baso % (Auto) (0-2) % Neut # (Auto) (8358-0145) /uL Lymph # (Auto) (6269-1091) /uL [place] # (Auto) (0-900) /uL Eos # (Auto) (0-450) /uL Baso # (Auto) (0-100) /uL PT (10.1-12.7) SECONDS INR (0.9-1.3) APTT (26.4-36.2) SECONDS Sodium (137-145) mmol/L Potassium (3.4-5.1) mmol/L Chloride (98-107) mmol/L Carbon Dioxide (22-32) mmol/L BUN (7-17) mg/dL Creatinine (0.52-1.04) mg/dL Estimated GFR (>60) mL/min BUN/Creatinine Ratio (6-22) Glucose (80-110) mg/dL Lactate (0.7-2.1) mmol/L Calcium (8.4-10.2) mg/dL Phosphorus (2.8-4.1) mg/dL Total Bilirubin (0.2-1.3) mg/dL AST (14-36) IU/L ALT (<35) IU/L Alkaline Phosphatase (38-126) U/L Total Creatine Kinase (30-135) U/L CK-MB (CK-2) CK-MB (CK-2) Rel Index Troponin I (0.01-0.034) ng/mL NT-Pro-B Natriuret Pep (<450) pg/mL Total Protein (6.3-8.2) g/dL Albumin (3.5-5.0) g/dL Globulin (1.7-4.1) g/dL Albumin/Globulin Ratio (1.0-2.8) TSH (0.47-4.68) uIU/mL Prolactin (3.0-18.6) ng/mL Urine Color Urine Appearance Urine pH (4.5-8.0) Ur Specific [place] (1.000-1.035) Urine Protein (Negative) Urine Glucose (UA) (Negative) g/dL Urine Ketones (NEGATIVE) Urine Occult Blood (Negative) Urine Nitrate (Negative) Urine Bilirubin (NEGATIVE) Urine Urobilinogen (0.2) E.U./dL Ur Leukocyte Esterase (NEGATIVE) Urine RBC (0-5/HPF) Urine WBC (0-5/HPF) Ur Squamous Epith Cells (0-5/HPF) Amorphous Sediment Urine Bacteria (None) Urine Mucus (Negative) Ur Culture Indicated? U Opiates 300ng/mL cut (Negative) Ur Oxycodone Screen (Negative) Urine Methadone Screen (Negative) Ur Barbiturates Screen (Negative) U Tricyclic Antidepress (Negative) Ur Phencyclidine Scrn (Negative) Ur Amphetamines Screen (Negative) U Methamphetamines Scrn (Negative) Ur MDMA Scrn (Ecstasy) (Negative) U Benzodiazepines Scrn (Negative) Urine Cocaine Screen (Negative) U Marijuana (THC) Screen (Negative) Ethyl Alcohol ( - 10) mg/dL COVID-19 PCR Negative (Negative) Point of Care Testing Glucose POC 115 Discharge Plan Departure Patient Disposition: Admitted as Observation Clinical Impression: Weakness generalized, Adult failure to thrive Hypothyroid Qualifiers: Hypothyroidism type: unspecified Qualified Code(s): E03.9 - Hypothyroidism, unspecified Anemia Qualifiers: Anemia type: unspecified type Qualified Code(s): D64.9 - Anemia, unspecified Discharge Date/Time: 12/23/19 20:50 Admit Date/Time: 12/23/19 20:28 Admit Provider: Cleo Camacho
[2019-12-23 17:20] LABS: Troponin I < 0.012 ng/mL (0.01-0.034)
[2019-12-23] MEDS: SODIUM CHLORIDE 0.9% 1,000 ML 150 ML IV (17:22)
[2019-12-23 17:28] LABS: Ethanol (ETOH) < 10 mg/dL
[2019-12-23 17:46] LABS: RBC Urine None Seen (0-5/HPF)
--- NOTE | 2019-12-23 17:47 | PC.NURSE ---
Note: previous weight was 103.4 kg on 12/13
[2019-12-23 17:50] LABS: Appearance Urine UA CLEAR; Bilirubin Urine UA NEGATIVE (NEGATIVE); Color Urine UA YELLOW; Glucose Urine UA NEGATIVE (Negative); Ketones Urine UA NEGATIVE (NEGATIVE); Leukocyte Esterase Urine UA NEGATIVE (NEGATIVE); Nitrite Urine UA NEGATIVE (Negative); Occult Blood Urine UA NEGATIVE (Negative); Protein Urine UA NEGATIVE (Negative); Urobilinogen Urine UA 0.2 E.U./dL (0.2)
[2019-12-23 18:00] LABS: Amorphous Sediment Urine 2+; Bacteria Urine Occasional (0-1); Culture Indicated Urine Cult Not Indicated; Mucus Urine 2+ (Negative); Squamous Epithelial Cell Urine 0-1 /HPF (0-5/HPF); WBC Urine 0-1/HPF (0-5/HPF)
[2019-12-23 18:01] LABS: UR Morphine/Opiate cutoff 300 Negative (Negative); Ur Creatinine Normal (Normal); Ur Specific Gravity Normal (Normal); Urine Amphetamines Negative (Negative); Urine Barbiturates Negative (Negative); Urine Benzodiazepines Negative (Negative); Urine Cocaine Negative (Negative); Urine MDMA Negative (Negative); Urine Methadone Negative (Negative); Urine Methamphetamines Negative (Negative); Urine Oxycodone Negative (Negative); Urine Phencyclidine Negative (Negative); Urine Tetrahydrocannabinol Negative (Negative); Urine Tricyclic Antidepressant Negative (Negative); Urine pH Normal (Normal)
[2019-12-23 18:05] LABS: Prolactin 10.7 ng/mL (3.0-18.6)
[2019-12-23 18:08] LABS: NT-proBNP (BNP-Adult 18+) 769 pg/mL (<450)
[2019-12-23 18:22] LABS: Thyroid Stimulating Hormone 5.35 uIU/mL (0.47-4.68)
--- NOTE | 2019-12-23 18:40 | DI.CT.S_ITS ---
PROCEDURE: CT HEAD/BRAIN WO CON INDICATIONS: increasing weakness TECHNIQUE: Noncontrast 4.5 mm thick angled axial sections acquired from the foramen magnum to the vertex, with coronal and sagittal reformats. For radiation dose reduction, the following was used: automated exposure control, adjustment of mA and/or kV according to patient size. COMPARISON: [facility], MR, MR STROKE, 09/09/2018, 16:02. [facility], CT, CT HEAD/BRAIN WO CON, 09/01/2019, 20:55. FINDINGS: Image quality: Excellent. CSF spaces: Basal cisterns are patent. No extra-axial fluid collections. The ventricles are symmetric in size and shape. Brain: No intracranial bleeds or masses. There is mild cerebral volume loss for age, with resultant ventricular and sulcal prominence. There are moderate periventricular and deep white matter chronic small vessel ischemic changes. There is intracranial internal carotid artery atherosclerosis. Skull and face: Calvarium and visualized facial bones appear intact, without suspicious lesions. Sinuses: Visualized sinuses and mastoids are clear. IMPRESSION: 1. No acute intracranial abnormalities. 2. Cerebral volume loss and chronic microvascular ischemic changes. Dictated by: Xu Lo M.D. on 12/23/2019 at 19:19 Approved by: Xu Lo M.D. on 12/23/2019 at 19:21
[2019-12-23 18:59] LABS: COVID19 -Nasal RAPID Negative (Negative)
[2019-12-23 20:57] LABS: Phosphorous 4.5 mg/dL (2.8-4.1)
[2019-12-23] MEDS: DEXTROSE 5%-0.9% NS 1,000 ML 100 ML IV (21:29)
--- NOTE | 2019-12-23 21:49 | P.HP_ITS ---
History of Present Illness History of Present Illness Date Patient Seen: 12/23/19 Time Patient Seen: 20:20 Chief complaint: failure to thrive, thinks stroke symptoms Narrative: Nanci Jones is an 84 y.o. female who was recently diagnosed with a CVA on September 27, 2019. She was subsequently discharged to rehab at [facility] and discharged on during the first week of November. Daughter who is in the room states she has shown a steady decline since returning home. Of concern is that the patient appears to her to be aspirating and she is eating less and less. The patient states she does not like the taste of the food she eats and when asked to elaborate, states she cannot chew her food. She states she is tired, always cold, has shortness of breath with exertion, denies chest pain, abdominal pain, dysurea, or constipation. She has had intermittent bouts of diarrhea and urinary incontinence per her daughter. Patient is very lethargic and seems to have word finding issues, then will fall asleep mid sentence. When asked how much the patient has been eating, daughter states she has been serving her smaller and smaller meal portions and at this point is only a few bites per meal. The patient lives on the upper floor, while the daughter lives on a lower floor and takes care of her mother. In the ED, CT of the head report indicated cerebral volume loss and chronic microvascular ischemic changes and internal carotid artery athrosclerosis. Patient normally takes metoprolol, but was held by her PCP due to hypotension. Patient History Medical History Acute intermittent porphyria (Acute) Arthralgia (Chronic 04/17/15) Arthritis (Acute) Chronic renal failure, stage 3 (moderate) (Chronic) Essential hypertension (Chronic 04/17/15) History of CVA with residual deficit (Chronic) Mixed hyperlipidemia (Chronic) Morbid obesity due to excess calories (Chronic 06/29/15) Surgical History History of appendectomy (Acute) History of total left knee replacement (Acute) Family & Social History Social History: household members children Safety & Behavioral: Feels Safe in Current Yes Environment Been Physically Hurt or No Threatened By a Person Suicidal Ideation Description None Suicide Plan Description No Plan Tobacco & Substance use: Tobacco type cigarettes Smoking Status Former smoker alcohol intake never alcohol intake frequency 0-2 drinks per day Substance Use Type does not use Meds Home Medications and Allergies Home Medications Medication Instructions Recorded Confirmed Type Disabled Parking Permit See Protocol MISCELLANEOUS 09/09/18 12/23/19 History DIRECTED aspirin 325 mg tablet,delayed 325 mg PO DAILY 10/05/18 12/23/19 History release acetaminophen 500 mg tablet 500 mg PO ONCE PRN tab 10/19/18 12/23/19 History atorvastatin 40 mg tablet 40 mg PO DAILY #90 tab 05/22/19 12/23/19 Rx clopidogrel 75 mg tablet 75 mg PO DAILY #90 tab 05/22/19 12/23/19 Rx terbinafine HCl [Lamisil AT] 1 applic TOPICAL BID 12/23/19 12/23/19 History Allergies Allergy/AdvReac Type Severity Reaction Status Date / Time Sulfa (Sulfonamide Allergy Unknown Verified 12/17/19 14:25 Antibiotics) [SULFA (SULFONAMIDE ANTIBIOTICS)] amlodipine [AMLODIPINE] AdvReac Intermediate edema legs Verified 12/17/19 14:25 naproxen [NAPROXEN] AdvReac Mild DIZZINESS Verified 12/17/19 14:25 Barbiturates [BARBITURATES] AdvReac Unknown Verified 12/17/19 14:25 ergot alkaloids AdvReac Unknown Verified 12/17/19 14:25 [ERGOT ALKALOIDS] Review of Systems Review of Systems ROS: Yes All systems reviewed with the patient and are negative except as otherwise documented Exam Vital Signs (past 8 hours): - 12/23/19 16:31 12/23/19 16:59 12/23/19 17:30 Temperature 95.9 F L Pulse Rate 64 55 L 55 L Respiratory Rate 22 12 23 Blood Pressure 116/65 Blood Pressure [Left Wrist] 113/56 L 114/57 L Pulse Oximetry 94 96 95 12/23/19 17:45 12/23/19 18:00 12/23/19 19:37 Temperature Pulse Rate 51 L 53 L 52 L Respiratory Rate 22 22 17 Blood Pressure Blood Pressure [Left Wrist] 106/56 L 106/53 L 120/59 L Pulse Oximetry 95 95 96 12/23/19 20:35 12/23/19 20:40 Temperature Pulse Rate 58 L 58 L Respiratory Rate 17 17 Blood Pressure 120/59 L 120/59 L Blood Pressure [Left Wrist] Pulse Oximetry 98 98 Oxygen Delivery Method Room Air Oxygen Flow Rate 0 Narrative Exam Narrative: Gen: Alert, oriented, morbidly obese 84 y.o. female, very lethargic HEENT: normocephalic, atraumatic, conjunctiva clear, sclera non-icteric, oral mucosa pink and moist Neck: supple, full ROM, no JVD, trachea is midline Resp: Lungs CTA, non-labored breathing CV: RRR, no murmur or rubs Abd: soft, non-tender, normoactive BTs Skin: no lesions or rashes, dry and intact Neuro: Alert and oriented X 4 w/no focal deficits. Speech is faint and labored. Extremities: Plus 3 pitting edema, moves all 4 extremities, is ambulatory with assistance, negative Conchita?s sign Psyche: depressed affect. Objective Labs Result Diagrams: 12/23/19 16:50 12/23/19 16:50 Labs: Laboratory Results - last 24 hr 12/23/19 12/23/19 12/23/19 16:50 16:50 16:50 WBC 6.2 RBC 2.59 L Hgb 8.7 L Hct 25.4 L MCV 97.9 MCH 33.5 MCHC 34.2 RDW 16.5 H Plt Count 112 L Neut % (Auto) 70.1 Lymph % (Auto) 15.4 L [place] % (Auto) 9.7 Eos % (Auto) 4.4 H Baso % (Auto) 0.4 Neut # (Auto) 4400 Lymph # (Auto) 1000 L [place] # (Auto) 600 Eos # (Auto) 300 Baso # (Auto) 0 PT 13.0 H INR 1.1 APTT 38 H D Sodium 132 L Potassium 3.7 Chloride 102 Carbon Dioxide 21 L BUN 47 H Creatinine 2.30 H Estimated GFR 20.2 L BUN/Creatinine Ratio 20.4 Glucose 114 H Lactate Calcium 9.6 Phosphorus Total Bilirubin 0.6 AST 29 ALT 18 Alkaline Phosphatase 120 Total Creatine Kinase 36 CK-MB (CK-2) TNP CK-MB (CK-2) Rel Index TNP Troponin I < 0.012 NT-Pro-B Natriuret Pep Total Protein 6.5 Albumin 3.3 L Globulin 3.2 Albumin/Globulin Ratio 1.0 TSH Prolactin 10.7 Urine Color Urine Appearance Urine pH Ur Specific [place] Urine Protein Urine Glucose (UA) Urine Ketones Urine Occult Blood Urine Nitrate Urine Bilirubin Urine Urobilinogen Ur Leukocyte Esterase Urine RBC Urine WBC Ur Squamous Epith Cells Amorphous Sediment Urine Bacteria Urine Mucus Ur Culture Indicated? U Opiates 300ng/mL cut Ur Oxycodone Screen Urine Methadone Screen Ur Barbiturates Screen U Tricyclic Antidepress Ur Phencyclidine Scrn Ur Amphetamines Screen U Methamphetamines Scrn Ur MDMA Scrn (Ecstasy) U Benzodiazepines Scrn Urine Cocaine Screen U Marijuana (THC) Screen Ethyl Alcohol < 10 COVID-19 PCR 12/23/19 12/23/19 12/23/19 16:50 16:50 16:50 WBC RBC Hgb Hct MCV MCH MCHC RDW Plt Count Neut % (Auto) Lymph % (Auto) [place] % (Auto) Eos % (Auto) Baso % (Auto) Neut # (Auto) Lymph # (Auto) [place] # (Auto) Eos # (Auto) Baso # (Auto) PT INR APTT Sodium Potassium Chloride Carbon Dioxide BUN Creatinine Estimated GFR BUN/Creatinine Ratio Glucose Lactate 2.0 Calcium Phosphorus Total Bilirubin AST ALT Alkaline Phosphatase Total Creatine Kinase CK-MB (CK-2) CK-MB (CK-2) Rel Index Troponin I NT-Pro-B Natriuret Pep 769 H Total Protein Albumin Globulin Albumin/Globulin Ratio TSH 5.35 H Prolactin Urine Color Urine Appearance Urine pH Ur Specific [place] Urine Protein Urine Glucose (UA) Urine Ketones Urine Occult Blood Urine Nitrate Urine Bilirubin Urine Urobilinogen Ur Leukocyte Esterase Urine RBC Urine WBC Ur Squamous Epith Cells Amorphous Sediment Urine Bacteria Urine Mucus Ur Culture Indicated? U Opiates 300ng/mL cut Ur Oxycodone Screen Urine Methadone Screen Ur Barbiturates Screen U Tricyclic Antidepress Ur Phencyclidine Scrn Ur Amphetamines Screen U Methamphetamines Scrn Ur MDMA Scrn (Ecstasy) U Benzodiazepines Scrn Urine Cocaine Screen U Marijuana (THC) Screen Ethyl Alcohol COVID-19 PCR 12/23/19 12/23/19 12/23/19 16:50 17:20 17:20 WBC RBC Hgb Hct MCV MCH MCHC RDW Plt Count Neut % (Auto) Lymph % (Auto) [place] % (Auto) Eos % (Auto) Baso % (Auto) Neut # (Auto) Lymph # (Auto) [place] # (Auto) Eos # (Auto) Baso # (Auto) PT INR APTT Sodium Potassium Chloride Carbon Dioxide BUN Creatinine Estimated GFR BUN/Creatinine Ratio Glucose Lactate Calcium Phosphorus 4.5 H Total Bilirubin AST ALT Alkaline Phosphatase Total Creatine Kinase CK-MB (CK-2) CK-MB (CK-2) Rel Index Troponin I NT-Pro-B Natriuret Pep Total Protein Albumin Globulin Albumin/Globulin Ratio TSH Prolactin Urine Color Yellow Urine Appearance Clear Urine pH 5.0 Ur Specific [place] 1.010 Urine Protein Negative Urine Glucose (UA) Negative Urine Ketones Negative Urine Occult Blood Negative Urine Nitrate Negative Urine Bilirubin Negative Urine Urobilinogen 0.2 Ur Leukocyte Esterase Negative Urine RBC None seen Urine WBC 0-1/hpf Ur Squamous Epith Cells 0-1 /hpf Amorphous Sediment 2+ Urine Bacteria Occasional (0-1) D Urine Mucus 2+ H Ur Culture Indicated? Cult not indicated U Opiates 300ng/mL cut Negative Ur Oxycodone Screen Negative Urine Methadone Screen Negative Ur Barbiturates Screen Negative U Tricyclic Antidepress Negative Ur Phencyclidine Scrn Negative Ur Amphetamines Screen Negative U Methamphetamines Scrn Negative Ur MDMA Scrn (Ecstasy) Negative U Benzodiazepines Scrn Negative Urine Cocaine Screen Negative U Marijuana (THC) Screen Negative Ethyl Alcohol COVID-19 PCR 12/23/19 17:20 WBC RBC Hgb Hct MCV MCH MCHC RDW Plt Count Neut % (Auto) Lymph % (Auto) [place] % (Auto) Eos % (Auto) Baso % (Auto) Neut # (Auto) Lymph # (Auto) [place] # (Auto) Eos # (Auto) Baso # (Auto) PT INR APTT Sodium Potassium Chloride Carbon Dioxide BUN Creatinine Estimated GFR BUN/Creatinine Ratio Glucose Lactate Calcium Phosphorus Total Bilirubin AST ALT Alkaline Phosphatase Total Creatine Kinase CK-MB (CK-2) CK-MB (CK-2) Rel Index Troponin I NT-Pro-B Natriuret Pep Total Protein Albumin Globulin Albumin/Globulin Ratio TSH Prolactin Urine Color Urine Appearance Urine pH Ur Specific [place] Urine Protein Urine Glucose (UA) Urine Ketones Urine Occult Blood Urine Nitrate Urine Bilirubin Urine Urobilinogen Ur Leukocyte Esterase Urine RBC Urine WBC Ur Squamous Epith Cells Amorphous Sediment Urine Bacteria Urine Mucus Ur Culture Indicated? U Opiates 300ng/mL cut Ur Oxycodone Screen Urine Methadone Screen Ur Barbiturates Screen U Tricyclic Antidepress Ur Phencyclidine Scrn Ur Amphetamines Screen U Methamphetamines Scrn Ur MDMA Scrn (Ecstasy) U Benzodiazepines Scrn Urine Cocaine Screen U Marijuana (THC) Screen Ethyl Alcohol COVID-19 PCR Negative Assessment & Plan Assessment & Plan narrative: Nnaci Jones will be placed into observation for evaluation of weakness and swallowing impairment DENNIS, superimposed on Stage 3 CKD, present on admission -Creatinine is 2.4 in the setting of patient's baseline creatinine of 1.3-1.4 -Will gently hydrate w/NS at 100 ml/hour over night Acute, moderate hyponatremia of 132, present on admission -See above, recheck sodium in the am Swallowing disorder, acute, present on admission -I have requested a formal swallow evaluation by speech therapy for the am. -NPO until seen by ST New diagnosis of hypothyroidism with a TSH of 5.35 -Ordered reflex to T3 -She is started on levothyroxine 88 mcg and will need to have level checked in one month Essential hypertension, chronic and currently not present -Patient's PCP held metoprolol and losartan due to hypotension -Patient reported to PCP of dizzy spells with positional changes -Orthostatic vitals q shift. Current atrial fibrillation seen on telemetry strips -Troponin now -It is possible that metoprolol may have controlled atrial fibrillation in the past -Last echo in early September 2018, I have ordered a a complete doppler echo for the am. -MRI stroke in the am Consults: Speech and physical therapy: consult and involvement is appreciated. Patient is observation status as her stay is not likely to exceed 2 midnights. FEN: NS at 100 ml/hour X 1L, NPO, BMP in the am. VTE prophylaxis: Bilateral SCDs Heparin 5000 units subQ bid Dispo: Likely continuation of rehab Code Status: DNR/DNI as discussed with patient COVID-19 COVID-19 status: Negative Result date/Date tested (Pos, Neg/Pending): 12/23/19 Quality VTE Deep Vein Thrombosis/Pulmonary Embolism Present on Admission: No
--- NOTE | 2019-12-23 22:11 | PC.NURSE ---
Attempted multiple times to take temp oral. Was not able to. Highest reading was 95 degrees F. RN aware.
[2019-12-23] MEDS: HEPARIN 5,000 UNIT/ML VIAL 5000 UNIT SUBCUT (22:24)
--- NOTE | 2019-12-23 22:59 | PC.NURSE ---
Admit/evening shift: Report received from ER. Patient received 2044. Daughter Bonita present. Patient drowsy. Gave wrong birthdate on first attempt, correct on second attempt. VSS. No c/o pain. Multiple bruises and areas of yeast infection--see skin doc. Sinus morgan/lily mckoy.
[2019-12-23 23:20] LABS: Troponin I < 0.012 ng/mL (0.01-0.034)
[2019-12-23] MEDS: SODIUM CHLORIDE 0.9% 1,000 ML 100 ML IV (23:58)
[2019-12-24] VITALS (15 sets, daily range): BP systolic 99–121; BP diastolic 46–71; PULSE 53–63; RESP 16–18; TEMP 35.2–36.2; O2SAT 94–100
--- NOTE | 2019-12-24 06:42 | PC.NURSE ---
Reported by C.N.A that the ICU nurse called and patients heart rate dipped down into the 20's and reports her O2 sats were into the 60-70's. Nurse Janis notified. O2 @ 4L placed and O2Will have Janis RN notify . sats went up to 100%. O2 decreased to 2L, heart rate increased to the 60's. Patient easily aroused with no complaints.
--- NOTE | 2019-12-24 06:53 | PC.NURSE ---
Cleo DENNIS notified of patients HR dipping into the 20's and her O2 sats and that patient was placed on 2L O2.
--- NOTE | 2019-12-24 07:55 | PC.NURSE ---
Patient alert, oriented reports feeling, weak and shaky. Blood glucose checked 74. Denies pain, BP 112/[address] Mondragon notified of patients blood sugar and HR that went in the 20's on NOC shift. New orders received.
[2019-12-24] MEDS: DEXTROSE 50 % IN WATER 25 GM/50 ML SYRINGE IV ×2 (09:05→17:25)
[2019-12-24] MEDS: HEPARIN 5,000 UNIT/ML VIAL 5000 UNIT SUBCUT ×2 (09:17→20:19)
--- NOTE | 2019-12-24 09:20 | PC.NURSE ---
Patient is alert and oriented, denies pain but reports she is weak and shaky. Blood glucose finger stick is 72, Dr Mondragon aware, IV dextrose given as ordered. HR 56, LS CTA. Sats on RA 94%. Speech therapist in to assess patient, patient remains NPO at this time per CLINICAL APPEALS RN. Barium swallow ordered.
--- NOTE | 2019-12-24 09:39 | SLP.IPNOTE ---
Orders received for MBS. Pt has MRI scheduled for 10:30. For pt safety, will hold MBS until after MRI to reduce reflux aspiration risk. Will proceed after MRI if pt able to tolerate.
--- NOTE | 2019-12-24 10:00 | DI.MRI.S_ITS ---
PROCEDURE: MR STROKE Pre- and post-contrast brain MRI, non-contrast brain MR angiogram, pre- and postcontrast neck MR angiogram INDICATIONS: Dysphasia, started a week ago TECHNIQUE: Brain: Noncontrast axial T1 spin echo, axial T2 fast spin echo, sagittal and axial FLAIR, coronal T2 fast spin echo, axial gradient echo, axial diffusion and ADC through the brain. After the administration of contrast, axial 3D VIBE of the cranial vasculature and brain. Brain MRA: Non-contrast 3-D time of flight MR angiogram, with multiple wkoquds-vtontsmey-wmzjnjzyqg (MIP) reformats performed. Neck MRA: Axial and sagittal TruFISP through the neck. Coronal dynamic MR angiogram during administration of contrast in the arterial and venous phases, with 3-dimenstional bpwimnd-alzkniubp-fnxsvtkgvw (MIP) reformats constructed from subtraction images. COMPARISON: [facility], US, US CAROTID DOPPLER BI, 09/10/2018, 8:15. [facility], EC, EC ECHO DOPPLER COMPLETE, 09/09/2018, 11:41. [facility], MR, STROKE PROTOCOL, 06/23/2015, 14:01. [facility], CT, CT ANGIO HEAD AND NECK, 10/04/2018, 11:30. [facility], CT, CT HEAD/BRAIN WO CON, 09/01/2019, 20:55. [facility], CT, CT HEAD/BRAIN WO CON, 10/04/2018, 11:21. [facility], MR, MR STROKE, 09/09/2018, 16:02. FINDINGS: Image quality: Excellent. BRAIN: CSF spaces: Ventricles are normal in size and shape. Basal cisterns are patent. No extra-axial fluid collections. Brain: No intracranial bleeds or mass effects. There is mild cerebral volume loss. Multiple foci of T2 hyperintensity in periventricular white matter, compatible with chronic small vessel ischemic changes. Diffusion weighted images show no acute ischemic insults. Brainstem appears normal. Normal intravascular flow voids are present. No abnormal intracranial enhancement. Skull and face: Calvarial marrow signal is normal. Orbits appear normal. Sinuses: Sinuses and mastoids are clear. BRAIN MR ANGIOGRAM: Anterior circulation: Intracranial internal carotid arteries are obtained. There is jlzb-wc-pylndhpl narrowing (~50%) in cavernous segment of the internal carotid arteries bilaterally. The flow within the paired anterior cerebral arteries is normal and symmetric. The flow within the middle cerebral arteries is symmetric with diffuse irregularity secondary to atherosclerosis. The anterior communicating artery is seen. No stenoses, occlusions, or aneurysms. Posterior circulation: The visualized portions of the vertebral arteries demonstrate normal caliber, and join to form a normal appearing basilar artery. The flow within the posterior cerebral arteries is normal and symmetric. No stenoses, occlusions, or aneurysms. NECK MR ANGIOGRAM: Carotids: Great vessels demonstrate a conventional anatomy as they arise from the aortic arch. The origins of the common carotid arteries appear patent. The calibers and courses of both common carotid arteries are normal. The bifurcation regions appear normal bilaterally. The internal carotid arteries demonstrate normal course and caliber. There is diffuse irregularities in common and internal carotid arteries bilaterally. Posterior circulation: The left vertebral artery is dominant. The origins of the vertebral arteries are not well-seen. Suspect high-grade stenosis in the proximal right vertebral artery. More superior portions of both vertebral arteries demonstrate normal course and caliber, and join to form a normal appearing basilar artery. Miscellaneous: Subclavian arteries appear patent. Pre-contrast images through the neck show no soft tissue abnormalities. Small bilateral pleural effusions are present. There is enlargement of left thyroid lobe with a left thyroid nodule. IMPRESSION: BRAIN MRI: 1. No acute intracranial abnormalities. 2. Mild cerebral volume loss. 3. Multiple foci of T2 hyperintensity in periventricular white matter are compatible with chronic small vessel ischemic changes. A differential diagnosis is a demyelinating process such as multiple sclerosis. Recommend clinical correlation. BRAIN MR ANGIOGRAM: 1. Jpyc-on-ohqfxrch stenosis of the cavernous segment of the internal carotid arteries bilaterally. 2. Diffuse irregularity of middle cerebral arteries bilaterally; but no high-grade stenosis or occlusion. NECK MR ANGIOGRAM: 1. Diffuse irregularities in common and internal carotid arteries bilaterally. No high-grade stenosis or occlusion. 2. Suboptimal visualization of the deeper artery origins. Suspect high-grade stenosis of the right proximal vertebral artery. 3. Enlargement of the left lower lobe with a left thyroid nodule. Thyroid ultrasound may be obtained for followup. Dictated by: Xu Lo M.D. on 12/24/2019 at 11:23 Approved by: Xu Lo M.D. on 12/24/2019 at 11:49
[2019-12-24] MEDS: ASPIRIN EC 325 MG TABLET PO (11:50)
[2019-12-24] MEDS: LEVOTHYROXINE 88 MCG TABLET PO (11:50)
[2019-12-24] MEDS: CLOPIDOGREL 75 MG TABLET PO (11:50)
[2019-12-24] MEDS: ACETAMINOPHEN 325 MG TABLET 650 MG PO ×2 (11:50→19:17)
--- NOTE | 2019-12-24 12:06 | DI.ECHO.S_ITS ---
Echocardiogram Report + + :Name: ANGELA MCKINNEY Study Date: 12/24/2019 Height: 60 in : :[facility] Exam Location: IS Weight: 202 lb : : Gender: Female BSA: 1.9 m2 : :: 1935 Age: 84 yrs BP: 121/55 mmHg: :Reason For Study: Atrial fibrillation : : Performed By: Hortensia Page : :Referring: DOMINGA GORDON : + + Interpretation Summary 1) Normal left ventricular thickness, size, wall motion, and systolic function (EF 60-65%). 2) The right ventricle is mildly dilated with normal function. 3) No significant valvular abnormalities. 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 5) The IVC is dilated (diameter is greater than 2.1 cm) and it collapses less than 50% with a sniff. This suggests a high right atrial pressure of 15 mm Hg. 6) Compared to the Echo done 09/09/2018, grade 5, mobile atheroma is visualized on this study. Procedure: A two-dimensional transthoracic echocardiogram with color flow and Doppler was performed. The study quality was technically adequate. Comparison is made with the echocardiogram of 09/09/2018. The patient was in atrial flutter with heart rates between 55-91 bpm during the exam. Left Ventricle: The left ventricle is normal in size, wall thickness, and systolic function without any focal wall motion abnormalities. The ejection fraction is estimated to be 60-65%. Right Ventricle: The right ventricle is mildly dilated. The right ventricular systolic function is normal. Atria: The left atrium is moderately dilated. The right atrium is mildly dilated. There is no Doppler evidence for an interatrial shunt. Mitral Valve: The mitral valve leaflets appear mildly thickened, but open well. There is mild mitral regurgitation. Aortic Valve: The aortic valve is trileaflet. The aortic valve opens well. The aortic valve is slightly calcified. There is no aortic valve stenosis. There is trace aortic regurgitation. Tricuspid Valve: The tricuspid valve is normal in structure and function. There is mild tricuspid regurgitation. The right ventricular systolic pressure is estimated to be at least 64 mmHg based on an estimated right atrial pressure of 15 mm Hg. Pulmonic Valve: The pulmonic valve is not well visualized. Great Vessels: The aortic root is normal size. Atherosclerosis, including a grade 5 mobile atheroma, noted in the aortic arch. The pulmonary artery is not well visualized, but is probably normal size. The IVC is dilated (diameter is greater than 2.1 cm) and it collapses less than 50% with a sniff. This suggests a high right atrial pressure of 15 mm Hg. Pericardium/ Pleura There is no pericardial effusion. There is an anterior echo-free space consistent with a fat pad. There is no pleural effusion. MMode/2D Measurements & Calculations LVIDd: 4.6 cm LVOT diam: 1.9 cm LVIDs: 2.1 cm Ao root diam: 3.1 cm FS: 54.3 % IVSd: 0.70 cm LVPWd: 0.85 cm LV velasco. diameter/BSA (cm/m^2): 2.5 LV sys. diameter/BSA (cm/m^2): 1.1 LA A2 area: 22.9 cm2 RA long axis: 4.7 cm LA A4 area: 22.4 cm2 RA area: 17.4 cm2 LA length (vol): 5.4 cm RA vol: 55.3 ml LA vol: 81.2 ml RA : 29.5 ml/m2 LA vol index: 43.3 ml/m2 IVC diam: 2.9 cm RVD1 (basal): 4.2 cm TAPSE: 2.2 cm Doppler Measurements & Calculations Ao V2 max: 140.5 cm/sec LVOT Max Byron: 94.3 cm/sec Ao V2 mean: 90.4 cm/sec LV V1 max P.6 mmHg Ao max P.9 mmHg LV V1 VTI: 25.6 cm Ao mean P.8 mmHg JACOB(I,D): 1.9 cm2 Ao V2 VTI: 37.1 cm JACOB(V,D): 1.9 cm2 sev ratio: 0.69 JACOB indexed to BSA (cm^2/m^2): 1.0 MV E max byron: 113.3 cm/sec TR max byron: 348.7 cm/sec MV A max byron: 99.2 cm/sec TR max P.6 mmHg MV E/A: 1.1 Med Peak E' Byron: 5.4 cm/sec E/E' med: 21.1 Lat Peak E' Byron: 5.5 cm/sec E/E' lat: 20.7 E/e' average: 20.9 MV P1/2t: 64.1 msec MV P1/2t max byron: 112.6 cm/sec SV(LVOT): 71.9 ml MVA(P1/2t): 3.4 cm2 Reading Physician:01:41 PM
[2019-12-24 13:25] LABS: Add Manual Diff / Slide Review NO; Basophils Absolute Auto 0 /uL (0-100); Basophils Percent Auto 0.6 % (0-2); Eosinophils Absolute Auto 200 /uL (0-450); Eosinophils Percent Auto 3.9 % (2-4); Hematocrit 23.3 % (36-46); Hemoglobin 7.9 g/dL (12.0-16.0); Lymphocytes Absolute Auto 600 /uL (1100-4500); Lymphocytes Percent Auto 12.8 % (25-40); Mean Corpuscular HGB Conc 33.9 % (30-36); Mean Corpuscular Hemoglobin 33.6 PG (26-34); Mean Corpuscular Volume 98.9 fL (80-100); Monocytes Absolute Auto 400 /uL (0-900); Monocytes Percent Auto 7.7 % (3-14); Neutrophils Absolute Auto 3400 /uL (1500-7000); Platelet Count 92 X10^3/uL (150-400); Red Blood Cell Count 2.36 X10^6/uL (4.0-5.2); Red Cell Distribution Width 16.9 % (11.6-14.8); White Blood Cell Count 4.6 X10^3/uL (4.5-11.0)
--- NOTE | 2019-12-24 14:09 | DI.US.S_ITS ---
PROCEDURE: US THYROID INDICATIONS: NODULE TECHNIQUE: Real-time scanning was performed of the thyroid gland, with image documentation. COMPARISON: None. FINDINGS: Right: Thyroid lobe measures 4.0 x 1.3 x 1.3 cm, and is homogeneous in echotexture. Left: Thyroid lobe measures 4.0 x 1.2 x 1.6 cm, and is homogenous in echotexture. Color-flow demonstrates diffuse heterogeneous echotexture. Isthmus: 2 mm thick. No nodules identified IMPRESSION: No nodule identified Diffuse heterogeneous appearance of the left lobe of thyroid, technically non-specific finding; recommend clinical and biochemical correlation. ACR TI-RADS definitions and recommendations: TI-RADS 1 (benign): 0 points. FNA not needed. TI-RADS 2 (not suspicious): 2 points. FNA not needed. TI-RADS 3 (mildly suspicious): 3 points. * FNA if 2.5 cm or larger, follow up if 1.5 cm or larger (at 1, 3, and 5 years). TI-RADS 4 (moderately suspicious): 4-6 points. * FNA if 1.5 cm or larger, follow up if 1 cm or larger (at 1, 2, 3, and 5 years). TI-RADS 5 (highly suspicious): 7 points or more. * FNA if 1 cm or larger, follow up if 0.5 cm or larger (every year for 5 years). Dictated by: Davon Camacho M.D. on 12/24/2019 at 15:41 Approved by: Davon Camacho M.D. on 12/24/2019 at 15:47
--- NOTE | 2019-12-24 14:12 | OT.IPNOTE ---
To hold OT eval, pt to get a transfusion today.
--- NOTE | 2019-12-24 14:32 | P.PN_ITS ---
Subjective Subjective Date Patient Seen: 12/24/19 Interval history: The patient is an 84-year-old female who is status post ORIF left distal femur fracture in November of 2019. [facility] and then returned home. She has had a gradual decline of her functional status. She has had increasing weakness. Patient has been fatigued dizzy and unable to manage her usual activities of daily living. The patient denies any shortness of breath. She was noted to have low blood pressure. She was seen by primary care physician, Dr. Garber and her medications were adjusted. She was taken off of her usual blood pressure medications and Lasix. Despite that she continued to have progressive decline. The patient was having trouble eating. She was choking on her food. She denied any shortness of breath. She reports some visual changes but no ptosis per se. She presented to the emergency room for further evaluation. In the emergency room a head CT was negative. Patient had an had MRI which was negative both on MRI and MR angio. However the neck portion did show would look like a possible thyroid nodule. Her patient's TSH was elevated at 5. She was started on thyroid medication. Exam Vital Signs (past 8 hours): - 12/24/19 08:00 12/24/19 08:03 12/24/19 10:18 Temperature 95.4 F L Pulse Rate 62 Respiratory Rate 18 Blood Pressure 114/71 Pulse Oximetry 100 100 96 12/24/19 12:00 Temperature 95.8 F L Pulse Rate 63 Respiratory Rate 18 Blood Pressure 121/55 L Pulse Oximetry 96 Oxygen Delivery Method Room Air Oxygen Flow Rate 0 Narrative Exam Narrative: Ill-appearing female lying in bed Lungs: Decreased breath sounds with bibasilar crackles Cardiac exam: Regular rate and rhythm normal S1-S2 Abdomen: Soft nontender nondistended Extremities: Trace edema, left knee with a well-healed surgical incision site Objective Labs Result Diagrams: 12/24/19 13:18 12/23/19 16:50 Labs: Laboratory Results - last 24 hr 12/23/19 12/23/19 12/23/19 16:50 16:50 16:50 WBC 6.2 RBC 2.59 L Hgb 8.7 L Hct 25.4 L MCV 97.9 MCH 33.5 MCHC 34.2 RDW 16.5 H Plt Count 112 L Neut % (Auto) 70.1 Lymph % (Auto) 15.4 L [place] % (Auto) 9.7 Eos % (Auto) 4.4 H Baso % (Auto) 0.4 Neut # (Auto) 4400 Lymph # (Auto) 1000 L [place] # (Auto) 600 Eos # (Auto) 300 Baso # (Auto) 0 PT 13.0 H INR 1.1 APTT 38 H D Sodium 132 L Potassium 3.7 Chloride 102 Carbon Dioxide 21 L BUN 47 H Creatinine 2.30 H Estimated GFR 20.2 L BUN/Creatinine Ratio 20.4 Glucose 114 H Lactate Calcium 9.6 Phosphorus Total Bilirubin 0.6 AST 29 ALT 18 Alkaline Phosphatase 120 Total Creatine Kinase 36 CK-MB (CK-2) TNP CK-MB (CK-2) Rel Index TNP Troponin I < 0.012 NT-Pro-B Natriuret Pep Total Protein 6.5 Albumin 3.3 L Globulin 3.2 Albumin/Globulin Ratio 1.0 TSH Prolactin 10.7 Urine Color Urine Appearance Urine pH Ur Specific [place] Urine Protein Urine Glucose (UA) Urine Ketones Urine Occult Blood Urine Nitrate Urine Bilirubin Urine Urobilinogen Ur Leukocyte Esterase Urine RBC Urine WBC Ur Squamous Epith Cells Amorphous Sediment Urine Bacteria Urine Mucus Ur Culture Indicated? U Opiates 300ng/mL cut Ur Oxycodone Screen Urine Methadone Screen Ur Barbiturates Screen U Tricyclic Antidepress Ur Phencyclidine Scrn Ur Amphetamines Screen U Methamphetamines Scrn Ur MDMA Scrn (Ecstasy) U Benzodiazepines Scrn Urine Cocaine Screen U Marijuana (THC) Screen Ethyl Alcohol < 10 COVID-19 PCR 12/23/19 12/23/19 12/23/19 16:50 16:50 16:50 WBC RBC Hgb Hct MCV MCH MCHC RDW Plt Count Neut % (Auto) Lymph % (Auto) [place] % (Auto) Eos % (Auto) Baso % (Auto) Neut # (Auto) Lymph # (Auto) [place] # (Auto) Eos # (Auto) Baso # (Auto) PT INR APTT Sodium Potassium Chloride Carbon Dioxide BUN Creatinine Estimated GFR BUN/Creatinine Ratio Glucose Lactate 2.0 Calcium Phosphorus Total Bilirubin AST ALT Alkaline Phosphatase Total Creatine Kinase CK-MB (CK-2) CK-MB (CK-2) Rel Index Troponin I NT-Pro-B Natriuret Pep 769 H Total Protein Albumin Globulin Albumin/Globulin Ratio TSH 5.35 H Prolactin Urine Color Urine Appearance Urine pH Ur Specific [place] Urine Protein Urine Glucose (UA) Urine Ketones Urine Occult Blood Urine Nitrate Urine Bilirubin Urine Urobilinogen Ur Leukocyte Esterase Urine RBC Urine WBC Ur Squamous Epith Cells Amorphous Sediment Urine Bacteria Urine Mucus Ur Culture Indicated? U Opiates 300ng/mL cut Ur Oxycodone Screen Urine Methadone Screen Ur Barbiturates Screen U Tricyclic Antidepress Ur Phencyclidine Scrn Ur Amphetamines Screen U Methamphetamines Scrn Ur MDMA Scrn (Ecstasy) U Benzodiazepines Scrn Urine Cocaine Screen U Marijuana (THC) Screen Ethyl Alcohol COVID-19 PCR 12/23/19 12/23/19 12/23/19 16:50 17:20 17:20 WBC RBC Hgb Hct MCV MCH MCHC RDW Plt Count Neut % (Auto) Lymph % (Auto) [place] % (Auto) Eos % (Auto) Baso % (Auto) Neut # (Auto) Lymph # (Auto) [place] # (Auto) Eos # (Auto) Baso # (Auto) PT INR APTT Sodium Potassium Chloride Carbon Dioxide BUN Creatinine Estimated GFR BUN/Creatinine Ratio Glucose Lactate Calcium Phosphorus 4.5 H Total Bilirubin AST ALT Alkaline Phosphatase Total Creatine Kinase CK-MB (CK-2) CK-MB (CK-2) Rel Index Troponin I NT-Pro-B Natriuret Pep Total Protein Albumin Globulin Albumin/Globulin Ratio TSH Prolactin Urine Color Yellow Urine Appearance Clear Urine pH 5.0 Ur Specific [place] 1.010 Urine Protein Negative Urine Glucose (UA) Negative Urine Ketones Negative Urine Occult Blood Negative Urine Nitrate Negative Urine Bilirubin Negative Urine Urobilinogen 0.2 Ur Leukocyte Esterase Negative Urine RBC None seen Urine WBC 0-1/hpf Ur Squamous Epith Cells 0-1 /hpf Amorphous Sediment 2+ Urine Bacteria Occasional (0-1) D Urine Mucus 2+ H Ur Culture Indicated? Cult not indicated U Opiates 300ng/mL cut Negative Ur Oxycodone Screen Negative Urine Methadone Screen Negative Ur Barbiturates Screen Negative U Tricyclic Antidepress Negative Ur Phencyclidine Scrn Negative Ur Amphetamines Screen Negative U Methamphetamines Scrn Negative Ur MDMA Scrn (Ecstasy) Negative U Benzodiazepines Scrn Negative Urine Cocaine Screen Negative U Marijuana (THC) Screen Negative Ethyl Alcohol COVID-19 PCR 12/23/19 12/23/19 12/24/19 17:20 22:48 13:18 WBC 4.6 RBC 2.36 L Hgb 7.9 L Hct 23.3 L MCV 98.9 MCH 33.6 MCHC 33.9 RDW 16.9 H Plt Count 92 L Neut % (Auto) 75.0 Lymph % (Auto) 12.8 L [place] % (Auto) 7.7 Eos % (Auto) 3.9 Baso % (Auto) 0.6 Neut # (Auto) 3400 Lymph # (Auto) 600 L [place] # (Auto) 400 Eos # (Auto) 200 Baso # (Auto) 0 PT INR APTT Sodium Potassium Chloride Carbon Dioxide BUN Creatinine Estimated GFR BUN/Creatinine Ratio Glucose Lactate Calcium Phosphorus Total Bilirubin AST ALT Alkaline Phosphatase Total Creatine Kinase CK-MB (CK-2) CK-MB (CK-2) Rel Index Troponin I < 0.012 NT-Pro-B Natriuret Pep Total Protein Albumin Globulin Albumin/Globulin Ratio TSH Prolactin Urine Color Urine Appearance Urine pH Ur Specific [place] Urine Protein Urine Glucose (UA) Urine Ketones Urine Occult Blood Urine Nitrate Urine Bilirubin Urine Urobilinogen Ur Leukocyte Esterase Urine RBC Urine WBC Ur Squamous Epith Cells Amorphous Sediment Urine Bacteria Urine Mucus Ur Culture Indicated? U Opiates 300ng/mL cut Ur Oxycodone Screen Urine Methadone Screen Ur Barbiturates Screen U Tricyclic Antidepress Ur Phencyclidine Scrn Ur Amphetamines Screen U Methamphetamines Scrn Ur MDMA Scrn (Ecstasy) U Benzodiazepines Scrn Urine Cocaine Screen U Marijuana (THC) Screen Ethyl Alcohol COVID-19 PCR Negative Assessment & Plan Assessment & Plan narrative: Impression 1. 84-year-old female admitted to the hospital for progressive weakness -etiology unclear -patient with anemia, which has been persistent since surgery -this may be contributing to fatigue and weakness -H&H 7.9 and 23 today, will type and cross for 2 units of blood and transfuse accordingly -will hold aspirin and Plavix for now, resume when H&H is stable -check iron studies -patient also reports progressive generalized weakness, dysphagia, dysarthria, minimal visual complaints 2. Stage 3 chronic kidney disease -mild progression of her kidney failure -diuretics have been held as have been losartan -avoid nephrotoxic agents -will continue to monitor her kidney function closely 3. Thyroid nodule -MRI of the neck shows a possible thyroid nodule -TSH low at 5, patient with low heart rate earlier, low temperature, and low blood pressure -she has been started on thyroid replacement -will obtain ultrasound of the thyroid nodule to rule out a hot versus cold nodule 4. History of CVA -repeat MRI MRA show no significant intracranial lesions, chronic microvascular changes noted, no acute ischemic event identified -swallow eval obtained today -diet advanced to pureed with thin liquids -PT OT consult, on hold until anemia resolved 5. Hypertension -patient's blood pressure is low at this time -will hold any antihypertensive medication 6. Hyperlipidemia -continues statin 7. Morbid obesity -dietary consultation 8. History of congestive heart failure -await cardiac echo results Will continue heparin for DVT prophylaxis Code status DNR Daughter at the bedside his DPOA Quality VTE Deep Vein Thrombosis/Pulmonary Embolism Present on Admission: No
--- NOTE | 2019-12-24 14:41 | PT-IP ANOTE ---
Received PT orders, reviewed chart, and discussed this pt with Dr. Mondragon. Hospitalist is ordering transfusion of 2 units PRBC and agreed to hold PT evaluation until after transfusion. This PT did discuss the pt's history with her and her daughter and documented prior level of function. Will check for appropriateness of PT eval on morning of 12/24.
[2019-12-24 15:33] LABS: BUN Creatinine Ratio 23.3 (6-22); Blood Urea Nitrogen 44 mg/dL (7-17); Calcium 9.6 mg/dL (8.4-10.2); Carbon Dioxide 22 mmol/L (22-32); Chloride 109 mmol/L (98-107); Estimated Glomerular Filt Rate 25.3 mL/min (>60); Glucose 86 mg/dL (80-110); HEMOLYSIS 41 (0-50); Magnesium 1.8 mg/dL (1.6-2.3); Potassium 4.3 mmol/L (3.4-5.1); Sodium 134 mmol/L (137-145)
[2019-12-24 15:49] LABS: Iron 89 ug/dL (37-170)
[2019-12-24 15:59] LABS: HEMOLYSIS 38 (0-50); Percent Iron Saturation 28 % (15-50); Total Iron Binding Capacity 314 ug/dL (265-497); Transferrin 226 mg/dL (206-381)
--- NOTE | 2019-12-24 18:04 | PC.NURSE ---
Addendum entered by Laura Valencia R.N. 12/24/19 23:43: Erin has mostly been sleeping tonight, wakes to voice, remains Ox3 & situation. 2nd unit of PRBC's nearly complete. VS are stable, BP much better than earlier this evening. She is very weak, needs 2 assist for repositioning q1-2 hours for comfort. Red yeast-like rash observed to groin folds, area cleaned by CHECK SERVICES CLERK with cath care, pillowcase placed to keep skin dry. I notified Dr Whaley & he said she could have Nystatin powder. Original Note: Shift notes: 1st unit PRBC's infusing to RFA IV with no difficulty. Erin mostly sleeping, fatigued, pale. Answers few questions, oriented to situation. CBG before meal was 62, patient denies any appetite, still encouraged to sit up & eat some of her dinner. Ate few bites of potatoes & meatloaf, then said how much do I have to eat, staff encouraged to eat, still refused, I talked to her about need for calories/protein, she agrees to try a protein drink later. Said thank you. CBG rechecked = 191. Repositioned in bed for comfort, she is complaining of intermittent cramps to right lower leg. Pillows removed from underneath RLE and I wrapped warm blanket around leg with heels floating. She denies other needs at this time, call button in reach, alarm active for safety.
[2019-12-24] MEDS: SODIUM CHLORIDE 0.9% FLUSH 10 ML IV (20:19)
[2019-12-24] MEDS: ATORVASTATIN 20 MG TABLET 40 MG PO (20:20)
[2019-12-25] VITALS (7 sets, daily range): BP systolic 105–151; BP diastolic 44–69; PULSE 54–72; RESP 17–18; TEMP 35.4–36.6; O2SAT 93–97
[2019-12-25] MEDS: SODIUM CHLORIDE 0.9% FLUSH 10 ML IV ×3 (00:04→21:37)
--- NOTE | 2019-12-25 01:22 | PC.NURSE ---
Addendum entered by Millie Durand R.N. 12/25/19 06:45: WINDOWS VMWARE ENGINEER reports HR went down into 30's for < 60 seconds. O2 sat checked and was 97% and was asleep. Currently HR is in the 50's. Addendum entered by Millie Durand R.N. 12/25/19 03:28: CBG checked earlier and was 64 so provided snack and CBG went up to 65 so provided a second snack and now CBG is 80. Original Note: Patient seen and assessed at 0000. Is oriented except to day of month. Breath sounds diminished at bases but CTA with RA sat of 94%. HRR but bradycardic with rate mostly in 50's. Telemetry reading was SB with 1st degree AVB. Orthostatic BP/pulse done lying and sitting only as patient is unable to stand; no change noted with position change. Denies nausea. BT hypoactive but states she has passed some flatus. Has not, however, had a BM since 12/19 and has no bowel meds ordered at this time. Indwelling catheter is patent; urine is clear yellow. Due to weakness needs assist to reposition q2h although does try to help. Complaining of 3/10 cramping pain in bilateral LE and noted that SUDHEER stockings are cutting into leg so removed for the night; patient states pain much better now that TEDs are off. Does have 2+ bilateral LE edema. Has extensive bruising of all extremities as well as abdomen. Noted red/cracked skin beneath left breast and reddened skin in bilateral groins extending down inner thighs. Hands also appear edematous, left > right. HOB is elevated due to risk for aspiration. Fall risk score is high and bed alarm is activated Blood infusing at shift change and was completed at 0002 with no adverse reactions.
[2019-12-25] MEDS: LEVOTHYROXINE 88 MCG TABLET PO (05:42)
[2019-12-25] MEDS: COSYNTROPIN 0.25 MG VIAL IV (07:59)
[2019-12-25] MEDS: HEPARIN 5,000 UNIT/ML VIAL 5000 UNIT SUBCUT ×2 (08:03→21:37)
--- NOTE | 2019-12-25 08:13 | PC.NURSE ---
Coordinating with lab for cortisol test as ordered this morning. Patient laying comfortably in bed, repositioned, wants to rest at this time. Will follow.
--- NOTE | 2019-12-25 08:42 | PM.PN.1 ---
Subjective Subjective Date Patient Seen: 12/25/19 Interval history: Nanci Jones is an 84-year-old female with a past medical history significant for hypertension, hyperlipidemia, chronic kidney disease stage 3, morbid obesity, previous CVA x2 (most recent 09/26/2018) and recent femoral fracture 08/2019 who was discharged to [facility] for continued rehabilitation and discharged home early November and presented to ED with steady decline since returning home with progressive weakness and failure to thrive. The patient is resting in bed comfortably. She has poor appetite. She exhibits slightly slurred speech. MRI brain demonstrated significant chronic finding but no acute CVA. She has generalized anasarca. ACTH stim test pursued to assess for adrenal insufficiency but did not get baseline cortisol level, therefore, test is invalid. Plan to repeat ACTH stim test tomorrow. Daughter is at bedside and all questions were answered. She denies headache, sore throat, cough, shortness of breath, chest pain, abdominal pain, nausea, vomiting, fever, chills, dysuria, diarrhea or constipation. She voiding via Choi catheter and eliminating without difficulty. She requires maximal assistance. Exam Vital Signs (past 8 hours): - 12/25/19 02:58 Temperature 97.8 F Pulse Rate 66 Respiratory Rate 18 Blood Pressure 116/44 L Pulse Oximetry 93 Oxygen Delivery Method Room Air Oxygen Flow Rate 0 Narrative Exam Narrative: General: Elderly female lying in bed in no acute distress, well-developed, well-nourished, lethargic, slight slurring of speech which is possibly residual to previous CVA, severely depressed but otherwise appropriately interactive. HEENT: Normocephalic, atraumatic. External ears without defect. Pupils equal, round, and reactive to light. Anicteric sclerae, moist conjunctivae, and no lid lag. Oropharynx free of erythema and cobble stoning with moist mucosa. Neck: Supple with full range of motion. No lymphadenopathy. Cardiovascular: Regular rate and rhythm without murmurs, rubs, or gallops appreciated. Pulmonary: Clear to auscultation bilaterally with fine bibasilar crackles. No wheezes or rhonchi. Normal respiratory effort with no use of accessory muscles. Abdomen: Soft, obese, bowel sounds present, nontender, nondistended. Extremities: No clubbing or cyanosis. Mild anasarca. Bilateral mild stasis dermatitis of lower extremities. Scattered bruises throughout all extremities. Neurological: Cranial nerves grossly intact. Mild slurring of speech. Generalized weakness of all extremities without focal deficit. Psychiatric: Severely depressed mood and affect. Alert and oriented to person, place, and time. Short-term memory recall deficit possible mild cognitive impairment versus dementia with short-term memory recall deficit. Objective Labs Result Diagrams: 12/26/19 07:47 12/26/19 07:47 Labs: Laboratory Results - last 24 hr 12/24/19 12/24/19 12/24/19 13:18 13:18 13:18 WBC 4.6 RBC 2.36 L Hgb 7.9 L Hct 23.3 L MCV 98.9 MCH 33.6 MCHC 33.9 RDW 16.9 H Plt Count 92 L Neut % (Auto) 75.0 Lymph % (Auto) 12.8 L [place] % (Auto) 7.7 Eos % (Auto) 3.9 Baso % (Auto) 0.6 Neut # (Auto) 3400 Lymph # (Auto) 600 L [place] # (Auto) 400 Eos # (Auto) 200 Baso # (Auto) 0 Sodium 134 L Potassium 4.3 Chloride 109 H Carbon Dioxide 22 BUN 44 H Creatinine 1.89 H Estimated GFR 25.3 L BUN/Creatinine Ratio 23.3 H Glucose 86 Calcium 9.6 Magnesium 1.8 Iron 89 TIBC 314 % Saturation 28 Transferrin 226 Blood Type Antibody Screen Crossmatch 12/24/19 15:29 WBC RBC Hgb Hct MCV MCH MCHC RDW Plt Count Neut % (Auto) Lymph % (Auto) [place] % (Auto) Eos % (Auto) Baso % (Auto) Neut # (Auto) Lymph # (Auto) [place] # (Auto) Eos # (Auto) Baso # (Auto) Sodium Potassium Chloride Carbon Dioxide BUN Creatinine Estimated GFR BUN/Creatinine Ratio Glucose Calcium Magnesium Iron TIBC % Saturation Transferrin Blood Type A Positive Antibody Screen Negative Crossmatch See Detail Assessment & Plan Assessment & Plan narrative: Nanci Jones is an 84-year-old female with a past medical history significant for hypertension, hyperlipidemia, chronic kidney disease stage 3, morbid obesity, previous CVA x2 (most recent 09/26/2018) and recent femoral fracture 08/2019 who was discharged to [facility] for continued rehabilitation and discharged home early November and presented to ED with steady decline since returning home with progressive weakness and failure to thrive. 1. Acute on chronic progressive weakness and failure to thrive, present on admission. Active. -patient presented [facility] where she was doing well with rehabilitation to home where she failed miserably with progressive weakness, debility and deconditioning. -Etiology unclear but likely due to recent femoral fracture with progressive debility, deconditioning and weakness. Patient has also had CVA x 2 remotely and may have underlying contribution. -Patient has had anemia, hypoglycemia, low blood pressure, and mild hyponatremia, therefore, ordered ACTH stim test, pending. -Patient has had acute on chronic anemia since surgery and this may be contributing to fatigue and weakness as below. -Patient also reports progressive generalized weakness, dysphagia, dysarthria, and minimal visual complaints but did not have acute CVA as MR stroke protocol negative for acute process as below. -If above interventions do not provide explanation consider palliative care consult. Patient also appears significantly depressed and will discuss in detail with patient and consider treatment. 2. Acute on chronic anemia, present on admission. Stable. -Patient has been persistently anemic since previous femur fracture and repair. Chronic portion of anemia secondary to chronic kidney disease. -Hemoglobin previously 7.9 and received 2 units PRBC with appropriate compensation with hemoglobin now 10.5. No overt signs of bleeding. -Held aspirin and Plavix for now and will resume when H&H is stable. -Iron panel normal. -Continue to monitor hemoglobin closely. 3. Probable chronic aspiration with dysphagia, secondary to previous CVA, present on admission. Active. -MR stroke protocol demonstrated no acute intracranial abnormalities, mild cerebral volume loss, multiple foci of T2 hyperintensity in periventricular white matter are compatible with chronic small vessel ischemic changes but demyelinating process such as multiple sclerosis is in differential, [id number] stenosis of the cavernous segment of the internal carotid arteries bilaterally, diffuse irregularity of middle cerebral arteries bilaterally; but no high-grade stenosis or occlusion, diffuse irregularities in common and internal carotid arteries bilaterally but no high-grade stenosis or occlusion, suboptimal visualization of the deeper artery origins and suspect high-grade stenosis of right proximal vertebral artery. -Continue speech therapy and advance diet per speech pathologist. Patient currently decision mechanical diet. -Continue physical therapy and occupational therapy evaluation and treatment. PT and OT were initially on hold due to anemia now status post 2 units PRBC. 4. Diastolic congestive heart failure, chronic, present on admission. Stable. -Does not represent CHF exacerbation. -Echocardiogram demonstrated normal left ventricular thickness, size, wall motion, and systolic function with EF 60-65%, RV is mildly dilated with normal function, no significant valvular abnormalities, atherosclerosis, including a grade 5- mobile- atheroma, noted in the aortic arch which is new compared to echo 09/19/2018, diastolic parameters could not be assessed due to atrial flutter and IVC is dilated (diameter is greater than 2.1 cm) and it collapses less than 50% with a sniff suggestive of a high right atrial pressure of 15 mm Hg. -Continue to monitor strict I&Os and daily weights. 5. Paroxysmal atrial fibrillation/flutter, unclear acuity, present on admission. Stable. -Unclear if patient has previous diagnosis of atrial fibrillation and patient denies ever previously being diagnosed or told she has atrial fibrillation. -Echocardiogram as above. -CHADS2 Vasc 7 making patient high risk of VTE and plan to discuss anticoagulation. 6. Chronic kidney disease stage 3, present on admission. Stable. -Mild progression of her kidney failure -diuretics have been held as have been losartan -Avoid nephrotoxic agents -Continue to monitor her kidney function closely 7. Symptomatic subclinical hypothyroidism, present on admission. Active. -Possible thyroid nodule ruled out. -MR stroke protocol demonstrated enlargement of the left lower lobe with a possible left thyroid nodule. Thyroid ultrasound did not demonstrate any nodules with diffuse heterogeneous appearance of the left lobe of thyroid, technically non-specific finding; recommend clinical and biochemical correlation. -TSH elevated at 5.35 and free T4 normal at 1.19 indicative of subclinical hypothyroidism. Patient had low heart rate earlier, low temperature, and low blood pressure therefore was started on levothyroxine 88 mcg daily. 8. Hypertension, present on admission. Stable. -Held home antihypertensive medications as patient's blood pressure has been labile and low normal. 9. Hyperlipidemia and ASCVD, present on admission. Stable. -Continue atorvastatin 40 mg daily. 10. Morbid obesity, present on admission. Stable. -BMI 40.7. -Morbid obesity contribute significantly to debilitation and progressive weakness as well as increased risk of morbidity mortality with ASCVD. -Consulted dietitian and we appreciate her time and recommendations. Code status: DNR, Daughter at the bedside his DPOA DVT prophylaxis: SQ Heparin Disposition: Patient will undoubtedly require prison facility for continued rehabilitation versus consideration of home with hospice in the next several days. Quality VTE Deep Vein Thrombosis/Pulmonary Embolism Present on Admission: No
[2019-12-25 09:37] LABS: Add Manual Diff / Slide Review NO; Basophils Absolute Auto 0 /uL (0-100); Basophils Percent Auto 0.4 % (0-2); Eosinophils Absolute Auto 300 /uL (0-450); Eosinophils Percent Auto 6.1 % (2-4); Hemoglobin 10.5 g/dL (12.0-16.0); Lymphocytes Absolute Auto 800 /uL (1100-4500); Lymphocytes Percent Auto 15.7 % (25-40); Mean Corpuscular HGB Conc 34.9 % (30-36); Mean Corpuscular Hemoglobin 33.3 PG (26-34); Mean Corpuscular Volume 95.3 fL (80-100); Monocytes Absolute Auto 600 /uL (0-900); Monocytes Percent Auto 11.1 % (3-14); Neutrophils Absolute Auto 3500 /uL (1500-7000); Neutrophils Percent Auto 66.7 % (50-75); Platelet Count 88 X10^3/uL (150-400); Red Blood Cell Count 3.15 X10^6/uL (4.0-5.2); Red Cell Distribution Width 15.7 % (11.6-14.8); White Blood Cell Count 5.2 X10^3/uL (4.5-11.0)
--- NOTE | 2019-12-25 10:13 | ST.IPDYTX ---
DECORATOR HAND Dysphagia Treatment DECORATOR HAND Dysphagia Treatment Start: 12/24/19 12:46 Freq: Status: Active Protocol: Document 12/25/19 10:04 TLC (Rec: 12/25/19 10:13 TLC [id number]) Dysphagia Treatment Session Time Visit Start Time 09:00 Visit Stop Time 09:25 Total Visit Minutes 25 Visit Type Note Type Treatment Note Patient Information Identification Type Name Subjective Observations Nanci was seen sitting up in bed eating breakfast. She was alert and oriented. Treatment Liquids Trialed Thin Solids Trialed Puree Administration Type Self-Feeding Oral Strategies Upright at 90 degrees, Alternate Liquids/Solids Pharyngeal Strategies Effortful Swallow Treatment Activities Assessment of swallowing and implementation of strategies during breakfast. Nanci independently implemented a slow rate, small bites/sips and a chin tuck which she says she learned during this admission. She did not alternate sips of liquids until prompted to do so. We also discussed implementation of effortful swallow to assist in bolus propulsion and pharyngeal clearance. Additionally, verbal education regarding reflux and reflux precautions were provided given her report of reflux like symptoms. Assessment Patient Response to Treatment Good Assessment of Improvement Nanci is compliant with recommendations. We discussed potential for upgrading diet textures; however, she remains weak and rate of intake remains reduced with puree textures. She did not displays signs of aspiration at bedside. Diet Recommendations Recommendations Continue Current Diet Liquids Order Thin Diet Order Dysphagia Blenderized Medication Recommendations As Tolerated Aspiration Precautions Recommended Precautions Upright at 90 Degrees, Alternate Liquids/Solids,Small Bites/Sips,Effortful Swallow Treatment Plan Placement Recommendation after Discharge Half-Way Facility Appropriate for Continued Therapy Yes Therapy Recommendations Ongoing assessment and pt/ caregiver education. Training of compensatory swallow strategies. Modification of diet as indicated. Dysphagia Goals 1. The pt will perform safe swallow strategies as needed with min cues to reduce risk of aspiration. 2. The pt will tolerate least restrictive diet to meet her nutrition and hydration needs.
[2019-12-25 10:15] LABS: Cortisol 60 MIN Post Stim. 34.7 ug/dL
[2019-12-25 10:16] LABS: Cortisol 30 MIN Post Stim. 29.7 ug/dL
--- NOTE | 2019-12-25 10:21 | CM.DANOTE ---
DCP: Reviewed chart. Attempted assessment of patient on 12-24-19 however, due to sleepiness and patient off floor for testing unable to complete. Met with patient this AM explained CM/SW role. Patient reports that she resides with her daughter/Shira in [place]. Patient reports increased weakness over the last 2 weeks brought her to . Patient hopes to be able to d/c home when medically stable. PT/OT evaluations pending. Patient does provide TRADING ASSISTANT with permission to call her daughter/Shira for d/c planning needs and/or questions. Patient currently on service with [facility]. Patient under went hip repair in 2019 and stroke in September 2019. Patient has been to [facility] for rehab and it is anticipated that she will need to return to SNF when stable. Daughter reports that patient has w/c and walker at home. As of now patient primarily w/c bound due to weakness. Daughter reports they do have ramp to get in/out of residence. Daughter also reports that patient does not qualify for Medicaid for long-term placement or caregiver. Daughter reports having difficulty caring for patient, especially over the last few weeks when she has gotten weaker. Daughter in agreement for SNF when medically stable. Placed call to December at [facility] requesting she review and obtain authorization. P: Patient most likely will need SNF when medically stable. Did not discuss with provider today but might be very good candidate for palliative consult as well. DOMINGO Mccollum Discharge Planning/Care Management Advanced directive, confirm from FAMILY Start: 12/23/19 21:11 Freq: Q24H Status: Active Protocol: Document 12/23/19 21:11 KMD (Rec: 12/23/19 21:13 KMD [id number]) Advance Directive, confirm on record Time 21:13 Person contacted Daughter Copy received No CM Discharge Assessment Start: 12/25/19 08:59 Freq: Status: Active Protocol: Document 12/25/19 09:00 KJS (Rec: 12/25/19 09:13 KJS [id number]) Discharge Planning Assessment Assigned Cloth Examiner Hand DOMINGO Mccollum Contact Information Shira Jones (daughter) [phone] Advance Directives? Yes History Provided By Patient,Family Member,Medical Record Prior Living Arrangements House Household Members children Type of transporation used prior to Relies on Others admit Independent with ADL's No Is patient alert and oriented? 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 DME Already Rented / Owned Wheelchair,FWW / Walker Patient/Family Preference Senior Living Facility Comment Therapy evaluations pending Discharge Plan Senior Living Facility Transportation Arrangement Pending Referrals Initiated Senior Living Additional Comment Daughter reports patient significantly has gotten weaker over the last 2 weeks. Daughter requesting patient return to nursing home facility when medically stable . If patient plan is SNF: Has PASSR been No completed? Inpatient Status as of 12/24/19 Medicare Choice List Provided Yes SNF/HH Preference [facility] Contact Name/Phone December [phone] Has Agency SNF been contacted Yes Whiteboard Updated in Patient Room with Yes name and ext. # of Cloth Examiner Hand Review Status In Process Next Review Type Continued Stay Review Document 12/25/19 10:20 KJS (Rec: 12/25/19 10:21 KJS [id number]) Discharge Planning Assessment Assigned Cloth Examiner Hand DOMINGO Mccollum Contact Information Shira Jones (daughter) Advance Directives? Yes History Provided By Patient,Family Member,Medical Record Prior Living Arrangements House Household Members children Type of transporation used prior to Relies on Others admit Independent with ADL's No Is patient alert and oriented? 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 DME Already Rented / Owned Wheelchair,FWW / Walker Patient/Family Preference Senior Living Facility Comment Therapy evaluations pending Discharge Plan Senior Living Facility Transportation Arrangement Pending Referrals Initiated Senior Living Additional Comment Daughter reports patient significantly has gotten weaker over the last 2 weeks. Daughter requesting patient return to nursing home facility when medically stable . If patient plan is SNF: Has PASSR been No completed? Inpatient Status as of 12/24/19 Medicare Choice List Provided Yes SNF/HH Preference [facility] Contact Name/Phone December [phone] Has Agency SNF been contacted Yes Whiteboard Updated in Patient Room with Yes name and ext. # of Cloth Examiner Hand Review Status In Process Next Review Type Continued Stay Review
--- NOTE | 2019-12-25 10:46 | PT.IIE ---
Surgical History (Last Reviewed 12/23/19 @ 23:56 by Deanna Youssef PA-C) History of appendectomy (Acute) History of total left knee replacement (Acute) Medical History (Last Reviewed 12/23/19 @ 23:56 by Deanna Youssef PA-C) Acute intermittent porphyria (Acute) Arthralgia (Chronic 04/17/15) Arthritis (Acute) Chronic renal failure, stage 3 (moderate) (Chronic) Essential hypertension (Chronic 04/17/15) History of CVA with residual deficit (Chronic) Mixed hyperlipidemia (Chronic) Morbid obesity due to excess calories (Chronic 06/29/15) Physical Therapy Inpatient Evaluation/Re-Eval M1 PT/OT-IP Prior Functional Status Start: 12/24/19 08:24 Freq: NEEDED Status: Active Protocol: Document 12/25/19 12:23 CGR (Rec: 12/25/19 12:57 CGR [email or web address]) Medical Review Prior Functional Status Medical History Reviewed Yes Communication WNL. Pt is an effective verbal communicator at baseline. Mobility and Gait Pt underwent ORIF of distal femur fracture in late August 2019. Prior to that event, she used a 4WW for home mobility and EXHIBITOR SALES for short distance community mobility. 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 Pt went from this hospital to [facility] for rehab following her femur fracture and discharged to home on November 12, 2019. At that time, she was walking with FWW at home but has steadily declined over the last month and is now only ambulating from her bedroom to the kitchen where her w/c is kept. Pt's daughter, Bonita, describes a precipitous decline over the last month. It's almost like she gets weaker by the hour. In recent days, pt has been unable to hold her head up in a wheelchair and has had significant difficulty with bed mobility and transfers. Activities of Daily Living and IADL's Prior to August, pt was independent with ADL's. Since returning home from rehab, she has required assist with dressing, has bath aides assist with showers twice weekly, and has had home health PT and OT. Prior Functional Level (Other details) Pt is legally blind and does not drive. She often held her daughter's arm for mobility in unfamiliar places prior to recent decline. Social History Household Members children Living Arrangements House Number of Floors (Floors) Two Floors Number of Stairs To Enter/Railing? Pt enters from the garage to the upper floor of the home without steps. To get to the bottom floor it is 13 steps doewith with B narrow railing. Pt does not need to access the lower level. Home Environment Standard Height Toilet,Tub/ Shower Home Equipment Front Wheel Walker,Four Wheel Walker,Straight Cane,Manual Wheelchair,Tub Transfer Bench, Hand Held Shower,Long Handled Shoe Horn,Final Touch Up Painter,Grab Bars In Shower Employment Status Retired Additional Social History Comment Pt's daughter lives with her and has been assisting pt but pt's daughter wants to return to work. M1 PT/OT-IP Prior Functional Status Start: 12/25/19 12:23 Freq: NEEDED Status: Active Protocol: Document 12/25/19 10:46 AB (Rec: 12/25/19 13:06 AB [id number]) Medical Review Prior Functional Status Medical History Reviewed Yes Communication WNL. Pt is an effective verbal communicator at baseline. Mobility and Gait Pt underwent ORIF of distal femur fracture in late August 2019. Pt d/c to [facility] for rehab following her femur fracture and discharged to home on November 12, 2019. Pt stated that when she went home, she mostly uses a w/c for mobility with her daughter assisting her with w/c maneuvering. pt stated that she was able to walk from her bed to the kitchen where she has the w/c. also ambulates to the toilet using FWW since the FWW will not fit in the toilet. Activities of Daily Living and IADL's per daughter: Prior to August, pt was independent with ADL's. Since returning home from rehab, she has required assist with dressing, has bath aides assist with showers twice weekly, and has had home health PT and OT. Prior Functional Level (Other details) per daughter: Pt is legally blind and does not drive. She often held her daughter's arm for mobility in unfamiliar places prior to recent decline . Social History Household Members children Living Arrangements House Number of Floors (Floors) One Floor Home Environment Ramp Home Equipment Front Wheel Walker,Four Wheel Walker,Straight Cane Additional Social History Comment pt stated that her daughter wants to go back to work but unable because she has been assisting the pt. M2 PT-IP Current Condition Start: 12/24/19 08:24 Freq: NEEDED Status: Active Protocol: Document 12/25/19 10:46 AB (Rec: 12/25/19 13:06 AB [id number]) Physical Therapy Current Condition Current Condition Evaluation Date 12/25/19 Treatment Diagnosis failure to thrive; difficulty in walking Onset Date 12/24/19 M3 PT-IP Subjective Start: 12/24/19 08:24 Freq: NEEDED Status: Active Protocol: Document 12/25/19 10:46 AB (Rec: 12/25/19 13:06 AB [id number]) Subjective Physical Therapy Visit Type Type Initial Evaluation Visit Start Time 10:46 Visit Stop Time 11:33 Total Visit Minutes 47 Number of FLATWORK SUPERVISOR Visits 0 Physical Therapy Visit Comments Patient Comments pt agreeable to do PT; requested to use the bed norman Therapy Pain Assessment Pain Present Pain Present Denied Pain M4 PT-IP Mobility and Gait Start: 12/24/19 08:24 Freq: NEEDED Status: Active Protocol: Document 12/25/19 10:46 AB (Rec: 12/25/19 13:06 AB [id number]) PT-Bed Mobility Assessment Rolling Type of Rolling Roll to Right Level of Assist Standby Assistance Supine to Sit Supine to Sit Maximum Assistance,1 Person Assistance,Bedrails Scooting Scooting to Edge of Bed Dependent PT-Transfer Assessment Sit to and From Stand Sit to and from Stand 2 Person Assistance,Use of Upper Extremities Equipment Transfer Assistive Device Front Wheeled Walker Orthotic/Prosthetic Devices or Brace: No Transfers Transfer Technique Mechanical Lift Transfer Ability Level of Assist Total Assistance,2 Person Assistance,Use of Upper Extremities Comments Mobility Comments pt completed supine to sit max A and max cues. pt required mod to max A for sitting balance initially and after repositioning, requiring min A . completed sit <>stand x 2 reps max A x 2 and max cues. pt unable to fully stand up and LE leaning against the bed . pt with (+) UE shaking during standing. assisted pt to transfer to bedside commode using mechanical lift. transferred to chair afterwards. total A for scooting onto the chair and positioning. call light and table placed within reach. Gait Assessment Comments Gait Comments unable PT-Balance Assessment Sitting Balance and Reactions Static Sitting Balance Ability Fair Dynamic Sitting Balance Ability Fair Standing Balance and Reactions Static Standing Balance Ability Poor Dynamic Standing Balance Ability Poor Device Used FWW M5 PT-IP Objective Assessments Start: 12/24/19 08:24 Freq: NEEDED Status: Active Protocol: Document 12/25/19 10:46 AB (Rec: 12/25/19 13:06 AB [id number]) Orientation Orientation/Cognition Level of Alertness Alert Orientation Name,Date,Year,Place,Situation Language Function Ability No Deficits Noted Safety Awareness Understands Safety Issues Strength Lower Extremity Strength Assessment Bilaterally Impaired Comments Strength Comments LLE: 4-/5 RLE: 3+/5 Coordination Assessment Gross Coordination Gross Coordination WNL M6 PT-IP Treatment Start: 12/24/19 08:24 Freq: NEEDED Status: Active Protocol: Document 12/25/19 10:46 AB (Rec: 12/25/19 13:06 AB [id number]) Physical Therapy Treatment Education Education Provided Safety M7 PT-IP Assessment and Plan Start: 12/24/19 08:24 Freq: NEEDED Status: Active Protocol: Document 12/25/19 10:46 AB (Rec: 12/25/19 13:06 AB [id number]) PT Summary Assessment and Plan Potential Rehabilitation Potential Good Status of Condition at Evaluation Evolving Summary Impairments Pain,ROM,Strength,Balance,Bed Mobility,Transfers,Gait, Activity Tolerance Assessment Summary pt with h/o L distal femure ORIF last aug 2019 and went to rehab and went home november 2019. pt has been declining in mobility since she got home and admitted to the hospital for failure to thrive. pt requiring max A x 2 to total A x 2 and will require SNF rehab to improve mobility and strength. Goals Bed Mobility Goal Minimal Assistance Transfer Goal Minimal Assistance,Front Wheeled Walker Gait Goal Minimal Assistance,Front Wheel Walker Gait Distance 50 Days to Meet Goals 10 Frequency of Treatment Frequency Of Treatment Once a Day Treatment Plan Physical Therapy Treatment Plan Bed Mobility Training,Transfer Training,Gait Training, Therapeutic Exercise,Balance Retraining,Discharge Planning, Neuromuscular Re-ed Recommendations To Nursing Amount of Assist Needed Mechanical Lift Discharge Recommendations PT Discharge Recommendations SNF Rehab Transportation Needs at Discharge Wheelchair/Cabulance
[2019-12-25 11:01] LABS: BUN Creatinine Ratio 23.4 (6-22); Blood Urea Nitrogen 41 mg/dL (7-17); Calcium 9.7 mg/dL (8.4-10.2); Carbon Dioxide 20 mmol/L (22-32); Chloride 109 mmol/L (98-107); Estimated Glomerular Filt Rate 27.7 mL/min (>60); Glucose 83 mg/dL (80-110); HEMOLYSIS 19 (0-50); Potassium 4.3 mmol/L (3.4-5.1); Sodium 136 mmol/L (137-145)
[2019-12-25 11:06] LABS: NT-proBNP (BNP-Adult 18+) 924 pg/mL (<450)
--- NOTE | 2019-12-25 11:33 | OT.IP.EVAL ---
Past Medical History (Last Reviewed 12/23/19 @ 23:56 by Deanna Youssef PA-C) Acute intermittent porphyria (Acute) Arthralgia (Chronic 04/17/15) Arthritis (Acute) Chronic renal failure, stage 3 (moderate) (Chronic) Essential hypertension (Chronic 04/17/15) History of CVA with residual deficit (Chronic) Mixed hyperlipidemia (Chronic) Morbid obesity due to excess calories (Chronic 06/29/15) Surgical History (Last Reviewed 12/23/19 @ 23:56 by Deanna Youssef PA-C) History of appendectomy (Acute) History of total left knee replacement (Acute) Occupational Therapy Inpatient Evaluation/Re-Eval M1 PT/OT-IP Prior Functional Status Start: 12/24/19 08:24 Freq: NEEDED Status: Active Protocol: Document 12/25/19 12:23 CGR (Rec: 12/25/19 12:57 CGR [email or web address]) Medical Review Prior Functional Status Medical History Reviewed Yes Communication WNL. Pt is an effective verbal communicator at baseline. Mobility and Gait Pt underwent ORIF of distal femur fracture in late August 2019. Prior to that event, she used a 4WW for home mobility and PROJECT ARCHITECT for short distance community mobility. 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 Pt went from this hospital to [facility] for rehab following her femur fracture and discharged to home on November 12, 2019. At that time, she was walking with FWW at home but has steadily declined over the last month and is now only ambulating from her bedroom to the kitchen where her w/c is kept. Pt's daughter, Bonita, describes a precipitous decline over the last month. It's almost like she gets weaker by the hour. In recent days, pt has been unable to hold her head up in a wheelchair and has had significant difficulty with bed mobility and transfers. Activities of Daily Living and IADL's Prior to August, pt was independent with ADL's. Since returning home from rehab, she has required assist with dressing, has bath aides assist with showers twice weekly, and has had home health PT and OT. Prior Functional Level (Other details) Pt is legally blind and does not drive. She often held her daughter's arm for mobility in unfamiliar places prior to recent decline. Social History Household Members children Living Arrangements House Number of Floors (Floors) Two Floors Number of Stairs To Enter/Railing? Pt enters from the garage to the upper floor of the home without steps. To get to the bottom floor it is 13 steps doewith with B narrow railing. Pt does not need to access the lower level. Home Environment Standard Height Toilet,Tub/ Shower Home Equipment Front Wheel Walker,Four Wheel Walker,Straight Cane,Manual Wheelchair,Tub Transfer Bench, Hand Held Shower,Long Handled Shoe Horn,Radio Mechanic Apprentice,Grab Bars In Shower Employment Status Retired Additional Social History Comment Pt's daughter lives with her and has been assisting pt but pt's daughter wants to return to work. M2 OT-IP Current Condition Start: 12/25/19 12:23 Freq: Status: Active Protocol: Document 12/25/19 12:23 CGR (Rec: 12/25/19 12:57 CGR [email or web address]) Occupational Therapy Current Condition Current Condition Evaluation Date 12/25/19 Treatment Diagnosis Failure to thrive. Diagnosis Onset Date 12/23/19 M3 OT- IP Subjective and Pain Start: 12/25/19 12:23 Freq: Status: Active Protocol: Document 12/25/19 12:23 CGR (Rec: 12/25/19 12:57 CGR [email or web address]) OT- Subjective Occupational Therapy Visit Type Type Initial Evaluation Visit Start Time 10:51 Visit Stop Time 11:33 Total Visit Minutes 42 Notes Co-eval with P.T. Occupational Therapy Visit Comments Patient Comments I need to go to the bathroom. OT Pain Assessment Pain When Pain Assessed At Rest Pain Present Pain Present Denied Pain M4 OT- IP ADL's Start: 12/25/19 12:23 Freq: Status: Active Protocol: Document 12/25/19 12:23 CGR (Rec: 12/25/19 12:57 CGR [email or web address]) OT [id number] Comments OT Self-Feeding Comments Not meal time OT ADL-Grooming General Evaluation Grooming Ability Maximum Assistance Areas Needing Assistance Combing/Brushing Hair OT ADL-Oral Care Comments Oral Care Comments Not performed in this session. OT ADL-Dressing General Eval Lower Body Dressing Ability Total Assistance Areas Needing Assistance Socks OT ADL-Toileting General Evaluation Toileting Ability Total Assistance Areas Needing Assistance Perform Perineal Hygiene Devices Toileting Assistive Devices Commode Comments OT Toileting Comments Pt lifted to [facility] [place] head lift. BM seated with extra time. Total assist for pericare. OT ADL-Bathing Comments OT Bathing Comments Not performed on this date. M5 OT- IP IADL's Start: 12/25/19 12:23 Freq: Status: Active Protocol: Document 12/25/19 12:23 CGR (Rec: 12/25/19 12:57 CGR [email or web address]) OT-Instrumental Activities of Daily Living Deficits IADL Deficits Identified Deficits Home Safety Awareness Awareness of Need for Assistance at Home Decreased Awareness Ability to Problem Solve Emergency Unable to Problem Solve Situations Driving Driving Comments Pt does not drive. M6 OT- IP Functional Cognition Start: 12/25/19 12:23 Freq: Status: Active Protocol: Document 12/25/19 12:23 CGR (Rec: 12/25/19 12:57 CGR [email or web address]) Cognitive Factors Limiting Selfcare Function Cognitive Ability Level of Alertness Alert Patient Orientation Name,Age,Birthday,Month,Date, Year,Day of Week,Place, Situation Attention Span Ability Capable of Focused Attention, Capable of Sustained Attention Ability to Follow Commands Able to Follow One Step Commands with Increased Time, Able to Follow One Step Commands with Repetition Cognitive Comments Cognitive Assessment Comments Pt was able to answer questions correctly but appears very fatigued. OT- Vision and Hearing OT- Hearing Assessment OT- Hearing Assessment WFL OT- Vision Assessment Visual Acuity Glasses All The Time Occular Pursuits WFL Vision Assessment Comments Pt is legally blind but able to perform minimal visual assessment M7 OT- IP Mobility and Balance Start: 12/25/19 12:23 Freq: Status: Active Protocol: Document 12/25/19 12:23 CGR (Rec: 12/25/19 12:57 CGR [email or web address]) OT- Bed Mobility Assessment Rolling Type of Rolling Roll to Right Level of Assistance Contact Guard Assistance, Bedrails Supine to Sit Supine to Sit Assist Maximum Assistance,1 Person Assistance,Bedrails Scooting Scooting to Edge of Bed Maximum Assistance,1 Person Assistance,Bedrails OT-Transfer Assessment Sit to and From Stand Sit to and from Stand Maximum Assistance,2 Person Assistance Transfers Transfer Ability Maximum Assistance,2 Person Assistance Technique Transfer Destination Bed,Bedside Commode Transfer Technique Mechanical Lift Devices Transfer Assistive Devices Mechanical Lift Comments Mobility Comments Pt attempted sit to stand x 2 with 2 person max a but was unable to maintain standing with full clearance from the bed. Lift was used to transfer pt from bed to BSC and from BSC to chair. OT- Balance Assessment Sitting Balance and Reactions Static Sitting Balance Ability Fair Dynamic Sitting Balance Ability Poor Standing Balance and Reactions Static Standing Balance Ability Poor Dynamic Standing Balance Ability Poor M8 OT- IP Objective Assessments Start: 12/25/19 12:23 Freq: Status: Active Protocol: Document 12/25/19 12:23 CGR (Rec: 12/25/19 12:57 CGR [email or web address]) OT Gross Range of Motion Upper Extremity Range of Motion Assessment Within Functional Limits OT Strength Upper Extremity Strength Assessment Bilaterally Impaired Comments Strength Comments grossly 3-/5 OT- Coordination Assessment Upper Extremity Finger to Nose Test Within Functional Limits Finger Tapping Test Within Functional Limits OT-Muscle Tone Assessment Muscle Tone WNL Yes OT Sensation Assessment Edema Edema Absent M9 OT- IP Assessment and Plan Start: 12/25/19 12:23 Freq: Status: Active Protocol: Document 12/25/19 12:23 CGR (Rec: 12/25/19 12:57 CGR [email or web address]) OT Summary Assessment and Plan Potential Rehabilitation Potential Good Analytic Complexity at Evaluation Moderate Summary OT Impairments Strength,Balance,Functional Cognition,Functional Mobility, Grooming,Dressing,Toileting, Bathing,Toilet Transfers, Shower Transfers,Activity Tolerance Progress Towards Goals Slow Progress due to Medical Issues,Slow Progress due to Activity Tolerance Assessment Summary Pt presents as a moderate complexity evaluation. Pt admitted for failure to thrive with significant decline in activity tolerance and strength. Pt will benefit from rehab services for increasing strength and endurance prior to returning home. Goals Self-Feeding Goal Independent Grooming Goal Independent Dressing Goal Minimal Assistance Toileting Goal Minimal Assistance Bathing Goal Minimal Assistance Toilet Transfer Goal Minimal Assistance Shower Transfer Goal Minimal Assistance Days to Meet Goals 20 Frequency of Treatment Frequency Of Treatment Once a Day Treatment Plan OT Treatment Plan ADL Training,Functional Mobility,Therapeutic Exercises ,Patient/Family Education, Discharge Planning Other Treatment Recommendations and Next Therapeutic activity to UE, Treatment Focus ADLs seated. Discharge Recommendations OT Discharge Recommendations SNF Rehab Home Equipment Needs TBD Transportation Needs at Discharge Wheelchair/Cabulance
[2019-12-25] MEDS: NYSTATIN POWDER 15GM 1 APPLIC TOP ×2 (14:10→21:48)
--- NOTE | 2019-12-25 14:56 | DIET.PN ---
Addendum entered by Paige Ann 12/25/19 15:22: When pt was eating lunch, this RD noticed some difficulty c utensils, pt's hands unsteady, thought she managed. Will trial weighted silverware to see if improves self-feeding ability. Pt requiring cuing for chin tuck per SLT. Original Note: Dietary Progress Note Assessment: 84y F status post ORIF left distal femur fracture in November of 2019 admitted for progressive weakness and failure to thrive referred to nutrition for morbid obesity. Pt has been living c daughter (on separate levels of home) and daughter noticed pt appetite low for several weeks. Pt reports things have a funny taste, do not taste like normal. Usual intake @ home for several weeks: toast c cheese, eggs, pastries, toast c PB, joslyn pasta, joslyn on other foods. Pt has CKD3 c elevated phos of 4.5 likely due to high intake of dairy (cheese, joslyn) and phosphate food additives (bread pastries). HT: 149.8cm WT: 91.4kg BMI: 40.7 Labs: hgb 8.7 L, Cr 2.3 H, BUN 47 H, eGFR 20.2 L, BNP 769 H, TSH 5.35 H, phos 4.5 H, BG overnight 65 L MNA: 10 @ risk for malnutrition Zbigniew: 16 Nutrition Diagnosis: 1. Recc limiting dairy intake to 2 servings/d and eliminating phosphate food additives in baked goods as they are 100% absorbed by the body. 2. R/t low appetite, will trial ONS Nepro for pt as PRO supp in renal friendly formula. Interventions: 1. Recc ONS Nepro once daily Diet Order: Dysphagia puree/thin liquid EER: 55g PRO (0.6g/kg per renal), 1400-1700kcal (15-20kcal/kg per morbid obesity) Monitoring/Evaluations: continued teaching on diet for CKD
[2019-12-25 15:34] LABS: Triiodothyronine T3 Total 71 ng/dL (71-180)
[2019-12-25] MEDS: ATORVASTATIN 20 MG TABLET 40 MG PO (21:37)
[2019-12-26] VITALS (8 sets, daily range): BP systolic 124–156; BP diastolic 52–67; PULSE 55–62; RESP 14–18; TEMP 35.5–36.6; O2SAT 96–97
--- NOTE | 2019-12-26 02:08 | PC.NURSE ---
Patient seen and assessed at 0100. Is alert and oriented except to day of month. Breath sounds with inspiratory crackles in left middle lobe and bilateral bases; RA sat is 94% and denies SOB. 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 Denies nausea. BT hypoactive. Indwelling catheter is patent; urine is clear reno. Continues with generalized weakness so is needing help to reposition q2h. Extensive bruising on bilateral UE and abdomen with bandaid to area on right abdomen; CDI. Groin folds less reddened tonight. Noted open area in buttock crease so area cleansed and barrier cream applied. Hands still puffy and has 2+ edema in bilateral LE. Declines to have SUDHEER stockings on as they caused leg cramps last night. Denies pain. Fall risk score is high and bed alarm is activated.
[2019-12-26] MEDS: LEVOTHYROXINE 88 MCG TABLET PO (05:20)
[2019-12-26] MEDS: COSYNTROPIN 0.25 MG VIAL IV (07:47)
[2019-12-26 08:08] LABS: Add Manual Diff / Slide Review NO; Basophils Absolute Auto 0 /uL (0-100); Basophils Percent Auto 0.5 % (0-2); Eosinophils Absolute Auto 300 /uL (0-450); Hematocrit 29.9 % (36-46); Hemoglobin 10.2 g/dL (12.0-16.0); Lymphocytes Absolute Auto 1100 /uL (1100-4500); Lymphocytes Percent Auto 16.1 % (25-40); Mean Corpuscular HGB Conc 34.2 % (30-36); Mean Corpuscular Hemoglobin 32.7 PG (26-34); Mean Corpuscular Volume 95.8 fL (80-100); Monocytes Absolute Auto 700 /uL (0-900); Neutrophils Absolute Auto 4500 /uL (1500-7000); Neutrophils Percent Auto 68.4 % (50-75); Platelet Count 98 X10^3/uL (150-400); Red Blood Cell Count 3.12 X10^6/uL (4.0-5.2); Red Cell Distribution Width 15.7 % (11.6-14.8); White Blood Cell Count 6.6 X10^3/uL (4.5-11.0)
[2019-12-26 08:25] LABS: Hemoglobin A1C% w Est Avg Glu 5.1 % (4.0-6.0)
[2019-12-26 08:26] LABS: Alanine Aminotransferase 19 IU/L (<35); Albumin 2.8 g/dL (3.5-5.0); Albumin Globulin Ratio 0.8 (1.0-2.8); Alkaline Phosphatase 112 U/L (38-126); Aspartate Aminotransferase 33 IU/L (14-36); BUN Creatinine Ratio 22.6 (6-22); Bilirubin Total 0.8 mg/dL (0.2-1.3); Blood Urea Nitrogen 38 mg/dL (7-17); Calcium 9.9 mg/dL (8.4-10.2); Carbon Dioxide 23 mmol/L (22-32); Chloride 107 mmol/L (98-107); Globulin 3.3 g/dL (1.7-4.1); Glucose 83 mg/dL (80-110); HEMOLYSIS < 15 (0-50); Magnesium 1.8 mg/dL (1.6-2.3); Potassium 4.1 mmol/L (3.4-5.1); Sodium 136 mmol/L (137-145); Total Protein 6.1 g/dL (6.3-8.2)
[2019-12-26 08:44] LABS: Cortisol Basline for Stim. 17.8 ug/dL
[2019-12-26] MEDS: polyethylene glycoL 3350 17 GM POWD.PACK PO (08:52)
[2019-12-26] MEDS: SODIUM CHLORIDE 0.9% FLUSH 10 ML IV ×2 (08:52→21:56)
[2019-12-26] MEDS: HEPARIN 5,000 UNIT/ML VIAL 5000 UNIT SUBCUT ×2 (08:52→21:56)
[2019-12-26] MEDS: DOCUSATE 100 MG CAPSULE PO ×2 (08:52→21:56)
[2019-12-26 09:32] LABS: Cortisol 30 MIN Post Stim. 30.2 ug/dL
[2019-12-26 09:41] LABS: Cortisol 60 MIN Post Stim. 37.8 ug/dL
--- NOTE | 2019-12-26 10:05 | PT.IPTN ---
Physical Therapy Treatment Note M2 PT-IP Current Condition Start: 12/24/19 08:24 Freq: NEEDED Status: Active Protocol: Document 12/25/19 10:46 AB (Rec: 12/25/19 13:06 AB [id number]) Physical Therapy Current Condition Current Condition Evaluation Date 12/25/19 Treatment Diagnosis failure to thrive; difficulty in walking Onset Date 12/24/19 M3 PT-IP Subjective Start: 12/24/19 08:24 Freq: NEEDED Status: Active Protocol: Document 12/26/19 10:05 AB (Rec: 12/26/19 11:27 AB [id number]) Subjective Physical Therapy Visit Type Type Treatment Note Visit Start Time 10:05 Visit Stop Time 10:37 Total Visit Minutes 32 Number of LENS EDGER Visits 0 Physical Therapy Visit Comments Patient Comments pt agreeable to do PT Therapy Pain Assessment Pain Present Pain Present Denied Pain M4 PT-IP Mobility and Gait Start: 12/24/19 08:24 Freq: NEEDED Status: Active Protocol: Document 12/26/19 10:05 AB (Rec: 12/26/19 11:27 AB [id number]) PT-Bed Mobility Assessment Rolling Level of Assist Maximal Assistance,2 Person Assistance Supine to Sit Supine to Sit Maximum Assistance,2 Person Assistance,Bedrails Scooting Scooting to Edge of Bed Maximum Assistance PT-Transfer Assessment Sit to and From Stand Sit to and from Stand Maximum Assistance,2 Person Assistance,Use of Upper Extremities Equipment Transfer Assistive Device Gait Belt Orthotic/Prosthetic Devices or Brace: No Transfers Transfer Destination Chair Transfer Technique Stand Pivot Transfer Ability Level of Assist Maximum Assistance,2 Person Assistance,Use of Upper Extremities Comments Mobility Comments BP in supine: 149/71. pt completed log roll supine to sit max A x 2 and max cues. pt was able to sit on EOB with initial min A but only SBA to CGA after repositioning. BP: 147/74. pt completed sit to stand max A x 2 and max cues and tolerated ~ 4 min of standing. pt with increase LE leaning against the bed during standing. pt sat back on EOB and rested. BP after standing sitting on EOB: 145/ 55. completed sit to stand again max A x 2 and cues and attempted transfer to chair using FWW but pt unable with difficulty moving BLE. completed stand pivot transfer instead with PT in front assisting pt and OT behind pt requiring max A x 2 and max cues. positioned pt on chair. call light and table placed within reach. M5 PT-IP Objective Assessments Start: 12/24/19 08:24 Freq: NEEDED Status: Active Protocol: Document 12/25/19 10:46 AB (Rec: 12/25/19 13:06 AB [id number]) Orientation Orientation/Cognition Level of Alertness Alert Orientation Name,Date,Year,Place,Situation Language Function Ability No Deficits Noted Safety Awareness Understands Safety Issues Strength Lower Extremity Strength Assessment Bilaterally Impaired Comments Strength Comments LLE: 4-/5 RLE: 3+/5 Coordination Assessment Gross Coordination Gross Coordination WNL M6 PT-IP Treatment Start: 12/24/19 08:24 Freq: NEEDED Status: Active Protocol: Document 12/26/19 10:05 AB (Rec: 12/26/19 11:27 AB [id number]) Physical Therapy Treatment Education Education Provided Safety M7 PT-IP Assessment and Plan Start: 12/24/19 08:24 Freq: NEEDED Status: Active Protocol: Document 12/26/19 10:05 AB (Rec: 12/26/19 11:27 AB [id number]) PT Summary Assessment and Plan Potential Rehabilitation Potential Good Summary Impairments Pain,ROM,Strength,Balance, Coordination,Sensation,Tone, Cognition,Bed Mobility, Transfers,Gait,Activity Tolerance Progress Towards Goals Slow Progress due to Medical Issues,Slow Progress due to Activity Tolerance Assessment Summary pt progressing slowly with mobility. pt continues to require max A x 2 for mobility but was able to stand up straighter and tolerate standing better today compared to yesterdays. pt will require SNF rehab to improve strength and mobility. Goals Bed Mobility Goal Minimal Assistance Transfer Goal Minimal Assistance,Front Wheeled Walker Gait Goal Minimal Assistance,Front Wheel Walker Gait Distance 50 Days to Meet Goals 10 Frequency of Treatment Frequency Of Treatment Once a Day Treatment Plan Physical Therapy Treatment Plan Bed Mobility Training,Transfer Training,Gait Training, Therapeutic Exercise,Balance Retraining,Discharge Planning, Neuromuscular Re-ed Recommendations To Nursing Amount of Assist Needed Mechanical Lift Discharge Recommendations PT Discharge Recommendations SNF Rehab Transportation Needs at Discharge Wheelchair/Cabulance
[2019-12-26] MEDS: ASPIRIN EC 81 MG TABLET PO (10:52)
[2019-12-26] MEDS: CLOPIDOGREL 75 MG TABLET PO (10:53)
[2019-12-26] MEDS: FUROSEMIDE 40 MG/4 ML VIAL IV (10:53)
--- NOTE | 2019-12-26 11:36 | OT.IP.TRT ---
Occupational Therapy Treatment Note M2 OT-IP Current Condition Start: 12/25/19 12:23 Freq: Status: Active Protocol: Document 12/25/19 12:23 CGR (Rec: 12/25/19 12:57 CGR [id number]) Occupational Therapy Current Condition Current Condition Evaluation Date 12/25/19 Treatment Diagnosis Failure to thrive. Diagnosis Onset Date 12/23/19 M3 OT- IP Subjective and Pain Start: 12/25/19 12:23 Freq: Status: Active Protocol: Document 12/26/19 11:23 [facility] (Rec: 12/26/19 11:36 [facility] [id number]) OT- Subjective Occupational Therapy Visit Type Type Treatment Note Visit Start Time 10:05 Visit Stop Time 10:37 Total Visit Minutes 32 Occupational Therapy Visit Comments Patient Comments Pt agreed to try to get up. PT also present as pt needing extensive skilled assist for bed mobility and transfer. Patient/Caregiver Goals To get stronger. OT Pain Assessment Pain When Pain Assessed At Rest Pain Present Pain Present Denied Pain M4 OT- IP ADL's Start: 12/25/19 12:23 Freq: Status: Active Protocol: Document 12/26/19 11:23 [facility] (Rec: 12/26/19 11:36 [facility] [id number]) OT [id number] Comments OT Self-Feeding Comments Not meal time OT ADL-Grooming General Evaluation Grooming Ability Moderate Assistance Areas Needing Assistance Combing/Brushing Hair Comments OT Grooming Comments MODA for completeness of her hair and able to wash her face and hands after set-up of wash cloth. OT ADL-Dressing General Eval Upper Body Dressing Ability Maximum Assistance Lower Body Dressing Ability Total Assistance Areas Needing Assistance Socks Comments OT Dressing Comments Assist to help thread gown over pt. OT ADL-Toileting General Evaluation Toileting Ability Total Assistance Comments OT Toileting Comments Choi in. OT ADL-Bathing Comments OT Bathing Comments Not performed on this date. M5 OT- IP IADL's Start: 12/25/19 12:23 Freq: Status: Active Protocol: Document 12/25/19 12:23 CGR (Rec: 12/25/19 12:57 CGR [id number]) OT-Instrumental Activities of Daily Living Deficits IADL Deficits Identified Deficits Home Safety Awareness Awareness of Need for Assistance at Home Decreased Awareness Ability to Problem Solve Emergency Unable to Problem Solve Situations Driving Driving Comments Pt does not drive. M6 OT- IP Functional Cognition Start: 12/25/19 12:23 Freq: Status: Active Protocol: Document 12/26/19 11:23 [facility] (Rec: 12/26/19 11:36 [facility] [id number]) Cognitive Factors Limiting Selfcare Function Cognitive Comments Cognitive Assessment Comments Pt able to follow commands for needs and states her needs. M7 OT- IP Mobility and Balance Start: 12/25/19 12:23 Freq: Status: Active Protocol: Document 12/26/19 11:23 [facility] (Rec: 12/26/19 11:36 [facility] [id number]) OT- Bed Mobility Assessment Rolling Type of Rolling Log Rolling Level of Assistance Maximum Assistance Supine to Sit Supine to Sit Assist Maximum Assistance,2 Person Assistance OT-Transfer Assessment Sit to and From Stand Sit to and from Stand Maximum Assistance,2 Person Assistance Transfers Transfer Ability Maximum Assistance,2 Person Assistance Technique Transfer Destination Bed,Chair Devices Transfer Assistive Devices Gait Belt,Front Wheeled Walker Comments Mobility Comments Pt able to stand with FWW however was leaning on the bed to assist in addition to assist from therapists. At this time pt , pt not able to take a step with FWW and needing to do squat pivot transfer with MAX A X 2. Assist to also help scoot back into the recliner. BP supine 149/71, sitting 147/74 and standing 145/55. Pt's O2 on RA 96% OT- Balance Assessment Sitting Balance and Reactions Static Sitting Balance Ability Fair Dynamic Sitting Balance Ability Poor Standing Balance and Reactions Static Standing Balance Ability Poor Dynamic Standing Balance Ability Poor M8 OT- IP Objective Assessments Start: 12/25/19 12:23 Freq: Status: Active Protocol: Document 12/25/19 12:23 CGR (Rec: 12/25/19 12:57 CGR [id number]) OT Gross Range of Motion Upper Extremity Range of Motion Assessment Within Functional Limits OT Strength Upper Extremity Strength Assessment Bilaterally Impaired Comments Strength Comments grossly 3-/5 OT- Coordination Assessment Upper Extremity Finger to Nose Test Within Functional Limits Finger Tapping Test Within Functional Limits OT-Muscle Tone Assessment Muscle Tone WNL Yes OT Sensation Assessment Edema Edema Absent M9 OT- IP Assessment and Plan Start: 12/25/19 12:23 Freq: Status: Active Protocol: Document 12/26/19 11:23 [facility] (Rec: 12/26/19 11:36 [facility] [id number]) OT Summary Assessment and Plan Potential Rehabilitation Potential Good Analytic Complexity at Evaluation Moderate Summary OT Impairments Strength,Balance,Functional Cognition,Functional Mobility, Grooming,Dressing,Toileting, Bathing,Toilet Transfers, Shower Transfers,Activity Tolerance Progress Towards Goals Slow Progress due to Medical Issues,Slow Progress due to Activity Tolerance Assessment Summary Pt able to participate more and able to transfer with MAX A x2 stand pivot. Pt will still benefit from skilled rehab prior to going home as to help maximize her independence for ADl and functional mobility needs. Goals Self-Feeding Goal Independent Grooming Goal Independent Dressing Goal Minimal Assistance Toileting Goal Minimal Assistance Bathing Goal Minimal Assistance Toilet Transfer Goal Minimal Assistance Shower Transfer Goal Minimal Assistance Days to Meet Goals 19 Frequency of Treatment Frequency Of Treatment Once a Day Treatment Plan OT Treatment Plan ADL Training,Functional Mobility,Therapeutic Exercises ,Patient/Family Education, Discharge Planning Other Treatment Recommendations and Next Transfer to [facility] MAX A x2 with Treatment Focus FWW. Discharge Recommendations OT Discharge Recommendations SNF Rehab Home Equipment Needs TBD Transportation Needs at Discharge Wheelchair/Cabulance
--- NOTE | 2019-12-26 13:23 | ST.IPDYTX ---
Visit Care Team Role Provider Type Pramod Garber MD Primary Care Provider Physician Specialty: Internal Medicine Address: [address] [place] [address], [address], [place], [address] Email: [email or web address] JEANNIE Valdovinos Other Providers Advanced Desk Officer Specialty: Family Practice Address: [address] [place] [address], [id number] Email: [email or web address] Deanna Youssef PA-C Emergency Provider Physician Side Seam Envelope Machine Operator Specialty: EM Address: [address] [place] [address], [id number] Email: JEANNIE Andino Admit Provider Physician Attending Provider Specialty: Internal Medicine Address: [address] [place] [address], [id number] Email: [email or web address] LICSW Dysphagia Treatment LICSW Dysphagia Treatment Start: 12/24/19 12:46 Freq: Status: Active Protocol: Document 12/26/19 11:52 LL (Rec: 12/26/19 11:57 LL [id number]) Dysphagia Treatment Session Time Visit Start Time 10:40 Visit Stop Time 11:15 Total Visit Minutes 35 Visit Type Note Type Treatment Note Patient Information Identification Type Name Subjective Observations Nanci was seen sitting up in her chair watching television . She was alert and oriented x4. Treatment Liquids Trialed Thin Solids Trialed Puree,Dysphagia Mechanical, Mechanical Soft Administration Type Tea Spoon,Cup Single Sip, Dependent Feeding Oral Strategies Upright at 90 degrees, Controlled Bite/Sip Size, Alternate Liquids/Solids Pharyngeal Strategies Sitting Upright (90 deg), Effortful Swallow,Small Bites and Sips,Alternate Liquids/ Solids Treatment Activities Assessment of swallowing, toleration of current diet, modification of diet, and carryover of strategies. Nanci independently recalled recommended swallow strategies. Her swallow strategies include: slow rate, small bites/sips, effortful swallow, and chin tuck which she said she learned during this admission. Continues to require verbal cue to alternate bites and sips. Further education and training provided for correct technique of effortful swallow to assist in bolus propulsion and pharyngeal clearance. LICSW observed Nanci swallow 2 medications with carrier. Nanci initially grimaced when swallowing, but when asked if she was okay, she said yes. She reported that the pills went down alright. Trialed dysphagia mechanical and mechanical soft textures. Slightly increased mastication time and A/P propulsion observed, otherwise no overt s /sx of aspiration observed. SPO2 remained 96-98 throughout trials. Spoke to Nanci's daughter, Bonita about recommended swallow strategies and swallow/aspiration precautions. Bonita reported that she observed Nanci taking larger bites/sips when caregivers/staff were not in the room. Also, Bonita reported that Nanci's poor eye sight and decreased taste bud sensation may be impacting her oral intake. Reviewed recommended swallow strategies and explained importance of implementing swallow strategies to improve airway protection and reduce the risk of aspiration/aspiration pneumonia. Assessment Patient Response to Treatment Good Assessment of Improvement Nanci remains complaint with recommendations. Improved strength since yesterday's ST treatment, however, rate of intake remains reduced with puree textures. Upgraded to dysphagia mechanical soft and thin liquids with use of recommended swallow strategies . Nanci would greatly benefit having 1:1 supervision and/or assistance to increase oral intake and ensure that she is implementing recommended swallow strategies to reduce risk of aspiration when eating. She did not displays signs of aspiration at bedside. Diet Recommendations Recommendations Upgrade Diet Order Liquids Order Thin Diet Order Dysphagia Mechanical Medication Recommendations As Tolerated,Whole in Carrier Additional Dietary Needs Chopped Food,Single Sips,No Straws,1:1 Supervision,1:1 Assistance,Reminders to Use Strategies Aspiration Precautions Recommended Precautions Upright at 90 Degrees, Alternate Liquids/Solids,Small Bites/Sips,Effortful Swallow, Liquids from Cup Treatment Plan Placement Recommendation after Discharge Shelter Facility Appropriate for Continued Therapy Yes Therapy Recommendations *Ongoing assessment and pt/ caregiver education. *Training of compensatory swallow strategies. *Modification of diet as indicated. Dysphagia Goals 1. The pt will perform safe swallow strategies as needed with min cues to reduce risk of aspiration. 2. The pt will tolerate least restrictive diet to meet her nutrition and hydration needs.
--- NOTE | 2019-12-26 19:16 | P.PN_ITS ---
Subjective Subjective Date Patient Seen: 12/26/19 Interval history: Nanci Jones is an 84-year-old female with a past medical history significant for hypertension, hyperlipidemia, chronic kidney disease stage 3, morbid obesity, previous CVA x2 (most recent 09/26/2018) and recent femoral fracture 08/2019 who was discharged to [facility] for continued rehabilitation and discharged home early November and presented to ED with steady decline since returning home with progressive weakness and failure to thrive. The patient is resting in bed comfortably. She continues to have slightly slurred speech which is more exaggerated in the evening and when she is fatigued. She continues to work with speech therapy. Her ACTH stim test today was negative for adrenal insufficiency. She is profoundly weak and continues to work with physical and occupational therapy. The patient's daughter was not present today during my interview and the patient is more forthcoming. She readily admits that she is severely depressed but does not want to put this burden on her daughter as it ?kills her to see her upset.? She reports that some days she just wishes it was all over. Discussed her decline since her femoral fracture and that she is looking at a new normal and likely will not get back to the functional status that she once was. Discussed treatment of depression and patient would like some time to think about it. She denies headache, sore throat, cough, shortness of breath, chest pain, abdominal pain, nausea, vomiting, fever, chills, dysuria, diarrhea or constipation. Patient has mild anasarca due to IV fluid administration and plan to give furosemide 40 mg IV x1 today as blood pressure has improved. She voiding via Choi catheter and eliminating without difficulty. She continues to require maximal assistance. Continue PT and OT. Exam Vital Signs (past 8 hours): - 12/26/19 11:45 12/26/19 15:00 12/26/19 15:43 Temperature 97.0 F L 97.1 F L Pulse Rate 55 L 61 Respiratory Rate 16 18 Blood Pressure 138/54 L 156/64 H Pulse Oximetry 97 96 96 Oxygen Delivery Method Room Air Oxygen Flow Rate 0 Narrative Exam Narrative: General: Elderly female lying in bed in no acute distress, well-developed, well-nourished, lethargic, slight slurring of speech which is possibly residual to previous CVA, severely depressed but otherwise appropriately interactive. HEENT: Normocephalic, atraumatic. External ears without defect. Pupils equal, round, and reactive to light. Anicteric sclerae, moist conjunctivae, and no lid lag. Oropharynx free of erythema and cobble stoning with moist mucosa. Neck: Supple with full range of motion. No lymphadenopathy. Cardiovascular: Regular rate and rhythm without murmurs, rubs, or gallops appreciated. Pulmonary: Clear to auscultation bilaterally with fine bibasilar crackles. No wheezes or rhonchi. Normal respiratory effort with no use of accessory muscles. Abdomen: Soft, obese, bowel sounds present, nontender, nondistended. Extremities: No clubbing or cyanosis. Mild anasarca. Bilateral mild stasis dermatitis of lower extremities. Scattered bruises throughout all extremities. Neurological: Cranial nerves grossly intact. Mild slurring of speech. Generalized weakness of all extremities without focal deficit. Psychiatric: Severely depressed mood and affect. Alert and oriented to person, place, and time. Short-term memory recall deficit possible mild cognitive impairment versus dementia with short-term memory recall deficit. Objective Labs Result Diagrams: 12/27/19 09:28 12/27/19 09:28 Labs: Laboratory Results - last 24 hr 12/26/19 12/26/19 12/26/19 07:00 07:47 07:47 WBC 6.6 RBC 3.12 L Hgb 10.2 L Hct 29.9 L MCV 95.8 MCH 32.7 MCHC 34.2 RDW 15.7 H Plt Count 98 L Neut % (Auto) 68.4 Lymph % (Auto) 16.1 L Crisp % (Auto) 10.0 Eos % (Auto) 5.0 H Baso % (Auto) 0.5 Neut # (Auto) 4500 Lymph # (Auto) 1100 Crisp # (Auto) 700 Eos # (Auto) 300 Baso # (Auto) 0 Sodium 136 L Potassium 4.1 Chloride 107 Carbon Dioxide 23 BUN 38 H Creatinine 1.68 H Estimated GFR 29.0 L BUN/Creatinine Ratio 22.6 H Glucose 83 Hemoglobin A1c Calcium 9.9 Magnesium 1.8 Total Bilirubin 0.8 AST 33 ALT 19 Alkaline Phosphatase 112 Total Protein 6.1 L Albumin 2.8 L Globulin 3.3 Albumin/Globulin Ratio 0.8 L Cortisol Response 12/26/19 07:47 WBC RBC Hgb Hct MCV MCH MCHC RDW Plt Count Neut % (Auto) Lymph % (Auto) Crisp % (Auto) Eos % (Auto) Baso % (Auto) Neut # (Auto) Lymph # (Auto) Crisp # (Auto) Eos # (Auto) Baso # (Auto) Sodium Potassium Chloride Carbon Dioxide BUN Creatinine Estimated GFR BUN/Creatinine Ratio Glucose Hemoglobin A1c 5.1 Calcium Magnesium Total Bilirubin AST ALT Alkaline Phosphatase Total Protein Albumin Globulin Albumin/Globulin Ratio Cortisol Response Assessment & Plan Assessment & Plan narrative: Nanci Jones is an 84-year-old female with a past medical history significant for hypertension, hyperlipidemia, chronic kidney disease stage 3, morbid obesity, previous CVA x2 (most recent 09/26/2018) and recent femoral fracture 08/2019 who was discharged to [facility] for continued rehabilitation and discharged home early November and presented to ED with steady decline since returning home with progressive weakness and failure to thrive. 1. Acute on chronic progressive weakness and failure to thrive, present on admission. Active. -Patient presented after being discharged from correction facility (where she was reportedly doing well with rehabilitation) to home where she failed miserably with progressive weakness, debility and deconditioning. Patient's daughter reports that she did not want to get up and walk and slowly declined over the last month. -Etiology unclear but likely due to recent femoral fracture with progressive debility, deconditioning and weakness. Patient has also had CVA x 2 remotely and may have underlying contribution. -Patient has had anemia, hypoglycemia, low blood pressure, and mild hyponatremia, therefore, ordered ACTH stim test which was negative as cortisol level greater >18 pre and post test and cortisol level increased with cosyntro pin stimulation. -Patient has had acute on chronic anemia since surgery and this may be contributing to fatigue and weakness as below. -Patient also reports progressive generalized weakness, dysphagia, dysarthria, and minimal visual complaints but did not have acute CVA as MR stroke protocol negative for acute process as below. -Ordered palliative care consult, pending. -Patient appears significantly depressed and when daughter was not present she readily admitted to depression which is likely big component of decline. The patient is considering treatment with SSRI and Ritalin. 2. Paroxysmal atrial fibrillation/flutter, unclear acuity, present on admission. Stable. -Unclear if patient has previous diagnosis of atrial fibrillation and patient denies ever previously being diagnosed or told she has atrial fibrillation. -Echocardiogram as above. -CHADS2 Vasc 7 making patient high risk of VTE and plan to discuss anticoagulation benefits and risk. Continue aspirin 81 mg daily and Plavix 75 mg daily for now. 3. Probable chronic aspiration with dysphagia, likely secondary to previous CVA x2, present on admission. Improved. -MR stroke protocol demonstrated no acute intracranial abnormalities, mild cerebral volume loss, multiple foci of T2 hyperintensity in periventricular white matter are compatible with chronic small vessel ischemic changes but demyelinating process such as multiple sclerosis is in differential, [id number] stenosis of the cavernous segment of the internal carotid arteries bilaterally, diffuse irregularity of middle cerebral arteries bilaterally; but no high-grade stenosis or occlusion, diffuse irregularities in common and internal carotid arteries bilaterally but no high-grade stenosis or occlusion, suboptimal visualization of the deeper artery origins and suspect high-grade stenosis of right proximal vertebral artery. -Restarted aspirin 81 mg daily and Plavix 75 mg daily now that blood counts are stable. -Continue speech therapy and advance diet per speech pathologist. Patient currently on dysphagia mechanical diet. -Continue physical therapy and occupational therapy evaluation and treatment. 4. Diastolic congestive heart failure, chronic, present on admission. Stable. -Does not represent CHF exacerbation. -Echocardiogram demonstrated normal left ventricular thickness, size, wall motion, and systolic function with EF 60-65%, RV is mildly dilated with normal function, no significant valvular abnormalities, atherosclerosis, including a grade 5- mobile- atheroma, noted in the aortic arch which is new compared to echo 09/19/2018, diastolic parameters could not be assessed due to atrial flutter and IVC is dilated (diameter is greater than 2.1 cm) and it collapses less than 50% with a sniff suggestive of a high right atrial pressure of 15 mm Hg. -Patient has mild anasarca due to IV fluid administration but again does not represent CHF exacerbation. Plan to give furosemide 40 mg IV x1. -Continue to monitor strict I&Os and daily weights. 5. Acute on chronic anemia, present on admission. Stable. -Patient has been persistently anemic below baseline since previous femur fracture and repair. Chronic portion of anemia secondary to chronic kidney disease. -Hemoglobin previously 7.9 and received 2 units PRBC with appropriate compensation with hemoglobin now 10.2. No overt signs of bleeding. -Restarted aspirin and Plavix as below. -Iron panel normal. -Continue to monitor hemoglobin closely. 6. Acute kidney injury on chronic kidney disease stage 3, present on admission. Stable. -Likely due to decreased PO intake in combination -diuretics have been held as have been losartan -Avoid nephrotoxic agents -Continue to monitor her kidney function closely 7. Symptomatic subclinical hypothyroidism, present on admission. Active. -Possible thyroid nodule ruled out. -MR stroke protocol demonstrated enlargement of the left lower lobe with a possible left thyroid nodule. Thyroid ultrasound did not demonstrate any nodules with diffuse heterogeneous appearance of the left lobe of thyroid, technically non-specific finding; recommend clinical and biochemical correlation. -TSH elevated at 5.35 and free T4 normal at 1.19 indicative of subclinical hypothyroidism. Patient had low heart rate, low temperature, and low blood pressure, therefore, was started on levothyroxine 88 mcg daily. 8. Hypertension, present on admission. Stable. -Held home antihypertensive medications as patient's blood pressure has been labile and low normal. 9. Hyperlipidemia and ASCVD, present on admission. Stable. -Continue atorvastatin 40 mg daily. 10. Morbid obesity, present on admission. Stable. -BMI 40.7. -Morbid obesity contribute significantly to debilitation and progressive weakness, as well as, increased risk of morbidity mortality with ASCVD. -Consulted dietitian and we appreciate her time and recommendations. Code status: DNR, Daughter at the bedside his DPOA DVT prophylaxis: SQ Heparin Disposition: Patient will undoubtedly require correction facility for continued rehabilitation versus consideration of home with hospice in the next several days. Quality VTE Deep Vein Thrombosis/Pulmonary Embolism Present on Admission: No
[2019-12-26] MEDS: NYSTATIN POWDER 15GM 1 APPLIC TOP (20:30)
[2019-12-26] MEDS: ATORVASTATIN 20 MG TABLET 40 MG PO (21:56)
[2019-12-27] VITALS (11 sets, daily range): BP systolic 107–169; BP diastolic 42–77; PULSE 45–72; RESP 14–20; TEMP 35.3–36.3; O2SAT 94–97
[2019-12-27] MEDS: LEVOTHYROXINE 88 MCG TABLET PO (05:31)
[2019-12-27] MEDS: polyethylene glycoL 3350 17 GM POWD.PACK PO (08:47)
[2019-12-27] MEDS: CLOPIDOGREL 75 MG TABLET PO (08:48)
[2019-12-27] MEDS: SODIUM CHLORIDE 0.9% FLUSH 10 ML IV ×2 (08:48→20:02)
[2019-12-27] MEDS: HEPARIN 5,000 UNIT/ML VIAL 5000 UNIT SUBCUT ×2 (08:48→20:13)
[2019-12-27] MEDS: DOCUSATE 100 MG CAPSULE PO ×2 (08:48→20:13)
[2019-12-27] MEDS: ASPIRIN EC 81 MG TABLET PO (08:48)
--- NOTE | 2019-12-27 09:36 | ST.IPDYTX ---
Visit Care Team Role Provider Type Pramod Garber MD Primary Care Provider Physician Specialty: Internal Medicine Address: [address] [place] [address], [address], [place], [address] Email: [email or web address] Valdovinos Other Providers Advanced Quality Assurance Consultant Specialty: Family Practice Address: [address] [place] [address], [id number] Email: [email or web address] Deanna Youssef PA-C Emergency Provider Physician Aligning Inspector Specialty: EM Address: [address] [place] [address], [id number] Email: JENANIE Andino Admit Provider Physician Attending Provider Specialty: Internal Medicine Address: [address] [place] [address], [id number] Email: [email or web address] WHEEL FILLER Dysphagia Treatment WHEEL FILLER Dysphagia Treatment Start: 12/24/19 12:46 Freq: Status: Active Protocol: Document 12/27/19 09:13 LL (Rec: 12/27/19 09:36 LL [id number]) Dysphagia Treatment Session Time Visit Start Time 08:20 Visit Stop Time 09:00 Total Visit Minutes 40 Visit Type Note Type Treatment Note Patient Information Identification Type Name Subjective Observations Nanci was seen sitting up in bed eating breakfast. She was alert and oriented. Treatment Liquids Trialed Thin Solids Trialed Dysphagia Mechanical, Mechanical Soft Administration Type Self-Feeding Pharyngeal Strategies Sitting Upright (90 deg), Effortful Swallow,Small Bites and Sips,Alternate Liquids/ Solids Treatment Activities Assessment of swallowing, toleration of current diet, and carryover of strategies during meal time. Her swallow strategies include: slow rate, small bites/sips, effortful swallow, and alternate bites/ sips to clear mild oral residues. Able to perform swallow strategies given an initial cue at the beginning of her meal. Further education and training provided for correct technique of effortful swallow to assist in bolus propulsion and pharyngeal clearance. WHEEL FILLER observed Nanci swallow 3 whole medications with carrier. Nanci initially grimaced when swallowing a medium sized liquid pill, but when asked if she was okay, she said yes. Continues to present with slightly increased mastication time and A/P propulsion observed, otherwise no overt s /sx of aspiration observed. SPO2 remained 94-95 throughout trials. WHEEL FILLER explained importance of implementing swallow strategies to improve airway protection and reduce the risk of aspiration/ aspiration pneumonia. WHEEL FILLER provided patient with a visual cue card with swallow strategies listed to use/look at when eating (e.g.,reminder to use strategies to decrease need for assistance). WHEEL FILLER taped the cue card on patient' s table and reviewed swallow strategies as well. Reviewed diet recommendations, swallow strategies, and medication recommendations with patient's nurse and TUBE REPAIRER. Assessment Patient Response to Treatment Good Assessment of Improvement Nanci remains complaint with recommendations and implemented swallow strategies given an initial cue. Improved rate of intake with mechanical soft textures. Patient consumed half of her breakfast. 1:1 supervision and /or assistance as needed to increase oral intake and ensure that she is implementing recommended swallow strategies to reduce risk of aspiration when eating (e.g., visual impairment and R sided hand tremors - tremors are improving). She did not displays signs of aspiration at bedside. Diet Recommendations Recommendations Continue Current Diet Liquids Order Thin Diet Order Dysphagia Mechanical Medication Recommendations As Tolerated,Whole in Carrier Additional Dietary Needs Chopped Food,Single Sips,No Straws,1:1 Supervision,1:1 Assistance,Reminders to Use Strategies Aspiration Precautions Recommended Precautions Upright at 90 Degrees, Alternate Liquids/Solids,Small Bites/Sips,Effortful Swallow, Liquids from Cup Treatment Plan Placement Recommendation after Discharge Senior Care Facility Appropriate for Continued Therapy Yes Therapy Recommendations *Ongoing assessment and pt/ caregiver education. *Training of compensatory swallow strategies. *Modification of diet as indicated. *Oral motor strengthening and laryngeal/pharyngeal strengthening exercises to improve swallow function. *Recommend MBSS to determine LRD and risk of aspiration. Dysphagia Goals 1. The pt will perform safe swallow strategies as needed with min cues to reduce risk of aspiration. 2. The pt will complete oral motor and laryngeal/pharyngeal exercises to improve swallow function, increase airway protection, and decrease risk of aspiration. 2. The pt will tolerate least restrictive diet to meet her nutrition and hydration needs.
[2019-12-27 09:47] LABS: BUN Creatinine Ratio 23.4 (6-22); Blood Urea Nitrogen 39 mg/dL (7-17); Calcium 10.1 mg/dL (8.4-10.2); Carbon Dioxide 28 mmol/L (22-32); Chloride 105 mmol/L (98-107); Estimated Glomerular Filt Rate 29.2 mL/min (>60); Glucose 107 mg/dL (80-110); HEMOLYSIS < 15 (0-50); Magnesium 1.7 mg/dL (1.6-2.3); Potassium 4.1 mmol/L (3.4-5.1); Sodium 135 mmol/L (137-145)
[2019-12-27 09:52] LABS: Add Manual Diff / Slide Review NO; Basophils Absolute Auto 0 /uL (0-100); Basophils Percent Auto 0.7 % (0-2); Eosinophils Absolute Auto 400 /uL (0-450); Hematocrit 30.7 % (36-46); Hemoglobin 10.6 g/dL (12.0-16.0); Lymphocytes Absolute Auto 900 /uL (1100-4500); Lymphocytes Percent Auto 13.6 % (25-40); Mean Corpuscular HGB Conc 34.6 % (30-36); Mean Corpuscular Hemoglobin 32.8 PG (26-34); Mean Corpuscular Volume 94.9 fL (80-100); Monocytes Absolute Auto 400 /uL (0-900); Monocytes Percent Auto 6.3 % (3-14); Neutrophils Absolute Auto 5000 /uL (1500-7000); Neutrophils Percent Auto 73.4 % (50-75); Platelet Count 101 X10^3/uL (150-400); Red Blood Cell Count 3.23 X10^6/uL (4.0-5.2); Red Cell Distribution Width 15.9 % (11.6-14.8); White Blood Cell Count 6.8 X10^3/uL (4.5-11.0)
--- NOTE | 2019-12-27 10:23 | PC.NURSE ---
I asked the patient if she wanted to maybe do a bed bath sometime this morning and she stated that had one yesterday and didn't need one. I told her to let me know if she changes her mind.
--- NOTE | 2019-12-27 10:41 | CM.DPNOTE ---
DCP Cont Spoke w/ December at [facility] H+R yesterday and today; patient has been accepted to DC again to [facility] although patient/family will need to arrange payment of at least $5,000 towards her outstanding bill (from patient's last stay) before she can admit to [facility]. Spoke w/dtr Bonita and patient yesterday and today, reviewed DCP. Bonita is able to pay the $5,000 and is arranging this w/Mary in the business office at [facility]. Patient/family are agreeable to DC to [facility] upon DC. Then scheduled, w/dtr Bonita, Palliative Care mtg for 1530 this afternoon w/ Palliative Care provider Alessia Ortega. Emailed Alessia adamson/this information and provided tawanna Mesa's phone # to coordinate further if needed P: DC to [facility] is expected w/in 24-48 hrs, via w/c Palliative Care Consult pending this afternoon. ELECTORATE OFFICER following closely for coordination of Dispo DOMINGO Goodwin
--- NOTE | 2019-12-27 12:23 | OT.IP.TRT ---
Occupational Therapy Treatment Note M2 OT-IP Current Condition Start: 12/25/19 12:23 Freq: Status: Active Protocol: Document 12/25/19 12:23 CGR (Rec: 12/25/19 12:57 CGR [id number]) Occupational Therapy Current Condition Current Condition Evaluation Date 12/25/19 Treatment Diagnosis Failure to thrive. Diagnosis Onset Date 12/23/19 M3 OT- IP Subjective and Pain Start: 12/25/19 12:23 Freq: Status: Active Protocol: Document 12/27/19 12:11 [facility] (Rec: 12/27/19 12:22 [facility] [id number]) OT- Subjective Occupational Therapy Visit Type Type Treatment Note Visit Start Time 11:10 Visit Stop Time 11:36 Total Visit Minutes 26 Occupational Therapy Visit Comments Patient Comments Physician wanting UMS for pt to be completed. Pt's daughter also present for the assessment. Patient/Caregiver Goals Pt states open to going to skilled rehab prior to going home as aware that she is too weak to care for herself at this time. OT Pain Assessment Pain When Pain Assessed At Rest Pain Present Pain Present Denied Pain Protocol: Document 12/27/19 12:11 [facility] (Rec: 12/27/19 12:22 [facility] [id number]) Cognitive Factors Limiting Selfcare Function Cognitive Ability Level of Alertness Alert Patient Orientation Name,Age,Birthday,Month,Date, Year,Day of Week,Place, Situation Attention Span Ability Capable of Focused Attention, Capable of Sustained Attention Ability to Follow Commands Able to Follow One Step Commands Memory Description Short Term Impaired Cognitive Tests SLUMS Pt scored 24/30, normal score for pt's level of education is 27/30. Pt's score indicates mild cognitive deficits. Pt able to recall 4/5 objects after time passes, able to name 12 animals in one minute, not able to draw the clock hands correctly after time passed, and able to answer 3/4 questions right after times passed. Cognitive Comments Cognitive Assessment Comments Pt states prior has word finding trouble and occasional decreased train of thought. Protocol: Document 12/27/19 12:11 [facility] (Rec: 12/27/19 12:22 [facility] [id number]) OT Summary Assessment and Plan Potential Rehabilitation Potential Good Analytic Complexity at Evaluation Moderate Summary OT Impairments Strength,Balance,Functional Cognition,Functional Mobility, Grooming,Dressing,Toileting, Bathing,Toilet Transfers, Shower Transfers,Activity Tolerance Progress Towards Goals Slow Progress due to Medical Issues,Slow Progress due to Activity Tolerance Assessment Summary Pt score 24/30 on the SLUMS which implies mild cognitive deficits. Pt states feels that it would be best to go to skilled rehab prior to going home as pt still needing extensive assist for all ADl adn mobility needs. Goals Self-Feeding Goal Independent Grooming Goal Independent Dressing Goal Minimal Assistance Toileting Goal Minimal Assistance Bathing Goal Minimal Assistance Toilet Transfer Goal Minimal Assistance Shower Transfer Goal Minimal Assistance Days to Meet Goals 18 Frequency of Treatment Frequency Of Treatment Once a Day Treatment Plan OT Treatment Plan ADL Training,Functional Mobility,Therapeutic Exercises ,Patient/Family Education, Discharge Planning Other Treatment Recommendations and Next Transfer to [facility] x2 with Treatment Focus FWW. Discharge Recommendations OT Discharge Recommendations SNF Rehab Home Equipment Needs TBD Transportation Needs at Discharge Wheelchair/Cabulance
[2019-12-27] MEDS: FUROSEMIDE 40 MG/4 ML VIAL IV (12:39)
--- NOTE | 2019-12-27 14:44 | PC.NURSE ---
Patient with flat affect, she will smile occasionally. Daughter in room earlier to talk to . Patient has multiple skin issues. Bruises, Skin tear to bottom, bruises on her lower abdomen from heparin injections. Dressing on lower abdomen are allevyn. She tried to have a bowel movement on the bedpan but was unsuccessful. Patient is sharp and A&Ox3. She denies pain, given 40mg of iv lasix earlier and she is putting out adequate urine. Her daughter will be back soon,as she has a palliative care meeting with dr. Uribe every two hours. Nystatin cream has been applied to patients folds under l.side and r.breast. She is comfortable at this time and resting comfortably.
--- NOTE | 2019-12-27 15:27 | PM.CN.PC.1 ---
History of Present Illness Consult details Date Patient Seen: 12/27/19 Time Patient Seen: 15:27 Chief complaint: failure to thrive, thinks stroke symptoms Reason for consult: Palliative medicine consultation Requesting provider: Marzena Cummings Narrative: Reason for Consultation: Palliative medicine consultation received from Dr. 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 Patient was stabilized here at [facility] in August after her hip surgery, was discharged for aggressive rehabilitation to a local [facility], discharged home in early November. Patient presented to the emergency department 12/23/2019 after experiencing a progressive in steady decline since returning home from the [facility]. H&P notes indicate that the patient has exhibited poor appetite in slurred speech, acute on chronic weakness upon presentation. She was also noted to be acutely anemia, requiring blood transfusion (Hgb 9.9 Hct 23.3) with electrolyte abnormalities (Na 132 K 3.7 Cl 102) with an element of acidosis (CO2 21) and DENNIS in the presence of CKD Stage III (BUN 41 Creat 2.18 eGFR 21.5). CRP elevated 2.6. TSH 5.35. Serum albumin 3.5. CXR IMPRESSION: Low lung volumes with scattered subsegmental atelectasis/scarring. Advanced diagnostics demonstrated significant chronic findings without evidence of acute cerebrovascular accident. Head CT: IMPRESSION: 1. No acute intracranial abnormalities. 2. Cerebral volume loss and chronic microvascular ischemic changes. MR STROKE IMPRESSION: BRAIN MRI: 1. No acute intracranial abnormalities. 2. Mild cerebral volume loss. 3. Multiple foci of T2 hyperintensity in periventricular white matter are compatible with chronic small vessel ischemic changes. A differential diagnosis is a demyelinating process such as multiple sclerosis. Recommend clinical correlation. BRAIN MR ANGIOGRAM: 1. Vnyv-lb-ozzwjzga stenosis of the cavernous segment of the internal carotid arteries bilaterally. 2. Diffuse irregularity of middle cerebral arteries bilaterally; but no high-grade stenosis or occlusion. NECK MR ANGIOGRAM: 1. Diffuse irregularities in common and internal carotid arteries bilaterally. No high-grade stenosis or occlusion. 2. Suboptimal visualization of the deeper artery origins. Suspect high-grade stenosis of the right proximal vertebral artery. 3. Enlargement of the left lower lobe with a left thyroid nodule. Thyroid ultrasound may be obtained for followup. She was admit to the hospital with acute on chronic progressive weakness and failure to thrive, acute on chronic anemia, probable chronic aspiration with dysphagia secondary to previous CVA, diastolic congestive heart failure, chronic kidney disease stage 3, symptomatic subclinical hypothyroidism. 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 STEM workup negative for adrenal insufficiency. Patient's code status is appropriately de-escalated as DNAR here at the hospital, considering her underlying medical conditions that portend a poor prognosis from heroic measures. Her care has been optimized during her hospitalization, and she has been working with PT, requiring a Vicki life/max assist with transfers, tolerating brief periods out of bed. Plans are for discharge for aggressive, rehabilitative efforts at a local [facility], tentatively scheduled for tomorrow. Unfortunately, she has experienced atrial fibrillation during her stay, and her attending physician will be discussing chronic anticoaguation with she and her daughter later today. Dr. Cummings reports that the patient admitted to her yesterday she feels her quality of life is declining and that she just wants to end this sometimes. Dr. Cummings has been in collaboration with Dr. Garber regarding chronic anticoagulation and the possibility of starting her on an SSRI to treat her underlying depression. The medical team seeks clarification of patient's goals of care, and would like to offer her the opportunity to codify her desires regarding end of life in the form of a [facility] POLST (DNAR order currently here in the hospital). Because of the patient's profound general decline in clinical status over months, frailty evident by weakness, frequent falls, inability to provide of adequate self care, severe malnutrition (dramatic, unintentional weight loss, fatigue, lethargy) and given the possibility of an underlying, incurable medical illness, the medical team is of the belief that life expectancy is limited to months, and has requested clarification of this woman's specific medical goals. Attending physician has requested palliative medicine to assist in furthering conversation with patient and family regarding the complex and sensitive medical issues of the perceived benefits/burdens of continued life prolonging treatments, realistic prognosis, perspectives on and dying, priority in clinical care and burden of physical, emotional and spiritual symptoms for patient and family. I have reviewed the medical record, radiographs, diagnostics, attempted to interview the patient (disoriented, no registration) and subsequently interviewed the patient DPOAHC. The following aspects are pertinent, current and remote medical history, social/emotional and family dynamics, current medications and effects, ROS, examination findings, prognosis, care planning, goal setting. Meds Home Medications and Allergies Home Medications Medication Instructions Recorded Confirmed Type Disabled Parking Permit See Protocol MISCELLANEOUS 09/09/18 12/23/19 History DIRECTED acetaminophen 500 mg tablet 500 mg PO ONCE PRN tab 10/19/18 12/23/19 History atorvastatin 40 mg tablet 40 mg PO DAILY #90 tab 05/22/19 12/23/19 Rx terbinafine HCl [Lamisil AT] 1 applic TOPICAL BID 12/23/19 12/23/19 History apixaban [Eliquis] 2.5 mg PO BID #30 tab 12/28/19 Rx aspirin 81 mg PO DAILY #30 tab 12/28/19 Rx bisacodyl 10 mg TN DAILY PRN #10 each 12/28/19 Rx docusate sodium [DOK] 100 mg PO BID #60 cap 12/28/19 Rx levothyroxine 88 mcg PO 0600 #30 tab 12/28/19 Rx methylphenidate HCl 5 mg PO 0700,1100 #60 tab 12/28/19 Rx nystatin [Nystop] 1 applic TOPICAL TID PRN #30 gram 12/28/19 Rx polyethylene glycol 3350 17 gm PO DAILY #30 ea 12/28/19 Rx sertraline 25 mg PO BEDTIME #30 tab 12/28/19 Rx Allergies Allergy/AdvReac Type Severity Reaction Status Date / Time Sulfa (Sulfonamide Allergy Unknown Verified 12/17/19 14:25 Antibiotics) [SULFA (SULFONAMIDE ANTIBIOTICS)] amlodipine [AMLODIPINE] AdvReac Intermediate edema legs Verified 12/17/19 14:25 naproxen [NAPROXEN] AdvReac Mild DIZZINESS Verified 12/17/19 14:25 Barbiturates [BARBITURATES] AdvReac Unknown Verified 12/17/19 14:25 ergot alkaloids AdvReac Unknown Verified 12/17/19 14:25 [ERGOT ALKALOIDS] Review of Systems Constitutional Constitutional: Reports as per HPI Exam Vital Signs (past 8 hours): - 12/27/19 08:00 12/27/19 11:45 12/27/19 14:30 Temperature 95.6 F L 96.3 F L Pulse Rate 62 58 L Pulse Rate [Orthostatic Lying] 67 Pulse Rate [Orthostatic Sitting] 69 Respiratory Rate 18 18 Blood Pressure 139/60 169/77 H Blood Pressure [Orthostatic Lying] 118/42 L Blood Pressure [Orthostatic Sitting] 136/62 Pulse Oximetry 97 96 12/27/19 15:17 Temperature 96.9 F L Pulse Rate 64 Pulse Rate [Orthostatic Lying] Pulse Rate [Orthostatic Sitting] Respiratory Rate 20 Blood Pressure 129/64 Blood Pressure [Orthostatic Lying] Blood Pressure [Orthostatic Sitting] Pulse Oximetry 94 Oxygen Delivery Method Room Air Oxygen Flow Rate 0 Narrative Exam Narrative: Elderly, frail appearing woman is visited at bedside today. Daughter in attendance. Const General: cooperative, No healthy appearing, comfortable, frail appearing and ill appearing (Acute on chronic) Nutritional Appearance: obese (BMI 42.1) morbidly obese Resp Effort & Inspection: normal respiratory effort and able to speak in complete sentences Neuro General: patient alert, patient awake and patient oriented x3 Cognition: normal cognition Speech: speech normal Psych Appearance: grossly normal Mental Status: mental status grossly normal Speech and Movement: speech and movement normal Mood: congruent mood Affect: normal affect Attitude: cooperative Thought Process: normal Thought Content: normal Judgment: judgment good Objective Labs Result Diagrams: 12/28/19 08:55 12/28/19 08:55 Labs: Laboratory Results - last 24 hr 12/27/19 12/27/19 09:28 09:28 WBC 6.8 RBC 3.23 L Hgb 10.6 L Hct 30.7 L MCV 94.9 MCH 32.8 MCHC 34.6 RDW 15.9 H Plt Count 101 L Neut % (Auto) 73.4 Lymph % (Auto) 13.6 L [place] % (Auto) 6.3 Eos % (Auto) 6.0 H Baso % (Auto) 0.7 Neut # (Auto) 5000 Lymph # (Auto) 900 L [place] # (Auto) 400 Eos # (Auto) 400 Baso # (Auto) 0 Sodium 135 L Potassium 4.1 Chloride 105 Carbon Dioxide 28 BUN 39 H Creatinine 1.67 H Estimated GFR 29.2 L BUN/Creatinine Ratio 23.4 H Glucose 107 Calcium 10.1 Magnesium 1.7 Assessment & Recommendations A & R narrative: Social history: Patient was in 1994. She resides in [place] in her own home, with her daughter Bonita. The couple had 2 children, son Olvin resides in [facility]. 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. 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 She enjoys stamp collecting in considers herself a Phletavolist, or stamp lover. 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 Patient enjoys watching TV in doing puzzles in her spare time. Her bedroom is on the 2nd floor of the home, and she has had difficulty getting up and down the stairs since discharge from the [facility] in November. She does have a wheelchair ramp out front that was provided to them free of charge by local organization. Her goal is to get independent again, stating, I would like to get there.? Daughter lives downstairs in the family home in a remodeled apartment and patient expresses her concern that her daughter will need to return to work soon. Patient's daughter Bonita is at bedside today for this consultation. They both agree that patient has been weaker, that she hasn't been eating well at home. They describe multiple visits to the Emergency Department since her discharge from the [facility], and the daughter expresses feeling pushed aside by the healthcare system. Patient states that she most trusts her daughter to help her make medical decisions for herself, and they have advanced directives with a durable power of organic search lead for health care at home. Daughter expresses her frustration as what she perceives to be a focus on finances, and is of the opinion that her mother's care has been dictated by the type of insurance that she has. She is very focused on monetary resources for her mother's care, and stating that the most important thing for her is to not lose ?the family home.? States that they have applied for Medicaid from the state twice now, and this has been denied. She is wondering if her mother were to be able to receive Medicare part B if this would be helpful for her mother's ongoing care, including retirement care either in the home or at a facility. Bonita is very clear if she feels incapable of caring for her mother's personal needs in her deteriorated condition, and that unless her mother is able to regain her independence, or is somehow able to get in-home private duty caregiving, that her mother will require retirement care in another setting, such as mcc or assisted living. Discussion: Met with the patient and her daughter Bonita at bedside today. Discussion regarding the patient's chronic co-morbidities, and her new diagnosis of atrial fibrillation and Grade 5 Arthroma are explained briefly. Daughter expresses her desire to speak with the attending physician, who has been delayed by an admission from the ED, they are reassurred that Dr. Cummings will be coming to speak with them this afternoon. Daughter frequently speaks for her mother, both seem to lack insight into her chronic conditions, including recent femur fracture and significant physical decline over the past month since discharge from the SNF, heralding her elevated risk for mortality in the next 6 months. Daughter is very focused in her quest to obtain alternative insurance or other coverage for retirement care for her mother, and in general, is resistant to further dialogue about her ability or inability to care for her mother at home. Attempted to discuss the option in the future, should her mother fail this SNF course, for hospice in the home provided by a community based hospice agency. Daughter expresses her feeling that she is unprepared to care for her mother at the end of life at home, especially in her deconditioned state, as she is her mother's only caregiver. Patient herself wants to be with my daughter at the end of life. She would like me to leave a [facility] POLST form for her review, and is noncommittal today about her wishes regarding undergoing resuscitation or other aggressive care, such as ROBERT by way of the gastrointestinal tract. Thank you for the opportunity to be involved in this unfortunate woman's case while here at [facility]. Palliative medicine will follow expectantly. Impression: Acute on chronic respiratory failure Diastolic heart failure Grade 5 Arthroma Atrial fibrillation CVA x2 Dysphagia Recent femoral fracture with repair CKD Stage 3 Morbid Obesity Failure to thrive Palliative medicine consultion Coding: To remain informed regarding current treatment opportunities, provider reviewed extensive additional documentation of multiple treatment providers/facilities which was utilized to update the management plan. Total time in review of additional medical information is 32 minutes, external to in person evaluation. Time in assessment and management of acute and chronic medical diagnoses, pertinent history to palliative medicine decision making, discussion and management of clinical findings enumerated above as well as fears regarding the transition to a more end of life plan and and dying is 34 minutes, more than half of which is necessary for education and counseling. Advanced Care Planning discussion time is 5 minutes. The patient currently has testamentary documents for estate planning, DPOAHC but lacks POLST and statement of wishes. Dialogue addresses patient preferences at the end/near end of life including resuscitation wishes (no CPR, DNAR). Additional care limits discussed above.
--- NOTE | 2019-12-27 15:59 | PT-IP ANOTE ---
Unable to see pt this afternoon d/t palliative care consult.
--- NOTE | 2019-12-27 17:58 | PM.PN.1 ---
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 The patient is resting in bed comfortably. She denies headache, chest pain, shortness of breath, abdominal pain, nausea, vomiting, fever, chills, dysuria, diarrhea constipation. She continues to endorse weakness and fatigue. She is voiding and eliminating without difficulty. She continues to require maximal assistance and continues to work with PT and OT. Attempted a palliative care consult in which the patient and her daughter were not especially receptive to the consult. Therefore, in by later in the afternoon and had a goals of care discussion with the patient and her daughter Shira at bedside. Informed them of the patient's new diagnosis of paroxysmal atrial fibrillation (confirmed with PCP that this is a new diagnosis) and discussed this diagnosis in detail including significantly high risk of venous thrombosis embolism, recommendation for anticoagulation and the benefits and risks of anticoagulation. Also informed her that the her PCP, Dr. Garber, also agrees that although the patient is high risk of fall the benefits of anticoagulation outweigh the risk of fall and highly recommended anticoagulation. The patient asked for some time to consider starting anticoagulation. Further discussed depression and treatment of depression in detail. The patient denies having depression in front of her daughter and reports that she was depressed yesterday but does not feel depressed today. The patient's daughter Shira acknowledges that she believes her mother is depressed. Continued to discuss depression both clinical signs and symptoms and the treatment. The patient would also like some time to consider starting an antidepressant and/or stimulant. Discussed POLST and filled this out according to the patient's wishes, made copies of POLST and placed in chart. The patient does not want any heroic measures and is DNR/DNI but would like full medical treatment otherwise. She would not want a surgically inserted feeding tube. She would like to attempt rehabilitation again. Discussed possibility of hospice in the future and patient received this well. Exam Vital Signs (past 8 hours): - 12/27/19 11:45 12/27/19 14:30 12/27/19 15:17 Temperature 96.3 F L 96.9 F L Pulse Rate 58 L 64 Pulse Rate [Orthostatic Lying] 67 Pulse Rate [Orthostatic Sitting] 69 Respiratory Rate 18 20 Blood Pressure 169/77 H 129/64 Blood Pressure [Orthostatic Lying] 118/42 L Blood Pressure [Orthostatic Sitting] 136/62 Pulse Oximetry 96 94 12/27/19 16:50 12/27/19 16:59 Temperature Pulse Rate Pulse Rate [Orthostatic Lying] 45 L Pulse Rate [Orthostatic Sitting] Respiratory Rate Blood Pressure Blood Pressure [Orthostatic Lying] 133/45 L Blood Pressure [Orthostatic Sitting] 155/55 H Pulse Oximetry 95 Oxygen Delivery Method Room Air Oxygen Flow Rate 0 Narrative Exam Narrative: General: Elderly female lying in bed in no acute distress, well-developed, well-nourished, lethargic, slight slurring of speech which is possibly residual to previous CVA, severely depressed but otherwise appropriately interactive. HEENT: Normocephalic, atraumatic. External ears without defect. Pupils equal, round, and reactive to light. Anicteric sclerae, moist conjunctivae, and no lid lag. Oropharynx free of erythema and cobble stoning with moist mucosa. Neck: Supple with full range of motion. No lymphadenopathy. Cardiovascular: Regular rate and rhythm without murmurs, rubs, or gallops appreciated. Pulmonary: Clear to auscultation bilaterally with fine bibasilar crackles. No wheezes or rhonchi. Normal respiratory effort with no use of accessory muscles. Abdomen: Soft, obese, bowel sounds present, nontender, nondistended. Extremities: No clubbing or cyanosis. Anasarca resolved. Bilateral mild stasis dermatitis of lower extremities and lymphedema. Scattered bruises throughout all extremities. Neurological: Cranial nerves grossly intact. Mild slurring of speech. Generalized weakness of all extremities without focal deficit. Psychiatric: Severely depressed mood and affect. Alert and oriented to person, place, and time. Mild cognitive impairment with short-term memory recall deficit. Objective Labs Result Diagrams: 12/27/19 09:28 12/27/19 09:28 Labs: Laboratory Results - last 24 hr 12/27/19 12/27/19 09:28 09:28 WBC 6.8 RBC 3.23 L Hgb 10.6 L Hct 30.7 L MCV 94.9 MCH 32.8 MCHC 34.6 RDW 15.9 H Plt Count 101 L Neut % (Auto) 73.4 Lymph % (Auto) 13.6 L [place] % (Auto) 6.3 Eos % (Auto) 6.0 H Baso % (Auto) 0.7 Neut # (Auto) 5000 Lymph # (Auto) 900 L [place] # (Auto) 400 Eos # (Auto) 400 Baso # (Auto) 0 Sodium 135 L Potassium 4.1 Chloride 105 Carbon Dioxide 28 BUN 39 H Creatinine 1.67 H Estimated GFR 29.2 L BUN/Creatinine Ratio 23.4 H Glucose 107 Calcium 10.1 Magnesium 1.7 Assessment & Plan Assessment & Plan narrative: Nanci Jones is an 84-year-old female with a past medical history significant for hypertension, hyperlipidemia, chronic kidney disease stage 3, morbid obesity, previous CVA x2 (most recent 09/26/2018) and recent femoral fracture 08/2019 who was discharged to [facility] for continued rehabilitation and discharged home early November and presented to ED with steady decline since returning home with progressive weakness and failure to thrive. 1. Acute on chronic progressive weakness and failure to thrive, present on admission. Active. -Patient presented after being discharged from [facility]-way facility (where she was reportedly doing well with rehabilitation) to home where she failed miserably with progressive weakness, debility and deconditioning. Patient's daughter reports that she did not want to get up and walk and slowly declined over the last month. -Etiology unclear but likely due to recent femoral fracture with progressive debility, deconditioning and weakness. Patient has also had CVA x 2 remotely and may have underlying contribution. -Patient has had anemia, hypoglycemia, low blood pressure, and mild hyponatremia, therefore, ordered ACTH stim test which was negative as cortisol level greater >18 pre and post test and cortisol level increased with cosyntropin stimulation. -Patient has had acute on chronic anemia since surgery and this may have contributed slightly to fatigue and weakness and was treated as below. -Patient also reports progressive generalized weakness, dysphagia, dysarthria, and minimal visual complaints but did not have acute CVA as MR stroke protocol negative for acute process as below. -Palliative care consult attempted by Alessia DENNIS but not fruitful as patient and daughter were not receptive of the consultation. Performed a goals of care discussion for 60 minutes. The patient would like to attempt rehabilitation again and utilize resources when return home to try to prevent decline. Discussed and filled out POLST form according to patient's wishes. Patient is DNR/DNI and would not want surgically inserted feeding tube but would like full medical treatment including IV antibiotics, IV fluids, medications in supplemental oxygen including BiPAP. -Patient appears significantly depressed and when daughter was not present she readily admitted to depression which is likely contributing to decline. The patient is considering treatment with SSRI and Ritalin. 2. New diagnosis paroxysmal atrial fibrillation/flutter, present on admission. Stable. -her PCP and review of EMR patient has not had previous diagnosis of atrial fibrillation. -Echocardiogram as above. -CHADS2 Vasc 7 making patient high risk of VTE. Patient is considering starting anticoagulation and will continue aspirin 81 mg daily and Plavix 75 mg daily for now. 3. Probable chronic aspiration with dysphagia, likely secondary to previous CVA x2, present on admission. Improved. -MR stroke protocol demonstrated no acute intracranial abnormalities, mild cerebral volume loss, multiple foci of T2 hyperintensity in periventricular white matter are compatible with chronic small vessel ischemic changes but demyelinating process such as multiple sclerosis is in differential, [id number] stenosis of the cavernous segment of the internal carotid arteries bilaterally, diffuse irregularity of middle cerebral arteries bilaterally; but no high-grade stenosis or occlusion, diffuse irregularities in common and internal carotid arteries bilaterally but no high-grade stenosis or occlusion, suboptimal visualization of the deeper artery origins and suspect high-grade stenosis of right proximal vertebral artery. -Restarted aspirin 81 mg daily and Plavix 75 mg daily now that blood counts are stable. -Continue speech therapy and advance diet per speech pathologist. Patient currently on dysphagia mechanical diet. -Continue physical therapy and occupational therapy evaluation and treatment. OT performed SLUMS +24/30 indicative of mild cognitive impairment. 4. Diastolic congestive heart failure, chronic, present on admission. Stable. -Does not represent CHF exacerbation. -Echocardiogram demonstrated normal left ventricular thickness, size, wall motion, and systolic function with EF 60-65%, RV is mildly dilated with normal function, no significant valvular abnormalities, atherosclerosis, including a grade 5- mobile- atheroma, noted in the aortic arch which is new compared to echo 09/19/2018, diastolic parameters could not be assessed due to atrial flutter and IVC is dilated (diameter is greater than 2.1 cm) and it collapses less than 50% with a sniff suggestive of a high right atrial pressure of 15 mm Hg. -Patient had mild anasarca due to IV fluid administration. Received furosemide 40 mg IV x 2 with excellent diuresis -3 L and resolution of anasarca. -Continue to monitor strict I&Os and daily weights. Net -3 L. 5. Acute on chronic anemia, present on admission. Stable. -Patient has been persistently anemic below baseline since previous femur fracture and repair. Chronic portion of anemia secondary to chronic kidney disease. -Hemoglobin previously 7.9 and received 2 units PRBC with appropriate compensation with hemoglobin now 10.2. No overt signs of bleeding. -Restarted aspirin and Plavix as above. -Iron panel normal. -Continue to monitor hemoglobin closely. 6. Acute kidney injury on chronic kidney disease stage 3, present on admission. Stable. -Likely due to decreased PO intake in combination -diuretics have been held as have been losartan -Avoid nephrotoxic agents -Continue to monitor creatinine closely. 7. Symptomatic subclinical hypothyroidism, present on admission. Active. -Possible thyroid nodule ruled out. -MR stroke protocol demonstrated enlargement of the left lower lobe with a possible left thyroid nodule. Thyroid ultrasound did not demonstrate any nodules with diffuse heterogeneous appearance of the left lobe of thyroid, technically non-specific finding; recommend clinical and biochemical correlation. -TSH elevated at 5.35 and free T4 normal at 1.19 indicative of subclinical hypothyroidism. Patient had low heart rate, low temperature, and low blood pressure, therefore, was started on levothyroxine 88 mcg daily. 8. Hypertension, present on admission. Stable. -Patient's home antihypertensive medications were discontinued by PCP including metoprolol and losartan due to dizziness from orthostasis. If patient becomes hypertensive would consider restarting losartan at low-dose. -Patient had low blood pressure initially but her blood pressure has normalized towards the latter part of her hospitalization. Orthostatic vitals negative for orthostatic hypotension. 9. Hyperlipidemia and ASCVD, present on admission. Stable. -Continue atorvastatin 40 mg daily. 10. Morbid obesity, present on admission. Stable. -BMI 40.7. -Morbid obesity contribute significantly to debilitation and progressive weakness, as well as, increased risk of morbidity mortality with ASCVD. -Consulted dietitian and we appreciate her time and recommendations. Code status: DNR, Daughter at the bedside his DPOA DVT prophylaxis: SQ Heparin Disposition: Patient will discharge to half-way facility for continued rehabilitation tomorrow. Quality VTE Deep Vein Thrombosis/Pulmonary Embolism Present on Admission: No
[2019-12-27] MEDS: ATORVASTATIN 20 MG TABLET 40 MG PO (20:13)
[2019-12-27 21:51] LABS: COVID19 -Nasal RAPID Negative (Negative)
[2019-12-28] VITALS (7 sets, daily range): BP systolic 124–157; BP diastolic 52–74; PULSE 66–74; RESP 12–18; TEMP 35.8–36.6; O2SAT 93–95
[2019-12-28] MEDS: LEVOTHYROXINE 88 MCG TABLET PO (05:42)
--- NOTE | 2019-12-28 08:29 | P.DS_ITS ---
History of Present Illness History of Present Illness Date Patient Seen: 12/23/19 Chief complaint: failure to thrive, thinks stroke symptoms Narrative: Written by Cleo DENNIS: Nanci Jones is an 84 y.o. female who was recently diagnosed with a CVA on September 27, 2019. She was subsequently discharged to rehab at [facility] and discharged on during the first week of November. Daughter who is in the room states she has shown a steady decline since returning home. Of concern is that the patient appears to her to be aspirating and she is eating less and less. The patient states she does not like the taste of the food she eats and when asked to elaborate, states she cannot chew her food. She states she is tired, always cold, has shortness of breath with exertion, denies chest pain, abdominal pain, dysurea, or constipation. She has had intermittent bouts of diarrhea and urinary incontinence per her daughter. Patient is very lethargic and seems to have word finding issues, then will fall asleep mid sentence. When asked how much the patient has been eating, daughter states she has been serving her smaller and smaller meal portions and at this point is only a few bites per meal. The patient lives on the upper floor, while the daughter lives on a lower floor and takes care of her mother. In the ED, CT of the head report indicated cerebral volume loss and chronic microvascular ischemic changes and internal carotid artery athrosclerosis. Patient normally takes metoprolol, but was held by her PCP due to hypotension. Discharge Providers Provider Date of admission: 12/24/19 12:09 Discharge Date: 12/28/19 Primary care physician: Pramod Garber MD Consults: 12/23/19 20:42 Consult to Discharge Planning Routine Comment: may need extended rehab Consult to Occupational Therapy Evaluate & Treat Comment: swallowing impairment, aspiration Physician Instructions: Evaluate and treat 12/23/19 20:43 Consult to Physical Therapy Evaluate & Treat Comment: weakness, s/p rehab declined w/return home Physician Instructions: Evaluate and Treat 12/24/19 07:53 Consult to Speech Therapy Evaluate & Treat Comment: Physician Instructions: Evaluate and treat 12/26/19 09:37 Consult to Palliative Care Stat Comment: goals of care, high risk morbidity Consulting Provider: Alessia Ortega Discharge provider: Marzena Cummings DO Summary Hospital Course Discharge Diagnosis: 1. Acute on chronic progressive weakness and failure to thrive, present on admission. Active. 2. Depression, likely chronic, present on admission. Active. 3. New diagnosis paroxysmal atrial fibrillation/flutter, present on admission. Stable. 4. Probable chronic aspiration with dysphagia, likely secondary to previous CVA x2, present on admission. Improved. 5. Diastolic congestive heart failure, chronic, present on admission. Stable. 6. Acute on chronic anemia, present on admission. Stable. 7. Acute kidney injury, on chronic kidney disease stage 3, present on admission. Acute kidney injury resolved. 8. Symptomatic subclinical hypothyroidism, present on admission. Active. 9. Hypertension, present on admission. Stable. 10. Hyperlipidemia and ASCVD, present on admission. Stable. 11. Morbid obesity, present on admission. Stable. Hospital Course: Nanci Jones is an 84-year-old female with a past medical history significant for hypertension, hyperlipidemia, chronic kidney disease stage 3, morbid obesity, previous CVA x2 (most recent 09/26/2018) and recent femoral fracture 08/2019 who was discharged to [facility] for continued rehabilitation and discharged home early November and presented to ED with steady decline since returning home with progressive weakness and failure to thrive. 1. Acute on chronic progressive weakness and failure to thrive, present on admission. Active. -Patient [facility] (where she was reportedly doing well with rehabilitation) to home where she failed miserably with progressive weakness, debility and deconditioning. Patient's daughter reports that she did not want to get up and walk and slowly declined over the last month. -Etiology unclear but likely due to recent femoral fracture with progressive debility, deconditioning and weakness. Patient has also had CVA x 2 remotely and may have underlying contribution. -Patient has had anemia, hypoglycemia, low blood pressure, and mild hyponatremia, therefore, ordered ACTH stim test which was negative as cortisol level greater >18 pre and post test and cortisol level increased with cosyntropin stimulation. -Patient has had acute on chronic anemia since surgery and this may have contributed slightly to fatigue and weakness and was treated as below. -Patient also reports progressive generalized weakness, dysphagia, dysarthria, and minimal visual complaints but did not have acute CVA as MR stroke protocol negative for acute process as below. -Palliative care consult attempted by Alessia DENNIS but not fruitful as patient and daughter were not receptive of the consultation. Performed a goals of care discussion for 60 minutes. The patient would like to attempt rehabilitation again and utilize resources when return home to try to prevent decline. Discussed and filled out POLST form according to patient's wishes. Patient is DNR/DNI and would not want surgically inserted feeding tube but would like full medical treatment including IV antibiotics, IV fluids, medications in supplemental oxygen including BiPAP. 2. Depression, likely chronic, present on admission. Active. -Patient significantly depressed and readily admitted to depression 1 daughter was not present which is likely contributing to overall functional decline. -Started sertraline 25 mg daily at bedtime to treat depression which will need to be monitored and titrated to effect per PCP. Started Ritalin 5 mg at 7:00 and 11:00 to help patient's overall energy level and function. 3. New diagnosis paroxysmal atrial fibrillation/flutter, present on admission. Stable. -Per PCP and review of EMR patient has not had previous diagnosis of atrial fibrillation. -Echocardiogram as above. -CHADS2 Vasc 7 making patient high risk of VTE. Discontinued Plavix. 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 Started Eliquis 2.5 mg twice daily. Recommend repeat CBC in 3-5 days to monitor blood counts. 4. Probable chronic aspiration with dysphagia, likely secondary to previous CVA x2, present on admission. Improved. -MR stroke protocol demonstrated no acute intracranial abnormalities, mild cerebral volume loss, multiple foci of T2 hyperintensity in periventricular white matter are compatible with chronic small vessel ischemic changes but de myelinating process such as multiple sclerosis is in differential, [id number] stenosis of the cavernous segment of the internal carotid arteries bilaterally, diffuse irregularity of middle cerebral arteries bilaterally; but no high-grade stenosis or occlusion, diffuse irregularities in common and internal carotid arteries bilaterally but no high-grade stenosis or occlusion, suboptimal visual ization of the deeper artery origins and suspect high-grade stenosis of right proximal vertebral artery. -Restarted aspirin 81 mg daily and Plavix 75 mg daily now that blood counts are stable. -Continued speech therapy and advance diet per speech pathologist. Patient currently on dysphagia mechanical diet. Continued aspiration precautions. -Continued physical therapy and occupational therapy evaluation and treatment. OT performed SLUMS + indicative of mild cognitive impairment. 5. Diastolic congestive heart failure, chronic, present on admission. Stable. -Does not represent CHF exacerbation. -Echocardiogram demonstrated normal left ventricular thickness, size, wall motion, and systolic function with EF 60-65%, RV is mildly dilated with normal function, no significant valvular abnormalities, atherosclerosis, including a grade 5- mobile- atheroma, noted in the aortic arch which is new compared to echo 09/19/2018, diastolic parameters could not be assessed due to atrial flutter and IVC is dilated (diameter is greater than 2.1 cm) and it collapses less than 50% with a sniff suggestive of a high right atrial pressure of 15 mm Hg. -Patient had mild anasarca due to IV fluid administration. Received furosemide 40 mg IV x 2 with excellent diuresis -3 L and resolution of anasarca. -Continued to monitor strict I&Os and daily weights. Net -3 L. 6. Acute on chronic anemia, present on admission. Stable. -Patient has been persistently anemic below baseline since previous femur fracture and repair. Chronic portion of anemia secondary to chronic kidney disease. -Hemoglobin previously 7.9 and received 2 units PRBC with appropriate compensation with hemoglobin now 10.2. No overt signs of bleeding. -Iron panel normal. -Continued to monitor hemoglobin closely. 7. Acute kidney injury, on chronic kidney disease stage 3, present on admission. Acute kidney injury resolved. -Likely due to decreased PO intake in combination medications. -Initial creatinine 2.3. Baseline creatinine 1.6-1.7. Creatinine now at baseline of 1.6. -Avoided nephrotoxic agents. PCP discontinued losartan. -Continued to monitor creatinine closely. 8. Symptomatic subclinical hypothyroidism, present on admission. Active. -Possible thyroid nodule ruled out. -MR stroke protocol demonstrated enlargement of the left lower lobe with a possible left thyroid nodule. Thyroid ultrasound did not demonstrate any nodules with diffuse heterogeneous appearance of the left lobe of thyroid, technically n on-specific finding; recommend clinical and biochemical correlation. -TSH elevated at 5.35 and free T4 normal at 1.19 indicative of subclinical hypothyroidism. Patient had low heart rate, low temperature, and low blood pressure, therefore, was started on levothyroxine 88 mcg daily. Recommend repeat thyroid function testing in 4 weeks per PCP. 9. Hypertension, present on admission. Stable. -Patient's home antihypertensive medications were discontinued by PCP including metoprolol and losartan due to dizziness from orthostasis. If patient becomes hypertensive would consider restarting losartan at low-dose. -Patient had low blood pressure initially but her blood pressure has normalized towards the latter part of her hospitalization. Orthostatic vitals negative for orthostatic hypotension. Patient still has mild dizziness when going from lying to sitting. 10. Hyperlipidemia and ASCVD, present on admission. Stable. -Continued atorvastatin 40 mg daily. 11. Morbid obesity, present on admission. Stable. -BMI 40.7. -Morbid obesity contribute significantly to debilitation and progressive weakness, as well as, increased risk of morbidity and mortality with ASCVD. -Consulted dietitian and we appreciate her time and recommendations. Exam Vital Signs (past 8 hours): - 12/28/19 04:35 12/28/19 08:03 Temperature 97.9 F Pulse Rate 68 Pulse Rate [Orthostatic Lying] 68 Pulse Rate [Orthostatic Sitting] 66 Respiratory Rate 12 Blood Pressure 136/65 Blood Pressure [Orthostatic Lying] 136/65 Blood Pressure [Orthostatic Sitting] 157/74 H Pulse Oximetry 94 94 Oxygen Delivery Method Room Air Oxygen Flow Rate 0 Narrative Exam Narrative: General: Elderly female lying in bed in no acute distress, well-developed, well-nourished, lethargic, slight slurring of speech which is possibly residual to previous CVA, severely depressed but otherwise appropriately interactive. HEENT: Normocephalic, atraumatic. External ears without defect. Pupils equal, round, and reactive to light. Anicteric sclerae, moist conjunctivae, and no lid lag. Oropharynx free of erythema and cobble stoning with moist mucosa. Neck: Supple with full range of motion. No lymphadenopathy. Cardiovascular: Regular rate and rhythm without murmurs, rubs, or gallops appreciated. Pulmonary: Clear to auscultation bilaterally with fine bibasilar crackles. No wheezes or rhonchi. Normal respiratory effort with no use of accessory muscles. Abdomen: Soft, obese, bowel sounds present, nontender, nondistended. Extremities: No clubbing or cyanosis. Anasarca resolved. Bilateral mild stasis dermatitis and lymphedema of lower extremities. Scattered bruises throughout all extremities. Neurological: Cranial nerves grossly intact. Mild slurring of speech. Generalized weakness of all extremities without focal deficit. Psychiatric: Severely depressed mood and affect that is slightly improved. Alert and oriented to person, place, and time. Mild cognitive impairment with short-term memory recall deficit. Objective Labs Result Diagrams: 12/28/19 08:55 12/28/19 08:55 Labs: Laboratory Results - last 24 hr 12/27/19 12/27/19 12/27/19 09:28 09:28 20:20 WBC 6.8 RBC 3.23 L Hgb 10.6 L Hct 30.7 L MCV 94.9 MCH 32.8 MCHC 34.6 RDW 15.9 H Plt Count 101 L Neut % (Auto) 73.4 Lymph % (Auto) 13.6 L Bladen % (Auto) 6.3 Eos % (Auto) 6.0 H Baso % (Auto) 0.7 Neut # (Auto) 5000 Lymph # (Auto) 900 L Bladen # (Auto) 400 Eos # (Auto) 400 Baso # (Auto) 0 Sodium 135 L Potassium 4.1 Chloride 105 Carbon Dioxide 28 BUN 39 H Creatinine 1.67 H Estimated GFR 29.2 L BUN/Creatinine Ratio 23.4 H Glucose 107 Calcium 10.1 Magnesium 1.7 COVID-19 PCR Negative Discharge Plan Discharge Plan Patient Disposition: SNF Transfer to: [facility] Under care of provider: director of undergraduate admissions Discharge orders & Medications Prescriptions: New levothyroxine 88 mcg Tablet 88 mcg PO 0600 Qty: 30 RF: 0 docusate sodium [DOK] 100 mg Capsule 100 mg PO BID Qty: 60 RF: 0 nystatin [Nystop] 100,000 unit/gram Powder 1 applic topical TID PRN (Reason: Rash) Qty: 30 RF: 0 polyethylene glycol 3350 17 gram Powder In Packet 17 gm PO DAILY Qty: 30 RF: 0 aspirin 81 mg Tablet,Delayed Release (Dr/Ec) 81 mg PO DAILY Qty: 30 RF: 0 bisacodyl 10 mg Suppository 10 mg VA DAILY PRN (Reason: Constipation) Qty: 10 RF: 0 sertraline 25 mg Tablet 25 mg PO BEDTIME Qty: 30 RF: 0 Eliquis 5 mg Tablet 2.5 mg PO BID Qty: 30 RF: 0 methylphenidate HCl 5 mg Tablet 5 mg PO 0700,1100 Qty: 60 RF: 0 Continued atorvastatin 40 mg tablet 40 mg PO DAILY Qty: 90 RF: 3 acetaminophen [Tylenol Extra Strength] 500 mg tablet 500 mg PO ONCE PRN (Reason: Pain, Mild) RF: 0 terbinafine HCl [Lamisil AT] 1 % Cream 1 applic TOPICAL BID RF: 0 Disabled Parking Permit package See Protocol each miscellaneous DIRECTED RF: 0 Discontinued clopidogrel [Plavix] 75 mg tablet 75 mg PO DAILY Qty: 90 RF: 3 aspirin 325 mg tablet,delayed release (DR/EC) 325 mg PO DAILY RF: 0 Other Ambulatory Orders: Complete Blood Count AUTO DIFF (Stat) Timeframe: 3 Days Facility: [facility] - Location: Laboratory Ordered By: Marzena Cummings Follow up/Referrals: Pramod Garber MD [Primary Care Provider] - Diet/Activity/Treatments Diet: Low-fat, Low-sodium and Low-cholesterol Liquid consistency: Normal/Thin Food texture: Soft Diet comment: Dysphagia mechanical, aspiration precautions, 30 degree all time Activity: Activity as tolerated with forward wheeled walker and physical and occupational therapy Catheter: 2-way Choi Catheter comment: May remove when mobilizing [facility] Reason for rehabilitation: Recovery r/t decondition Rehab type: Physical therapy, Occupational therapy and Speech therapy Discharge Data Primary Care Provider: Pramod Garber Quality VTE Deep Vein Thrombosis/Pulmonary Embolism Present on Admission: No
[2019-12-28 09:04] LABS: Hematocrit 29.2 % (36-46); Hemoglobin 10.3 g/dL (12.0-16.0); Mean Corpuscular HGB Conc 35.2 % (30-36); Mean Corpuscular Hemoglobin 33.4 PG (26-34); Mean Corpuscular Volume 94.9 fL (80-100); Platelet Count 98 X10^3/uL (150-400); Red Blood Cell Count 3.08 X10^6/uL (4.0-5.2); White Blood Cell Count 6.5 X10^3/uL (4.5-11.0)
[2019-12-28 09:06] LABS: Add Manual Diff / Slide Review YES
[2019-12-28] MEDS: NYSTATIN POWDER 15GM 1 APPLIC TOP (09:06)
[2019-12-28] MEDS: DOCUSATE 100 MG CAPSULE PO (09:06)
[2019-12-28] MEDS: polyethylene glycoL 3350 17 GM POWD.PACK PO (09:06)
[2019-12-28] MEDS: SODIUM CHLORIDE 0.9% FLUSH 10 ML IV (09:06)
[2019-12-28 09:11] LABS: Alanine Aminotransferase 20 IU/L (<35); Albumin 2.9 g/dL (3.5-5.0); Albumin Globulin Ratio 0.9 (1.0-2.8); Alkaline Phosphatase 115 U/L (38-126); Aspartate Aminotransferase 33 IU/L (14-36); BUN Creatinine Ratio 26.9 (6-22); Bilirubin Total 1.1 mg/dL (0.2-1.3); Blood Urea Nitrogen 43 mg/dL (7-17); Carbon Dioxide 31 mmol/L (22-32); Chloride 102 mmol/L (98-107); Estimated Glomerular Filt Rate 30.7 mL/min (>60); Globulin 3.3 g/dL (1.7-4.1); Glucose 142 mg/dL (80-110); HEMOLYSIS < 15 (0-50); Magnesium 1.6 mg/dL (1.6-2.3); Sodium 137 mmol/L (137-145); Total Protein 6.2 g/dL (6.3-8.2)
[2019-12-28] MEDS: ASPIRIN EC 81 MG TABLET PO (09:17)
[2019-12-28] MEDS: APIXABAN 5 MG TABLET 2.5 MG PO (09:21)
[2019-12-28] MEDS: METHYLPHENIDATE 5 MG TABLET PO ×2 (09:21→13:06)
[2019-12-28] MEDS: MAGNESIUM CHLORIDE 64 MG TABLET 128 MG PO (09:26)
[2019-12-28 09:34] LABS: Neutrophils Absolute Manual 4485 /uL (3000-5900); Total Cells Counted 100
[2019-12-28 09:35] LABS: Platelet Estimate Decreased on smear
[2019-12-28 09:36] LABS: Anisocytosis 1+; Hypochromasia 1+; Macrocytosis 1+
[2019-12-28] MEDS: BISACODYL 10 MG SUPP PR (10:55)
--- NOTE | 2019-12-28 11:07 | PC.NURSE ---
Addendum entered by Amelia Fox R.N. 12/28/19 14:51: Transfer to SNF: IV dc'd intact. Tele dc'd. Patient used bedpan and was able to move her bowels a bit more prior to leaving. Transferred into wheelchair via br[facility]nee. Packet given to transport staff. Belongings sent with patient/daughter at discharge. Report called to Kary at [facility]. Taken out by transport staff via wheelchair with daughter accompanying. Addendum entered by Amelia Fox R.N. 12/28/19 13:14: Had a small hard BM post admin of suppository, states it feels like things might be getting going a bit now. Medicated with second dose of Ritalin per MD order. Instructed patient to alert nursing staff with any new onset s/sx should they occur and she agreed. Call light and belongings within reach, bed alarm on. Original Note: Shift summary: Awake and alert, oriented X3. Still reports feeling generally weak, but is beginning to feel a bit stronger. Able to assist with turning and repositioning in bed. Denies pain or discomfort. Lungs CTA. HRR, tele monitoring ongoing. Tolerated first dose of Ritalin without s/sx adverse reaction or increase in heart rate. Choi patent to gravity. Tolerating PO without s/sx aspiration this morning, following IT OPERATIONS MANAGER precautions as posted. Patient's daughter at bedside and attentive- aware that plan is for patient to transfer to [facility] this afternoon. Calls appropriately with needs. Light and belongings within reach, bed alarm on.
--- NOTE | 2019-12-28 14:27 | CM.DPNOTE ---
Addendum entered by DOMINGO Goodwin 12/28/19 14:42: w/c p/u scheduled for 1445 this afternoon Original Note: DC Note DC order in place and Ter[facility] and patient/dtr aware and agreeable to this plan: P: DC today to [facility] via w/c van Faxed completed and signed med list, PASRR and Rx for Ritalin to [facility]. Patient has been started on Ritalin and Sertraline for depression, this was noted in the PASRR and Dr Cummings signed for Hospital exempt upon DC. DOMINGO Goodwin
== END 2019-12-28 14:53 | DRG 641 ==
LOC: ED 17:17 → AC 20:29
PROVIDERS: Emergency Medicine; Internal Medicine; Admitting Provider Nurse Practitioner Family; Emergency Provider Student in an Organized Health Care Education/Training Program; PCP Internal Medicine; Visit Provider Nurse Practitioner Family
DX: R62.7 Adult failure to thrive (principal); N17.9 Acute kidney failure, unspecified; I48.92 Unspecified atrial flutter; E87.1 Hypo-osmolality and hyponatremia; I13.0 Hypertensive heart and chronic kidney disease with heart failure and stage 1 through stage 4 chronic kidney disease, or unspecified chronic kidney disease; I50.32 Chronic diastolic (congestive) heart failure; Z68.41 Body mass index [BMI] 40.0-44.9, adult; D63.1 Anemia in chronic kidney disease; I48.0 Paroxysmal atrial fibrillation; R60.1 Generalized edema; N18.3 Chronic kidney disease, stage 3 (moderate); E66.01 Morbid (severe) obesity due to excess calories; E16.2 Hypoglycemia, unspecified; F32.9 Major depressive disorder, single episode, unspecified; E03.9 Hypothyroidism, unspecified; I69.391 Dysphagia following cerebral infarction; R13.10 Dysphagia, unspecified; R53.1 Weakness; Z66 Do not resuscitate; Z87.891 Personal history of nicotine dependence; Z03.818 Encounter for observation for suspected exposure to other biological agents ruled out
CPT/HCPCS: 36415; 36430; 51701; 70450; 70548; 70553; 71045; 76536; 80048; 80053; 80305; 80320; 81001; 82550; 82962; 83036; 83540; 83550; 83605; 83735; 83880; 84100; 84146; 84443; 84480; 84484; 85025; 85610; 85730; 86850; 86900; 86901; 87040; 87635; 92526; 92610; 93005; 93306; 94760; 97129; 97130; 97162; 97166; 97530; 97535; 99232; 99285; G0378; P9016; J0834; J1644; J1940

== ENCOUNTER → 2019-12-30 14:56 | Outpatient (ROUT) | payer BC, SELFPAY ==
[2019-12-23 20:35] VITALS: BMI 47.9
[2019-12-30 15:21] LABS: Appearance Urine UA SL CLOUDY; Bilirubin Urine UA NEGATIVE (NEGATIVE); Color Urine UA YELLOW; Glucose Urine UA NEGATIVE (Negative); Ketones Urine UA TRACE (NEGATIVE); Leukocyte Esterase Urine UA 1+ (NEGATIVE); Nitrite Urine UA NEGATIVE (Negative); Occult Blood Urine UA 3+ (Negative); Protein Urine UA TRACE (Negative)
[2019-12-30 15:29] LABS: Amorphous Sediment Urine 1+; Bacteria Urine Many (>30); RBC Urine 30-100/HPF (0-5/HPF); Squamous Epithelial Cell Urine 0-1 /HPF (0-5/HPF); WBC Urine 10-30/HPF (0-5/HPF)
== END ==
PROVIDERS: PCP Internal Medicine; Visit Provider Nurse Practitioner
DX: N39.0 Urinary tract infection, site not specified (principal)
CPT/HCPCS: 81001; 87077; 87086; 87147

== ENCOUNTER 2020-01-04 13:41 | Observation (INO) | payer BC, SELFPAY ==
[2019-12-23 20:35] VITALS: BMI 47.9
[2020-01-04] VITALS (9 sets, daily range): BP systolic 117–145; BP diastolic 57–76; PULSE 56–86; RESP 14–25; TEMP 34.9–35.7; O2SAT 78–100; BMI 46.0
--- NOTE | 2020-01-04 13:46 | ED.AMS ---
HPI - Altered Mental Status General Chief Complaint: Altered Mental Status Stated Complaint: Decreases LOC Time Seen by Provider: 01/04/20 13:43 History of Present Illness HPI narrative: 84-year-old woman with recent hospital admission for group B strep sepsis admitted to [facility] approximately a week ago. Had been up today with physical therapy and they noted that she was having some difficulty maintaining saturations. By a 1:00 a.m. this afternoon nursing staff noted oxygen saturations in the mid 60s on room air with altered mental status and 911 was called. When they arrived she was up in the mid 90s on 4 L and she was transported to the emergency room on arrival in the emergency room initial saturations dropped as low as the mid 70s with transfer from the [facility] to hospital bed and increased up to the upper 90s on 4 L of oxygen. She is moaning in pain but unable to give any additional history. She currently has a single-lumen PICC line in the right upper arm and has been receiving daily ceftriaxone for a group B strep UTI.. Additional medical history is significant for paroxysmal atrial fibrillation anticoagulated on Eliquis, congestive heart failure, iron deficiency anemia, stage 3 kidney disease, hypothyroidism, hyperlipidemia and her POLST form indicates limited additional intervention with no intubation or mechanical ventilation. Additional history indicates stroke on September 26 with admission, overall declining and presumed aspiration since returning home, admitted to [facility] December 22 and discharged back to [facility] on December 27. Related Data Home Medications Medication Instructions Recorded Confirmed Disabled Parking Permit See Protocol MISCELLANEOUS 09/09/18 12/23/19 DIRECTED acetaminophen 500 mg tablet 500 mg PO ONCE PRN tab 10/19/18 12/23/19 terbinafine HCl [Lamisil AT] 1 applic TOPICAL BID 12/23/19 12/23/19 Previous Rx's Medication Instructions Recorded atorvastatin 40 mg tablet 40 mg PO DAILY #90 tab 05/22/19 apixaban [Eliquis] 2.5 mg PO BID #30 tab 12/28/19 aspirin 81 mg PO DAILY #30 tab 12/28/19 bisacodyl 10 mg [place] DAILY PRN #10 each 12/28/19 docusate sodium [DOK] 100 mg PO BID #60 cap 12/28/19 levothyroxine 88 mcg PO 0600 #30 tab 12/28/19 methylphenidate HCl 5 mg PO 0700,1100 #60 tab 12/28/19 nystatin [Nystop] 1 applic TOPICAL TID PRN #30 gram 12/28/19 polyethylene glycol 3350 17 gm PO DAILY #30 ea 12/28/19 sertraline 25 mg PO BEDTIME #30 tab 12/28/19 Allergies Allergy/AdvReac Type Severity Reaction Status Date / Time Sulfa (Sulfonamide Allergy Unknown Verified 12/17/19 14:25 Antibiotics) [SULFA (SULFONAMIDE ANTIBIOTICS)] amlodipine [AMLODIPINE] AdvReac Intermediate edema legs Verified 12/17/19 14:25 naproxen [NAPROXEN] AdvReac Mild DIZZINESS Verified 12/17/19 14:25 Barbiturates [BARBITURATES] AdvReac Unknown Verified 12/17/19 14:25 ergot alkaloids AdvReac Unknown Verified 12/17/19 14:25 [ERGOT ALKALOIDS] Review of Systems Review of Systems ROS Unobtainable: Unobtainable due to medical condition Patient History Medical History Acute intermittent porphyria (Acute) Arthralgia (Chronic 04/17/15) Arthritis (Acute) Chronic renal failure, stage 3 (moderate) (Chronic) Essential hypertension (Chronic 04/17/15) History of CVA with residual deficit (Chronic) Mixed hyperlipidemia (Chronic) Morbid obesity due to excess calories (Chronic 06/29/15) Surgical History History of appendectomy (Acute) History of total left knee replacement (Acute) Social History household members: children Smoking Status: Former smoker alcohol intake: never Smoking Status: Former smoker alcohol intake frequency: 0-2 drinks per day Substance Use Type: does not use Exam Initial Vital Signs Initial Vital Signs: Vital Signs Temperature 95.0 F L 01/04/20 13:52 Pulse Rate 60 01/04/20 13:52 Respiratory Rate 14 01/04/20 13:52 Blood Pressure 142/70 H 01/04/20 13:52 Pulse Oximetry 78 L 01/04/20 13:52 Course Orders Ordered: ED Orders 01/04/20 13:44 EKG-12 Lead Routine 01/04/20 13:49 XR chest 1V Stat 01/04/20 14:08 Complete Blood Count AUTO DIFF Stat Comprehensive Metabolic Panel Stat Lactate (Lactic Acid) Stat Procalcitonin Stat Urinalysis and Microscopic Stat 01/04/20 14:28 Arterial Blood Gas Stat 01/04/20 14:43 Blood Culture Stat Vital Signs Vital signs: Vital Signs - 8 hr 01/04/20 13:52 01/04/20 14:13 01/04/20 14:40 Temperature 95.0 F L Pulse Rate 60 68 66 Respiratory Rate 14 17 25 H Blood Pressure 142/70 H 124/57 L 145/65 H Pulse Oximetry 78 L 100 98 MDM - Altered Mental Status Medical Records Attestation: I reviewed the patient's medical records. Lab Data Attestation: I reviewed the patient's lab results. Lab results narrative: covid negative on December 22 and December 26/2020 Anemia is unchanged and chronic ABG suggests acute hypercarbic respiratory failure Result diagrams: 01/04/20 14:08 01/04/20 14:08 Labs: Lab Results 01/04/20 01/04/20 01/04/20 Range/Units 14:08 14:08 14:08 WBC 8.8 (4.5-11.0) X10^3/uL RBC 2.27 L (4.0-5.2) X10^6/uL Hgb 7.6 L (12.0-16.0) g/dL Hct 22.3 L (36-46) % MCV 98.2 D (80-100) fL MCH 33.4 (26-34) PG MCHC 34.0 (30-36) % RDW 15.9 H (11.6-14.8) % Plt Count 236 (150-400) X10^3/uL Neut % (Auto) 84.8 H (50-75) % Lymph % (Auto) 7.4 L (25-40) % [place] % (Auto) 5.1 (3-14) % Eos % (Auto) 2.1 (2-4) % Baso % (Auto) 0.6 (0-2) % Neut # (Auto) 7500 H (3025-7401) /uL Lymph # (Auto) 700 L (8527-3802) /uL [place] # (Auto) 500 (0-900) /uL Eos # (Auto) 200 (0-450) /uL Baso # (Auto) 100 (0-100) /uL ABG pH (7.35-7.45) ABG pCO2 (35-45) mmHg ABG pO2 (80-100) mmHg ABG HCO3 (22-26) mmol/L ABG Total CO2 (21-31) mmol/L ABG O2 Saturation (95-100) % ABG Base Excess (-2-2) mmol/L FiO2 Sodium 142 (137-145) mmol/L Potassium 4.1 (3.4-5.1) mmol/L Chloride 106 (98-107) mmol/L Carbon Dioxide 33 H (22-32) mmol/L BUN 52 H (7-17) mg/dL Creatinine 1.27 H (0.52-1.04) mg/dL Estimated GFR 40.1 L (>60) mL/min BUN/Creatinine Ratio 40.9 H (6-22) Glucose 101 (80-110) mg/dL Lactate (0.7-2.1) mmol/L Calcium 10.6 H (8.4-10.2) mg/dL Total Bilirubin 1.4 H (0.2-1.3) mg/dL AST 38 H (14-36) IU/L ALT 20 (<35) IU/L Alkaline Phosphatase 123 (38-126) U/L Total Protein 6.5 (6.3-8.2) g/dL Albumin 3.0 L (3.5-5.0) g/dL Globulin 3.5 (1.7-4.1) g/dL Albumin/Globulin Ratio 0.9 L (1.0-2.8) Procalcitonin 0.12 (<0.5) ng/mL Urine Color Urine Appearance Urine pH (4.5-8.0) Ur Specific [place] (1.000-1.035) Urine Protein (Negative) Urine Glucose (UA) (Negative) g/dL Urine Ketones (NEGATIVE) Urine Occult Blood (Negative) Urine Nitrate (Negative) Urine Bilirubin (NEGATIVE) Urine Urobilinogen (0.2) E.U./dL Ur Leukocyte Esterase (NEGATIVE) Urine RBC (0-5/HPF) Urine WBC (0-5/HPF) Ur Squamous Epith Cells (0-5/HPF) Amorphous Sediment Urine Bacteria (None) Ur Culture Indicated? 01/04/20 01/04/20 01/04/20 Range/Units 14:08 14:08 14:28 WBC (4.5-11.0) X10^3/uL RBC (4.0-5.2) X10^6/uL Hgb (12.0-16.0) g/dL Hct (36-46) % MCV (80-100) fL MCH (26-34) PG MCHC (30-36) % RDW (11.6-14.8) % Plt Count (150-400) X10^3/uL Neut % (Auto) (50-75) % Lymph % (Auto) (25-40) % [place] % (Auto) (3-14) % Eos % (Auto) (2-4) % Baso % (Auto) (0-2) % Neut # (Auto) (8887-6799) /uL Lymph # (Auto) (3632-5197) /uL [place] # (Auto) (0-900) /uL Eos # (Auto) (0-450) /uL Baso # (Auto) (0-100) /uL ABG pH 7.26 L* (7.35-7.45) ABG pCO2 71.3 H* (35-45) mmHg ABG pO2 123 H (80-100) mmHg ABG HCO3 32 H (22-26) mmol/L ABG Total CO2 34 H (21-31) mmol/L ABG O2 Saturation 98 (95-100) % ABG Base Excess 5.0 H (-2-2) mmol/L FiO2 32 Sodium (137-145) mmol/L Potassium (3.4-5.1) mmol/L Chloride (98-107) mmol/L Carbon Dioxide (22-32) mmol/L BUN (7-17) mg/dL Creatinine (0.52-1.04) mg/dL Estimated GFR (>60) mL/min BUN/Creatinine Ratio (6-22) Glucose (80-110) mg/dL Lactate 0.7 (0.7-2.1) mmol/L Calcium (8.4-10.2) mg/dL Total Bilirubin (0.2-1.3) mg/dL AST (14-36) IU/L ALT (<35) IU/L Alkaline Phosphatase (38-126) U/L Total Protein (6.3-8.2) g/dL Albumin (3.5-5.0) g/dL Globulin (1.7-4.1) g/dL Albumin/Globulin Ratio (1.0-2.8) Procalcitonin (<0.5) ng/mL Urine Color Yellow Urine Appearance Clear Urine pH 5.0 (4.5-8.0) Ur Specific [place] 1.020 (1.000-1.035) Urine Protein Negative (Negative) Urine Glucose (UA) Negative (Negative) g/dL Urine Ketones Negative (NEGATIVE) Urine Occult Blood Negative (Negative) Urine Nitrate Negative (Negative) Urine Bilirubin Negative (NEGATIVE) Urine Urobilinogen 0.2 (0.2) E.U./dL Ur Leukocyte Esterase Negative (NEGATIVE) Urine RBC None seen (0-5/HPF) Urine WBC 0-1/hpf (0-5/HPF) Ur Squamous Epith Cells 0-1 /hpf (0-5/HPF) Amorphous Sediment 1+ Urine Bacteria Occasional (0-1) D (None) Ur Culture Indicated? Cult not indicated ABG Data ABG results: PH of 7.23, CO2 of 71, O2 123 Interpretation: Respiratory acidosis with hypercarbic respiratory failure Imaging Data Chest x-ray: Radiologist's Impression: IMPRESSION: Findings most likely represent severe congestive heart failure. However, cannot exclude viral pneumonitis. Dictated by: Juancho Bob M.D. on 01/04/2020 at 14:03 ECG Data Attestation: I personally reviewed and interpreted this ECG as follows: Interpretation: Sinus rhythm at 69 First-degree block Nonspecific ST T wave changes No acute ischemic changes MDM Narrative Medical decision making narrative: 84-year-old woman who has been steadily declining since August of this year after a fall with a periprosthetic fracture and subsequent surgery, multiple assisted stays, continue progressive decline and increasing weakness with increasing reluctance to participate in any care. Increasing difficulties with aspiration and most recently UTI currently on IV antibiotics and getting progressively weaker and now with acute hypercarbic respiratory distress. POLST form indicates she would not want any mechanical ventilation and she is not alert enough for BiPAP at this time. Oxygenation is not a current issue and may actually be exacerbating the hypercarbia. High-flow O2 will not be helpful. Discussion with her daughter regarding goals of care at this point. Her daughter states that she and her mother have discussed this and her mother clearly is declining and would absolutely choose comfort over any other treatment. At this time, will refocus our care to comfort. Will use morphine as needed to help with pain. It is unclear where she is hurting but she is moaning with any type of movement. Shallow respiratory effort and anticipate that her CO2 will continue to rise. The daughter will be calling her brother and asking him to come up from the [facility]. Overall picture is progressive decline with failure to thrive over the last 4 months with hypercarbic respiratory failure likely multifactorial including congestive heart failure possible viral syndrome (covid neg , th and institutionalized since d/c 12/27) with chronic anemia and it appears that her group B strep UTI has been effectively treated. Will admit for comfort measures at this time. 335pm Reviewed [address] Dr Cummings, will admit inpatient, respiratory failure, elevated carbon dioxide, congestive heart failure, palliative care and comfort measures only. Discharge Plan Departure Patient Disposition: Admitted As Inpatient Referrals: Pramod Garber MD [Primary Care Provider] - Admit Date/Time: 01/04/20 15:36 Admit Provider: Marzena Cummings
--- NOTE | 2020-01-04 13:49 | DI.RAD.S_ITS ---
PROCEDURE: XR CHEST 1V INDICATIONS: dyspnea TECHNIQUE: One view of the chest was acquired. COMPARISON: Chest one view dated 12/23/19, chest one view dated 01/14/17 FINDINGS: Surgical changes and devices: None. Lungs and pleura: Extensive bilateral interstitial and alveolar infiltrates. No pleural effusions or pneumothorax. Mediastinum: Mediastinal contours appear normal. Cardiomegaly, as before Bones and chest wall: No suspicious bony lesions. Overlying soft tissues appear unremarkable. IMPRESSION: Findings most likely represent severe congestive heart failure. However, cannot exclude viral pneumonitis. Dictated by: Juancho Bob M.D. on 01/04/2020 at 14:03 Approved by: Juancho Bob M.D. on 01/04/2020 at 14:05
[2020-01-04 14:22] LABS: Add Manual Diff / Slide Review NO; Basophils Absolute Auto 100 /uL (0-100); Basophils Percent Auto 0.6 % (0-2); Eosinophils Absolute Auto 200 /uL (0-450); Eosinophils Percent Auto 2.1 % (2-4); Hematocrit 22.3 % (36-46); Hemoglobin 7.6 g/dL (12.0-16.0); Lymphocytes Absolute Auto 700 /uL (1100-4500); Lymphocytes Percent Auto 7.4 % (25-40); Mean Corpuscular Hemoglobin 33.4 PG (26-34); Mean Corpuscular Volume 98.2 fL (80-100); Monocytes Absolute Auto 500 /uL (0-900); Monocytes Percent Auto 5.1 % (3-14); Neutrophils Absolute Auto 7500 /uL (1500-7000); Neutrophils Percent Auto 84.8 % (50-75); Platelet Count 236 X10^3/uL (150-400); Red Blood Cell Count 2.27 X10^6/uL (4.0-5.2); Red Cell Distribution Width 15.9 % (11.6-14.8); White Blood Cell Count 8.8 X10^3/uL (4.5-11.0)
[2020-01-04 14:31] LABS: Alanine Aminotransferase 20 IU/L (<35); Albumin Globulin Ratio 0.9 (1.0-2.8); Alkaline Phosphatase 123 U/L (38-126); Aspartate Aminotransferase 38 IU/L (14-36); BUN Creatinine Ratio 40.9 (6-22); Bilirubin Total 1.4 mg/dL (0.2-1.3); Blood Urea Nitrogen 52 mg/dL (7-17); Calcium 10.6 mg/dL (8.4-10.2); Carbon Dioxide 33 mmol/L (22-32); Chloride 106 mmol/L (98-107); Estimated Glomerular Filt Rate 40.1 mL/min (>60); Globulin 3.5 g/dL (1.7-4.1); Glucose 101 mg/dL (80-110); HEMOLYSIS < 15 (0-50); Potassium 4.1 mmol/L (3.4-5.1); Sodium 142 mmol/L (137-145); Total Protein 6.5 g/dL (6.3-8.2)
[2020-01-04 14:32] LABS: Lactate (Lactic Acid) 0.7 mmol/L (0.7-2.1)
[2020-01-04 14:44] LABS: pH ABG 7.26 (7.35-7.45)
[2020-01-04 14:45] LABS: HCO3 ABG 32 mmol/L (22-26); Oxygen Saturation ABG 98 % (95-100); PCO2 ABG 71.3 mmHg (35-45); PO2 ABG 123 mmHg (80-100); TCO2 ABG 34 mmol/L (21-31)
[2020-01-04 14:46] LABS: Fractionated Inspired Oxygen 32
[2020-01-04 14:49] LABS: Procalcitonin 0.12 ng/mL (<0.5)
[2020-01-04 14:51] LABS: RBC Urine None Seen (0-5/HPF)
[2020-01-04 14:54] LABS: Appearance Urine UA CLEAR; Bilirubin Urine UA NEGATIVE (NEGATIVE); Color Urine UA YELLOW; Glucose Urine UA NEGATIVE (Negative); Ketones Urine UA NEGATIVE (NEGATIVE); Leukocyte Esterase Urine UA NEGATIVE (NEGATIVE); Nitrite Urine UA NEGATIVE (Negative); Occult Blood Urine UA NEGATIVE (Negative); Protein Urine UA NEGATIVE (Negative); Urobilinogen Urine UA 0.2 E.U./dL (0.2)
[2020-01-04 15:16] LABS: Squamous Epithelial Cell Urine 0-1 /HPF (0-5/HPF); WBC Urine 0-1/HPF (0-5/HPF)
[2020-01-04 15:17] LABS: Amorphous Sediment Urine 1+; Bacteria Urine Occasional (0-1); Culture Indicated Urine Cult Not Indicated
--- NOTE | 2020-01-04 19:53 | P.HP_ITS ---
History of Present Illness History of Present Illness Date Patient Seen: 01/04/20 Time Patient Seen: 19:55 Chief complaint: Decreases LOC Narrative: From today's ED note: Nanci Jones is an 84-year-old woman with recent hospital admission for group B strep sepsis admitted to [facility] approximately a week ago. Had been up today with physical therapy and they noted that she was having some difficulty maintaining saturations. By a 1:00 a.m. this afternoon nursing staff noted oxygen saturations in the mid 60s on room air with altered mental status and 911 was called. When they arrived she was up in the mid 90s on 4 L and she was transported to the emergency room on arrival in the emergency room initial saturations dropped as low as the mid 70s with transfer from the knee to hospital bed and increased up to the upper 90s on 4 L of oxygen. She is moaning in pain but unable to give any additional history. She currently has a single-l umen PICC line in the right upper arm and has been receiving daily ceftriaxone for a group B strep UTI.. Additional medical history is significant for paroxysmal atrial fibrillation anticoagulated on Eliquis, congestive heart failure, iron deficiency anemia, stage 3 kidney disease, hypothyroidism, hyperlipidemia and her POLST form indicates limited additional intervention with no intubation or mechanical ventilation. Additional history indicates stroke on September 26 with admission, overall decl ining and presumed aspiration since returning home, admitted to [facility] December 22 and discharged back to [facility] on December 27. After additional discussions with the daughter, the patient had been discharged on a combination of sertraline and Ritalin for depression. She states that the Ritalin apparently made her mother ?crazy? and was taken off of the Ritalin. She did not feel that the sertraline had taken effect as yet. She states at this point that she feels that her goals for her mother are for comfort. She stated that her mother never wanted to be hooked up to machines or tubes to prolong her life. After discussion with both Shira and Shira's brother they decided not to place her on BiPAP. The daughter seem to feel that the patient was continuing to decline and would never be is improved to her baseline after each hospitalization and intermediate stay and at this point felt that she would likely not ever be able to return home. Patient History Medical History Acute intermittent porphyria (Acute) Arthralgia (Chronic 04/17/15) Arthritis (Acute) Chronic renal failure, stage 3 (moderate) (Chronic) Essential hypertension (Chronic 04/17/15) History of CVA with residual deficit (Chronic) Mixed hyperlipidemia (Chronic) Morbid obesity due to excess calories (Chronic 06/29/15) Surgical History History of appendectomy (Acute) History of total left knee replacement (Acute) Family & Social History Family History Daughter Hypothyroidism (acquired) Asthma Daughter Hypothyroidism (acquired) Hypertension Mother Breast cancer Pancreatic cancer Father CVA (cerebral vascular accident) Pneumonia Other Paroxysmal atrial fibrillation Social History: household members children Tobacco & Substance use: Tobacco type cigarettes Smoking Status Former smoker alcohol intake never alcohol intake frequency 0-2 drinks per day Substance Use Type does not use Meds Home Medications and Allergies Home Medications Medication Instructions Recorded Confirmed Type Disabled Parking Permit See Protocol MISCELLANEOUS 09/09/18 01/04/20 History DIRECTED acetaminophen 500 mg tablet 500 mg PO ONCE PRN tab 10/19/18 01/04/20 History atorvastatin 40 mg tablet 40 mg PO DAILY #90 tab 05/22/19 01/04/20 Rx terbinafine HCl [Lamisil AT] 1 applic TOPICAL BID 12/23/19 01/04/20 History apixaban [Eliquis] 2.5 mg PO BID #30 tab 12/28/19 01/04/20 Rx aspirin 81 mg PO DAILY #30 tab 12/28/19 01/04/20 Rx bisacodyl 10 mg [place] DAILY PRN #10 each 12/28/19 01/04/20 Rx docusate sodium [DOK] 100 mg PO BID #60 cap 12/28/19 01/04/20 Rx levothyroxine 88 mcg PO 0600 #30 tab 12/28/19 01/04/20 Rx methylphenidate HCl 5 mg PO 0700,1100 #60 tab 12/28/19 01/04/20 Rx nystatin [Nystop] 1 applic TOPICAL TID PRN #30 gram 12/28/19 01/04/20 Rx polyethylene glycol 3350 17 gm PO DAILY #30 ea 12/28/19 01/04/20 Rx sertraline 25 mg PO BEDTIME #30 tab 12/28/19 01/04/20 Rx Allergies Allergy/AdvReac Type Severity Reaction Status Date / Time Sulfa (Sulfonamide Allergy Unknown Verified 12/17/19 14:25 Antibiotics) [SULFA (SULFONAMIDE ANTIBIOTICS)] amlodipine [AMLODIPINE] AdvReac Intermediate edema legs Verified 12/17/19 14:25 naproxen [NAPROXEN] AdvReac Mild DIZZINESS Verified 12/17/19 14:25 Barbiturates [BARBITURATES] AdvReac Unknown Verified 12/17/19 14:25 ergot alkaloids AdvReac Unknown Verified 12/17/19 14:25 [ERGOT ALKALOIDS] Review of Systems Review of Systems ROS: Yes unobtainable due to mental status (Obtunded) Exam Vital Signs (past 8 hours): - 01/04/20 13:52 01/04/20 14:13 01/04/20 14:40 Temperature 95.0 F L Pulse Rate 60 68 66 Respiratory Rate 14 17 25 H Blood Pressure 142/70 H 124/57 L 145/65 H Pulse Oximetry 78 L 100 98 01/04/20 15:15 01/04/20 15:40 01/04/20 16:15 Temperature 96.2 F L Pulse Rate 68 69 Respiratory Rate 16 19 Blood Pressure 123/60 127/60 Pulse Oximetry 96 96 95 01/04/20 17:08 Temperature 94.9 F L Pulse Rate 66 Respiratory Rate 20 Blood Pressure 134/66 Pulse Oximetry 99 Oxygen Delivery Method Nasal Cannula Oxygen Flow Rate 4 Narrative Exam Narrative: Gen: Obtunded appearing 84 y.o. female, sleeping HEENT: normocephalic, atraumatic, oral mucosa pale and dry Neck: no JVD, trachea is midline Resp: bilateral lung crackles, oxygenating 96% on 4 liters NC O2 CV: irregularly irregular, no murmur or rubs Abd: soft, non-tender Skin: no lesions or rashes, dry and intact Neuro: GCS 4 Objective Labs Result Diagrams: 01/04/20 14:08 01/04/20 14:08 Labs: Laboratory Results - last 24 hr 01/04/20 01/04/20 01/04/20 14:08 14:08 14:08 WBC 8.8 RBC 2.27 L Hgb 7.6 L Hct 22.3 L MCV 98.2 D MCH 33.4 MCHC 34.0 RDW 15.9 H Plt Count 236 Neut % (Auto) 84.8 H Lymph % (Auto) 7.4 L [place] % (Auto) 5.1 Eos % (Auto) 2.1 Baso % (Auto) 0.6 Neut # (Auto) 7500 H Lymph # (Auto) 700 L [place] # (Auto) 500 Eos # (Auto) 200 Baso # (Auto) 100 ABG pH ABG pCO2 ABG pO2 ABG HCO3 ABG Total CO2 ABG O2 Saturation ABG Base Excess FiO2 Sodium 142 Potassium 4.1 Chloride 106 Carbon Dioxide 33 H BUN 52 H Creatinine 1.27 H Estimated GFR 40.1 L BUN/Creatinine Ratio 40.9 H Glucose 101 Lactate Calcium 10.6 H Total Bilirubin 1.4 H AST 38 H ALT 20 Alkaline Phosphatase 123 Total Protein 6.5 Albumin 3.0 L Globulin 3.5 Albumin/Globulin Ratio 0.9 L Procalcitonin 0.12 Urine Color Urine Appearance Urine pH Ur Specific [place] Urine Protein Urine Glucose (UA) Urine Ketones Urine Occult Blood Urine Nitrate Urine Bilirubin Urine Urobilinogen Ur Leukocyte Esterase Urine RBC Urine WBC Ur Squamous Epith Cells Amorphous Sediment Urine Bacteria Ur Culture Indicated? 01/04/20 01/04/20 01/04/20 14:08 14:08 14:28 WBC RBC Hgb Hct MCV MCH MCHC RDW Plt Count Neut % (Auto) Lymph % (Auto) [place] % (Auto) Eos % (Auto) Baso % (Auto) Neut # (Auto) Lymph # (Auto) [place] # (Auto) Eos # (Auto) Baso # (Auto) ABG pH 7.26 L* ABG pCO2 71.3 H* ABG pO2 123 H ABG HCO3 32 H ABG Total CO2 34 H ABG O2 Saturation 98 ABG Base Excess 5.0 H FiO2 32 Sodium Potassium Chloride Carbon Dioxide BUN Creatinine Estimated GFR BUN/Creatinine Ratio Glucose Lactate 0.7 Calcium Total Bilirubin AST ALT Alkaline Phosphatase Total Protein Albumin Globulin Albumin/Globulin Ratio Procalcitonin Urine Color Yellow Urine Appearance Clear Urine pH 5.0 Ur Specific [place] 1.020 Urine Protein Negative Urine Glucose (UA) Negative Urine Ketones Negative Urine Occult Blood Negative Urine Nitrate Negative Urine Bilirubin Negative Urine Urobilinogen 0.2 Ur Leukocyte Esterase Negative Urine RBC None seen Urine WBC 0-1/hpf Ur Squamous Epith Cells 0-1 /hpf Amorphous Sediment 1+ Urine Bacteria Occasional (0-1) D Ur Culture Indicated? Cult not indicated Assessment & Plan Assessment & Plan narrative: Nanci Jones will be admitted for comfort measures only. Extensive discussions with daughter Shira were held and she does not believe her mother juan diego strong want BiPap and was preferring to reduce her mother's work of breathing with morphine. Consults: none Patient is inpatient status as [] stay is likely to exceed 2 midnights. FEN: NS, 21 ml/hour KVO PICC, diet as tolerated, VTE prophylaxis: not indicated Dispo: likely to in-house Code Status: DNR/DNI as discussed with S surrogate COVID-19 COVID-19 status: Negative Result date/Date tested (Pos, Neg/Pending): 12/28/19 Scores GCS [place] coma scale eye opening: To pressure [place] coma scale verbal response: None Abdi coma scale motor response: None [place] coma scale total score: 4
[2020-01-04] MEDS: SODIUM CHLORIDE 0.9% 500 ML 21 ML IV (20:59)
[2020-01-04] MEDS: MORPHINE 2 MG/ML INJ IV (21:04)
[2020-01-05] VITALS: O2SAT 98
[2020-01-05 00:40] VITALS: PULSE 60; RESP 14; TEMP 36.1; O2SAT 98
--- NOTE | 2020-01-05 06:19 | PC.NURSE ---
At time of assessment patient is responsive to painful stimulus, does not open eyes to command or spontaneously. Widespread bruising to body, trunk anterior/posterior, arms and legs. Hx of falls with previous admission a week ago, still current. Edema to BL upper extremities, non-pitting and puffy. Edema to BL lower extremeties, 1-2+. On 2L O2 by NC to saturate WNL, lung sounds diminished throughout. Choi to gravity. Q2 turns for comfort. Daily vitals completed on evening shift, no vitals done on NOC shift. Bed alarm on for patient safety, high fall risk d/t unresponsiveness and hx of falls. At 0600 turn patient spontaneously opened her eyes to movement, but could not give meaningful response to inquiry of pain or make her own needs known. Had a small smear of stool at anus.
[2020-01-05 09:52] VITALS: O2SAT 90
--- NOTE | 2020-01-05 12:56 | PM.DS.1 ---
History of Present Illness History of Present Illness Date Patient Seen: 01/05/20 Chief complaint: Decreases LOC Narrative: Written by Cleo DENNIS: Nanci Jones is an 84-year-old woman with recent hospital admission for group B strep sepsis admitted to [facility] approximately a week ago. Had been up today with physical therapy and they noted that she was having some difficulty maintaining saturations. By a 1:00 a.m. this afternoon nursing staff noted oxygen saturations in the mid 60s on room air with altered mental status and 911 was called. When they arrived she was up in the mid 90s on 4 L and she was transported to the emergency room on arrival in the emergency room initial saturations dropped as low as the mid 70s with transfer from the knee to hospital bed and increased up to the upper 90s on 4 L of oxygen. She is moaning in pain but unable to give any additional history. She currently has a single-lumen PICC line in the right upper arm and has been receiving daily ceftriaxone for a group B strep UTI.. Additional medical history is significant for paroxysmal atrial fibrillation anticoagulated on Eliquis, congestive heart failure, iron deficiency anemia, stage 3 kidney disease, hypothyroidism, hyperlipidemia and her POLST form indicates limited additional intervention with no intubation or mechanical ventilation. Additional history indicates stroke on September 26 with admission, overall declining and presumed aspiration since returning home, admitted to [facility] December 22 and discharged back to [facility] on December 27. After additional discussions with the daughter, the patient had been discharged on a combination of sertraline and Ritalin for depression. She states that the Ritalin apparently made her mother ?crazy? and was taken off of the Ritalin. She did not feel that the sertraline had taken effect as yet. She states at this point that she feels that her goals for her mother are for comfort. She stated that her mother never wanted to be hooked up to machines or tubes to prolong her life. After discussion with both Shira and Shira's brother they decided not to place her on BiPAP. The daughter seem to feel that the patient was continuing to decline and would never be is improved to her baseline after each hospitalization and halfway stay and at this point felt that she would likely not ever be able to return home. Discharge Providers Provider Date of admission: 01/04/20 15:36 Discharge Date: 01/05/20 Primary care physician: Pramod Garber MD Discharge provider: Marzena Cummings DO Summary Hospital Course Discharge Diagnosis: 1. Palliative care. 2. Probable acute cerebrovascular versus cardiovascular event, present on admission. Active. 3. Acute hypoxemic and hypercarbic respiratory failure, present on admission. Active. 4. Acute diastolic CHF exacerbation, present on admission. Active. 5. Possible acute on chronic aspiration, secondary to dysphagia, present on admission. Active. 6. Anemia of chronic kidney disease, present on admission. Stable. 7. Chronic kidney disease stage 3, present on admission. Stable. 8. Hypothyroidism, present on admission. Stable. 9. Hypertension, present on admission. Stable. 10. Hyperlipidemia and ASCVD, present on admission. Stable. 11. Morbid obesity, present on admission. Stable. Hospital Course: 1. Palliative care. -Patient was found unresponsive and acutely hypoxemic at long-term facility with oxygen saturations in the 60s. Upon presentation to the ED she was found to have a respiratory acidosis with CO2 71. The patient clearly outlined goals of care during previous hospitalization and was DNR/DNI with limited interventions. ED provider and the patient's daughter and surrogate decision maker Janett discussed plan of care and the decision was made not to pursue further medical intervention such as CT or MRI imaging, further laboratory investigation, BiPAP, IV diuresis, etc. and implement palliative care. -Patient likely had cerebrovascular versus cardiovascular events such as CVA or MO. -Continued as needed comfort care medications including: Morphine for pain or air hunger, lorazepam for anxiety or agitation, ondansetron for nausea, scopolamine and atropine for excessive secretions and acetaminophen for fever. 2. Probable acute cerebrovascular versus cardiovascular event, present on admission. Active. 3. Acute hypoxemic and hypercarbic respiratory failure, present on admission. Active. 4. Acute diastolic CHF exacerbation, present on admission. Active. 5. Possible acute on chronic aspiration, secondary to dysphagia, present on admission. Active. 6. Anemia of chronic kidney disease, present on admission. Stable. 7. Chronic kidney disease stage 3, present on admission. Stable. 8. Hypothyroidism, present on admission. Stable. 9. Hypertension, present on admission. Stable. 10. Hyperlipidemia and ASCVD, present on admission. Stable. 11. Morbid obesity, present on admission. Stable. Exam Vital Signs (past 8 hours): - 01/05/20 09:52 Pulse Oximetry 90 L Oxygen Delivery Method Nasal Cannula Oxygen Flow Rate 1 Narrative Exam Narrative: General: Elderly female lying in bed, comatose and unresponsive HEENT: Normocephalic, atraumatic. External ears without defect. Pupils equal, round, and reactive to light. Neck: Supple with full range of motion. No jugular venous distension. No bruits. No lymphadenopathy or thyromegaly. Cardiovascular: Regular rate and rhythm without murmurs, rubs, or gallops appreciated Pulmonary: Diminished throughout anterior lung villalpando with upper airway rhonchi. Variable breathing pattern and intermittent Thad-Valenzuela breathing. Abdomen: Soft, obese, nondistended. Skin: Normal temperature, turgor, and texture; no rash, ulcers, or subcutaneous nodules appreciated. Neurological: Comatose and unresponsive Objective Labs Result Diagrams: 01/04/20 14:08 01/04/20 14:08 Labs: Laboratory Results - last 24 hr 01/04/20 01/04/20 01/04/20 14:08 14:08 14:08 WBC 8.8 RBC 2.27 L Hgb 7.6 L Hct 22.3 L MCV 98.2 D MCH 33.4 MCHC 34.0 RDW 15.9 H Plt Count 236 Neut % (Auto) 84.8 H Lymph % (Auto) 7.4 L [place] % (Auto) 5.1 Eos % (Auto) 2.1 Baso % (Auto) 0.6 Neut # (Auto) 7500 H Lymph # (Auto) 700 L [place] # (Auto) 500 Eos # (Auto) 200 Baso # (Auto) 100 ABG pH ABG pCO2 ABG pO2 ABG HCO3 ABG Total CO2 ABG O2 Saturation ABG Base Excess FiO2 Sodium 142 Potassium 4.1 Chloride 106 Carbon Dioxide 33 H BUN 52 H Creatinine 1.27 H Estimated GFR 40.1 L BUN/Creatinine Ratio 40.9 H Glucose 101 Lactate Calcium 10.6 H Total Bilirubin 1.4 H AST 38 H ALT 20 Alkaline Phosphatase 123 Total Protein 6.5 Albumin 3.0 L Globulin 3.5 Albumin/Globulin Ratio 0.9 L Procalcitonin 0.12 Urine Color Urine Appearance Urine pH Ur Specific Philip Urine Protein Urine Glucose (UA) Urine Ketones Urine Occult Blood Urine Nitrate Urine Bilirubin Urine Urobilinogen Ur Leukocyte Esterase Urine RBC Urine WBC Ur Squamous Epith Cells Amorphous Sediment Urine Bacteria Ur Culture Indicated? 01/04/20 01/04/20 01/04/20 14:08 14:08 14:28 WBC RBC Hgb Hct MCV MCH MCHC RDW Plt Count Neut % (Auto) Lymph % (Auto) [place] % (Auto) Eos % (Auto) Baso % (Auto) Neut # (Auto) Lymph # (Auto) [place] # (Auto) Eos # (Auto) Baso # (Auto) ABG pH 7.26 L* ABG pCO2 71.3 H* ABG pO2 123 H ABG HCO3 32 H ABG Total CO2 34 H ABG O2 Saturation 98 ABG Base Excess 5.0 H FiO2 32 Sodium Potassium Chloride Carbon Dioxide BUN Creatinine Estimated GFR BUN/Creatinine Ratio Glucose Lactate 0.7 Calcium Total Bilirubin AST ALT Alkaline Phosphatase Total Protein Albumin Globulin Albumin/Globulin Ratio Procalcitonin Urine Color Yellow Urine Appearance Clear Urine pH 5.0 Ur Specific Philip 1.020 Urine Protein Negative Urine Glucose (UA) Negative Urine Ketones Negative Urine Occult Blood Negative Urine Nitrate Negative Urine Bilirubin Negative Urine Urobilinogen 0.2 Ur Leukocyte Esterase Negative Urine RBC None seen Urine WBC 0-1/hpf Ur Squamous Epith Cells 0-1 /hpf Amorphous Sediment 1+ Urine Bacteria Occasional (0-1) D Ur Culture Indicated? Cult not indicated Discharge Plan Discharge Plan Patient Disposition: SNF Transfer to: [facility] Under care of provider: culinary directorrailroad construction director: Ambulance I certify the postop hospital long-term care is medically necessary on a continuing basis for any conditions for which he/ she received care during this hospitalization.: Yes The receiving facility has agreed to accept transfer and provide medical treatment.: Yes Discharge orders & Medications Prescriptions: New acetaminophen 650 mg Suppository 650 mg IN Q4HR PRN (Reason: Fever/Mild Pain (1-3)) Qty: 15 RF: 0 atropine 1 % Drops 2 drop PO Q2HR PRN (Reason: Secretions) Qty: 15 RF: 0 lorazepam 2 mg/mL concentrate 1 mg PO Q2HR Qty: 30 RF: 0 morphine 10 mg/5 mL solution 5 mg PO Q4H PRN (Reason: pain or air hunger) Qty: 100 RF: 0 polyvinyl alcohol [Artificial Tears (polyvin alc)] 1.4 % Drops 1 drop EYE-BOTH Q2HR PRN (Reason: Dry Eye(S)) Qty: 15 RF: 0 scopolamine base [Transderm-Scop] 1 mg over 3 days Patch 3 Day 1 patch topical Q72H PRN (Reason: Secretions) Qty: 5 RF: 0 ondansetron 4 mg Tablet,Disintegrating 4 mg PO Q4HR PRN (Reason: Nausea And Vomiting) Qty: 10 RF: 0 Continued bisacodyl 10 mg Suppository 10 mg IN DAILY PRN (Reason: Constipation) Qty: 10 RF: 0 Discontinued atorvastatin 40 mg tablet 40 mg PO DAILY Qty: 90 RF: 3 acetaminophen [Tylenol Extra Strength] 500 mg tablet 500 mg PO ONCE PRN (Reason: Pain, Mild) RF: 0 terbinafine HCl [Lamisil AT] 1 % Cream 1 applic TOPICAL BID RF: 0 levothyroxine 88 mcg Tablet 88 mcg PO 0600 Qty: 30 RF: 0 docusate sodium [DOK] 100 mg Capsule 100 mg PO BID Qty: 60 RF: 0 nystatin [Nystop] 100,000 unit/gram Powder 1 applic topical TID PRN (Reason: Rash) Qty: 30 RF: 0 polyethylene glycol 3350 17 gram Powder In Packet 17 gm PO DAILY Qty: 30 RF: 0 aspirin 81 mg Tablet,Delayed Release (Dr/Ec) 81 mg PO DAILY Qty: 30 RF: 0 sertraline 25 mg Tablet 25 mg PO BEDTIME Qty: 30 RF: 0 Eliquis 5 mg Tablet 2.5 mg PO BID Qty: 30 RF: 0 methylphenidate HCl 5 mg Tablet 5 mg PO 0700,1100 Qty: 60 RF: 0 Disabled Parking Permit package See Protocol each miscellaneous DIRECTED RF: 0 Follow up/Referrals: Pramod Garber MD [Primary Care Provider] - Diet/Activity/Treatments Diet: Nothing by Mouth Activity: strict bedrest Catheter: 2-way Choi Oxygen: as needed for comfort Discharge Data Primary Care Provider: Pramod Garber Attending Provider: Marzena Cummings Admit Date/Time: 01/04/20 15:36 Discharges patient from system. Discharge Date/Time: 01/05/20 15:10 Quality VTE Deep Vein Thrombosis/Pulmonary Embolism Present on Admission: No
[2020-01-05 13:38] VITALS: BP 119/55; PULSE 73; RESP 22; O2SAT 96
[2020-01-05 14:26] LABS: COVID19 -Nasal RAPID Negative (Negative)
--- NOTE | 2020-01-05 14:48 | PC.NURSE ---
Day shift note: Patient sleeping between care, responds to voice and light touch. FlACC scale 0. Received on O2 at 2L via NC< O2 sat 96%. Repositioning Q2 hours, oral, bed bath, and pericare performed, and comfort care provided. FC to gravity, 75 ml this shift. Daughter Bonita at bedside providing supportive care. Report given to [facility] at [facility], transport [facility] ETA at 1500.
--- NOTE | 2020-01-05 15:22 | CM.DANOTE ---
DCP/continued: JAYY Pastor provided with direct number to call nrsg report. No additional needs identified. COVID rapid test completed per [facility]'s request. ROBIN Discharge Planning/Care Management CM Discharge Assessment Start: 01/05/20 15:04 Freq: Status: Active Protocol: Document 01/05/20 15:04 ROELSeymour (Rec: 01/05/20 15:19 ROELSeymour [id number]) Discharge Planning Assessment Assigned Air Dispatcher DOMINGO Mccollum Contact Information Shira Jones (daughter) [phone] Advance Directives? Yes History Provided By Patient,Family Member,Medical Record Has Patient been admitted in last 30 Yes days? Comment Patient admitted from [facility] with respiratory distress. Prior Living Arrangements Skilled Nurse Facility Household Members children Type of transporation used prior to Relies on Others admit Facility Name Admitted From: [facility] Willing to Return to Facility? Yes Independent with ADL's No Is patient alert and oriented? No Needs Assistance With Bathing,Eating,Grooming,Meal Prep,Toileting,Managing Medications Caregiver for Another No Patient/Family Preference Intermediate Facility Barriers to Discharge No Comment Patient returning to [facility] today under palliative/ comfort measures. Discharge Plan Intermediate Facility [facility] Oxygen Therapy Transportation Arrangement BLS patient unable to sit up for transport due to respiratory failure. Currently requiaring 02 for comfort, patient unable to self regulate. Referrals Initiated Intermediate Additional Comment Daughter requesting comfort measures only. If patient plan is SNF: Has PASSR been No completed? Comment Patient returning to same facility ([facility]) SNF/HH Preference [facility] Contact Name/ Has Agency SNF been contacted Yes Whiteboard Updated in Patient Room with Yes name and ext. # of Air Dispatcher Comment Patient is a 84yr old female admitted to [facility] in [facility] distress. Patient admitted from [facility], where she was undergoing rehabilitation. Met with patient and daughter, explained THREAD CLIPPER role. Daughter confirms to THREAD CLIPPER that family does not want anything more than comfort measures provided to patient. THREAD CLIPPER placed call to December at [facility] and she reports that they can accept back today. Shani aware that family would like patient to pass peacefully. December confirms. Spoke with provider/Dr. Cummings she is in agreement with plan. She also met with daughter this AM. Patient unable to communicate her needs at this time. Resting comfortably on 2 liters 02. Faxed orders, and completed BLS form for non-urgent transport. Patient sheduled to be picked up at approximately 3:00pm. [facility] confirms that daughter can visit. P: [facility] today via BLS transport. Family requesting comfort measures only. Do not anticipate that patient will be returning to [facility] Review Status In Process Next Review Type Continued Stay Review Document 01/05/20 15:22 [facility] (Rec: 01/05/20 15:22 [facility] [id number]) Discharge Planning Assessment Assigned Air Dispatcher DOMINGO Mccollum Contact Information Shira Jones (daughter) Advance Directives? Yes History Provided By Patient,Family Member,Medical Record Has Patient been admitted in last 30 Yes days? Comment Patient admitted from [facility] with respiratory distress. Prior Living Arrangements Skilled Nurse Facility Household Members children Type of transporation used prior to Relies on Others admit Facility Name Admitted From: [facility] Willing to Return to Facility? Yes Independent with ADL's No Is patient alert and oriented? No Needs Assistance With Bathing,Eating,Grooming,Meal Prep,Toileting,Managing Medications Caregiver for Another No Patient/Family Preference Intermediate Facility Barriers to Discharge No Comment Patient returning to [facility] today under palliative/ comfort measures. Discharge Plan Intermediate Facility [facility] Oxygen Therapy Transportation Arrangement BLS patient unable to sit up for transport due to respiratory failure. Currently requiaring 02 for comfort, patient unable to self regulate. Referrals Initiated Intermediate Additional Comment Daughter requesting comfort measures only. If patient plan is SNF: Has PASSR been No completed? Comment Patient returning to same facility ([facility]) SNF/HH Preference [facility] Contact Name/ Has Agency SNF been contacted Yes Whiteboard Updated in Patient Room with Yes name and ext. # of Air Dispatcher Comment Patient is a 84yr old female admitted to [facility] in respiratory distress. Patient admitted from [facility], where she was undergoing rehabilitation. Met with patient and daughter, explained THREAD CLIPPER role. Daughter confirms to THREAD CLIPPER that family does not want anything more than comfort measures provided to patient. THREAD CLIPPER placed call to December at [facility] and she reports that they can accept back today. Shani aware that family would like patient to pass peacefully. December confirms. Spoke with provider/Dr. Cummings she is in agreement with plan. She also met with daughter this AM. Patient unable to communicate her needs at this time. Resting comfortably on 2 liters 02. Faxed orders, and completed BLS form for non-urgent transport. Patient sheduled to be picked up at approximately 3:00pm. [facility] confirms that daughter can visit. P: [facility] today via BLS transport. Family requesting comfort measures only. Do not anticipate that patient will be returning to [facility] Review Status In Process Next Review Type Continued Stay Review
--- NOTE | 2020-01-08 16:20 | PC.NURSE ---
Late Entry: NS infusion initiated 01/03 at 20:59, infusion stopped and order complete at time of discharge, 01/04 at 15:10.
== END 2020-01-05 15:10 ==
LOC: ED 14:21 → AC 15:39
PROVIDERS: Admitting Provider Internal Medicine; Emergency Provider Emergency Medicine; PCP Internal Medicine; Referring Provider Emergency Medicine; Visit Provider Internal Medicine
DX: J96.01 Acute respiratory failure with hypoxia (principal); R41.82 Altered mental status, unspecified; J96.02 Acute respiratory failure with hypercapnia; Z79.01 Long term (current) use of anticoagulants; I48.0 Paroxysmal atrial fibrillation; I50.9 Heart failure, unspecified; D50.9 Iron deficiency anemia, unspecified; N18.3 Chronic kidney disease, stage 3 (moderate); E03.9 Hypothyroidism, unspecified; E78.5 Hyperlipidemia, unspecified; Z11.59 Encounter for screening for other viral diseases
CPT/HCPCS: 36415; 36600; 71045; 80053; 81001; 82805; 83605; 84145; 85025; 87040; 87635; 93005; 94760; 96361; 96374; 99284; 99285; G0378; J1642; J2270